=== PATIENT | male | born 1980 | race Caucasian/White ===

== ENCOUNTER → 2019-09-22 16:19 | Outpatient (CLI) | payer OTHER, SELFPAY ==
[2016-12-27 12:59] VITALS: BMI 30.3
--- NOTE | 2019-09-22 16:27 | RAD_ITS ---
HISTORY: back pain, no injury TECHNIQUE: Thoracic spine 2 views Number of images including paperwork: 3 COMPARISON: None FINDINGS: VERTEBRAE: No acute fracture. VERTEBRAL ALIGNMENT: No traumatic subluxation. DISKS AND JOINTS: Disc heights are largely preserved. Anterior osteophyte noted at T8-9. SOFT TISSUES: Unremarkable paraspinous soft tissues. RAD/Thoracic Spine 2 Views IMPRESSION: No acute osseous abnormality. at 0140 Reported and signed by: Yana Butcher MD Electronically Signed: Yana Butcher MD at 1:40 EST Tel , Service support ,
--- NOTE | 2019-09-22 16:30 | RAD_ITS ---
HISTORY: low back pain, no injury TECHNIQUE: Lumbar spine 2 views Number of images including paperwork: 2 COMPARISON: CT abdomen and pelvis 12/27/2016 FINDINGS: VERTEBRAE: No acute fracture. VERTEBRAL ALIGNMENT: No traumatic subluxation. DISKS AND JOINTS: No significant degenerative changes. SOFT TISSUES: Unremarkable paraspinous soft tissues. RAD/Lumbar Spine 2 or 3 Views IMPRESSION: No acute osseous abnormality. at 0138 Reported and signed by: Yana Butcher MD Electronically Signed: Yana Butcher MD at 1:38 EST Tel , Service support ,
== END ==
PROVIDERS: PCP Family Medicine; Referring Provider Anesthesiology Pain Medicine; Visit Provider Anesthesiology Pain Medicine
DX: M54.9 Dorsalgia, unspecified (principal)
CPT/HCPCS: 72070; 72100

== ENCOUNTER 2021-06-26 13:29 | Outpatient (CLI) | payer OTHER, SELFPAY ==
[2021-06-26] MEDS: 0.9% Saline Lock 10 ML Syringe IV (13:44)
[2021-06-26 13:48] VITALS: BP 121/82; PULSE 114; RESP 18; TEMP 36.7; O2SAT 97; BMI 27.2
[2021-06-26 14:29] VITALS: BP 113/82; PULSE 106; RESP 16; TEMP 36.9; O2SAT 96
[2021-06-26 15:21] VITALS: BP 143/90; PULSE 101; RESP 18; TEMP 36.9; O2SAT 99
== END 2021-06-26 15:29 | disposition home or self-care (01) ==
LOC: MS3OUT 13:31 → MS3 13:31
PROVIDERS: PCP Family Medicine; Referring Provider Nurse Practitioner Adult Health; Visit Provider Nurse Practitioner Adult Health
DX: Z23 Encounter for immunization (principal); U07.1 COVID-19
CPT/HCPCS: J7050; M0245; Q0245; A4216

== ENCOUNTER 2023-09-09 16:02 | Emergency (ER) | payer OTHER, SELFPAY ==
[2023-09-09 16:03] VITALS: BP 193/110; PULSE 113; RESP 20; TEMP 37.1; O2SAT 100; BMI 24.0
--- NOTE | 2023-09-09 17:10 | EDS_ITS ---
HPI History of Present Illness Chief Complaint: Abscess Informant: patient Onset/Context/Timing Onset: Days (5) Context: Gradual Onset Timing: Continuous Quality: Pressure Location: Anterior neck Worsened by: Nothing Relieved by: Nothing Narrative Narrative: Patient presents with abscess to his neck that has been getting progressively worse over the past 5 days. Patient states he has been using warm compresses and has been able to express some drainage from the area. 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 Patient states that his jewelry making instructor told him that it was too big for him to drain in the office and he would need to come to the emergency department for drainage. Patient denies any difficulty breathing or difficulty swallowing. Patient denies any fevers or chills. Patient states he did go to an urgent care a few days ago and was diagnosed with strep throat. Patient is currently on amoxicillin and a second antibiotic for the abscess and strep throat. [facility] Medical History (Updated 09/09/23 @ 18:[address] Enio Matute DO) Diabetes Home Medications ciprofloxacin HCl 250 mg tablet 250 mg PO BID 06/26/21 [History Last Taken Unknown] naproxen 500 mg tablet 500 mg PO BID 06/26/21 [History Last Taken Unknown] Allergy/AdvReac Type Severity Reaction Status Date / Time No Known Allergies Allergy Verified 09/09/23 16:04 Surgical History no surgical history no surgical history Social History Smoking Status: Never smoker ROS [facility] ED Constitutional Constitutional ED: Denies chills or fever(s) Eyes Eyes: Denies blurry vision or change in vision ENT ENT ED: Reports rhinorrhea and sore throat Cardiovascular Cardiovascular: Denies chest pain or palpitations Respiratory/Chest Respiratory/Chest: Reports cough; Denies dyspnea Gastrointestinal Gastrointestinal: Denies nausea or vomiting Genitourinary Genitourinary ED: Denies dysuria or hematuria Musculoskeletal Musculoskeletal: Reports back pain and neck pain Integumentary Reports abscess; Denies rash Neurologic Neurologic: Denies headache(s) or weakness Allergic/Immunologic Allergic/Immunologic ED: Denies mouth swelling or urticaria EXAM Physical Exam Const Vital Signs: 09/09/23 16:03 Temperature 98.8 F Temperature Source Temporal Pulse Rate 113 H Respiratory Rate 20 H Blood Pressure 193/110 H Blood Pressure Mean 137 Pulse Ox 100 Oxygen Delivery Method Room Air Positive well nourished and well developed General Appearance ED: well developed and NAD HEENT Reports moist mucous membranes HEENT Narrative: Oropharynx is clear. Airway is patent. Neck supple and no JVD Resp normal respiratory effort and clear to auscultation bilaterally Cardio regular rate and regular rhythm Neuro oriented x3, CN's II-XII intact bilaterally and no sensory deficits noted Sensorium / Orientation: alert Motor Exam: strength 5/5 throughout Psych mental status grossly normal Skin Skin Narrative: There is tenderness, induration, fluctuance, and erythema over the anterior neck to the right of midline. There is no active discharge or drainage noted. There is some mild warmth noted. MDM MDM MDM Narrative Medical decision making narrative: Informed consent was obtained for incision and drainage. Patient was given the opportunity ask questions. Patient had no further questions. The abscess area was anesthetized 1% plain lidocaine locally. A small linear incision was made using an 11 blade scalpel. There is a large amount of purulent drainage expressed. Loculations were broken up. The abscess was irrigated with copious amounts of normal saline. Iodoform packing was placed in the wound. Patient tolerated procedure well. Patient was instructed to keep the area clean. Patient was instructed to continue his antibiotics as prescribed until gone. Patient was instructed to follow-up with his primary care physician in 5 to 7 days. Patient understood and was agreeable with the plan. All questions were answered. Procedures Other Procedures Procedure(s): The area was cleaned with chlorhexidine prep. The area was anesthetized with 1% plain lidocaine locally. A small linear incision was made using an 11 blade scalpel. A large amount of purulent drainage was expressed. The wound was left open. Iodoform gauze was placed into the wound. Bacitracin dressing was applied. Patient tolerated the procedure well. Patient was instructed to continue to use warm compresses. Discharge Plan Triage Chief Complaint: Abscess ED Provider: Enio Matute Dx/Rx/DC Orders Clinical Impression: Diabetes, Abscess of skin of neck Instructions: ED Abscess Incision And Drainage Prescriptions: No Action ciprofloxacin HCl 250 mg Tablet 250 mg PO BID naproxen 500 mg Tablet 500 mg PO BID Primary Care Provider: Luc Olvera Referrals: Luc Olvera MD [Primary Care Provider] - 2 Days for wound check Disposition Disposition: Home, Self Care
[2023-09-09] MEDS: Lidocaine 1% (20 ml mdv) 20 ML Vial INFILT (17:25)
== END 2023-09-09 19:12 | disposition home or self-care (01) ==
PROVIDERS: Emergency Provider Emergency Medicine; PCP Family Medicine; Visit Provider Emergency Medicine
DX: L02.11 Cutaneous abscess of neck (principal); E11.9 Type 2 diabetes mellitus without complications
CPT/HCPCS: 10060; 99282

== ENCOUNTER → 2023-09-25 | Outpatient (CLI) | payer OTHER, SELFPAY ==
[2023-09-25 14:31] LABS: Absolute Lymphocyte Count 1.79 X10^3/uL (0.83-4.51); Basophil# 0.03 X10^3/uL; Basophil% 0.6 % (0-1); Eosinophil# 0.02 X10^3/uL; Eosinophils% 0.4 % (0-5); Hematocrit 40.9 % (40-54); Hemoglobin 13.6 g/dL (13.0-16.5); Lymphocyte # 1.79 X10^3/ul (0.83-4.51); Lymphocyte % 34.2 % (19-41); Mean Corp Hgb Conc 33.3 g/dL (32-36); Mean Corpuscular Hgb 31.3 pg (27.0-32.0); Mean Corpuscular Volume 94.2 fL (80-94); Mean Platelet Vol. 10.4 fl (6.2-12.0); Monocyte# 0.42 X10^3/uL; NRBC Flagged by Analyzer 0 % (0-5); Neutrophil # 2.95 X10^3/uL (2.7-7.7); Neutrophil % 56.4 % (47-70); Platelet Count 242 K/mm3 (150-450); RBC Distribution Width CV 12.3 % (11.6-14.6); RBC Distribution Width SD 42.4 fl (35.1-43.9); Red Blood Count 4.34 M/mm3 (4.6-6.2); White Blood Count 5.2 K/mm3 (4.4-11.0)
[2023-09-25 15:12] LABS: ALB/GLOB Ratio 0.9 RATIO (0.9-2.4); AST(SGOT) 7 U/L (15-37); Alanine Aminotransfer ALT/SGPT 17 U/L (16-61); Albumin, Serum 3.6 g/dL (3.2-5.0); Alkaline Phosphatase 81 U/L (45-117); Anion Gap 13 (5-15); BUN 12 mg/dL (7-18); BUN/Creat Ratio 18.1 RATIO (10-20); Calcium,Total 9.5 mg/dL (8.5-10.1); Chloride 102 mmol/L (98-107); Cholesterol 281 mg/dL (200); Creatinine, Serum 0.66 mg/dL (0.70-1.30); EST Glomerular Filtration Rate 138 mL/min (>60); Est Glom Filt Rate - Afr Amer 167 mL/min (>60); Globulin 4.1 g/dL (2.2-4.2); Glucose 256 mg/dL (74-106); High Density Lipoprotein 67 mg/dL; Potassium 4.2 mmol/L (3.5-5.1); Protein, Total 7.7 g/dL (6.4-8.2); Sodium Level 133 mmol/L (136-145); Thyroid Stim Hormone (TSH) 1.42 uIU/mL (0.358-3.74); Triglycerides 113 mg/dL; Very Low Density Lipoprotein 23 mg/dL (5-40)
[2023-09-25 15:34] LABS: Hemoglobin A1c 11.9 % (3.8-5.6)
== END | disposition home or self-care (01) ==
LOC: MFPLAB 13:32
PROVIDERS: PCP Family Medicine; Visit Provider Family Medicine
DX: I10 Essential (primary) hypertension (principal); E11.9 Type 2 diabetes mellitus without complications
CPT/HCPCS: 36415; 80053; 80061; 83036; 84443; 85025

== ENCOUNTER 2024-02-24 21:53 | Inpatient (IN) | payer OTHER, SELFPAY ==
[2024-02-24 21:54] VITALS: BP 149/107; PULSE 132; RESP 20; TEMP 36.6; O2SAT 99; BMI 24.2
--- NOTE | 2024-02-24 22:14 | EKG12_ITS ---
Test Reason : CP Blood Pressure : / mmHG Vent. Rate : 123 BPM Atrial Rate : 123 BPM P-R Int : 160 ms QRS Dur : 100 ms QT Int : 318 ms P-R-T Axes : 046 -36 054 degrees QTc Int : 455 ms Critical Test Result: STEMI Sinus tachycardia Left axis deviation Inferior infarct , possibly acute Anterolateral infarct , possibly acute ACUTE [place] / STEMI Abnormal ECG Confirmed by BALDO LOCKWOOD, SUSI ([id number]), editor dictionary GABRIEL BROWN ([id number]) on 02/25/2024 8:56:40 AM Referred By: Italo Souza Confirmed By:SUSI BLAND MD
--- NOTE | 2024-02-24 22:15 | EKG12_ITS ---
Test Reason : AM EKG Blood Pressure : / mmHG Vent. Rate : 086 BPM Atrial Rate : 086 BPM P-R Int : 156 ms QRS Dur : 094 ms QT Int : 348 ms P-R-T Axes : 044 -51 068 degrees QTc Int : 416 ms Critical Test Result: STEMI Normal sinus rhythm Left axis deviation Possible Lateral infarct , age undetermined Inferior-posterior infarct , possibly acute ACUTE [place] / STEMI Confirmed by BALDO LOCKWOOD, SUSI ([id number]), newspaper photo editor GABRIEL BROWN ([id number]) on 02/25/2024 1:26:20 PM Referred By: Italo Souza Confirmed By:SUSI BLAND MD
--- NOTE | 2024-02-24 22:16 | EDS_ITS ---
HPI History of Present Illness Chief Complaint: Chest Pain Detail of Chief Complaint: Chest pain Informant: patient Narrative Narrative: Patient presents to the emergency department complaint of chest pain that started around noon today. Patient states the pains been continuous. Denies any significant radiation other than to his armpit. He has had mild nausea. No vomiting. Patient is a type II diabetic and history of hypertension. There is significant family history heart disease. He himself is never had coronary artery disease or any type of intervention. He does not smoke. He denies recent travel or surgery. [facility] Medical History (Updated 02/24/24 @ 22:[address] Leonila Ram, DO) Diabetes Home Medications ?Medication ?Instructions ?Recorded ?Last Taken ?Type ciprofloxacin HCl 250 mg tablet 250 mg PO BID 06/26/21 Unknown History naproxen 500 mg tablet 500 mg PO BID 06/26/21 Unknown History lisinopril 5 mg tablet 5 mg PO DAILY 02/24/24 Unknown History metformin 1,000 mg tablet 1,000 mg PO BID 02/24/24 Unknown History metformin 500 mg tablet 500 mg PO BID 02/24/24 Unknown History semaglutide 0.25 mg or 0.5 mg (2 0.25 mg subcut QWEEK 02/24/24 02/22/24 History mg/3 mL) subcutaneous pen injector (Ozempic) Allergy/AdvReac Type Severity Reaction Status Date / Time No Known Allergies Allergy Verified 02/24/24 21:54 Social History Smoking Status: Never smoker ROS ROS ED Review of Systems ROS Unobtainable: other Constitutional Constitutional ED: Reports lethargy; Denies chills, fever(s), sweats or weight loss Eyes Eyes: Denies blurry vision, change in vision or diplopia ENT ENT ED: Denies rhinorrhea or sore throat Cardiovascular Cardiovascular: Reports chest pain; Denies orthopnea or racing heartbeat Respiratory/Chest Respiratory/Chest: Denies cough, dyspnea, dyspnea on exertion, orthopnea or sputum Gastrointestinal Gastrointestinal: Reports nausea; Denies abdominal pain, diarrhea or vomiting Genitourinary Genitourinary ED: Denies dysuria, hematuria or urinary frequency Musculoskeletal Musculoskeletal: Denies arthralgias, back pain, myalgias or neck pain Integumentary Denies abscess, Abrasions or rash Neurologic Neurologic: Denies headache(s) or weakness Psychiatric Psychiatric: Denies anxiety, depression or suicidal thoughts Endocrine Endocrinology: Denies polydipsia, polyphagia or polyuria Hematologic/Lymphatic Hematologic/Lymphatic: Denies easy bleeding, easy bruising or lymphadenopathy Allergic/Immunologic Allergic/Immunologic ED: Denies mouth swelling, tongue swelling or urticaria EXAM Physical Exam Const Vital Signs: 02/24/24 21:54 02/24/24 22:28 02/24/24 22:29 Temperature 97.8 F Temperature Source Temporal Pulse Rate 132 H 123 H 119 H Respiratory Rate 20 H 17 Blood Pressure 149/107 H 138/95 H Blood Pressure Mean 121 Pulse Ox 99 99 Oxygen Delivery Method Room Air Oxygen Flow Rate (L/min) 02/24/24 22:30 02/24/24 22:33 02/24/24 22:34 Temperature Temperature Source Pulse Rate 144 H 122 H Respiratory Rate 26 H 15 Blood Pressure 138/95 H 136/104 H Blood Pressure Mean 108 114 Pulse Ox 99 99 Oxygen Delivery Method Nasal Cannula Nasal Cannula Nasal Cannula Oxygen Flow Rate (L/min) 2 2 Positive well nourished and well developed General Appearance ED: well developed and NAD HEENT Reports TM's clear and moist mucous membranes normocephalic and atraumatic; Negative for trauma or tenderness Tympanic Membrane ED: Yes TM's clear Eyes PERRL and EOMs intact bilaterally General Eye ED: Negative for pale conjunctiva or scleral icterus Neck no lymphadenopathy, supple and no JVD General: Negative for tenderness Chest Wall inspection of chest normal and palpation of chest normal Chest: Negative for tenderness Resp normal respiratory effort and clear to auscultation bilaterally Effort and Inspection: Negative for respiratory distress or pain with movement Auscultation: Negative for rhonchi, wheezes or diminished lung sounds Cardio regular rate, regular rhythm, S1 normal heart sound, S2 normal heart sound and no murmurs Peripheral Pulses: pulses 2+ throughout GI normal to inspection, nondistended, normoactive bowel sounds, soft to palpation, non-tender, non-distended and no masses Back/Spine no CVA tenderness and no thoracic nor lumbar tenderness Extremity normal to inspection General Extremety ED: Negative for edema General Extremity: Negative for edema Neuro oriented x3, CN's II-XII intact bilaterally, no sensory deficits noted and gait normal Sensorium / Orientation: awake, alert, oriented to person, oriented to place and oriented to time Motor Exam: strength 5/5 throughout and strength abnormal Psych mental status grossly normal Skin no rashes or lesions noted and no wounds MDM MDM MDM Narrative Medical decision making narrative: Patient presents with chest pain since noon that is been continuous. EKG shows acute ST elevation ND. Discussed case with cardiology and will take patient to [facility]. Patient case discussed with hospitalist as well. CBC with differential, 7.9 with hemoglobin 14 and platelet count of 253. PT was 12.7 and INR 1.0. I did give patient aspirin as well as Brilinta and heparin. Patient will be taken to the [facility] Record Clerk. Cardiac enzymes pending. Patient was given morphine and had an inch Nitropaste placed to the anterior chest wall. Lab Data Labs: Laboratory Results - last 24 hr 02/24/24 22:15 WBC 7.9 RBC 4.43 L Hgb 14.3 Hct 41.2 MCV 93.0 MCH 32.3 H MCHC 34.7 RDW Std Deviation 39.7 RDW Coeff of Cassandra 11.6 Plt Count 253 MPV 9.5 Immature Gran % (Auto) 0.400 Neut % (Auto) 65.9 Lymph % (Auto) 23.0 Grand % (Auto) 9.5 Eos % (Auto) 0.8 Baso % (Auto) 0.4 Absolute Neuts (auto) 5.2 Absolute Lymphs (auto) 1.81 Nucleated RBC % 0 PT 12.7 INR 1.0 APTT 22.8 L EKG Initial EKG: Attestation: I personally reviewed and interpreted this EKG as follows: Comments: Sinus tachycardia with rate of [address] elevation ND inferiorly and anteriorly noted. Right-sided EKG obtained showed sinus rhythm with rate of 128 with no evidence for ST elevation in V4. I do not suspect an RV infarct. Critical Care Time Critical care time (excluding procedures): Including time spent:, Discussing w/Patient &/or Family/Biological Photographer, Discussing w/Consultants, Arranging Admission or Transfer, Performing Direct Patient Care at Bedside and - (15 minutes) Discharge Plan Triage Chief Complaint: Chest Pain ED Provider: Leonila Ram Dx/Rx/DC Orders Clinical Impression: ST elevation [place] (STEMI), Tachycardia, Hypertension Primary Care Provider: Luc Olvera Disposition Disposition: Acute Care Hospital [facility] [place]
--- NOTE | 2024-02-24 22:16 | ED.RN ---
called and notified of patient having a STEMI. She is on her way.
[2024-02-24] MEDS: Aspirin 81 MG TAB.CHEW 324 MG PO (22:18)
[2024-02-24] MEDS: TICAGRELOR 90 MG TABLET 180 MG PO (22:19)
[2024-02-24] MEDS: Heparin Injection (Vial) 5,000 UNIT/ML VIAL 4000 UNIT IV (22:20)
[2024-02-24 22:23] LABS: Absolute Lymphocyte Count 1.81 X10^3/uL (0.83-4.51); Absolute Neutrophil Count 5.2 X10^3/uL (2.0-7.7); Basophil# 0.03 X10^3/uL; Basophil% 0.4 % (0-1); Eosinophil# 0.06 X10^3/uL; Eosinophils% 0.8 % (0-5); Hematocrit 41.2 % (40-54); Hemoglobin 14.3 g/dL (13.0-16.5); Lymphocyte # 1.81 X10^3/ul (0.83-4.51); Mean Corp Hgb Conc 34.7 g/dL (32-36); Mean Corpuscular Hgb 32.3 pg (27.0-32.0); Mean Platelet Vol. 9.5 fl (6.2-12.0); Monocyte# 0.75 X10^3/uL; Monocyte% 9.5 % (0-10); NRBC Flagged by Analyzer 0 % (0-5); Neutrophil # 5.19 X10^3/uL (2.7-7.7); Neutrophil % 65.9 % (47-70); Platelet Count 253 K/mm3 (150-450); RBC Distribution Width CV 11.6 % (11.6-14.6); RBC Distribution Width SD 39.7 fl (35.1-43.9); Red Blood Count 4.43 M/mm3 (4.6-6.2); White Blood Count 7.9 K/mm3 (4.4-11.0)
[2024-02-24] MEDS: 0.9% Normal Saline (1000mL) 1,000 ML 150 ML IV (22:26)
[2024-02-24 22:28] VITALS: PULSE 123; RESP 17; O2SAT 99
[2024-02-24] MEDS: Morphine 4 MG/ML Syringe IV (22:28)
[2024-02-24 22:29] VITALS: BP 138/95; PULSE 119
[2024-02-24] MEDS: Nitroglycerin Oint 1 INCH PACKET TD (22:29)
[2024-02-24 22:30] VITALS: BP 138/95; PULSE 144; RESP 26; O2SAT 99
[2024-02-24] MEDS: Ondansetron 4 MG/2 ML Vial IV (22:30)
[2024-02-24 22:32] LABS: Prothrombin Time (Protime)PT. 12.7 SECONDS (11.7-14.9)
[2024-02-24 22:33] LABS: Partial Thromboplast Time 22.8 Seconds (24.1-36.2)
[2024-02-24 22:34] VITALS: BP 136/104; PULSE 122; RESP 15; O2SAT 99
[2024-02-24 22:39] VITALS: BP 139/114; PULSE 122; RESP 16; TEMP 36.6; O2SAT 98
[2024-02-24 23:06] LABS: Anion Gap 16 (5-15); BUN 11 mg/dL (7-18); BUN/Creat Ratio 12.7 RATIO (10-20); Calcium,Total 10.7 mg/dL (8.5-10.1); Chloride 95 mmol/L (98-107); Creatinine, Serum 0.86 mg/dL (0.70-1.30); EST Glomerular Filtration Rate 102 mL/min (>60); Est Glom Filt Rate - Afr Amer 123 mL/min (>60); Estimated Creatinine Clearance 116.74 ml/min; Glucose 314 mg/dL (74-106); Potassium 4.1 mmol/L (3.5-5.1); Sodium Level 132 mmol/L (136-145); Troponin-I HS 3242 pg/mL (3.0-78.0)
--- NOTE | 2024-02-24 23:49 | EKG12_ITS ---
Test Reason : CP Blood Pressure : / mmHG Vent. Rate : 128 BPM Atrial Rate : 128 BPM P-R Int : 158 ms QRS Dur : 080 ms QT Int : 274 ms P-R-T Axes : 040 -40 049 degrees QTc Int : 400 ms Critical Test Result: STEMI Sinus tachycardia Left axis deviation Low voltage QRS Inferior infarct , possibly acute Anterolateral infarct , age undetermined Right sided EKG Confirmed by BALDO LOCKWOOD, SUSI ([id number]), news video editor GABRIEL BROWN ([id number]) on 02/25/2024 8:57:35 AM Referred By: Italo Souza Confirmed By:SUSI BLAND MD
--- NOTE | 2024-02-24 23:49 | ECHOCS_ITS ---
Reason For Study: Chest Pain Procedure This was a 2D Doppler, Color Flow transthoracic echocardiogram. Contrast injection was performed. Exam performed portable in ICU/CCU. Left Ventricle Normal LV size. Mild concentric left ventricular hypertrophy. Severe segmental systolic dysfunction (see wall motion). Estimated LVEF 25 to 30%. Right Ventricle Normal RV size. Moderate global right ventricular systolic dysfunction. Atria The left and right atria are normal. Mitral Valve The mitral valve is structurally normal. No prolapse or stenosis seen. Tricuspid Valve Normal tricuspid valve. Aortic Valve Trisinus/trileaflet aortic valve. Pulmonic Valve The pulmonic valve is not well visualized. Great Vessels Mildly dilated aortic root. Pericardium/Pleural Trivial pericardial effusion. Medication Diluted definity 4ml given slow IV push to enhance endocardial definition. MMode/2D Measurements & Calculations LVIDd: 4.5 cm IVSd: 1.3 cm LVOT diam: 2.2 cm LVIDs: 3.9 cm LVPWd: 1.3 cm RVDd: 3.0 cm FS: 14.8 % LVOT area: 3.8 cm2 Ao root diam: 3.8 cm LAV(MOD-bp): 26.2 ml LVAd ap4: 34.1 cm2 LAV(MOD-bp) Indexed: 13.3 ml/m2 LVLd ap4: 8.5 cm LAV(MOD-sp2): 29.7 ml EDV(MOD-sp4): 112.0 ml LAV(MOD-sp4): 20.9 ml EDV(sp4-el): 116.2 ml LVAs ap4: 24.2 cm2 LVLs ap4: 7.4 cm ESV(MOD-sp4): 66.4 ml ESV(sp4-el): 67.0 ml EF(MOD-sp4): 40.7 % EF(sp4-el): 42.4 % SV(MOD-sp4): 45.6 ml SV(sp4-el): 49.3 ml LA A4 area: 10.6 cm2 RA A4 area: 7.2 cm2 TAPSE: 1.4 cm Time Measurements MV dec time: 0.19 sec Doppler Measurements & Calculations MV E max matthieu: 56.7 cm/sec Lat Peak E' Matthieu: 4.5 cm/sec Med Peak E' Matthieu: 4.2 cm/sec MV A max matthieu: 72.3 cm/sec E/E' lat: 12.7 E/E' med: 13.4 MV E/A: 0.78 MV dec slope: 300.4 cm/sec2 Ao V2 max: 93.4 cm/sec LV V1 max: 69.2 cm/sec Ao max P.5 mmHg LV V1 max P.9 mmHg Ao V2 mean: 76.8 cm/sec Ao mean P.5 mmHg Ao V2 VTI: 17.2 cm VÍCTOR(V,D): 2.9 cm2 PA V2 max: 54.7 cm/sec PA max PG (full): 0.10 mmHg ECHO/Echo Complete W/ Contrast Interpretation Summary There is a large sized apical, septal, inferior, posterior, and lateral wall mo tion abnormality with hypokinesis to akinesis of the segments. Mild concentric left ventricular hypertrophy. Estimated LVEF 25 to 30% Moderate global right ventricular systolic dysfunction. Mildly dilated aortic root. Trivial pericardial effusion. Ordering Physician: Italo Souza Referring Physician: Luc Olvera Performed By: Sobia Brown RVT, RDCS and Student
--- NOTE | 2024-02-24 23:57 | CON.PCM.CA_ITS ---
Assessment & Plan Assessment/Plan (1) ST elevation [place] (STEMI): PLAN: Emergent coronary angiography revealed totally occluded mid RCA. Successful percutaneous intervention was performed with balloon angioplasty, aspiration thrombectomy and placement of a drug-eluting stent with excellent results. GUADALUPE-3 flow was restored. Continue aspirin lifelong. Ticagrelor/clopidogrel treatment for at least 12 months. Start low-dose beta-blockers as tolerated. (2) Coronary artery disease: PLAN: See #1 above. Patient has severe disease in his left circumflex and proximal and mid LAD. For staged intervention, possibly as outpatient. (3) Hypertension: PLAN: Blood pressure borderline. Monitor. (4) Diabetes: PLAN: As per internal medicine. (5) Cardiomyopathy: PLAN: Severe LV systolic dysfunction secondary to #1 above. Infarct-related vessel superdominant RCA, supplying the LV apex and major part of the lateral wall. Check echocardiogram. Start low-dose beta-blockers. ACEI. Spironolactone. SGLT2 inhibitors. HPI Consult Data Date of Consult: 02/24/24 HPI Narrative Reason for Consultation: STEMI HPI Narrative: Gentleman with past medical history significant for diabetes mellitus and hypertension. Presented to the emergency room with complaints of anterior chest discomfort that started about 10 hours prior to presentation. Denies any radiation to the arms neck or jaw. No diaphoresis. Denies any associated shortness of breath. ECG done in the emergency room showed changes consistent with acute inferior lateral myocardial infarction. A STEMI alert was called. [facility] Medical History (Updated 02/25/24 @ 00:[address] Italo Souza MD) Diabetes Home Medications ?Medication ?Instructions ?Recorded ?Last Taken ?Type ciprofloxacin HCl 250 mg tablet 250 mg PO BID 06/26/21 Unknown History naproxen 500 mg tablet 500 mg PO BID 06/26/21 Unknown History lisinopril 5 mg tablet 5 mg PO DAILY 02/24/24 Unknown History metformin 1,000 mg tablet 1,000 mg PO BID 02/24/24 Unknown History metformin 500 mg tablet 500 mg PO BID 02/24/24 Unknown History semaglutide 0.25 mg or 0.5 mg (2 0.25 mg subcut QWEEK 02/24/24 02/22/24 History mg/3 mL) subcutaneous pen injector (Ozempic) Allergy/AdvReac Type Severity Reaction Status Date / Time No Known Allergies Allergy Verified 02/24/24 21:54 Social History Smoking Status: Never smoker Physical Exam Narrative Appears moderately distressed. Heart sounds 1 and 2 noted. Tachycardic. Chest clear to auscultation bilaterally. Alert oriented x 3. No ankle edema noted. Risk Stratification Risk Stratification Applicable: No Objective Data Vital Signs: Vital Signs Temp Pulse Resp BP Pulse Ox O2 Del Method O2 Flow Rate 97.9 F 122 H 16 139/114 H 98 Nasal Cannula 2 02/24/24 22:39 02/24/24 22:39 02/24/24 22:39 02/24/24 22:39 02/24/24 22:39 02/24/24 22:34 02/24/24 22:33 Oxygen Flow Rate (L/min) 2 Oxygen Delivery Method Nasal Cannula Weight: 173 lb 11.588 oz Body Mass Index (BMI) 24.2 Lab / Micro Data 02/24/24 22:15 02/24/24 22:15 Labs: Laboratory Results - last 24 hr 02/24/24 22:15: WBC 7.9, RBC 4.43 L, Hgb 14.3, Hct 41.2, MCV 93.0, MCH 32.3 H, MCHC 34.7, RDW Std Deviation 39.7, RDW Coeff of Cassandra 11.6, Plt Count 253, MPV 9.5, Immature Gran % (Auto) 0.400, Neut % (Auto) 65.9, Lymph % (Auto) 23.0, [place] % (Auto) 9.5, Eos % (Auto) 0.8, Baso % (Auto) 0.4, Absolute Neuts (auto) 5.2, Absolute Lymphs (auto) 1.81, Nucleated RBC % 0, PT 12.7, INR 1.0, APTT 22.8 L, S odium 132 L, Potassium 4.1, Chloride 95 L, Carbon Dioxide 21.0, Anion Gap 16 H, BUN 11, Creatinine 0.86, Estim Creat Clear Calc 116.74, Est GFR (MDRD) Af Amer 123, Est GFR (MDRD) Non-Af 102, BUN/Creatinine Ratio 12.7, Glucose 314 H, C alcium 10.7 H, Troponin I High Sens 3242 H* Cardiology Labs/Tests 02/24/24 22:15: WBC 7.9, RBC 4.43 L, Hgb 14.3, Hct 41.2, MCV 93.0, MCH 32.3 H, MCHC 34.7, Plt Count 253, MPV 9.5, Immature Gran % (Auto) 0.400, Neut % (Auto) 65.9, Lymph % (Auto) 23.0, [place] % (Auto) 9.5, Eos % (Auto) 0.8, Baso % (Auto) 0.4, Absolute Neuts (auto) 5.2, Nucleated RBC % 0, PT 12.7, INR 1.0, APTT 22.8 L , Sodium 132 L, Potassium 4.1, Chloride 95 L, Carbon Dioxide 21.0, Anion Gap 16 H, BUN 11, Creatinine 0.86, Est GFR (MDRD) Af Amer 123, Est GFR (MDRD) Non-Af 102, BUN/Creatinine Ratio 12.7, Glucose 314 H, Calcium 10.7 H Rhythm: EKG: ECHO: Stress Test: Cardiac Cath: PCI: CT Surgery: Holter monitor: EPS: PPM: CXR: Chest CT Scan:
[2024-02-25] VITALS (27 sets, daily range): BP systolic 92–128; BP diastolic 69–93; PULSE 85–111; RESP 15–27; TEMP 36.4–37.2; O2SAT 94–100; BMI 24.7
--- NOTE | 2024-02-25 00:13 | PCM.HP.STD ---
HPI - General General Date of Admission: 02/24/24 Date of Service: 02/25/24 Chief Complaint: Chest pain HPI Narrative LORETTA NUNEZ, is a 43 M who presented to [facility] ED on 02/24/2024 with chest pain. Found to have an inferior STEMI in the ED. STEMI alert was called and patient was taken emergently to the [facility]. Found to have an 100% mid RCA occlusion with drug-eluting stent x 1 placed with resolution of blood flow. Also found to have 70% proximal-mid and 80% mid-LAD lesions, and a 90% proximal LCX lesion. Estimated LVEF during cath was 35%. Patient was taken to the ICU post-cath in stable condition. I saw the patient at bedside shortly after coming from the [facility], multiple family members present. Patient was sitting up comfortably in bed, conversing normally, no acute distress. Was hemodynamically stable on room air. Patient denied any chest pain or shortness of breath currently. Stated he felt much better now than prior to the cath. Patient has history of type 2 diabetes and hypertension. On chart review, A1c in September was 11.9%. He is only on metformin and semaglutide. Patient does have a significant family history of heart disease but he had no history of heart issues prior to this admission. He does not smoke. No illicit drug use. Otherwise no acute concerns at this time. [facility] Medical History (Updated 02/25/24 @ 00:[address] Italo Souza MD) Diabetes Home Medications ?Medication ?Instructions ?Recorded ?Last Taken ?Type ciprofloxacin HCl 250 mg tablet 250 mg PO BID 06/26/21 Unknown History naproxen 500 mg tablet 500 mg PO BID 06/26/21 Unknown History lisinopril 5 mg tablet 5 mg PO DAILY 02/24/24 Unknown History metformin 1,000 mg tablet 1,000 mg PO BID 02/24/24 Unknown History metformin 500 mg tablet 500 mg PO BID 02/24/24 Unknown History semaglutide 0.25 mg or 0.5 mg (2 0.25 mg subcut QWEEK 02/24/24 02/22/24 History mg/3 mL) subcutaneous pen injector (Ozempic) Allergy/AdvReac Type Severity Reaction Status Date / Time No Known Allergies Allergy Verified 02/24/24 21:54 Social History Smoking Status: Never smoker ROS Constitutional Constitutional: Denies chills, fatigue, fever(s) or weakness Cardiovascular Cardiovascular: Denies chest pain, edema, palpitations or rapid heart rate Respiratory/Chest Respiratory/Chest: Denies cough, shortness of breath at rest or shortness of breath with exertion Gastrointestinal Gastrointestinal: Denies abdominal pain Vital Signs Vital Signs Vital Signs: 02/24/24 21:54 02/24/24 22:28 02/24/24 22:29 Temperature 97.8 F Temperature Source Temporal Pulse Rate 132 H 123 H 119 H Respiratory Rate 20 H 17 Blood Pressure 149/107 H 138/95 H Blood Pressure Mean 121 Pulse Ox 99 99 Oxygen Delivery Method Room Air Oxygen Flow Rate (L/min) 02/24/24 22:30 02/24/24 22:33 02/24/24 22:34 Temperature Temperature Source Pulse Rate 144 H 122 H Respiratory Rate 26 H 15 Blood Pressure 138/95 H 136/104 H Blood Pressure Mean 108 114 Pulse Ox 99 99 Oxygen Delivery Method Nasal Cannula Nasal Cannula Nasal Cannula Oxygen Flow Rate (L/min) 2 2 02/24/24 22:39 Temperature 97.9 F Temperature Source Pulse Rate 122 H Respiratory Rate 16 Blood Pressure 139/114 H Blood Pressure Mean 122 Pulse Ox 98 Oxygen Delivery Method Oxygen Flow Rate (L/min) Weight Weight: 78.8 kg Body Mass Index (BMI) 24.2 Physical Exam Const alert, oriented x3, no apparent distress, average body habitus, healthy appearing and well nourished Constitutional Narrative: Pleasant middle-age male, sitting up comfortably in bed, conversing normally, no acute distress. General Appearance: cooperative, comfortable, well kempt and well developed HEENT normocephalic, head/scalp atraumatic, hearing grossly normal bilaterally, nasal mucous membranes and turbinates normal and moist oral mucous membranes Eyes PERRL, EOMs intact bilaterally and conjunctivae normal Neck full ROM Chest inspection of chest normal Resp normal respiratory effort, normal air movement, no use of accessory muscles and clear to auscultation bilaterally Cardio no murmurs and peripheral pulses 2+ throughout Cardio Narrative: Tachycardic, regular rhythm. GI normal to inspection, nondistended, normoactive bowel sounds, soft to palpation, non-tender and non-distended Back/Spine normal ROM Extremity normal to inspection, full ROM and no pedal edema Skin no rashes or lesions noted Neuro moves all extremities and no focal motor deficits Speech: speech normal Psych mental status grossly normal Results Lab / Micro Data 02/24/24 22:15 02/24/24 22:15 Labs: Laboratory Results - last 24 hr 02/24/24 22:15: WBC 7.9, RBC 4.43 L, Hgb 14.3, Hct 41.2, MCV 93.0, MCH 32.3 H, MCHC 34.7, RDW Std Deviation 39.7, RDW Coeff of Cassandra 11.6, Plt Count 253, MPV 9.5, Immature Gran % (Auto) 0.400, Neut % (Auto) 65.9, Lymph % (Auto) 23.0, [place] % (Auto) 9.5, Eos % (Auto) 0.8, Baso % (Auto) 0.4, Absolute Neuts (auto) 5.2, Absolute Lymphs (auto) 1.81, Nucleated RBC % 0, PT 12.7, INR 1.0, APTT 22.8 L, Sodium 132 L, Potassium 4.1, Chloride 95 L, Carbon Dioxide 21.0, Anion Gap 16 H, BUN 11, Creatinine 0.86, Estim Creat Clear Calc 116.74, Est GFR (MDRD) Af Amer 123, Est GFR (MDRD) Non-Af 102, BUN/Creatinine Ratio 12.7, Glucose 314 H, Calcium 10.7 H, Troponin I High Sens 3242 H* Assessment & Plan Assessment/Plan (1) ST elevation [place] (STEMI): (2) Cardiomyopathy: (3) Diabetes: PLAN: Plan Patient is a 43-year-old male who presented [facility] ED on 02/24/2024 with chest pain. 1. Inferior STEMI, suspected new onset HFrEF, history of hypertension ? Admit under inpatient status to the ICU. Cardiology following. Presented with chest pain, found to have an inferior STEMI on EKG. Left heart cath showed 100% mid RCA occlusion s/p RHIANNON x 1 placed. Also found to have 70% proximal-mid and 80% mid-LAD lesions, and a 90% proximal LCX lesion. Estimated LVEF during cath was 35%. Echo ordered. Continuous cardiac monitoring. Lipid profile, A1c, TSH ordered. Per cardiology, started on GDMT with aspirin, Brilinta, atorvastatin, Coreg, lisinopril, spironolactone and empagliflozin. Planning for staged PCI of LAD and left circumflex, unclear on timing of this. Appreciate further cardiology recommendations. 2. Poorly controlled type 2 diabetes mellitus with hyperglycemia ? Home regimen of metformin 1000 mg twice daily, semaglutide 0.25 mg weekly. Last A1c 11.9% in September. Repeat A1c ordered. Blood glucose in 300s on admit. Will start Lantus 20 units at night and Humalog 7 units with meals plus sliding scale insulin. Adjust as needed. Discussed with patient and family that given his uncontrolled diabetes, he will likely need to start insulin therapy on discharge. DVT prophylaxis: Lovenox CODE STATUS: Full code, verified Expected disposition: Home, 2 to 3 days Total clinical time spent by myself addressing the patient's medical issues, reviewing all the data, and collaborating with patient's care team: 55 minutes. Charges/Coding Visit Charges Inpatient E&M: 92716 Init Hosp L2
--- NOTE | 2024-02-25 00:20 | CL.I_ITS ---
Patient Name: LORETTA NUNEZ Study Date: 02/24/2024 Performing: Italo Souza MD Ht: 71 inches 180.34 cm : 1980 Wt: 173.72 lbs 78.8 kg Age: 43 Gender: male BSA: 1.99 PROCEDURE(S) PERFORMED DC01-(96787)LHC/COR/LV IC16-(70660/[id number])AMI, RHIANNON OR PTCA, ARTERY/GRAFT, SINGLE VESSEL CLINICAL PROFILE AND CO-MORBIDITIES Heart Failure: None CAD Presentations: STEMI. Symptom onset Date/Time: 02/24/2024 12:00:00 Time Estimated CONCLUSIONS 100% Mid RCA 70% Prox Mid, 80% Mid LAD 90% Prox LCX LVEF 35% 3.5x22 mm, post-dilated using 3.75 mm balloon RECOMMENDATIONS ASA Indefinitley Brilinta for at least 12 months Staged PCI to LAD/LCX DESCRIPTION OF PROCEDURE The patient arrived to the procedure lab. The risks and benefits of the procedure as well as a full description of our services here and lack of surgical backup were fully explained to the patient and/or their significant other prior to the catheterization. The Timeout was completed, verifying the correct patient and procedure. The patient's procedural site was prepped and draped in the usual fashion. Local anesthetic was given subcutaneously to right radial region with Lidocaine 2%. Using a modified Seldinger technique, arterial access was obtained via the right radial artery, a 6Fr sheath was inserted.. Right Coronary Artery selective angiography was then performed in multiple views using a 5 Fr. 4.0 Manley catheter. Left Coronary Artery selective angiography was performed in multiple views using a 5 Fr. 4.0 Manley catheterThe images were reviewed and options discussed. A decision was then made to proceed with an Intervention, IVUS or other adjunct procedure. jr4 Guide catheter was inserted and engaged into the RCA. runthrough Guide wire was advanced to the RCA. emerge 2.5 x 15 Balloon catheter was advanced across lesion in the right coronary, proximal. PTCA balloon inflated at 14 atms for 7 secs. Angiogram performed post balloon dilatation. emerge 3.00 x 20 Balloon catheter was advanced across lesion in the right coronary, prox. PTCA balloon inflated at 10 atms for 6 secs. PTCA balloon inflated at 14 atms for 12 secs. maritza 3.5 x 22 Drug Eluting stent was advanced across the lesion in the right coronary, prox. Angiogram performed post stent deployment. nc emerge 3.75 x 20 Balloon catheter was inserted post stent. Angiogram performed post balloon dilatation. The arterial sheath was pulled and a TR Band was applied for hemostasis CORONARY ANGIOGRAPHY DOMINANCE: Right Dominant LEFT HEART ASSESSMENT Left Ventricular Ejection Fraction: by LV Gram 35 % LVEDP: 24 mmHg LEFT MAIN: No significant disease noted LEFT ANTERIOR DESCENDING ARTERY: LAD: Tubular 70% Proximal lesion in LAD Tubular 80% Mid lesion in LAD RIGHT CORONARY ARTERY: RCA: Tubular 30% Proximal lesion in RCA Complex Thrombus 100% Mid lesion in RCA INTERVENTION INFORMATION LESION SITE: RCA (Mid) Lesion Complexity: High/C, thrombus present: Yes, lesion length: 20 mm, culprit lesion: Yes Pre Stenosis: 100 % Pre intervention GUADALUPE flow: 0 PROCEDURE: Drug Eluting Stent with pre and post dilatation, Aspiration thrombectomy Post Stenosis: 0 % Post intervention GUADALUPE flow: 3 Lesion Devices: Matthew Sci EMERGE MR 2.50x15 BALLOON Terumo .014 180cm Runthrough Extra Floppy straight Penumbra Penumbra engine canister Penumbra Indigo Penumbra CAT Rx 140cm large lumen Matthew Sci EMERGE MR 3.00x20 BALLOON Cordis 6 Fr JR4 100cm Guide Catheter Matthew Sci NC EMERGE MR 3.75x20 BALLOON COMPLICATIONS No Complications PROCEDURE MEDICATIONS Fentanyl 25 mcg IV Oxygen: 2 L/min via nasal cannula Heparin 3000 unit(s) IV 02/24/2024 22:59:58 Heparin 2000 unit(s) IV 02/24/2024 23:00:24 Heparin 3000 unit(s) IV 02/24/2024 23:34:49 Metoprolol 10 mg 02/24/2024 22:59:54 Verapamil 2.5mg, Ntg 200mcgs, given IA 02/24/2024 23:00:03 SUMMARY OF HEMODYNAMIC DATA Time AIR REST ECG 22:50:10 AO 107/80 (92) SA 22:57:46 LV 98/17, 21 23:41:47 LV 95/17, 24 23:41:57 LVp 99/23, 31 23:44:18 AOp 96/74 (84) 23:44:25 Signed By Italo Souza MD On 02/25/2024 00:19:36 Italo Souza MD
[2024-02-25] MEDS: EPTIFIBATIDE 75 MG/100 ML VIAL 13 MG CONT INF (00:41)
[2024-02-25] MEDS: 0.9% Normal Saline (1000mL) 1,000 ML 75 ML IV (00:42)
[2024-02-25] MEDS: Atorvastatin Calcium 80 MG Tablet PO ×2 (00:42→20:53)
[2024-02-25] MEDS: Insulin Glargine-YFGN 100 UNIT/ML Pen 20 UNIT SC (00:47)
[2024-02-25 01:08] LABS: Bedside Glucose 292 mg/dL (74-106)
[2024-02-25] MEDS: 0.9% Saline Lock 10 ML Syringe IV (03:06)
[2024-02-25 03:18] LABS: Hematocrit 36.3 % (40-54); Hemoglobin 12.5 g/dL (13.0-16.5); Mean Corp Hgb Conc 34.4 g/dL (32-36); Mean Corpuscular Hgb 32.1 pg (27.0-32.0); Mean Corpuscular Volume 93.3 fL (80-94); Mean Platelet Vol. 9.4 fl (6.2-12.0); Platelet Count 216 K/mm3 (150-450); RBC Distribution Width CV 11.8 % (11.6-14.6); RBC Distribution Width SD 39.9 fl (35.1-43.9); Red Blood Count 3.89 M/mm3 (4.6-6.2); White Blood Count 5.6 K/mm3 (4.4-11.0)
[2024-02-25 03:42] LABS: Thyroid Stim Hormone (TSH) 1.37 uIU/mL (0.358-3.74)
[2024-02-25 03:44] LABS: ALB/GLOB Ratio 1.1 RATIO (0.9-2.4); AST(SGOT) 454 U/L (15-37); Alanine Aminotransfer ALT/SGPT 40 U/L (16-61); Albumin, Serum 3.3 g/dL (3.2-5.0); Alkaline Phosphatase 61 U/L (45-117); Anion Gap 13 (5-15); BUN 10 mg/dL (7-18); BUN/Creat Ratio 14.2 RATIO (10-20); Calcium,Total 9.5 mg/dL (8.5-10.1); Chloride 95 mmol/L (98-107); Cholesterol 165 mg/dL (200); EST Glomerular Filtration Rate 129 mL/min (>60); Est Glom Filt Rate - Afr Amer 156 mL/min (>60); Estimated Creatinine Clearance 139.05 ml/min; Globulin 3.1 g/dL (2.2-4.2); Glucose 334 mg/dL (74-106); High Density Lipoprotein 55 mg/dL; Potassium 4.3 mmol/L (3.5-5.1); Protein, Total 6.4 g/dL (6.4-8.2); Sodium Level 130 mmol/L (136-145); Triglycerides 217 mg/dL; Very Low Density Lipoprotein 43 mg/dL (5-40)
[2024-02-25 07:12] LABS: Hemoglobin A1c 9.7 % (3.8-5.6)
[2024-02-25] MEDS: Lisinopril 2.5 MG Tablet PO (07:52)
[2024-02-25] MEDS: Carvedilol 3.125 MG TABLET PO ×2 (07:52→16:18)
[2024-02-25] MEDS: TICAGRELOR 90 MG TABLET PO ×2 (07:52→20:53)
[2024-02-25] MEDS: Aspirin E.C. 81 MG Tablet PO (07:52)
[2024-02-25] MEDS: Empagliflozin 10 MG Tablet PO (07:52)
[2024-02-25] MEDS: Insulin Lispro 100 UNIT/ML INSULN.PEN 7 UNIT SC (07:56)
[2024-02-25] MEDS: Insulin Lispro 100 UNIT/ML INSULN.PEN SC ×3 (07:57→16:16)
--- NOTE | 2024-02-25 07:59 | QUALITY_ITS ---
STEMI STEMI ED Door Time / Other REG STEMI EKG Time (1) ST elevation [place] (STEMI): Acute ~02/24/24 21:53 Balloon/Aspiration Date-Time Date of Balloon/Aspiration:: 02/24/24 Time of Balloon/Aspiration:: 23:03
--- NOTE | 2024-02-25 07:59 | ECQM.STEMI ---
STEMI STEMI ED Door Time / Other REG STEMI EKG Time (1) ST elevation [place] (STEMI): Acute ~02/24/24 21:53 Balloon/Aspiration Date-Time Date of Balloon/Aspiration:: 02/24/24 Time of Balloon/Aspiration:: 23:03
--- NOTE | 2024-02-25 08:50 | CRPH1.INST_ITS ---
General Education Discussed with Patient CAD and cardiac anatomy and function:: Patient communicates acknowledgment Explanation of diagnoses and procedures:: Patient communicates acknowledgment Sign/Symptoms of UT:: Patient communicates acknowledgment Antiplatelet therapy: Patient communicates acknowledgment Proper use of NTG-SL: Patient communicates acknowledgment Emergency procedures and activation of EMS: Patient communicates acknowledgment Compliance of all prescribed medications: Patient communicates acknowledgment Smoking Risk Factors Patient Nicotine/Smoking Risk Factors Are:: Never smoked Dyslipidemia Risk Factors Patient Dyslipidemia Risk Factors Are:: Total Cholesterol, Triglycerides, HDL and LDL Recommendations Recommendations Include:: Lipid profile provided Response Code Dyslipidemia Response Code:: Patient communicates acknowledgment Overweight/Obesity Risk Factors Patient Overweight/Obesity Risk Factors Are:: BMI Normal [24-29 & > 65 years old] Recommendations Recommendations Include:: Weight loss of 5-10%, Reduced calorie diet and Exercise 5-7 times/week Response Code Overweight/Obesity:: Patient communicates acknowledgment Hypertension Recommendations Recommendations Include:: BP <130/80 if diabetic, DASH dietary guidelines, Decrease/maintain normal body weight and Moderation of ETOH Response Code Hypertension:: Patient communicates acknowledgment Diabetes Risk Factors Patient Diabetes Risk Factors Are:: Elevated blood sugars Recommendations Recommendations Include:: Maintain fasting blood sugars 70-110 md/dL, Maintain HgbA1c of 6% or less, Monitor blood sugar as prescribed, Diabetic dietary guidelines and Decrease/maintain body weight Response Code Diabetes:: Patient communicates acknowledgment Metabolic Syndrome Risk Factors Patient Metabolic Syndrome Risk Factors Are [3 of 5]:: Fasting blood sugar > 100 mg/dL, Waist circumference > 35 [female] or 40 [male], High triglyceride >150, Hypertension and Low HDL <40 [male] or < 50 [female] Recommendations Recommendations Include:: Patient is diabetic and Encouraged follow-up with Primary Care Physician Response Code Metabolic Syndrome Response Code:: Patient communicates acknowledgment Sedentary Risk Factors Patient Sedentary Risk Factors Are:: Lack of regular exercise Recommendations Recommendations Include:: Aerobic exercise 5-7 times/week for 20-30 minutes c ontinuously, Benefits of regular exercise, Discussed home walking program and Monitored Outpatient Cardiac Rehab Response Code Sedentary Response Code:: Patient communicates acknowledgment Stress Recommendations Recommendations Include:: Identification of stressors, and assessment of coping skills and Stress management techniques Response Code Stress Response Code:: Patient communicates acknowledgment
--- NOTE | 2024-02-25 08:50 | CRPHASE1_ITS ---
Patient Communication Patient Information PHII Cardiac Rehab Discussed with Patient:: Yes Guide to Cardiac Rehab Given to Patient:: Yes Cardiac Rehab Facility Choice List Given to Patient:: Yes Communication to Cardiac Rehab Choice Program [facility] CR PHII:: Communication Given to CR Brim Pouncing Machine Operator:: Italo Souza Phase II Cardiac Rehab:: Yes Sessions:: 36 sessions - 3 days/wk, 12 weeks Cardiac Rehabilitation Info Program Information Cardiac Rehabilitation Program Information: Cardiac Rehab The cardiac rehab team at [facility] consists of highly skilled exercise physiologists, nurses, respiratory therapists and physicians working together with you. Our purpose is to help you have a full recovery and achieve the goals you set for yourself. Over the years many of our patients have returned to activities they assumed they would never do again! We can help restore your confidence and motivation to make lifestyle changes that can have a significant impact on your health and quality of life! We can help answer questions and concerns you may have about exercise, lifestyle, medications, diet, stress and anxiety which are common following a hospitalization. WE monitor ECG and vital signs during exercise and discuss your progress with you and report to your physician(s). Cardiac Rehab is proven to help reduce readmissions, improve functional capacity and lower recurrence of problems with your heart. Our Cardiac Rehab program is Certified by the [place] [employer] Pulmonary [employer] (AACVPR) and Accredited by the [place] [employer] through our [facility]. You can contact us at . We invite you to call us with your questions or to get started in our program. If you have other questions or concerns be sure to ask your physician/provider during your follow-up visit. WE look forward to seeing you!
--- NOTE | 2024-02-25 10:00 | EKG12_ITS ---
Test Reason : GW Blood Pressure : / mmHG Vent. Rate : 087 BPM Atrial Rate : 087 BPM P-R Int : 158 ms QRS Dur : 098 ms QT Int : 366 ms P-R-T Axes : 132 229 173 degrees QTc Int : 440 ms Critical Test Result: STEMI Suspect arm lead reversal, interpretation assumes no reversal Normal sinus rhythm Right Sided EKG Lateral infarct , age undetermined Inferior infarct Acute ACUTE LA / STEMI Consider right ventricular involvement in acute inferior infarct Abnormal ECG When compared with ECG of 24-FEB-2024 22:17, MANUAL COMPARISON REQUIRED, DATA IS UNCONFIRMED Confirmed by BALDO LOCKWOOD, SUSI ([id number]), international editorial producer GABRIEL BROWN ([id number]) on 02/25/2024 1:26:01 PM Referred By: Italo Souza Confirmed By:SUSI BLAND MD
--- NOTE | 2024-02-25 11:11 | PCM.PN.HOSP ---
Reason for Visit Reason for Visit: Diagnoses Type 2 diabetes mellitus without complications (02/25/24) Essential (primary) hypertension (02/25/24) ST elevation (STEMI) myocardial infarction of unspecified site (02/25/24) 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 (02/25/24) Cardiomyopathy, unspecified (02/25/24) Objective Data Objective Data Vital Signs: Vital Signs Temp Pulse Resp BP Pulse Ox O2 Del Method O2 Flow Rate 98.0 F 108 H 15 115/85 H 100 Room Air 2 02/25/24 08:09 02/25/24 08:09 02/25/24 08:09 02/25/24 08:09 02/25/24 08:09 02/25/24 08:09 02/24/24 22:33 Oxygen Flow Rate (L/min) 2 Oxygen Delivery Method Room Air Weight: 172 lb 13.478 oz Body Mass Index (BMI) 24.7 Intake & Output: Intake and Output for Last 24 Hours 02/23/24 02/24/24 02/25/24 23:59 23:59 23:59 Intake Total 872.62 / 872.62 Output Total 400 / 400 Balance 472.62 / 472.62 Lab / Micro Data 02/25/24 03:10 02/25/24 03:10 Labs: Laboratory Results - last 24 hr 02/24/24 22:15: WBC 7.9, RBC 4.43 L, Hgb 14.3, Hct 41.2, MCV 93.0, MCH 32.3 H, MCHC 34.7, RDW Std Deviation 39.7, RDW Coeff of Cassandra 11.6, Plt Count 253, MPV 9.5, Immature Gran % (Auto) 0.400, Neut % (Auto) 65.9, Lymph % (Auto) 23.0, Gila % (Auto) 9.5, Eos % (Auto) 0.8, Baso % (Auto) 0.4, Absolute Neuts (auto) 5.2, Absolute Lymphs (auto) 1.81, Nucleated RBC % 0, PT 12.7, INR 1.0, APTT 22.8 L, Sodium 132 L, Potassium 4.1, Chloride 95 L, Carbon Dioxide 21.0, Anion Gap 16 H, BUN 11, Creatinine 0.86, Estim Creat Clear Calc 116.74, Est GFR (MDRD) Af Amer 123, Est GFR (MDRD) Non-Af 102, BUN/Creatinine Ratio 12.7, Glucose 314 H, Calcium 10.7 H, Troponin I High Sens 3242 H* 02/25/24 00:46: POC Glucose 292 H 02/25/24 03:10: WBC 5.6, RBC 3.89 L, Hgb 12.5 L, Hct 36.3 L, MCV 93.3, MCH 32.1 H, MCHC 34.4, RDW Std Deviation 39.9, RDW Coeff of Cassandra 11.8, Plt Count 216, MPV 9.4, Sodium 130 L, Potassium 4.3, Chloride 95 L, Carbon Dioxide 22.0, Anion Gap 13, BUN 10, Creatinine 0.70, Estim Creat Clear Calc 139.05, Est GFR (MDRD) Af Amer 156, Est GFR (MDRD) Non-Af 129, BUN/Creatinine Ratio 14.2, Glucose 334 H, Hemoglobin A1c 9.7 H, Calcium 9.5, Total Bilirubin 0.60, AST 454 H, ALT 40, Alkaline Phosphatase 61, Total Protein 6.4, Albumin 3.3, Globulin 3.1, Albumin/Globulin Ratio 1.1, Triglycerides 217 H, Cholesterol 165, LDL Cholesterol 67, VLDL Cholesterol 43 H, HDL Cholesterol 55, TSH 1.37 Physical Exam Narrative Seen and examined. Patient was admitted yesterday with peripheral wall STEMI and had emergent cardiac cath and stent put into the RCA as per STEMI protocol Patient not really chest pain or shortness of breath. Discussed with patient's near the bedside. Patient ordered antihypertensive medication. Does not measure blood pressure at home currently blood pressure on lower side. Physical exam General: Alert, Oriented x3, Cooperative HEENT: Atraumatic, PERRLA, EOMI, Normocephalic Oral: Oral mucosa moist. No Gingival or Mucosal Lesions/ Ulcerations Neck: Supple, No JVD, Negative Carotid Bruits Chest wall/Lungs: Air entry diminished in bilateral lung bases. No crepitation/rhonchi Cardiovascular: Regular rate, Regular Rhythm, Normal S1, Normal S2, No M/G/R Abdomen: Bowel Sounds Present, Soft, Non Tender, Non-Distended : No dysuria. No renal angle tenderness. No suprapubic tenderness. Extremities: No edema, Capillary Refill Less than 3 Seconds Skin: No rashes, No breakdown Musculoskeletal: No Tenderness to Palpation of Joints or Extremities Neurological: Cranial nerves II-XII grossly intact, DTR 2+/4. No acute focal neurological deficit. Psych/Mental Status: Normal Affect, Appropriate. Assessment & Plan Assessment/Plan (1) ST elevation [place] (STEMI): (2) Cardiomyopathy: (3) Diabetes: PLAN: Plan Patient is a 43-year-old male who presented [facility] ED on 02/24/2024 with chest pain. Twelve-lead EKG individually reviewed and shows sinus tachycardia, LAD, ST elevation in leads V3, V4, V6, II 3 and aVF consistent with inferior, possible acute anterolateral NSTEMI. Patient denied prior history of AK or angina. 1. Inferior STEMI, suspected new onset HFrEF, history of hypertension ? Admit under inpatient status to the ICU. Left heart cath showed 100% mid RCA occlusion s/p RHIANNON x 1 placed. Also found to have 70% proximal-mid and 80% mid-LAD lesions, and a 90% proximal LCX lesion. Estimated LVEF during cath was 35%. Echo ordered. Continuous cardiac monitoring. Lipid profile shows triglyceride 217, LDL 67, HDL 55. TSH 1.37. The patient is started on aspirin, Brilinta, atorvastatin, Coreg, lisinopril, spironolactone and empagliflozin. Planning for staged PCI of LAD and left circumflex, unclear on timing of this. Appreciate further cardiology recommendations. 2. Poorly controlled type 2 diabetes mellitus with hyperglycemia. ? Home regimen of metformin 1000 mg twice daily, semaglutide 0.25 mg weekly, hold it. Last A1c 11.9% in September. Repeat A1c 9.7%. Blood glucose in 300s on admit. Started Lantus 20 units at night and Humalog 7 units with meals plus sliding scale insulin. Adjust as needed. Discussed with patient and family that given his uncontrolled diabetes, he will likely need to start insulin therapy on discharge. DVT prophylaxis: Lovenox CODE STATUS: Full code, verified Expected disposition: Home, 2 to 3 days T002/24/24 22:15: WBC 7.9, RBC 4.43 L, Hgb 14.3, Hct 41.2, MCV 93.0, MCH 32.3 H, MCHC 34.7, RDW Std Deviation 39.7, RDW Coeff of Cassandra 11.6, Plt Count 253, MPV 9.5, Immature Gran % (Auto) 0.400, Neut % (Auto) 65.9, Lymph % (Auto) 23.0, Gila % (Auto) 9.5, Eos % (Auto) 0.8, Baso % (Auto) 0.4, Absolute Neuts (auto) 5.2, Absolute Lymphs (auto) 1.81, Nucleated RBC % 0, PT 12.7, INR 1.0, APTT 22.8 L, Sodium 132 L, Potassium 4.1, Chloride 95 L, Carbon Dioxide 21.0, Anion Gap 16 H, BUN 11, Creatinine 0.86, Estim Creat Clear Calc 116.74, Est GFR (MDRD) Af Amer 123, Est GFR (MDRD) Non-Af 102, BUN/Creatinine Ratio 12.7, Glucose 314 H, Calcium 10.7 H, Troponin I High Sens 3242 H* 02/25/24 00:46: POC Glucose 292 H 02/25/24 03:10: WBC 5.6, RBC 3.89 L, Hgb 12.5 L, Hct 36.3 L, MCV 93.3, MCH 32.1 H, MCHC 34.4, RDW Std Deviation 39.9, RDW Coeff of Cassandra 11.8, Plt Count 216, MPV 9.4, Sodium 130 L, Potassium 4.3, Chloride 95 L, Carbon Dioxide 22.0, Anion Gap 13, BUN 10, Creatinine 0.70, Estim Creat Clear Calc 139.05, Est GFR (MDRD) Af Amer 156, Est GFR (MDRD) Non-Af 129, BUN/Creatinine Ratio 14.2, Glucose 334 H, Hemoglobin A1c 9.7 H, Calcium 9.5, Total Bilirubin 0.60, AST 454 H, ALT 40, Alkaline Phosphatase 61, Total Protein 6.4, Albumin 3.3, Globulin 3.1, Albumin/Globulin Ratio 1.1, Triglycerides 217 H, Cholesterol 165, LDL Cholesterol 67, VLDL Cholesterol 43 H, HDL Cholesterol 55, TSH 1.37 Charges/Coding Visit Charges Inpatient E&M: 51224 Subs Hosp L3
--- NOTE | 2024-02-25 11:25 | RAD_ITS ---
HISTORY: SOB, pulmonary edema? TECHNIQUE: XR Chest 1 View. COMPARISON: 04/02/2016. FINDINGS: CARDIOMEDIASTINAL BORDERS: Cardiac silhouette within normal limits in size. Mediastinal contour unremarkable. LUNGS: Radiographically clear. PLEURA: No pleural effusion or pneumothorax seen. OSSEOUS STRUCTURES: Unremarkable. RAD/Chest 1 View (Portable) IMPRESSION: No acute cardiopulmonary process identified. Electronically Signed: Minnie Alvarado MD at 11:45 EDT ,
[2024-02-25 11:48] LABS: ACT Activated Clotting Time 287 sec (74-137)
[2024-02-25 11:48] LABS: ACT Activated Clotting Time 201 sec (74-137)
[2024-02-25 11:49] LABS: ACT Activated Clotting Time 177 sec (74-137)
[2024-02-25 11:55] LABS: Troponin-I HS > 125000 pg/mL (3.0-78.0)
--- NOTE | 2024-02-25 12:21 | CASEMGMT ---
RN?CM?[employer]?CM?to room to meet with patient for initial transition planning/care coordination?assessment.?RN?CM?introduced self and role at [facility].? Pt voices understanding and consents to?assessment?at this time.? Pt resting in bed in no distress at this time.? @ bedside. Pt is A/O at this time and answers all questions appropriately.?? Care providers, pharmacy, and demographics verified/updated at this time. PCP: Dr Russell @ [facility]. Specialists: None Preferred Pharmacy: [facility] @ [place]. Otherwise, goes to [facility] in [place] Insurance: MMO. Prescription Benefit:?Yes. Pt will dc home on Brilinta. Savings card provided and instructed on use. Made aware if refills are not affordable to discuss other possible options w/nurse general duty. Living Will/HPOA:?Pt does not currently have LW/HCPOA. Pt made aware that he can contact as an out-pt and make appt in the future if he decides he would like to talk with someone about this or would like to utilize [facility] social work for advanced directive completion.?? LNOK: [place] Living Arrangements: Lives w/ and 3 children. Independent. Transportation:?Pt and . DME: ?States has the following DME:? Pt has a glucometer w/supplies that he purchased OTC. Pt interested in script for glucometer so he look into getting one through his insurance. HHC/SNF: No hx of either. CCN/Pt Link: Discussed both of these w/pt and , as pt will most likely dc home on insulin. Pt also w/new Dx of CHF. Pt and state they be interested in one of these, but they are not sure and not sure which one. They are agreeable to referral to talk w/someone about these further and then will make a decision at that time. Pt wishes to return home and states has no further concerns with going home at time of discharge. ?CM?to follow for any further discharge planning/needs.? Pt and voice no further concerns/needs at this time.? Advised them to ask for?CM?if any further questions/concerns/needs arise.? They voice understanding. PLAN:?Home w/CCN or Pt Link? Follow for cost of Brilinta & refills and cost of insulin @ dc. Nursing to begin insulin/admin teaching. [place] BSN?RN?CM
[2024-02-25 12:24] LABS: Bedside Glucose 265 mg/dL (74-106)
[2024-02-25] MEDS: Spironolactone 25 MG Tablet 12.5 MG PO (12:30)
--- NOTE | 2024-02-25 14:16 | PCM.PN.CARD ---
Subjective Subjective Denies any chest pain or shortness of breath. Objective Data Vital Signs: Vital Signs Temp Pulse Resp BP Pulse Ox O2 Del Method O2 Flow Rate 98.0 F 99 16 98/76 99 Room Air 2 02/25/24 08:09 02/25/24 11:00 02/25/24 11:00 02/25/24 11:00 02/25/24 12:15 02/25/24 12:15 02/24/24 22:33 Oxygen Flow Rate (L/min) 2 Oxygen Delivery Method Room Air Weight: 172 lb 13.478 oz Body Mass Index (BMI) 24.7 Intake & Output: Intake and Output for Last 24 Hours 02/23/24 02/24/24 02/25/24 23:59 23:59 23:59 Intake Total 1232.62 / 1232.62 Output Total 800 / 800 Balance 432.62 / 432.62 Lab / Micro Data Attestation: I reviewed the patient's lab results. 02/25/24 03:10 02/25/24 03:10 Labs: Laboratory Results - last 24 hr 02/24/24 22:15: WBC 7.9, RBC 4.43 L, Hgb 14.3, Hct 41.2, MCV 93.0, MCH 32.3 H, MCHC 34.7, RDW Std Deviation 39.7, RDW Coeff of Cassandra 11.6, Plt Count 253, MPV 9.5, Immature Gran % (Auto) 0.400, Neut % (Auto) 65.9, Lymph % (Auto) 23.0, [place] % (Auto) 9.5, Eos % (Auto) 0.8, Baso % (Auto) 0.4, Absolute Neuts (auto) 5.2, Absolute Lymphs (auto) 1.81, Nucleated RBC % 0, PT 12.7, INR 1.0, APTT 22.8 L, Sodium 132 L, Potassium 4.1, Chloride 95 L, Carbon Dioxide 21.0, Anion Gap 16 H, BUN 11, Creatinine 0.86, Estim Creat Clear Calc 116.74, Est GFR (MDRD) Af Amer 123, Est GFR (MDRD) Non-Af 102, BUN/Creatinine Ratio 12.7, Glucose 314 H, Calcium 10.7 H, Troponin I High Sens 3242 H* 02/24/24 22:57: Activated Clotting Time 177 H 02/24/24 23:31: Activated Clotting Time 201 H 02/24/24 23:50: Activated Clotting Time 287 H 02/25/24 00:46: POC Glucose 292 H 02/25/24 03:10: WBC 5.6, RBC 3.89 L, Hgb 12.5 L, Hct 36.3 L, MCV 93.3, MCH 32.1 H, MCHC 34.4, RDW Std Deviation 39.9, RDW Coeff of Cassandra 11.8, Plt Count 216, MPV 9.4, Sodium 130 L, Potassium 4.3, Chloride 95 L, Carbon Dioxide 22.0, Anion Gap 13, BUN 10, Creatinine 0.70, Estim Creat Clear Calc 139.05, Est GFR (MDRD) Af Amer 156, Est GFR (MDRD) Non-Af 129, BUN/Creatinine Ratio 14.2, Glucose 334 H, Hemoglobin A1c 9.7 H, Calcium 9.5, Total Bilirubin 0.60, AST 454 H, ALT 40, Alkaline Phosphatase 61, Total Protein 6.4, Albumin 3.3, Globulin 3.1, Albumin/Globulin Ratio 1.1, Triglycerides 217 H, Cholesterol 165, LDL Cholesterol 67, VLDL Cholesterol 43 H, HDL Cholesterol 55, TSH 1.37 02/25/24 07:49: POC Glucose 265 H 02/25/24 10:07: Troponin I High Sens > 059789 H* Rhythm Strip Rhythm Strip: Sinus Tach Cardiology Labs/Tests 02/24/24 22:15: WBC 7.9, RBC 4.43 L, Hgb 14.3, Hct 41.2, MCV 93.0, MCH 32.3 H, MCHC 34.7, Plt Count 253, MPV 9.5, Immature Gran % (Auto) 0.400, Neut % (Auto) 65.9, Lymph % (Auto) 23.0, [place] % (Auto) 9.5, Eos % (Auto) 0.8, Baso % (Auto) 0.4, Absolute Neuts (auto) 5.2, Nucleated RBC % 0, PT 12.7, INR 1.0, APTT 22.8 L, Sodium 132 L, Potassium 4.1, Chloride 95 L, Carbon Dioxide 21.0, Anion Gap 16 H, BUN 11, Creatinine 0.86, Est GFR (MDRD) Af Amer 123, Est GFR (MDRD) Non-Af 102, BUN/Creatinine Ratio 12.7, Glucose 314 H, Calcium 10.7 H 02/25/24 03:10: WBC 5.6, RBC 3.89 L, Hgb 12.5 L, Hct 36.3 L, MCV 93.3, MCH 32.1 H, MCHC 34.4, Plt Count 216, MPV 9.4, Sodium 130 L, Potassium 4.3, Chloride 95 L, Carbon Dioxide 22.0, Anion Gap 13, BUN 10, Creatinine 0.70, Est GFR (MDRD) Af Amer 156, Est GFR (MDRD) Non-Af 129, BUN/Creatinine Ratio 14.2, Glucose 334 H, Hemoglobin A1c 9.7 H, Calcium 9.5, Total Bilirubin 0.60, Triglycerides 217 H, Cholesterol 165, LDL Cholesterol 67, VLDL Cholesterol 43 H, HDL Cholesterol 55 Rhythm: EKG: ECHO: Stress Test: Cardiac Cath: PCI: CT Surgery: Holter monitor: EPS: PPM: CXR: Chest CT Scan: Radiography Diagnostic Testing: Radiology Impression Echocardiogram 02/24/24 23:49 Interpretation Summary There is a large sized apical, septal, inferior, posterior, and lateral wall motion abnormality with hypokinesis to akinesis of the segments. Mild concentric left ventricular hypertrophy. Estimated LVEF 25 to 30% Moderate global right ventricular systolic dysfunction. Mildly dilated aortic root. Trivial pericardial effusion. Ordering Physician: Italo Souza Referring Physician: Luc Olvera Performed By: Kevin Judy [facility], [place] and Student Chest X-Ray 02/25/24 11:25 IMPRESSION: No acute cardiopulmonary process identified. Electronically Signed: Minnie Alvarado MD at 11:45 EDT Reading Location ID and State: [facility] / [place] Tel , Service support , Physical Exam Narrative Comfortable. Heart sounds 1 and 2 noted. Tachycardic. Chest clear to auscultation bilaterally. Alert oriented x 3. No ankle edema. Assessment & Plan Assessment/Plan (1) ST elevation [place] (STEMI): PLAN: Status post percutaneous intervention to the mid right coronary artery. Continue aspirin lifelong. Ticagrelor/clopidogrel treatment for at least 12 months. Start low-dose beta-blockers as tolerated. (2) Coronary artery disease: PLAN: See #1 above. Patient has severe disease in his left circumflex and proximal and mid LAD. For staged intervention, scheduled for tomorrow. (3) Cardiomyopathy: PLAN: Severe LV systolic dysfunction secondary to #1 above. Infarct-related vessel superdominant RCA, supplying the LV apex and major part of the lateral wall. Low-dose beta-blockers. ACEI. Spironolactone. SGLT2 inhibitors. (4) Hypertension: PLAN: Blood pressure borderline. Monitor. (5) Diabetes: PLAN: As per internal medicine.
[2024-02-25] MEDS: 0.9% Normal Saline (1000mL) 1,000 ML 15 ML IV (16:16)
[2024-02-25] MEDS: Insulin Lispro 100 UNIT/ML INSULN.PEN 10 UNIT SC (16:16)
[2024-02-25 16:43] LABS: Bedside Glucose 210 mg/dL (74-106)
[2024-02-25 17:02] LABS: Bedside Glucose 162 mg/dL (74-106)
[2024-02-25 21:16] LABS: Bedside Glucose 147 mg/dL (74-106)
[2024-02-26] VITALS (33 sets, daily range): BP systolic 80–132; BP diastolic 59–101; PULSE 102–128; RESP 10–30; TEMP 36.1–36.6; O2SAT 94–100; BMI 24.2
--- NOTE | 2024-02-26 07:19 | DCINST_ITS ---
Discharge Instructions Follow Up Care Test Results: Test results from this visit will be discussed in further detail at your follow- up appointment, if applicable. Discharge Plan Admission Admit Date/Time: 02/25/24 01:24 Attending Provider: Roderick Mendez Primary Care Provider: Kirk Russell Consulting Providers: Gaudencio Reddy; Italo Souza Discharge Orders/Prescriptions Prescriptions: No Action metformin 1,000 mg tablet 1,000 mg PO BID lisinopril 5 mg tablet 5 mg PO DAILY Ozempic 0.25 mg or 0.5 mg (2 mg/3 mL) pen injector 0.25 mg subcut QWEEK Referrals / Follow Up: Luc Olvera MD [Non-Staff] - Kirk Russell MD [Primary Care Provider] -
[2024-02-26] MEDS: Aspirin E.C. 81 MG Tablet PO (08:54)
[2024-02-26 08:55] LABS: Absolute Lymphocyte Count 1.97 X10^3/uL (0.83-4.51); Absolute Neutrophil Count 4.1 X10^3/uL (2.0-7.7); Basophil# 0.03 X10^3/uL; Basophil% 0.4 % (0-1); Eosinophil# 0.04 X10^3/uL; Eosinophils% 0.6 % (0-5); Hematocrit 39.7 % (40-54); Hemoglobin 13.4 g/dL (13.0-16.5); Lymphocyte # 1.97 X10^3/ul (0.83-4.51); Lymphocyte % 28.5 % (19-41); Mean Corp Hgb Conc 33.8 g/dL (32-36); Mean Corpuscular Volume 94.7 fL (80-94); Mean Platelet Vol. 9.7 fl (6.2-12.0); Monocyte# 0.79 X10^3/uL; Monocyte% 11.4 % (0-10); NRBC Flagged by Analyzer 0 % (0-5); Neutrophil # 4.06 X10^3/uL (2.7-7.7); Neutrophil % 58.7 % (47-70); Platelet Count 242 K/mm3 (150-450); RBC Distribution Width CV 11.7 % (11.6-14.6); Red Blood Count 4.19 M/mm3 (4.6-6.2); White Blood Count 6.9 K/mm3 (4.4-11.0)
[2024-02-26] MEDS: Carvedilol 3.125 MG TABLET PO ×2 (08:55→17:23)
[2024-02-26] MEDS: TICAGRELOR 90 MG TABLET PO ×2 (08:55→21:35)
[2024-02-26 09:17] LABS: Bedside Glucose 137 mg/dL (74-106)
[2024-02-26 09:22] LABS: Anion Gap 15 (5-15); BUN 13 mg/dL (7-18); BUN/Creat Ratio 15.3 RATIO (10-20); Calcium,Total 9.5 mg/dL (8.5-10.1); Chloride 99 mmol/L (98-107); Creatinine, Serum 0.85 mg/dL (0.70-1.30); EST Glomerular Filtration Rate 104 mL/min (>60); Est Glom Filt Rate - Afr Amer 125 mL/min (>60); Estimated Creatinine Clearance 114.51 ml/min; Glucose 151 mg/dL (74-106); Potassium 3.8 mmol/L (3.5-5.1); Sodium Level 134 mmol/L (136-145)
--- NOTE | 2024-02-26 09:51 | PN.HOSP_ITS ---
Reason for Visit Reason for Visit: Diagnoses Type 2 diabetes mellitus without complications (02/25/24) Essential (primary) hypertension (02/25/24) ST elevation (STEMI) myocardial infarction of unspecified site (02/25/24) Atherosclerotic heart disease of [place] coronary artery without angina pectoris (02/25/24) Cardiomyopathy, unspecified (02/25/24) Objective Data Objective Data Vital Signs: Vital Signs Temp Pulse Resp BP Pulse Ox O2 Del Method O2 Flow Rate 97.2 F L 110 H 17 92/74 98 Room Air 2 02/26/24 09:15 02/26/24 09:15 02/26/24 09:15 02/26/24 09:15 02/26/24 09:15 02/26/24 09:15 02/24/24 22:33 Oxygen Flow Rate (L/min) 2 Oxygen Delivery Method Room Air Weight: 168 lb 10.458 oz Body Mass Index (BMI) 24.2 Intake & Output: Intake and Output for Last 24 Hours 02/24/24 02/25/24 02/26/24 23:59 23:59 23:59 Intake Total 2193.37 / 2193.37 Output Total 1650 / 1650 650 / 650 Balance 543.37 / 543.37 -650 / -650 Lab / Micro Data 02/26/24 08:45 02/26/24 08:45 Labs: Laboratory Results - last 24 hr 02/24/24 22:57: Activated Clotting Time 177 H 02/24/24 23:31: Activated Clotting Time 201 H 02/24/24 23:50: Activated Clotting Time 287 H 02/25/24 07:49: POC Glucose 265 H 02/25/24 10:07: Troponin I High Sens > 124931 H* 02/25/24 12:25: POC Glucose 210 H 02/25/24 16:14: POC Glucose 162 H 02/25/24 20:52: POC Glucose 147 H 02/26/24 08:45: WBC 6.9, RBC 4.19 L, Hgb 13.4, Hct 39.7 L, MCV 94.7 H, MCH 32.0, MCHC 33.8, RDW Std Deviation 40.0, RDW Coeff of Cassandra 11.7, Plt Count 242, MPV 9.7, Immature Gran % (Auto) 0.400, Neut % (Auto) 58.7, Lymph % (Auto) 28.5, [place] % (Auto) 11.4 H, Eos % (Auto) 0.6, Baso % (Auto) 0.4, Absolute Neuts (auto) 4.1, Absolute Lymphs (auto) 1.97, Nucleated RBC % 0, Sodium 134 L, Potassium 3.8, Chloride 99, Carbon Dioxide 20.0 L, Anion Gap 15, BUN 13, Creatinine 0.85, Estim Creat Clear Calc 114.51, Est GFR (MDRD) Af Amer 125, Est GFR (MDRD) Non-Af 104, BUN/Creatinine Ratio 15.3, Glucose 151 H, Calcium 9.5 02/26/24 08:51: POC Glucose 137 H Radiography Diagnostic Testing: Radiology Impression Echocardiogram 02/24/24 23:49 Interpretation Summary There is a large sized apical, septal, inferior, posterior, and lateral wall motion abnormality with hypokinesis to akinesis of the segments. Mild concentric left ventricular hypertrophy. Estimated LVEF 25 to 30% Moderate global right ventricular systolic dysfunction. Mildly dilated aortic root. Trivial pericardial effusion. Ordering Physician: Italo Souza Referring Physician: Luc Olvera Performed By: Kevin Judy [facility], [place] and Student Chest X-Ray 02/25/24 11:25 IMPRESSION: No acute cardiopulmonary process identified. Electronically Signed: Minnie Alvarado MD at 11:45 EDT , Rhythm Strip Rhythm Strip: Sinus Tach Physical Exam Narrative Seen and examined. Overall patient did well yesterday. He feels relaxed with no chest pain or shortness of breath. BP in low 90s. Heart rate 110/min. Plan is to take for stage PCI for left circumflex and LAD Physical exam General: Alert, Oriented x3, Cooperative HEENT: Atraumatic, PERRLA, EOMI, Normocephalic Oral: Oral mucosa moist. No Gingival or Mucosal Lesions/ Ulcerations Neck: Supple, No JVD, Negative Carotid Bruits Chest wall/Lungs: Air entry diminished in bilateral lung bases. No crepitation/rhonchi Cardiovascular: Regular rate, Regular Rhythm, Normal S1, Normal S2, No M/G/R Abdomen: Bowel Sounds Present, Soft, Non Tender, Non-Distended : No dysuria. No renal angle tenderness. No suprapubic tenderness. Extremities: No edema, Capillary Refill Less than 3 Seconds Skin: No rashes, No breakdown Musculoskeletal: No Tenderness to Palpation of Joints or Extremities Neurological: Cranial nerves II-XII grossly intact, DTR 2+/4. No acute focal neurological deficit. Psych/Mental Status: Normal Affect, Appropriate. Assessment & Plan Assessment/Plan (1) ST elevation [place] (STEMI): (2) Cardiomyopathy: (3) Diabetes: PLAN: Plan Patient is a 43-year-old male who presented [facility] ED on 02/24/2024 with chest pain. Twelve-lead EKG individually reviewed and shows sinus tachycardia, LAD, ST elevation in leads V3, V4, V6, II 3 and aVF consistent with inferior, possible acute anterolateral NSTEMI. Patient denied prior history of KS or angina. 1. Inferior STEMI, suspected new onset HFrEF, history of hypertension ? Admit under inpatient status to the ICU. Left heart cath showed 100% mid RCA occlusion s/p RHIANNON x 1 placed. Also found to have 70% proximal-mid and 80% mid- LAD lesions, and a 90% proximal LCX lesion. Estimated LVEF during cath was 35%. Echo ordered. Continuous cardiac monitoring. Lipid profile shows triglyceride 217, LDL 67, HDL 55. TSH 1.37. The patient is started on aspirin, Brilinta, atorvastatin, Coreg, lisinopril, spironolactone and empagliflozin. Planning for staged PCI of LAD and left circumflex, 02/25: No acute issues overnight. BP on lower side. Heart rate 110s per minute. Patient is comfortable with no chest pain or pressure or shortness of breath. Patient is going for staged PCI of left circumflex and LAD. AST 454 possible due to [place]. Repeat liver chemistry. 2. Poorly controlled type 2 diabetes mellitus with hyperglycemia. ? Home regimen of metformin 1000 mg twice daily, semaglutide 0.25 mg weekly, hold it. Last A1c 11.9% in September. Repeat A1c 9.7%. Blood glucose in 300s on admit. Started Lantus 20 units at night and Humalog 7 units with meals plus sliding scale insulin. Adjust as needed. Discussed with patient and family that given his uncontrolled diabetes, he will likely need to start insulin therapy on discharge. Glucose is better controlled, around 140 mg/dL. DVT prophylaxis: Lovenox CODE STATUS: Full code, verified Hemoglobin A1c 9.7 H, Calcium 9.5, Total Bilirubin 0.60, AST 454 H, ALT 40, Alkaline Phosphatase 61, Total Protein 6.4, Albumin 3.3, Globulin 3.1, Albumin/Globulin Ratio 1.1, Triglycerides 217 H, Cholesterol 165, LDL Cholesterol 67, VLDL Cholesterol 43 H, HDL Cholesterol 55, TSH 1.37 Laboratory Results 02/24/24 22:57: Activated Clotting Time 177 H 02/24/24 23:31: Activated Clotting Time 201 H 02/24/24 23:50: Activated Clotting Time 287 H 02/25/24 07:49: POC Glucose 265 H 02/25/24 10:07: Troponin I High Sens > 179107 H* 02/25/24 12:25: POC Glucose 210 H 02/25/24 16:14: POC Glucose 162 H 02/25/24 20:52: POC Glucose 147 H 02/26/24 08:45: WBC 6.9, RBC 4.19 L, Hgb 13.4, Hct 39.7 L, MCV 94.7 H, MCH 32.0, MCHC 33.8, RDW Std Deviation 40.0, RDW Coeff of Cassandra 11.7, Plt Count 242, MPV 9.7, Immature Gran % (Auto) 0.400, Neut % (Auto) 58.7, Lymph % (Auto) 28.5, [place] % (Auto) 11.4 H, Eos % (Auto) 0.6, Baso % (Auto) 0.4, Absolute Neuts (auto) 4.1, Absolute Lymphs (auto) 1.97, Nucleated RBC % 0, Sodium 134 L, Potassium 3.8, Chloride 99, Carbon Dioxide 20.0 L, Anion Gap 15, BUN 13, Creatinine 0.85, Estim Creat Clear Calc 114.51, Est GFR (MDRD) Af Amer 125, Est GFR (MDRD) Non-Af 104, BUN/Creatinine Ratio 15.3, Glucose 151 H, Calcium 9.5 02/26/24 08:51: POC Glucose 137 H Charges/Coding Visit Charges Inpatient E&M: 19676 Subs Hosp L3
--- NOTE | 2024-02-26 10:00 | EKG12_ITS ---
Test Reason : am ekg Blood Pressure : / mmHG Vent. Rate : 111 BPM Atrial Rate : 111 BPM P-R Int : 160 ms QRS Dur : 086 ms QT Int : 348 ms P-R-T Axes : 045 -56 050 degrees QTc Int : 473 ms Critical Test Result: STEMI Sinus tachycardia Left axis deviation Inferior infarct (cited on or before 24-FEB-2024) Recent inferior wall [place] Abnormal ECG When compared with ECG of 25-FEB-2024 04:45, No significant change was found Confirmed by BALDO LOCKWOOD, SUSI ([id number]), dictionary editor GABRIEL BROWN ([id number]) on 02/26/2024 2:33:50 PM Referred By: Italo Souza Confirmed By:SUSI BLAND MD
[2024-02-26] MEDS: 0.9% Normal Saline (1000mL) 1,000 ML 60 ML IV (10:11)
[2024-02-26 10:30] LABS: AST(SGOT) 163 U/L (15-37); Alanine Aminotransfer ALT/SGPT 38 U/L (16-61); Albumin, Serum 3.5 g/dL (3.2-5.0); Alkaline Phosphatase 56 U/L (45-117); Bilirubin, Direct 0.27 mg/dL (0.00-0.30); Globulin 3.7 g/dL (2.2-4.2); Protein, Total 7.2 g/dL (6.4-8.2)
--- NOTE | 2024-02-26 12:18 | NURSING ---
Patient left unit to laboratory mechanic helper
[2024-02-26 12:33] LABS: Bedside Glucose 139 mg/dL (74-106)
--- NOTE | 2024-02-26 14:10 | CL.I_ITS ---
Patient Name: LORETTA NUNEZ Study Date: 02/26/2024 Performing: Italo Souza MD Ht: 70 inches 177.8 cm : 1980 Wt: 168.65 lbs 76.5 kg Age: 43 Gender: male BSA: 1.94 PROCEDURE(S) PERFORMED IC12-(87890/[id number])RHIANNON W/WO PTCA, SINGLE CORONARY ARTERY IC12-([id number])RHIANNON W/WO PTCA, SINGLE CORONARY ARTERY CLINICAL PROFILE AND CO-MORBIDITIES Indications: Staged PCI Heart Failure: None Angina Classification Anginal Classification w/in 2 Weeks: CCS IV CONCLUSIONS Successful PTCA/RHIANNON Prox LCX using [place] 2.5x22 mm, post-dilated using 2.75 mm balloon Successful RHIANNON Mid LAD using [place] 2.5x26 mm, optimized proximally using 3.0 mm balloon Successful RHIANNON Prox LAD using [place] 3.0x12 mm, post-dilated using 3.5 mm balloon LVEDP 22 mm HG RECOMMENDATIONS ASA Indefinitley Brilinta for at least 12 months DESCRIPTION OF PROCEDURE The patient arrived to the procedure lab. The risks and benefits of the procedure as well as a full description of our services here and current unavailability of surgical backup were fully explained to the patient and/or their significant other prior to the catheterization. The Timeout was completed, verifying the correct patient and procedure. The patient's procedural site was prepped and draped in the usual fashion. Local anesthetic was given subcutaneously to right radial region with Lidocaine 2%. Using a modified Seldinger technique, arterial access was obtained via the right radial artery, a 6Fr sheath was inserted.. XB 3.0 Guide catheter was inserted and engaged into the LCA. Runthrough Guide wire was advanced to the Circumflex. Emerge 2.00x12 Balloon catheter was inserted. PTCA balloon inflated at 6 atms for 7 secs. PTCA balloon inflated at 6 atms for 10 secs. PTCA balloon inflated at 6 atms for 5 secs. Angiogram performed post balloon dilatation. [place] 2.5x22 Drug Eluting stent was inserted. Angiogram performed post stent deployment. [place] Emerge 2.75x12 Balloon catheter was inserted. Angiogram performed post balloon dilatation. Guide wire was repositioned to the LAD [place] 2.5x26 Drug Eluting stent was inserted. Angiogram performed post stent deployment. NC Emerge 2.50x12 Balloon catheter was inserted. Angiogram performed post balloon dilatation. NC [place] 3.0x6 Balloon catheter was inserted. Angiogram performed post balloon dilatation. [place] Nia 3.0x12 Drug Eluting stent was inserted. Angiogram performed post balloon dilatation. NC Eup[place] 3.5x12 Balloon catheter was inserted. Angiogram performed post balloon dilatation. The arterial sheath was pulled and a TR Band was applied for hemostasis w/ 12ml air INTERVENTION INFORMATION LESION SITE: Circumflex (Proximal) lesion length: 20 mm, Lesion Complexity: High/C Pre Stenosis: 90 % Pre intervention [place] flow: 3 PROCEDURE: Drug Eluting Stent with pre and post dilatation Post Stenosis: 0 % Post intervention [place] flow: 3 Lesion Devices: Terumo .014 180cm Runthrough Extra Floppy straight Cordis 6 Fr XB3.0 100cm Guide Catheter Matthew Sci EMERGE MR 2.00x12 BALLOON Medtronic 2.50 x 22 NIA FRONTIER RHIANNON Matthew Sci NC EMERGE MR 2.75x12 BALLOON LESION SITE: LAD (Mid) Lesion Complexity: High/C, lesion length: 20 mm Pre Stenosis: 80 % Pre intervention [place] flow: 3 PROCEDURE: Drug Eluting Stent with post dilatation Post Stenosis: 0 % Post intervention [place] flow: 3 Lesion Devices: Terumo .014 180cm Runthrough Extra Floppy straight Cordis 6 Fr XB3.0 100cm Guide Catheter Matthew Sci NC EMERGE MR 2.50x12 BALLOON Medtronic 2.50 x 26 NIA FRONTIER RHIANNON Medtronic NC EUPHORA RX 3.0x06 BALLOON LESION SITE: LAD (Proximal) Lesion Complexity: Non-High/Non-C, lesion length: 10 mm Pre Stenosis: 70 % Pre intervention [place] flow: 3 PROCEDURE: Drug Eluting Stent with post dilatation 0 % Post intervention [place] flow: 3 Lesion Devices: Terumo .014 180cm Runthrough Extra Floppy straight Cordis 6 Fr XB3.0 100cm Guide Catheter Medtronic 3.0 x 12 NIA FRONTIER RHIANNON Medtronic NC EUPHORA RX 3.5x12 BALLOON COMPLICATIONS No Complications PROCEDURE MEDICATIONS Versed 1 mg IV Fentanyl 50 mcg IV Fentanyl 25 mcg IV Fentanyl 25 mcg IV Fentanyl 25 mcg IV Oxygen: 2 L/min via nasal cannula Heparin 6000 unit(s) IV 02/26/2024 13:02:38 Heparin 2000 unit(s) IV 02/26/2024 13:38:58 Nitro 50 mcg IC 02/26/2024 13:19:40 Nitro 50 mcg IC 02/26/2024 13:19:40 IV Bolus: .9 NaCl 400ml total 02/26/2024 13:09:32 SUMMARY OF HEMODYNAMIC DATA Time AIR REST AO 82/61 (70) SA 13:03:58 ECG 13:04:15 AO 103/78 (89) 13:35:59 LV 96/15, 22 13:47:05 LV 96/18, 23 13:47:13 LVp 98/15, 24 13:47:23 AOp 113/48 (79) 13:47:30 13:59:28 Signed By Italo Sozua MD On 02/26/2024 14:09:53 Italo Souza MD
--- NOTE | 2024-02-26 14:15 | EKG12_ITS ---
Test Reason : post pci Blood Pressure : / mmHG Vent. Rate : 106 BPM Atrial Rate : 106 BPM P-R Int : 156 ms QRS Dur : 084 ms QT Int : 352 ms P-R-T Axes : 042 -57 023 degrees QTc Int : 467 ms Critical Test Result: STEMI Sinus tachycardia Left axis deviation Inferior infarct (cited on or before 24-FEB-2024) Anterolateral infarct (cited on or before 24-FEB-2024) ACUTE MT / STEMI Abnormal ECG When compared with ECG of 26-FEB-2024 05:21, Serial changes of evolving Anterior infarct Present Serial changes of evolving Anterolateral infarct Present Confirmed by CONNOR LOCKWOOD, JANETH ([id number]), advertising editor LOC SANCHEZ ([id number]) on 03/05/2024 9:48:42 AM Referred By: Italo Souza Confirmed By:YAMILA RYAN MD
--- NOTE | 2024-02-26 14:19 | NURSING ---
Patient returned to unit
[2024-02-26 14:39] LABS: ACT Activated Clotting Time 262 sec (74-137)
[2024-02-26] MEDS: Furosemide 20 MG Tablet PO (15:28)
[2024-02-26] MEDS: Insulin Lispro 100 UNIT/ML INSULN.PEN SC ×2 (16:38→21:34)
[2024-02-26] MEDS: Insulin Lispro 100 UNIT/ML INSULN.PEN 10 UNIT SC (16:39)
[2024-02-26 16:57] LABS: Bedside Glucose 212 mg/dL (74-106)
[2024-02-26] MEDS: Fluconazole 100 MG Tablet PO (17:23)
[2024-02-26] MEDS: Insulin Glargine-YFGN 100 UNIT/ML Pen 20 UNIT SC (21:34)
[2024-02-26] MEDS: Atorvastatin Calcium 80 MG Tablet PO (21:35)
[2024-02-26 21:58] LABS: Bedside Glucose 253 mg/dL (74-106)
[2024-02-27] VITALS (10 sets, daily range): BP systolic 90–107; BP diastolic 63–81; PULSE 100–110; RESP 17–28; TEMP 36.6–36.7; O2SAT 97–100; BMI 23.6
[2024-02-27 05:16] LABS: Hematocrit 34.3 % (40-54); Hemoglobin 11.8 g/dL (13.0-16.5); Mean Corp Hgb Conc 34.4 g/dL (32-36); Mean Corpuscular Hgb 32.2 pg (27.0-32.0); Mean Corpuscular Volume 93.7 fL (80-94); Mean Platelet Vol. 9.6 fl (6.2-12.0); Platelet Count 222 K/mm3 (150-450); RBC Distribution Width CV 11.5 % (11.6-14.6); RBC Distribution Width SD 38.7 fl (35.1-43.9); Red Blood Count 3.66 M/mm3 (4.6-6.2); White Blood Count 5.6 K/mm3 (4.4-11.0)
[2024-02-27 05:39] LABS: ALB/GLOB Ratio 0.8 RATIO (0.9-2.4); AST(SGOT) 74 U/L (15-37); Alanine Aminotransfer ALT/SGPT 29 U/L (16-61); Alkaline Phosphatase 51 U/L (45-117); Anion Gap 9 (5-15); BUN 13 mg/dL (7-18); Calcium,Total 8.8 mg/dL (8.5-10.1); Chloride 102 mmol/L (98-107); Creatinine, Serum 0.56 mg/dL (0.70-1.30); EST Glomerular Filtration Rate 166 mL/min (>60); Est Glom Filt Rate - Afr Amer 201 mL/min (>60); Estimated Creatinine Clearance 173.81 ml/min; Globulin 3.6 g/dL (2.2-4.2); Glucose 206 mg/dL (74-106); Potassium 3.6 mmol/L (3.5-5.1); Protein, Total 6.6 g/dL (6.4-8.2); Sodium Level 134 mmol/L (136-145)
--- NOTE | 2024-02-27 07:20 | CRPHASE1 ---
Patient Communication Patient Information PHII Cardiac Rehab Discussed with Patient:: Yes Guide to Cardiac Rehab Given to Patient:: Yes Cardiac Rehab Facility Choice List Given to Patient:: Yes Communication to Cardiac Rehab Choice Program [facility] CR PHII:: Communication Given to CR It Infrastructure Manager:: Italo Souza Phase II Cardiac Rehab:: Yes Sessions:: 36 sessions - 3 days/wk, 12 weeks Cardiac Rehabilitation Info Program Information Cardiac Rehabilitation Program Information: Cardiac Rehab The cardiac rehab team at [facility] consists of highly skilled exercise physiologists, nurses, respiratory therapists and physicians working together with you. Our purpose is to help you have a full recovery and achieve the goals you set for yourself. Over the years many of our patients have returned to activities they assumed they would never do again! We can help restore your confidence and motivation to make lifestyle changes that can have a significant impact on your health and quality of life! We can help answer questions and concerns you may have about exercise, lifestyle, medications, diet, stress and anxiety which are common following a hospitalization. WE monitor ECG and vital signs during exercise and discuss your progress with you and report to your physician(s). Cardiac Rehab is proven to help reduce readmissions, improve functional capacity and lower recurrence of problems with your heart. Our Cardiac Rehab program is Certified by the [place] [employer]io-Vascular and Pulmonary [employer] (AACVPR) and Accredited by the [place] [employer] through our [facility]. You can contact us at . We invite you to call us with your questions or to get started in our program. If you have other questions or concerns be sure to ask your physician/provider during your follow-up visit. WE look forward to seeing you!
--- NOTE | 2024-02-27 07:21 | CRPH1.INSTRU ---
General Education Discussed with Patient CAD and cardiac anatomy and function:: Patient communicates acknowledgment Explanation of diagnoses and procedures:: Patient communicates acknowledgment Sign/Symptoms of [place]:: Patient communicates acknowledgment Antiplatelet therapy: Patient communicates acknowledgment Proper use of NTG-SL: Patient communicates acknowledgment Emergency procedures and activation of EMS: Patient communicates acknowledgment Compliance of all prescribed medications: Patient communicates acknowledgment Smoking Risk Factors Patient Nicotine/Smoking Risk Factors Are:: Never smoked Dyslipidemia Risk Factors Patient Dyslipidemia Risk Factors Are:: Total Cholesterol, Triglycerides, HDL and LDL Recommendations Recommendations Include:: Lipid profile provided, Reviewed NCEP/ATP guidelines and Therapeutic Lifestyle Change dietary guidelines Response Code Dyslipidemia Response Code:: Patient communicates acknowledgment Overweight/Obesity Risk Factors Patient Overweight/Obesity Risk Factors Are:: BMI Normal [18-25 & < 65 years old] Recommendations Recommendations Include:: Weight loss of 5-10%, Reduced calorie diet and Exercise 5-7 times/week Response Code Overweight/Obesity:: Patient communicates acknowledgment Hypertension Recommendations Recommendations Include:: BP <130/80 if diabetic, DASH dietary guidelines, Decrease/maintain normal body weight and Moderation of ETOH Response Code Hypertension:: Patient communicates acknowledgment Heart Disease Risk Factors Patient Heart Disease Risk Factors Are:: Family history of heart disease < 65 years old Recommendations Recommendations Include:: Educated family members of their risk and Educated family members of importance of prevention of heart disease Response Code Heart Disease Response Code:: Patient communicates acknowledgment and Family communicates acknowledgment Diabetes Risk Factors Patient Diabetes Risk Factors Are:: Elevated blood sugars Recommendations Recommendations Include:: Maintain fasting blood sugars 70-110 md/dL, Maintain HgbA1c of 6% or less, Monitor blood sugar as prescribed, Diabetic dietary guidelines and Decrease/maintain body weight Response Code Diabetes:: Patient communicates acknowledgment Metabolic Syndrome Risk Factors Patient Metabolic Syndrome Risk Factors Are [3 of 5]:: Fasting blood sugar > 100 mg/dL, Waist circumference > 35 [female] or 40 [male], High triglyceride >150, Hypertension and Low HDL <40 [male] or < 50 [female] Recommendations Recommendations Include:: Patient is diabetic and Encouraged follow-up with Primary Care Physician Response Code Metabolic Syndrome Response Code:: Patient communicates acknowledgment Sedentary Recommendations Recommendations Include:: Aerobic exercise 5-7 times/week for 20-30 minutes continuously, Benefits of regular exercise, Discussed home walking program and Monitored Outpatient Cardiac Rehab Response Code Sedentary Response Code:: Patient communicates acknowledgment Stress Risk Factors Patient Stress Risk Factors Are:: Patient denies stress as a risk factor Recommendations Recommendations Include:: Identification of stressors, and assessment of coping skills and Stress management techniques Response Code Stress Response Code:: Patient communicates acknowledgment
--- NOTE | 2024-02-27 07:52 | DCINST_ITS ---
Discharge Instructions Diet Discharge Diet: Low fat / Low cholesterol and 2000 mg Sodium Diet Activity Discharge Activity: Return to Normal Activity Weight Bearing Status: Weight bearing as tolerated Dressing / Incision Call your doctor if you observe: Fever of 101 or Higher, Coldness, Increased Pain, Numbness or Tingling, Change in Color, Inability to urinate, Inability to have a bowel movement, Shortness of breath, Dizziness, Fainting spells, Swelling in the ankles, Chest pain, Prolonged hiccupping, Increased palpitations (irregular heartbeat) and Calf discomfort Follow Up Care When: IN 2 WEEKS Test Results: Test results from this visit will be discussed in further detail at your follow- up appointment, if applicable. Discharge Plan Admission Admit Date/Time: 02/25/24 01:24 Primary Reason for Your Visit: Inferior lateral wall STEMI Attending Provider: Roderick Mendez Primary Care Provider: Kirk Russell Consulting Providers: Gaudencio Reddy; Italo Souza Discharge Orders/Prescriptions Prescriptions: New aspirin 81 mg Tablet,Delayed Release (Dr/Ec) 81 mg PO DAILY@0800 30 Days Qty: 30 5RF fluconazole 100 mg Tablet 100 mg PO DAILY 7 Days Qty: 7 0RF atorvastatin 80 mg Tablet 80 mg PO QHS 30 Days Qty: 30 3RF carvedilol 3.125 mg Tablet 3.125 mg PO BIDCM 30 Days Qty: 60 3RF lisinopril 2.5 mg Tablet 2.5 mg PO DAILY 30 Days Qty: 30 0RF insulin lispro [Humalog KwikPen Insulin] 100 unit/mL Insulin Pen 10 unit subcut TIDAC 30 Days Qty: 15 4RF Rx Instructions: Hold if glucose less than 130 mg/dl spironolactone 25 mg Tablet 25 mg PO DAILY 30 Days Qty: 30 3RF Rx Instructions: Hold for serum potassium more than 5.1. insulin lispro [Humalog KwikPen Insulin] 100 unit/mL Insulin Pen See Protocol subcut ACHS Qty: 0 0RF Protocol: 3. Sliding Scale Insulin Med Dosing Condition: 150-189 mg/dl = 1 unit Condition: 190-229 mg/dl = 2 units Condition: 230-269 mg/dl = 3 units Condition: 270-309 mg/dl = 4 units Condition: 310-349 mg/dl = 5 units Condition: 350-399 mg/dl = 6 units Condition: 400-449 mg/dl = 7 units Condition: Greater than 449 call physician Protocol Text: Suggested for: - Patients on Total Daily Insulin Dose of 37-55 units - Obese, infected, or steroid patients MEDIUM DOSING ALGORITHIM Brilinta 90 mg Tablet 90 mg PO BID 30 Days Qty: 60 3RF furosemide 20 mg Tablet 20 mg PO DAILY 30 Days Qty: 30 1RF Jardiance 10 mg Tablet 10 mg PO DAILY 30 Days Qty: 30 3RF insulin glargine [Lantus Solostar U-100 Insulin] 100 unit/mL (3 mL) insulin pen 20 unit subcut DAILY 30 Days Qty: 15 3RF Rx Instructions: Hold if glucose less than 130 mg/dl Continued Ozempic 0.25 mg or 0.5 mg (2 mg/3 mL) pen injector 0.25 mg subcut QWEEK metformin 1,000 mg tablet 1,000 mg PO BID 30 Days Qty: 0 0RF Rx Instructions: Start after 3 days, on 03/01/2020 Discontinued lisinopril 5 mg tablet 5 mg PO DAILY Referrals / Follow Up: Kirk Russell MD [Primary Care Provider] - Luc Olvera MD [Non-Staff] - Disposition Disposition (needs filled in before D/C Order can be placed): Home, Self Care
--- NOTE | 2024-02-27 08:02 | PCM.DC.SUM ---
Providers Date of Admission: 02/25/24 Date of Discharge: 02/27/24 Primary Care Physician: Kirk Russell MD Consultations 02/25/24 09:17 Consult: Cardiology Routine Consulting Provider: Italo Souza Reason for Consult: STEMI EMERGENT Consult: No MD Notified: Yes Date Notified: 02/24/24 Time Notified: 20:17 Method of Notification: ED Physician Initiated Reason For Visit: STEMI Diagnosis Discharge Diagnosis (1) ST elevation VT (STEMI): Status: Acute Code(s): I21.3 - ST elevation (STEMI) myocardial infarction of unspecified site (2) Cardiomyopathy: Status: Acute Code(s): I42.9 - Cardiomyopathy, unspecified (3) Diabetes: Status: Acute Code(s): E11.9 - Type 2 diabetes mellitus without complications Plan Patient is a 43-year-old male who presented [facility] ED on 02/24/2024 with chest pain. Twelve-lead EKG individually reviewed and shows sinus tachycardia, LAD, ST elevation in leads V3, V4, V6, II 3 and aVF consistent with inferior, possible acute anterolateral NSTEMI. Patient denied prior history of VT or angina. 1. Inferior STEMI, suspected new onset HFrEF, history of hypertension ? Admit under inpatient status to the ICU. Left heart cath showed 100% mid RCA occlusion s/p RHIANNON x 1 placed. Also found to have 70% proximal-mid and 80% mid-LAD lesions, and a 90% proximal LCX lesion. Estimated LVEF during cath was 35%. Echo ordered. Continuous cardiac monitoring. Lipid profile shows triglyceride 217, LDL 67, HDL 55. TSH 1.37. The patient is started on aspirin, Brilinta, atorvastatin, Coreg, lisinopril, spironolactone and empagliflozin. Planning for staged PCI of LAD and left circumflex, 02/25: No acute issues overnight. BP on lower side. Heart rate 110s per minute. Patient is comfortable with no chest pain or pressure or shortness of breath. Patient is going for staged PCI of left circumflex and LAD. AST 454 possible due to VT. Repeat liver chemistry. 02/26 patient did well overnight. Had staged PCI over LAD proximal and mid and proximal circumflex. Aspirin indefinitely. Brilinta for at least 12 months. strict diligence to Brilinta was emphasized by executive assistant and myself to keep stents patent. Patient is being discharged on low-dose carvedilol, lisinopril, Lasix 20 mg daily, spironolactone, Jardiance and high intensity statin. Follow-up with the executive assistant in 1 month. Cardiac rehab as per protocol 2. Poorly controlled type 2 diabetes mellitus with hyperglycemia. ? Home regimen of metformin 1000 mg twice daily, semaglutide 0.25 mg weekly, hold it. Last A1c 11.9% in September. Repeat A1c 9.7%. Blood glucose in 300s on admit. Started Lantus 20 units at night and Humalog 7 units with meals plus sliding scale insulin. Adjust as needed. Discussed with patient and family that given his uncontrolled diabetes, he will likely need to start insulin therapy on discharge. Glucose is better controlled, around 140 mg/dL. 02/26: Glucose 253 last night. The morning 206. Continue Lantus and Humalog insulin with Accu-Chek before meals and at bedtime with Humalog sliding scale coverage. Prescription given for Lantus insulin, Humalog insulin and glucometer and supplies 3. 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 He feels itching and sometimes burning and feeling now. I did not see Whitish yeast patch but patient had 1 dose of fluconazole yesterday. 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 Advised follow-up with PCP. DVT prophylaxis: Lovenox CODE STATUS: Full code, verified Hemoglobin A1c 9.7 H, Calcium 9.5, Total Bilirubin 0.60, AST 454 H, ALT 40, Alkaline Phosphatase 61, Total Protein 6.4, Albumin 3.3, Globulin 3.1, Albumin/Globulin Ratio 1.1, Triglycerides 217 H, Cholesterol 165, LDL Cholesterol 67, VLDL Cholesterol 43 H, HDL Cholesterol 55, TSH 1.37 Laboratory Results 02/26/24 08:45: WBC 6.9, RBC 4.19 L, Hgb 13.4, Hct 39.7 L, MCV 94.7 H, MCH 32.0, MCHC 33.8, RDW Std Deviation 40.0, RDW Coeff of Cassandra 11.7, Plt Count 242, MPV 9.7, Immature Gran % (Auto) 0.400, Neut % (Auto) 58.7, Lymph % (Auto) 28.5, [place] % (Auto) 11.4 H, Eos % (Auto) 0.6, Baso % (Auto) 0.4, Absolute Neuts (auto) 4.1, Absolute Lymphs (auto) 1.97, Nucleated RBC % 0, Sodium 134 L, Potassium 3.8, Chloride 99, Carbon Dioxide 20.0 L, Anion Gap 15, BUN 13, Creatinine 0.85, Estim Creat Clear Calc 114.51, Est GFR (MDRD) Af Amer 125, Est GFR (MDRD) Non-Af 104, BUN/Creatinine Ratio 15.3, Glucose 151 H, Calcium 9.5, Total Bilirubin 0.80, Direct Bilirubin 0.27, AST 163 H, ALT 38, Alkaline Phosphatase 56, Total Protein 7.2, Albumin 3.5, Globulin 3.7 02/26/24 08:51: POC Glucose 137 H 02/26/24 12:14: POC Glucose 139 H 02/26/24 13:50: Activated Clotting Time 262 H 02/26/24 16:37: POC Glucose 212 H 02/26/24 21:33: POC Glucose 253 H 02/27/24 05:00: WBC 5.6, RBC 3.66 L, Hgb 11.8 L, Hct 34.3 L, MCV 93.7, MCH 32.2 H, MCHC 34.4, RDW Std Deviation 38.7, RDW Coeff of Cassandra 11.5 L, Plt Count 222, MPV 9.6, Sodium 134 L, Potassium 3.6, Chloride 102, Carbon Dioxide 23.0, Anion Gap 9, BUN 13, Creatinine 0.56 L, Estim Creat Clear Calc 173.81, Est GFR (MDRD) Af Amer 201, Est GFR (MDRD) Non-Af 166, BUN/Creatinine Ratio 23.0 H, Glucose 206 H, Calcium 8.8, Total Bilirubin 0.50, AST 74 H, ALT 29, Alkaline Phosphatase 51, Total Protein 6.6, Albumin 3.0 L, Globulin 3.6, Albumin/Globulin Ratio 0.8 L 02/26/24 08:45: WBC 6.9, RBC 4.19 L, Hgb 13.4, Hct 39.7 L, MCV 94.7 H, MCH 32.0, MCHC 33.8, RDW Std Deviation 40.0, RDW Coeff of Cassandra 11.7, Plt Count 242, MPV 9.7, Immature Gran % (Auto) 0.400, Neut % (Auto) 58.7, Lymph % (Auto) 28.5, [place] % (Auto) 11.4 H, Eos % (Auto) 0.6, Baso % (Auto) 0.4, Absolute Neuts (auto) 4.1, Absolute Lymphs (auto) 1.97, Nucleated RBC % 0, Sodium 134 L, Potassium 3.8, Chloride 99, Carbon Dioxide 20.0 L, Anion Gap 15, BUN 13, Creatinine 0.85, Estim Creat Clear Calc 114.51, Est GFR (MDRD) Af Amer 125, Est GFR (MDRD) Non-Af 104, BUN/Creatinine Ratio 15.3, Glucose 151 H, Calcium 9.5 02/26/24 08:51: POC Glucose 137 H Medications at Discharge Home Medications semaglutide 0.25 mg or 0.5 mg (2 mg/3 mL) subcutaneous pen injector (Ozempic) 0.25 mg subcut QWEEK 02/24/24 aspirin 81 mg tablet,delayed release 81 mg PO DAILY@0800 30 days #30 tabs 02/27/24 atorvastatin 80 mg tablet 80 mg PO QHS 30 days #30 tabs 02/27/24 carvedilol 3.125 mg tablet 3.125 mg PO BIDCM 30 days #60 tabs 02/27/24 empagliflozin 10 mg tablet (Jardiance) 10 mg PO DAILY 30 days #30 tabs 02/27/24 fluconazole 100 mg tablet 100 mg PO DAILY 7 days #7 tabs 02/27/24 furosemide 20 mg tablet 20 mg PO DAILY 30 days #30 tabs 02/27/24 insulin glargine 100 unit/mL (3 mL) subcutaneous pen (Lantus Solostar U-100 Insulin) 20 unit (0.2 mL) subcut DAILY 1 month #15 mL 02/27/24 insulin lispro 100 unit/mL subcutaneous pen (Humalog KwikPen (U-100) Insulin) 10 unit (0.1 mL) subcut TIDAC 1 month #15 mL 02/27/24 insulin lispro 100 unit/mL subcutaneous pen (Humalog KwikPen (U-100) Insulin) See Protocol subcut ACHS #0 mL 02/27/24 lisinopril 2.5 mg tablet 2.5 mg PO DAILY 30 days #30 tabs 02/27/24 metformin 1,000 mg tablet 1,000 mg PO BID 30 days #0 tabs 02/27/24 spironolactone 25 mg tablet 25 mg PO DAILY 30 days #30 tabs 02/27/24 ticagrelor 90 mg tablet (Brilinta) 90 mg PO BID 30 days #60 tabs 02/27/24 Physical Exam Narrative Seen and examined. Overall patient did well yesterday. He feels relaxed with no chest pain or shortness of breath. BP in low 90s. Heart rate 110/min. Plan is to take for stage PCI for left circumflex and LAD Physical exam General: Alert, Oriented x3, Cooperative HEENT: Atraumatic, PERRLA, EOMI, Normocephalic Oral: Oral mucosa moist. No Gingival or Mucosal Lesions/ Ulcerations Neck: Supple, No JVD, Negative Carotid Bruits Chest wall/Lungs: Air entry diminished in bilateral lung bases. No crepitation/rhonchi Cardiovascular: Regular rate, Regular Rhythm, Normal S1, Normal S2, No M/G/R Abdomen: Bowel Sounds Present, Soft, Non Tender, Non-Distended : Smegma around the glans penis. No whitish, fungal/yeast like patch. No penile discharge. No genital ulcer. No dysuria. No renal angle tenderness. No suprapubic tenderness. Extremities: No edema, Capillary Refill Less than 3 Seconds Skin: No rashes, No breakdown Musculoskeletal: No Tenderness to Palpation of Joints or Extremities Neurological: Cranial nerves II-XII grossly intact, DTR 2+/4. No acute focal neurological deficit. Psych/Mental Status: Normal Affect, Appropriate. Weight / BMI Weight Weight: 165 lb 2.02 oz Body Mass Index (BMI) 23.6 ABG / Lab / Microbiology Data 02/27/24 05:00 02/27/24 05:00 Laboratory: Laboratory Results - last 24 hr 02/26/24 08:45: WBC 6.9, RBC 4.19 L, Hgb 13.4, Hct 39.7 L, MCV 94.7 H, MCH 32.0, MCHC 33.8, RDW Std Deviation 40.0, RDW Coeff of Cassandra 11.7, Plt Count 242, MPV 9.7, Immature Gran % (Auto) 0.400, Neut % (Auto) 58.7, Lymph % (Auto) 28.5, [place] % (Auto) 11.4 H, Eos % (Auto) 0.6, Baso % (Auto) 0.4, Absolute Neuts (auto) 4.1, Absolute Lymphs (auto) 1.97, Nucleated RBC % 0, Sodium 134 L, Potassium 3.8, Chloride 99, Carbon Dioxide 20.0 L, Anion Gap 15, BUN 13, Creatinine 0.85, Estim Creat Clear Calc 114.51, Est GFR (MDRD) Af Amer 125, Est GFR (MDRD) Non-Af 104, BUN/Creatinine Ratio 15.3, Glucose 151 H, Calcium 9.5, Total Bilirubin 0.80, Direct Bilirubin 0.27, AST 163 H, ALT 38, Alkaline Phosphatase 56, Total Protein 7.2, Albumin 3.5, Globulin 3.7 02/26/24 08:51: POC Glucose 137 H 02/26/24 12:14: POC Glucose 139 H 02/26/24 13:50: Activated Clotting Time 262 H 02/26/24 16:37: POC Glucose 212 H 02/26/24 21:33: POC Glucose 253 H 02/27/24 05:00: WBC 5.6, RBC 3.66 L, Hgb 11.8 L, Hct 34.3 L, MCV 93.7, MCH 32.2 H, MCHC 34.4, RDW Std Deviation 38.7, RDW Coeff of Cassandra 11.5 L, Plt Count 222, MPV 9.6, Sodium 134 L, Potassium 3.6, Chloride 102, Carbon Dioxide 23.0, Anion Gap 9, BUN 13, Creatinine 0.56 L, Estim Creat Clear Calc 173.81, Est GFR (MDRD) Af Amer 201, Est GFR (MDRD) Non-Af 166, BUN/Creatinine Ratio 23.0 H, Glucose 206 H, Calcium 8.8, Total Bilirubin 0.50, AST 74 H, ALT 29, Alkaline Phosphatase 51, Total Protein 6.6, Albumin 3.0 L, Globulin 3.6, Albumin/Globulin Ratio 0.8 L D/C Instructions Discharge Diet: Low fat / Low cholesterol and 2000 mg Sodium Diet Weight Bearing Status: Weight bearing as tolerated Call your doctor if you observe: Fever of 101 or Higher, Coldness, Increased Pain, Numbness or Tingling, Change in Color, Inability to urinate, Inability to have a bowel movement, Shortness of breath, Dizziness, Fainting spells, Swelling in the ankles, Chest pain, Prolonged hiccupping, Increased palpitations (irregular heartbeat) and Calf discomfort When: IN 2 WEEKS Meaningful Use Info Meaningful Use Meaningful Use Diagnoses (Choose all that apply): None applicable and AMI AMI/Post PCI/Angioplasty Aspirin given w/in 24hrs of arrival?: Yes ASA at discharge?: Yes Statins at discharge?: Yes Ruel/ARB at discharge?: Yes Beta Del at discharge?: Yes Done w/ Acute VT measure.: Yes Ischemic Stroke Statin Dosing Therapy Reference: STATIN DOSE THERAPY REFERENCE: * Patients > 75 years receive moderate or high dose statin therapy. * Patients 75 years or YOUNGER should receive HIGH intensity statin dose unless contraindicated. You will be required to document reason for non-treatment if statin daily dose does not meet guidelines. HIGH DOSE STATIN THERAPY DAILY Atorvastatin > than or = to 40 mg Rosuvastatin > than or = to 20 mg Amlodipine + Atorvastatin > than or = to 2.5/40 mg Ezetimibe + Simvastatin 10/80 mg Simvastatin 80mg Discharge Plan Admission Admit Date/Time: 02/25/24 01:24 Primary Reason for Your Visit: Inferior lateral wall STEMI Attending Provider: Roderick Mendez Primary Care Provider: Kirk Russell Consulting Providers: Gaudencio Reddy; Italo Souza Discharge Orders/Prescriptions Prescriptions: New aspirin 81 mg Tablet,Delayed Release (Dr/Ec) 81 mg PO DAILY@0800 30 Days Qty: 30 5RF fluconazole 100 mg Tablet 100 mg PO DAILY 7 Days Qty: 7 0RF atorvastatin 80 mg Tablet 80 mg PO QHS 30 Days Qty: 30 3RF carvedilol 3.125 mg Tablet 3.125 mg PO BIDCM 30 Days Qty: 60 3RF lisinopril 2.5 mg Tablet 2.5 mg PO DAILY 30 Days Qty: 30 0RF insulin lispro [Humalog KwikPen Insulin] 100 unit/mL Insulin Pen 10 unit subcut TIDAC 30 Days Qty: 15 4RF Rx Instructions: Hold if glucose less than 130 mg/dl spironolactone 25 mg Tablet 25 mg PO DAILY 30 Days Qty: 30 3RF Rx Instructions: Hold for serum potassium more than 5.1. insulin lispro [Humalog KwikPen Insulin] 100 unit/mL Insulin Pen See Protocol subcut ACHS Qty: 0 0RF Protocol: 3. Sliding Scale Insulin Med Dosing Condition: 150-189 mg/dl = 1 unit Condition: 190-229 mg/dl = 2 units Condition: 230-269 mg/dl = 3 units Condition: 270-309 mg/dl = 4 units Condition: 310-349 mg/dl = 5 units Condition: 350-399 mg/dl = 6 units Condition: 400-449 mg/dl = 7 units Condition: Greater than 449 call physician Protocol Text: Suggested for: - Patients on Total Daily Insulin Dose of 37-55 units - Obese, infected, or steroid patients MEDIUM DOSING ALGORITHIM Brilinta 90 mg Tablet 90 mg PO BID 30 Days Qty: 60 3RF furosemide 20 mg Tablet 20 mg PO DAILY 30 Days Qty: 30 1RF Jardiance 10 mg Tablet 10 mg PO DAILY 30 Days Qty: 30 3RF insulin glargine [Lantus Solostar U-100 Insulin] 100 unit/mL (3 mL) insulin pen 20 unit subcut DAILY 30 Days Qty: 15 3RF Rx Instructions: Hold if glucose less than 130 mg/dl Continued Ozempic 0.25 mg or 0.5 mg (2 mg/3 mL) pen injector 0.25 mg subcut QWEEK metformin 1,000 mg tablet 1,000 mg PO BID 30 Days Qty: 0 0RF Rx Instructions: Start after 3 days, on 03/01/2020 Discontinued lisinopril 5 mg tablet 5 mg PO DAILY Referrals / Follow Up: Kirk Russell MD [Primary Care Provider] - Luc Olvera MD [Non-Staff] - Disposition Disposition (needs filled in before D/C Order can be placed): Home, Self Care Charges/Coding Visit Charges Inpatient E&M: 70735 Disch Hosp >30min
[2024-02-27] MEDS: TICAGRELOR 90 MG TABLET PO (08:13)
[2024-02-27] MEDS: Carvedilol 3.125 MG TABLET PO (08:14)
[2024-02-27] MEDS: Furosemide 20 MG Tablet PO (08:14)
[2024-02-27] MEDS: Potassium Chloride Oral Tablet 10 MEQ PO (08:14)
[2024-02-27] MEDS: Fluconazole 100 MG Tablet PO (08:14)
[2024-02-27] MEDS: Spironolactone 25 MG Tablet 12.5 MG PO (08:14)
[2024-02-27] MEDS: Enoxaparin 40 MG/0.4 ML Syringe SC (08:15)
[2024-02-27] MEDS: Lisinopril 2.5 MG Tablet PO (08:15)
[2024-02-27] MEDS: Aspirin E.C. 81 MG Tablet PO (08:15)
[2024-02-27] MEDS: Insulin Lispro 100 UNIT/ML INSULN.PEN SC (08:15)
[2024-02-27] MEDS: Insulin Lispro 100 UNIT/ML INSULN.PEN 10 UNIT SC (08:16)
[2024-02-27] MEDS: Empagliflozin 10 MG Tablet PO (08:19)
--- NOTE | 2024-02-27 09:22 | CASEMGMT ---
DC order placed by the MD. Pt has a new order for Brilinta, BGM and supplies. TC to [facility] who states the Brilinta is 137$ after insurance. This SIDNEY LUJAN talked to the pt about utilizing the free trial card (pt is aware this can only be used once). Pt states he would like to use. The pharmacist also states that the BGM and supplies will cost the pt around 30$. The pharmacist requests an order for insulin pen needles. This RN TAI paged to [facility] for an order for the insulin pen needles. This RN TAI updated the pt with this information and the pt is content with this plan. Pt also states that he would still like a referral to [facility]. Order placed by SIDNEY Choudhury CM. Pt reports that he is independent and that his and 17 y/o son can help him at home. Pt denies any further questions or concerns at this time and is ready for DC home today with his family. PLAN: DC Home with family, CCN, BGM and Supplies, & new Rx for Brilinta
--- NOTE | 2024-02-27 10:00 | EKG12_ITS ---
Test Reason : AM Blood Pressure : / mmHG Vent. Rate : 109 BPM Atrial Rate : 109 BPM P-R Int : 156 ms QRS Dur : 094 ms QT Int : 350 ms P-R-T Axes : 047 -53 -13 degrees QTc Int : 471 ms Sinus tachycardia Left axis deviation Inferior infarct (cited on or before 24-FEB-2024) Possible Anterolateral infarct (cited on or before 24-FEB-2024) Abnormal ECG Confirmed by CONNOR LOCKWOOD, JANETH ([id number]), editor in chief MIREYA CACERES ([id number]) on 03/02/2024 1:47:06 PM Referred By: Italo Souza Confirmed By:YAMILA RYAN MD
--- NOTE | 2024-03-09 10:14 | CCN.REFER ---
OPENED TO [facility] 03/05/2024.
== END 2024-02-27 11:08 | disposition home or self-care (01) | DRG 321 ==
LOC: ED 22:21 → ICU 22:48
PROVIDERS: Hospitalist; Admitting Provider Internal Medicine Cardiovascular Disease; Emergency Provider Emergency Medicine; PCP Family Medicine; Referring Provider Internal Medicine Cardiovascular Disease; Visit Provider Internal Medicine
DX: I21.11 ST elevation (STEMI) myocardial infarction involving right coronary artery (principal); I42.9 Cardiomyopathy, unspecified; I50.20 Unspecified systolic (congestive) heart failure; I11.0 Hypertensive heart disease with heart failure; E11.65 Type 2 diabetes mellitus with hyperglycemia; I25.10 Atherosclerotic heart disease of native coronary artery without angina pectoris; N48.29 Other inflammatory disorders of penis; Z79.84 Long term (current) use of oral hypoglycemic drugs; Z79.85 Long-term (current) use of injectable non-insulin antidiabetic drugs; Z79.899 Other long term (current) drug therapy
CPT/HCPCS: 71045; 80048; 80053; 80061; 80076; 82962; 83036; 84443; 84484; 85025; 85027; 85347; 85610; 85730; 92928; 92941; 92973; 93005; 93306; 93458; 99152; 99153; 99285; C1725; C1757; J7030; Q9957; Q9967; A4216; C1769; C1874; C1887; C1894; C8929; C9600; C9606; J1327; J2405

== ENCOUNTER → 2024-03-15 | Outpatient (CLI) | payer OTHER, SELFPAY ==
--- NOTE | 2024-03-15 12:56 | PCM.CR.HP2 ---
CR - History & Physical General Arrival date:: 03/15/24 Arrival time:: 12:56 Date of Referral:: 02/25/24 Date of CR Evaluation:: 03/15/24 Referring Physician: Dr. [email or web address] Primary Diagnosis: PCI with stent History of Present Cardiac Event Onset Date PTCA or coronary stenting:: Yes Vessel: Prox LCX, Mid LAD, Dist LAD 02/24/24 onset Medications Ambulatory Orders ?Medication ?Instructions ?Recorded semaglutide 0.25 mg or 0.5 mg (2 0.25 mg subcut QWEEK 02/24/24 mg/3 mL) subcutaneous pen injector (Ozempic) aspirin 81 mg tablet,delayed 81 mg PO DAILY@0800 30 days #30 02/27/24 release tabs atorvastatin 80 mg tablet 80 mg PO QHS 30 days #30 tabs 02/27/24 carvedilol 3.125 mg tablet 3.125 mg PO BIDCM 30 days #60 tabs 02/27/24 empagliflozin 10 mg tablet 10 mg PO DAILY 30 days #30 tabs 02/27/24 (Jardiance) fluconazole 100 mg tablet 100 mg PO DAILY 7 days #7 tabs 02/27/24 furosemide 20 mg tablet 20 mg PO DAILY 30 days #30 tabs 02/27/24 insulin glargine 100 unit/mL (3 20 unit (0.2 mL) subcut DAILY 1 02/27/24 mL) subcutaneous pen (Lantus month #15 mL Solostar U-100 Insulin) insulin lispro 100 unit/mL 10 unit (0.1 mL) subcut TIDAC 1 02/27/24 subcutaneous pen (Humalog KwikPen month #15 mL (U-100) Insulin) insulin lispro 100 unit/mL See Protocol subcut ACHS #0 mL 02/27/24 subcutaneous pen (Humalog KwikPen (U-100) Insulin) lisinopril 2.5 mg tablet 2.5 mg PO DAILY 30 days #30 tabs 02/27/24 metformin 1,000 mg tablet 1,000 mg PO BID 30 days #0 tabs 02/27/24 needle (disp) 32 gauge 32 gauge x #100 ea 02/27/24 5/16 spironolactone 25 mg tablet 25 mg PO DAILY 30 days #30 tabs 02/27/24 ticagrelor 90 mg tablet (Brilinta) 90 mg PO BID 30 days #60 tabs 02/27/24 Allergies Allergies No Known Allergies Allergy (Verified 02/24/24 21:54) Sleep Disorder Evaluation Hx of Sleep Apnea: No Do you snore loudly (louder than talking or can be heard through closed doors)?: No Do you often feel tired/ fatigued/ sleepy during daytime?: No Has anyone observed you stop breathing during sleep?: No History of Hypertension (for STOP score): Yes STOP Results: Negative Advanced Directives Advanced Directives Power of Hammer Driver: No Living Will: No Advance Directives Information Provided: No Advance Directives on File: No DNR Order?:: No Past Medical History Covid-19 Screening Physicial Symptoms Other Clinical Concerns Exposure Risk Pertinent Comorbidities Has a serious heart condition:: Yes Diabetic:: Yes Past Medical Illness Past Medical History (Updated 03/06/24 @ 00:02 by Background Daemon) Cardiomyopathy I42.9 Coronary artery disease I25.10 ST elevation CO (STEMI) (~02/24/24) I21.3 Diabetes E11.9 Past Surgical History Past Surgical History (Updated 03/06/24 @ 00:02 by Background Daemon) Hx of cardiac catheterization (~02/26/24) Z98.890 02/24/24, Staged PCI on 02/26/24 Stented coronary artery (~02/26/24) Z95.5 Mid RCA- RHIANNON 3.5 x 22mm [place] 02/24/24, Prox Circumflex- RHIANNON 2.5 x 22 mm [place], Mid LAD- RHIANNON 2.5 x 26 mm [place], Prox LAD- RHIANNON 3.0 x 12 mm [place] Social History Smoking History Smoking Status: Never smoker Alcohol Use Alcohol Usage: Yes (occas) Substance Abuse Hx Substance Use: No Occupation Occupation (List type of work in comments):: Employed Hours worked per day:: 8 Returned to work on:: 03/29/24 Hobbies, Recreation, Social Activities Hobbies: Other (knife making) Recreational Activities: I am able to engage in all my recreational activities Social Environment Status Marital Status: Current Living Arrangements Living Environment:: Family Children How many children do you have?: 4 Do any of your children live nearby?: Yes Safety Do you feel safe in your surroundings?: Yes Assistance Do you need any assistance at home?: no Review of Systems Review of Systems Hints Review of Present Symptoms: Reports Shortness of Breath with Exertion, Fatigue, Appetite - Normal, Appetite - Special Diet and Sleep - Normal; Denies Shortness of Breath at Rest, PVD, Operative Discomfort, Angina, Wound Healing, Dizziness/Lightheadedness, Heart Arrhythmia/Irregularities or Sexual Changes Pain Is Patient Pain Free?: No Pain Location: other (feet) Pain Level: 4/10 Risk Factor Assessment Vital Signs Pulse Ox: 100 Blood Pressure: 114/80 Pulse Pulse Rate: 116 Hypertension How long have you been treated?: 2 months Blood Pressure Sitting - Right Arm: 114/80 Stress Stress: Work-related and Home/Family Diabetes Diabetic History: Type II Nutrition Referral for Diabetes: Yes Obesity Height: 5 ft 10 in Weight:: 171 lb Weight in Pounds: 171.0 lbs Body Mass Index (BMI): 24.5 Nutritional Referral for Obesity: No Physical Inactivity Physical Inactivity: None Risk Stratification Risk Guidelines: Moderate Risk: Risk Factor for Smoking, Risk Factor for Dyslipidemia, Risk Factor for Obesity, Risk Factor for Sedentary Lifestyle and Risk Factor for Depression and Highest Risk: Risk Factor for Diabetes and Risk Factor for Hypertension For Smoking Smoking Risk Guidelines For Dyslipidemia Dyslipidemia Risk Guidelines For Diabetes Mellitus Diabetes Risk Guidelines For Obesity/Overweight Obesity/Overweight Risk Guidelines For Hypertension Hypertension Risk Guidelines For Sedentary Lifestyle Sedentary Lifestyle Risk Guidelines For Depression Depression Risk Guidelines Motivation Motivation to Participate On a scale of 1 to 10, how prepared are you to commit to attending program?: 9 What do you see as barriers to successfully being able to complete the program?: work What do you see as the benefits of succesfully completing the program? In other words, what do you hope to get out of participating in the program?: stronger heart, education Are there issues you are dealing with that will interfere with completing the program?: no Do you have a spouse or signficant other, family or friends who will help support you to complete the program?: yes
--- NOTE | 2024-03-15 13:02 | CR.ITP_ITS ---
Diagnosis General Information Admitting Diagnosis: PCI with stent Personal Learning Style:: Audio/Visual Stage of change r/t lifestyle modifications:: Contemplation Gave educational material for:: Treating Heart Disease, How The Heart Works, What it means to have Heart Disease, How Coronary Artery Disease is Diagnosed, Heart Procedures, What Heart Medications Do, Risk Factors & Modifications, Living an Active Life, Nutrition, Emotions & Heart Disease, Stress Management & Relaxation and Sleep Disorders & Heart Disease Education/Goals Cardiac Rehabilitation Goals Personal Goals: Initial Assessment: Improve management of stress and emotions, Improve energy level, Participate in home exercise program, Get back to work, or to resume activities faster, Improve knowledge of cardiac disease, Improve muscle strength and endurance, Improve diet and eating habits (eat healthier), Control risk factors (learn risk factor modification) and Other goal: Scale for measuring improvement of personal goals Diagnosis & Disease Process Outcomes/Goals: Pt IDs own risk factors & lifestyle modifications by Session 10, Verbalizes symptoms of angina & response by session 3., Pt independently manages and Other Additional Outcomes/Goals: Plan/Interventions: Assist Pt to ID & engage in lifestyle modification to reduce CVD risk, Instruct on individual risk factors, Review symptoms of angina & emergency actions, Review secondary diagnosis & identify educational needs. and Other see comment 30 day Reassessments:: Not Met 30 day Reassessments:: Not Met 30 day Reassessments:: Not Met 30 day Reassessments:: Not Met Final Reassessments:: Not Met Safety Referral to Physical Therapy: No Referral to [facility] Case Management: No Fall Risk Assessed:: Yes Assistive Devices:: None Exercise - Initial Assessment Visit Date of Eval: 03/15/24 (initial eval ) Mets: Pre-: >3 METS for 30 minutes by discharge, >5 METS for 30 minutes by discharge, >7 METS for 30 minutes by discharge and Unable to meet goal due to: (see comment below) Physician Prescribed Exercise Modalities: Treadmill, Rower, Schwinn Airdyne AD-7, SciFit Stepper, SciFit Pro- II Ergometer and SciFit Lateral Camp Counselor Frequency: 2x/week for 18 weeks [36 sessions] and 3x/week for 12 weeks [36 sessions] Intensity: 60-80% of age predicted maximum heart rate reserve Duration: 30 - 45 minutes Current METSs:: 3 Target Heart Rate:: 106-132 EKG Type: SB Outcomes & Goals Goals:: Verbalizes understanding of THR, RPE & goal METS by session 6, Documents in home exercise log/reports 30 min aerobic 5 day/wk by DC, Demonstrates accurate pulse taking by DC and Other additional outcome/goals: see below Intervention & Plan Exercise Program Goals: Instruct on personal THR & RPE, Instruct on MET level & personal MET goal, Show patient to take own pulse /validate performance until accurate, Instruct on home exercise and Other additional plan/int Physical Activity Home Exercise Physical Activity - Home Exercise: Safe Exercise, Warm-up, Self-monitoring, Cool-Down, Home Exercise > 30 min Daily and Sitting Time <3 hours/daily Outcomes & Goals Outcomes/Goals: Demonstrates correct Warm-up/exercise Cool-Down (S3) if = 2.5 METs, Verbalizes symptoms of exercise intolerance by Session 3 (S3), Demonstrate safe equipment use (S3) & follows exercise prescrition (6) and Other: See below Intervention & Plan Plan/Intervention: Instruct warm-up & cool-down if exercising at > 2 METs, Instruct on symptoms of exercise intolerance & actions to take, Instruct & monitor on saf, Assess intial functional capacity & safety risk and Other See below Nutrition - Initial Assessment Program Goals Nutrition Program Goals Patient has diagnosis of Hyperlipidemia (ICD E78)?: No Visit Date of Eval: 03/15/24 (initial eval ) Cholesterol/Lipids (Other Core Measures) Determine presence & major risk factors that modify LDL goal: Hypertension or hypertensive medication, Low HDL cholesterol <40 mg/dL*, Family history of premature CHD in Male < 55 years: female <65 yearsFa and Age men > 45 years; women >/= 55 years Outcomes/Goals: Pt IDs own risk factors & lifestyle modifications by Session 10, Verbalizes symptoms of angina & response by session 3., Pt independently manages and Other Additional Outcomes/Goals: Intervention/Plan: Advocate for lipid panel cholesterol medication if applicable, Instruct on personal lipid levels & lipid goals/NCEP guidelines, Instruct on cholesterol and Other additional plan/int Diabetes (Other Core Measures) Diabetes Type: Diagnosis Type II ICD-10 E11 Insulin dependent injection/pump?: Yes Non-Insulin Dependent?: Yes Do you monitor your blood sugar at home?: Yes Referral to Diabetic Clinic:: Yes Outcomes/Goals:: Able to state symptoms of, Able to state, Able to state and Other additional Intervention/Plan:: Instruct on, Refer to, Instruct on and Other Weight Mgt (Other Care) Height: 5 ft 10 in Weight:: 171 lb BMI: 24.5 Diagnosis Overweight/Obesity BMI> 30% ICD-10 E66: No Diagnosis High BMI/Morbid Obesity BMI> 35% ICD-10 Z68: No Outcomes/Goals: Pt sets, maintains & shows weight loss goal & trend during rehab and Other additional outcomes/goals Intervention/Plan: Instruct on ideal BMI & set weight loss goal w/patient, Assist pt to ID & incorporate diet changes for weight loss by S9, Refer to Structured Weight Loss program as appropriate, Encourage goal of using 250- 300dcal per session for weight loss and Other additional plan/interventions Healthy Eating Habits Will attend diet classes:: Yes Outcomes/Goals:: Consume diet rich in vegs,fruits,whole grain/high fiber,fish,lean meat, Limit sat/trans fats,cholesterol & added salts & sugars and Other additional outcome/goals: Intervention/Plan:: Assess current eating habits and Other Additional plan/interventions Education Gave educational materials for:: Signs & symptoms of hypoglycemia, Signs & symptoms of hyperglycemia, Relate diabetes to coronary artery disease and Healthy eating Core - Initial Assessment Visit Date of Eval: 03/15/24 (initial eval ) Medication Compliance Preventative Medication(s):: Aspirin, Ticagrelor/P2Y12 inhibitor, Statin/lipid and Beta pancho H/O mental health issues: depression, anxiety, or addiction?: No Doesn?t believe in the benefits of treatment?: No Believes medications are unnecessary or harmful?: No Has a concern about medication side effects?: No Expresses concern over the cost of medications?: No Outcomes/Goals: Verbalizes medications,desired effect & common side effects @ DC, Pt self-reports following medication regimen, Keeps card in wallet w/medications listed by DC and Other additional outcome/goals: Interventions/plans: Instruct on medication effects & side effects, Review medication list w/patient every two weeks, Instruct importance of taking meds as ordered & assist problem solving and Other additional Tobacco Use Tobacco Use: Non-smoker Hypertension Hypertension Diagnosis:: Hypertension ICD-10 I10 Resting Blood Pressure:: 114/80 [employer] Hypertension Guidelines Outcomes/Goals: Able to verbalize/achieve optimal blood pressure <130/80, Incorporates diet changes & exercise for blood pressure control by DC and Other additional outcomes/goals Interventions/plan: Instruct on optimal blood pressure, hypertension & medications, Instruct on effects of sodium, alcohol, stress, exercise &hypertension and Other additional plan/interventions Tobacco Cessation Referral Smoking Cessation Referral:: No Individual Education/Counseling:: No Education Schedule Given:: Yes Psychosocial - Initial Assess VIsit Date of Eval: 03/15/24 (initial eval ) History of previous Mental disease:: No Target Goals Target Goals Outcomes/Goals: See list Psychosocial Outcomes/Goals:: ID's personal stressors & 2 strategies to manage stress by discharge and Other Additional outcome/goals: Intervention/Plan: See List Interventions/Plan:: Assess stressors,coping strategies & signs of derpression on admission, Instruct/assist pt to develop coping & personal stress Mgt strategies, Refer to Behavioral Health if appropriate, Refer to Physician if appropriate, Instruct patient to recognize signs & symptoms of depression, Instruct patient to recog and Other additional plan/intervention Patient Health Questionnaire PHQ-9 Screening Initial Assessment: 1. Little interest or pleasure in doing things: More than half the days 2. Feeling down, depressed, or hopeless: Not at all 3. Trouble falling or staying asleep, or sleeping too much: More than half the days 4. Feeling tired or having little energy: Nearly every day 5. Poor appetite or overeating: Not at all 6. Feeling bad about yourself -- or that you are a failure or have let yourself or your family down: Not at all 7. Trouble concentrating on things, such as reading the newspaper or watching television: Not at all 8. Moving or speaking so slowly that other people could have noticed. Or the opposite - being so fidgety or restless that you have been moving around a lot more than usual: Not at all 9. Thoughts that you would be better off , or of hurting yourself in some way: Not at all Total Score: 7 ELIDA-Q SV Test Statements CAD is a disease of the arteries in the heart: False Examples of risk factors for heart disease: True Angina is chest pain or discomfort: I Don't Know The benefits of resistance training include: True Eating more meat and dairy products: False Anti-platelet medications such as aspirin are important: I Don't Know The only effective way to manage stress: False An exercise warm-up slowly increases heart rate: True Prepared, processed foods usually have high sodium: True Depression is common after a heart attack: I Don't Know The statin medications lower cholesterol: I Don't Know To control blood pressure, lower the amount of sodium: True If someone gets chest discomfort during walking: False Transfats are partially hydrogenated vegetable oils: I Don't Know Sleep apnea that is not treated increases the risk: I Don't Know To control cholesterol, one should become a vegetarian: False Someone knows if he/she is exercising at the right level: I Don't Know Diabetes cannot be prevented with exercise & health eating: False Stress is a large risk for heart attack: True A diet that can help lower blood pressure is rich in: True Total Score Total Correct Responses: 13 Self-Efficacy 6-Item Scale Initial Assessment: We would like to know how confident you are in doing certain activities. Please select your confidence level for: Fatigue Select Number: 5 Physical Discomfort or Pain Select Number: 5 Emotional Distress Select Number: 7 Other Symptoms or Health Problems Select Number: 7 Different Tasks and Activities Select Number: 8 Medication Select Number: 8 Total Score:: 6 Nutrition Survey Nutrition Survey Instructions Scoring Instructions Nutrition Survey Initial: Have you lost >10 lbs over the past 2 months without trying?: No Are you following a special diet at home for diabetes, low fat, or low salt?: No Are you interested in meeting with a dietitian for help understanding your diet?: Yes Do you eat less than 3 meals a day?: No Do you eat fatty meats (meza, sausage, ribs, etc), fried foods, desserts, large amounts of salad dressings, margarine, butter, or cheese most days?: No Do you have food allergies? [Enter types in comment field]: No Do you eat in restaurants more than 3 times a week?: No Do you season food with salt, seasoning salt, or garlic salt?: No Do you used canned, boxed, frozen meals, or soups, seasoning packets?: No Total Score:: 1 Exercise - 30-day Assessment Physician Prescribed Exercise Modalities: Treadmill, RowerGeorgette AD-7, SciFit Stepper, SciFit Pro- II Ergometer and SciFit Lateral [place] Exercise - 60-day Assessment Physician Prescribed Exercise Modalities: Treadmill, RowerGeorgette AD-7, SciFit Stepper, SciFit Pro- II Ergometer and SciFit Lateral [place] Exercise - 90-day Assessment Physician Prescribed Exercise Modalities: Treadmill, Rower, Schwinn Airdyne AD-7, SciFit Stepper, SciFit Pro- II Ergometer and SciFit Lateral Camp Counselor Exercise - Final/Discharge Physician Prescribed Exercise Modalities: Treadmill, Rower, Schwinn Airdyne AD-7, SciFit Stepper, SciFit Pro- II Ergometer and SciFit Lateral Camp Counselor Frequency: 2x/week for 18 weeks [36 sessions] and 3x/week for 12 weeks [36 sessions] Intensity: 60-80% of age predicted maximum heart rate reserve Current METSs:: 3 Target Heart Rate:: 106-132 Nutrition - 30-Day Assessment Weight Mgt (Other Care) Height: 5 ft 10 in Weight:: 171 lb BMI: 24.5 Nutrition - 60-Day Assessment Weight Mgt (Other Care) Height: 5 ft 10 in Weight:: 171 lb BMI: 24.5 Core - Final Assessment Hypertension Resting Blood Pressure:: 114/80 [employer] Hypertension Guidelines Core - 60-Day Assessment Hypertension Resting Blood Pressure:: 114/80 [place] [employer] Hypertension Guidelines Psychosocial - 30-Day Assess Target Goals Target Goals Psychosocial - 60-Day Assess Target Goals Target Goals Psychosocial - 90-Day Assess Target Goals Target Goals Psychosocial - Final Assessmen Target Goals Target Goals Nutrition - 90-Day Assessment Weight Mgt (Other Care) Height: 5 ft 10 in Weight:: 171 lb BMI: 24.5 Nutrition - Final Assessment Program Goals Patient has diagnosis of Hyperlipidemia (ICD E78)?: No Weight Mgt (Other Care) Height: 5 ft 10 in Weight:: 171 lb BMI: 24.5
[2024-03-15 13:21] VITALS: BP 114/80; PULSE 116; O2SAT 100; BMI 24.5
[2024-03-15 13:52] VITALS: BP 114/80
[2024-03-15 13:57] VITALS: BMI 24.5
== END | disposition home or self-care (01) ==
LOC: CR 12:49
PROVIDERS: PCP Family Medicine; Referring Provider Internal Medicine Cardiovascular Disease; Visit Provider Internal Medicine Cardiovascular Disease
DX: Z95.5 Presence of coronary angioplasty implant and graft (principal); I21.3 ST elevation (STEMI) myocardial infarction of unspecified site; I42.9 Cardiomyopathy, unspecified; E11.9 Type 2 diabetes mellitus without complications; I10 Essential (primary) hypertension; I25.10 Atherosclerotic heart disease of native coronary artery without angina pectoris; Z98.890 Other specified postprocedural states; R06.02 Shortness of breath; R53.83 Other fatigue

== ENCOUNTER 2024-04-02 15:15 | Outpatient (RCR) | payer OTHER, SELFPAY ==
[2024-03-15 13:57] VITALS: BMI 24.5
== END 2024-04-03 23:59 ==
LOC: CR 15:15
PROVIDERS: PCP Family Medicine; Referring Provider Internal Medicine Cardiovascular Disease; Visit Provider Internal Medicine Cardiovascular Disease
DX: Z95.5 Presence of coronary angioplasty implant and graft (principal); I42.9 Cardiomyopathy, unspecified; I25.10 Atherosclerotic heart disease of native coronary artery without angina pectoris; I21.3 ST elevation (STEMI) myocardial infarction of unspecified site
CPT/HCPCS: 93798

== ENCOUNTER 2024-05-03 15:15 | Outpatient (RCR) | payer OTHER, SELFPAY ==
[2024-03-15 13:57] VITALS: BMI 24.5
--- NOTE | 2024-04-15 09:49 | PCM.CR.ITP ---
Exercise - Initial Assessment Visit Session #:: 10 Physician Prescribed Exercise Modalities: Treadmill, Schwinn Airdyne AD-7 and SciFit Stepper Nutrition - Initial Assessment Weight Mgt (Other Care) Height: 5 ft 1 in Weight:: 171 lb 8 oz BMI: 32.3 Psychosocial - Initial Assess Target Goals Target Goals Referral to Behavioral Health PS - Interventions: Yes: Referral to Behavioral Health if PHQ-9 score >9:, Yes: Referral to [facility], Yes: Referral to Physician if PHQ-9 if score is 5-9: and Yes: Attend Stress Management Classes Patient Health Questionnaire PHQ-9 Screening 30-Day Re-eval Assessment: 1. Little interest or pleasure in doing things: More than half the days 2. Feeling down, depressed, or hopeless: Not at all 3. Trouble falling or staying asleep, or sleeping too much: More than half the days 4. Feeling tired or having little energy: Nearly every day 5. Poor appetite or overeating: Not at all 6. Feeling bad about yourself -- or that you are a failure or have let yourself or your family down: Not at all 7. Trouble concentrating on things, such as reading the newspaper or watching television: Not at all 8. Moving or speaking so slowly that other people could have noticed. Or the opposite - being so fidgety or restless that you have been moving around a lot more than usual: Not at all 9. Thoughts that you would be better off , or of hurting yourself in some way: Not at all Total Score: 7 Self-Efficacy 6-Item Scale 30-Day Re-eval Assessment: We would like to know how confident you are in doing certain activities. Please select your confidence level for: Fatigue Select Number: 5 Physical Discomfort or Pain Select Number: 5 Emotional Distress Select Number: 7 Other Symptoms or Health Problems Select Number: 7 Different Tasks and Activities Select Number: 8 Medication Select Number: 8 Total Score:: 6 Nutrition Survey Nutrition Survey Instructions Scoring Instructions Exercise - 30-day Assessment Visit Date of Eval: 04/15/24 Session #:: 10 Physician Prescribed Exercise Modalities: Treadmill, Schwinn Airdyne AD-7 and SciFit Stepper Frequency: 3x/week for 12 weeks [36 sessions] Intensity: 60-80% of age predicted maximum heart rate reserve Duration: 30 - 45 minutes Current METSs:: 5.2 Target Heart Rate:: 106-132 Current RPE:: 12-14 Maximum Excercise HR:: 147 Resting Blood Pressure: 96/70 Maximum Exercise Blood Pressure: 148/90 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 Outcomes & Goals Goals:: Verbalizes understanding of THR, RPE & goal METS by session 6, Documents in home exercise log/reports 30 min aerobic 5 day/wk by DC, Demonstrates accurate pulse taking by DC and Other additional outcome/goals: see below Intervention & Plan Exercise Program Goals: Instruct on personal THR & RPE, Instruct on MET level & personal MET goal, Show patient to take own pulse /validate performance until accurate, Instruct on home exercise and Other additional plan/int 30-day Reassessments 30 day Reassessments:: Progressing Reassessment Notes & Comments:: RPE explained Physical Activity Home Exercise Physical Activity - Home Exercise: Safe Exercise, Warm-up, Self-monitoring, Cool-Down, Home Exercise > 30 min Daily and Sitting Time <3 hours/daily Outcomes & Goals Outcomes/Goals: Demonstrates correct Warm-up/exercise Cool-Down (S3) if = 2.5 METs, Verbalizes symptoms of exercise intolerance by Session 3 (S3), Demonstrate safe equipment use (S3) & follows exercise prescrition (6) and Other: See below Intervention & Plan Plan/Intervention: Instruct warm-up & cool-down if exercising at > 2 METs, Instruct on symptoms of exercise intolerance & actions to take, Instruct & monitor on saf, Assess intial functional capacity & safety risk and Other See below 30-day Reassessments 30 day Reassessments:: Progressing Reassessment Notes & Comments:: slow warm up demonstrated and encouraged Exercise - 60-day Assessment Physician Prescribed Exercise Modalities: Treadmill, Schwinn Airdyne AD-7 and SciFit Stepper Exercise - 90-day Assessment Physician Prescribed Exercise Modalities: Treadmill, Schwinn Airdyne AD-7 and SciFit Stepper Exercise - Final/Discharge Physician Prescribed Exercise Modalities: Treadmill, Schwinn Airdyne AD-7 and SciFit Stepper Nutrition - 30-Day Assessment Program Goals Nutrition Program Goals Patient has diagnosis of Hyperlipidemia (ICD E78)?: No Visit Date of Eval: 04/15/24 Session #:: 10 Cholesterol/Lipids (Other Core Measures) Determine presence & major risk factors that modify LDL goal: Hypertension or hypertensive medication, Low HDL cholesterol <40 mg/dL*, Family history of premature CHD in Male < 55 years: female <65 yearsFa and Age men > 45 years; women >/= 55 years Outcomes/Goals: Pt IDs own risk factors & lifestyle modifications by Session 10, Verbalizes symptoms of angina & response by session 3., Pt independently manages and Other Additional Outcomes/Goals: Intervention/Plan: Advocate for lipid panel cholesterol medication if applicable, Instruct on personal lipid levels & lipid goals/NCEP guidelines, Instruct on cholesterol and Other additional plan/int 30-day Reassessments:: Progressing Reassessment Notes & Comments:: risk factors reviewed with pt. Diabetes (Other Core Measures) Diabetes Type: Diagnosis Type II ICD-10 E11 Insulin dependent injection/pump?: Yes Non-Insulin Dependent?: Yes Do you monitor your blood sugar at home?: Yes Referral to Diabetic Clinic:: Yes Outcomes/Goals:: Able to state symptoms of, Able to state, Able to state and Other additional Intervention/Plan:: Instruct on, Refer to, Instruct on and Other 30-day Reassessments:: Progressing Reassessment Notes & Comments:: pt to meet with dietitian Weight Mgt (Other Care) Height: 5 ft 1 in Weight:: 171 lb 8 oz BMI: 32.3 Diagnosis Overweight/Obesity BMI> 30% ICD-10 E66: Yes Diagnosis High BMI/Morbid Obesity BMI> 35% ICD-10 Z68: No Outcomes/Goals: Pt sets, maintains & shows weight loss goal & trend during rehab and Other additional outcomes/goals Intervention/Plan: Instruct on ideal BMI & set weight loss goal w/patient, Assist pt to ID & incorporate diet changes for weight loss by S9, Refer to Structured Weight Loss program as appropriate, Encourage goal of using 250-300dcal per session for weight loss and Other additional plan/interventions 30 day Reassessments:: Progressing Reassessment Notes & Comments:: pt is to attend nutrition class and meet with a dietitian 1 on . Healthy Eating Habits Will attend diet classes:: Yes Outcomes/Goals:: Consume diet rich in vegs,fruits,whole grain/high fiber,fish,lean meat, Limit sat/trans fats,cholesterol & added salts & sugars and Other additional outcome/goals: Intervention/Plan:: Assess current eating habits and Other Additional plan/interventions 30-day Reassessments:: Progressing Reassessment Notes & Comments:: pt is to attend nutrition class and meet with a dietitian 1 on . Education Gave educational materials for:: Signs & symptoms of hypoglycemia, Signs & symptoms of hyperglycemia, Relate diabetes to coronary artery disease and Healthy eating Nutrition - 60-Day Assessment Weight Mgt (Other Care) Height: 5 ft 1 in Weight:: 171 lb 8 oz BMI: 32.3 Core - 30-Day Assessment Visit Date of Eval: 04/15/24 Session #:: 10 Medication Compliance Preventative Medication(s):: Aspirin, Ticagrelor/P2Y12 inhibitor, Statin/lipid and Beta pancho H/O mental health issues: depression, anxiety, or addiction?: No Doesn?t believe in the benefits of treatment?: No Believes medications are unnecessary or harmful?: No Has a concern about medication side effects?: No Expresses concern over the cost of medications?: No Outcomes/Goals: Verbalizes medications,desired effect & common side effects @ DC, Pt self-reports following medication regimen, Keeps card in wallet w/medications listed by DC and Other additional outcome/goals: Interventions/plans: Instruct on medication effects & side effects, Review medication list w/patient every two weeks, Instruct importance of taking meds as ordered & assist problem solving and Other additional 30-day Reassessments:: Progressing Reassessment Notes & Comments:: Ne recent med changes. Pt is encouraged to take his meds 100% of the time as prescribed by his physician. Tobacco Use Tobacco Use: Non-smoker Hypertension Hypertension Diagnosis:: Hypertension ICD-10 I10 Resting Blood Pressure:: 96/70 [place] Heart Association Hypertension Guidelines Peak Exercise Blood Pressure:: 148/90 Outcomes/Goals: Able to verbalize/achieve optimal blood pressure <130/80, Incorporates diet changes & exercise for blood pressure control by DC and Other additional outcomes/goals Interventions/plan: Instruct on optimal blood pressure, hypertension & medications, Instruct on effects of sodium, alcohol, stress, exercise &hypertension and Other additional plan/interventions 30 day Reassessments:: Progressing Reassessment Notes & Comments:: BP's are with in AHA normal limits. Will continue to monitor and notify physician if necessary. Tobacco Cessation Referral Smoking Cessation Referral:: No Individual Education/Counseling:: No Education Schedule Given:: Yes Psychosocial - 30-Day Assess VIsit Date of Eval: 04/15/24 Session #:: 10 History of previous Mental disease:: No Target Goals Target Goals Psychosocial Test Tool Used:: [employer] QOL Cardiac and PHQ-9 Questionnaire phq-9 Severity Referral to Behavioral Health PS - Interventions: Yes: Referral to Behavioral Health if PHQ-9 score >9:, Yes: Referral to [facility], Yes: Referral to Physician if PHQ-9 if score is 5-9: and Yes: Attend Stress Management Classes Outcomes/Goals: See list Psychosocial Outcomes/Goals:: ID's personal stressors & 2 strategies to manage stress by discharge and Other Additional outcome/goals: Intervention/Plan: See List Interventions/Plan:: Assess stressors,coping strategies & signs of derpression on admission, Instruct/assist pt to develop coping & personal stress Mgt strategies, Refer to Behavioral Health if appropriate, Refer to Physician if appropriate, Instruct patient to recognize signs & symptoms of depression, Instruct patient to recog and Other additional plan/intervention 30-day Reassessments: 30 day Reassessments:: Progressing Reassessment Notes & Comments:: Pt is currently free of any psychosocial issues. Psychosocial - 60-Day Assess Target Goals Target Goals Referral to Behavioral Health PS - Interventions: Yes: Referral to Behavioral Health if PHQ-9 score >9:, Yes: Referral to [facility], Yes: Referral to Physician if PHQ-9 if score is 5-9: and Yes: Attend Stress Management Classes Outcomes/Goals: See list Psychosocial Outcomes/Goals:: ID's personal stressors & 2 strategies to manage stress by discharge and Other Additional outcome/goals: Psychosocial - 90-Day Assess Target Goals Target Goals Referral to Behavioral Health PS - Interventions: Yes: Referral to Behavioral Health if PHQ-9 score >9:, Yes: Referral to [facility], Yes: Referral to Physician if PHQ-9 if score is 5-9: and Yes: Attend Stress Management Classes Psychosocial - Final Assessmen Target Goals Target Goals Referral to Behavioral Health PS - Interventions: Yes: Referral to Behavioral Health if PHQ-9 score >9:, Yes: Referral to [facility], Yes: Referral to Physician if PHQ-9 if score is 5-9: and Yes: Attend Stress Management Classes Nutrition - 90-Day Assessment Weight Mgt (Other Care) Height: 5 ft 1 in Weight:: 171 lb 8 oz BMI: 32.3 Nutrition - Final Assessment Weight Mgt (Other Care) Height: 5 ft 1 in Weight:: 171 lb 8 oz BMI: 32.3
[2024-04-15 10:06] VITALS: BP 96/70; BMI 32.3
== END 2024-05-03 23:59 ==
LOC: CR 15:15
PROVIDERS: PCP Family Medicine; Referring Provider Internal Medicine Cardiovascular Disease; Visit Provider Internal Medicine Cardiovascular Disease
DX: Z95.5 Presence of coronary angioplasty implant and graft (principal); I42.9 Cardiomyopathy, unspecified; I25.10 Atherosclerotic heart disease of native coronary artery without angina pectoris; I21.3 ST elevation (STEMI) myocardial infarction of unspecified site
CPT/HCPCS: 93798

== ENCOUNTER 2024-06-02 15:15 | Outpatient (RCR) | payer OTHER, SELFPAY ==
[2024-04-15 10:06] VITALS: BMI 32.3
[2024-05-04 00:15] VITALS: BP 96/70
--- NOTE | 2024-05-14 10:50 | PCM.CR.ITP ---
Exercise - Initial Assessment Physician Prescribed Exercise Modalities: Treadmill, Schwinn Airdyne AD-7 and SciFit Stepper Nutrition - Initial Assessment Weight Mgt (Other Care) Height: 5 ft 11 in Weight:: 176 lb 8 oz BMI: 24.6 Psychosocial - Initial Assess Target Goals Target Goals Referral to Behavioral Health PS - Interventions: Yes: Attend Stress Management Classes Nutrition Survey Nutrition Survey Instructions Scoring Instructions Exercise - 30-day Assessment Physician Prescribed Exercise Modalities: Treadmill, Schwinn Airdyne AD-7 and SciFit Stepper Exercise - 60-day Assessment Visit Date of Eval: 05/14/24 Session #:: 18 Physician Prescribed Exercise Modalities: Treadmill, Schwinn Airdyne AD-7 and SciFit Stepper Frequency: 3x/week for 12 weeks [36 sessions] Intensity: 60-80% of age predicted maximum heart rate reserve Duration: 30 - 45 minutes Current METSs:: 5.6 Target Heart Rate:: 106-132 Current RPE:: 12 Maximum Excercise HR:: 135 Resting Blood Pressure: 130/80 Maximum Exercise Blood Pressure: 140/98 EKG Type: St with BBB with rare PVC's Outcomes & Goals Goals:: Verbalizes understanding of THR, RPE & goal METS by session 6, Documents in home exercise log/reports 30 min aerobic 5 day/wk by DC, Demonstrates accurate pulse taking by DC and Other additional outcome/goals: see below Intervention & Plan Exercise Program Goals: Instruct on personal THR & RPE, Instruct on MET level & personal MET goal, Show patient to take own pulse /validate performance until accurate, Instruct on home exercise and Other additional plan/int 30-day Reassessments 30 day Reassessments:: Progressing Reassessment Notes & Comments:: THR explained and pt demonstrates understanding. 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 No changes at this time Physical Activity Home Exercise Physical Activity - Home Exercise: Safe Exercise, Warm-up, Self-monitoring, Cool-Down, Home Exercise > 30 min Daily and Sitting Time <3 hours/daily Outcomes & Goals Outcomes/Goals: Demonstrates correct Warm-up/exercise Cool-Down (S3) if = 2.5 METs, Verbalizes symptoms of exercise intolerance by Session 3 (S3), Demonstrate safe equipment use (S3) & follows exercise prescrition (6) and Other: See below Intervention & Plan Plan/Intervention: Instruct warm-up & cool-down if exercising at > 2 METs, Instruct on symptoms of exercise intolerance & actions to take, Instruct & monitor on saf, Assess intial functional capacity & safety risk and Other See below 30-day Reassessments 30 day Reassessments:: Progressing Reassessment Notes & Comments:: proper cool down demonstrated and importance explained. Pt is able to return demonstration and understadnding Exercise - 90-day Assessment Physician Prescribed Exercise Modalities: Treadmill, Schwinn Airdyne AD-7 and SciFit Stepper Exercise - Final/Discharge Physician Prescribed Exercise Modalities: Treadmill, Schwinn Airdyne AD-7 and SciFit Stepper Nutrition - 30-Day Assessment Weight Mgt (Other Care) Height: 5 ft 11 in Weight:: 176 lb 8 oz BMI: 24.6 Nutrition - 60-Day Assessment Program Goals Nutrition Program Goals Patient has diagnosis of Hyperlipidemia (ICD E78)?: No Visit Date of Eval: 05/14/24 Session #:: 18 Cholesterol/Lipids (Other Core Measures) Determine presence & major risk factors that modify LDL goal: Hypertension or hypertensive medication, Low HDL cholesterol <40 mg/dL*, Family history of premature CHD in Male < 55 years: female <65 yearsFa and Age men > 45 years; women >/= 55 years Outcomes/Goals: Pt IDs own risk factors & lifestyle modifications by Session 10, Verbalizes symptoms of angina & response by session 3., Pt independently manages and Other Additional Outcomes/Goals: Intervention/Plan: Advocate for lipid panel cholesterol medication if applicable, Instruct on personal lipid levels & lipid goals/NCEP guidelines, Instruct on cholesterol and Other additional plan/int 30-day Reassessments:: Progressing Reassessment Notes & Comments:: Risk factors reviewed with pt. Pt demonstrates understanding Diabetes (Other Core Measures) Diabetes Type: Diagnosis Type II ICD-10 E11 Insulin dependent injection/pump?: Yes Non-Insulin Dependent?: Yes Do you monitor your blood sugar at home?: Yes Referral to Diabetic Clinic:: Yes 30-day Reassessments:: Progressing Reassessment Notes & Comments:: pt is referred to dietitian Weight Mgt (Other Care) Height: 5 ft 11 in Weight:: 176 lb 8 oz BMI: 24.6 Diagnosis Overweight/Obesity BMI> 30% ICD-10 E66: No Diagnosis High BMI/Morbid Obesity BMI> 35% ICD-10 Z68: No Outcomes/Goals: Pt sets, maintains & shows weight loss goal & trend during rehab and Other additional outcomes/goals Intervention/Plan: Instruct on ideal BMI & set weight loss goal w/patient, Assist pt to ID & incorporate diet changes for weight loss by S9, Refer to Structured Weight Loss program as appropriate, Encourage goal of using 250-300dcal per session for weight loss and Other additional plan/interventions 30 day Reassessments:: Met Reassessment Notes & Comments:: pt has net his weight goals Healthy Eating Habits Will attend diet classes:: Yes Outcomes/Goals:: Consume diet rich in vegs,fruits,whole grain/high fiber,fish,lean meat, Limit sat/trans fats,cholesterol & added salts & sugars and Other additional outcome/goals: Intervention/Plan:: Assess current eating habits and Other Additional plan/interventions 30-day Reassessments:: Progressing Reassessment Notes & Comments:: pt is to attend nutrition class and is referred to dietitian Education Gave educational materials for:: Signs & symptoms of hypoglycemia, Signs & symptoms of hyperglycemia, Relate diabetes to coronary artery disease and Healthy eating Core - 60-Day Assessment Visit Date of Eval: 05/14/24 Session #:: 18 Medication Compliance Preventative Medication(s):: Aspirin, Ticagrelor/P2Y12 inhibitor, Statin/lipid and Beta pancho H/O mental health issues: depression, anxiety, or addiction?: No Doesn?t believe in the benefits of treatment?: No Believes medications are unnecessary or harmful?: No Has a concern about medication side effects?: No Expresses concern over the cost of medications?: No Outcomes/Goals: Verbalizes medications,desired effect & common side effects @ DC, Pt self-reports following medication regimen, Keeps card in wallet w/medications listed by DC and Other additional outcome/goals: Interventions/plans: Instruct on medication effects & side effects, Review medication list w/patient every two weeks, Instruct importance of taking meds as ordered & assist problem solving and Other additional 30-day Reassessments:: Progressing Reassessment Notes & Comments:: pt encouraged to take his meds 100% of time. Importance explained Tobacco Use Tobacco Use: Non-smoker Hypertension Hypertension Diagnosis:: Hypertension ICD-10 I10 Resting Blood Pressure:: 130/80 [place] [employer] Hypertension Guidelines Peak Exercise Blood Pressure:: 140/98 Outcomes/Goals: Able to verbalize/achieve optimal blood pressure <130/80, Incorporates diet changes & exercise for blood pressure control by DC and Other additional outcomes/goals Interventions/plan: Instruct on optimal blood pressure, hypertension & medications, Instruct on effects of sodium, alcohol, stress, exercise &hypertension and Other additional plan/interventions 30 day Reassessments:: Met Reassessment Notes & Comments:: Pt's bp's have been within AHA normal limits Tobacco Cessation Referral Smoking Cessation Referral:: No Individual Education/Counseling:: No Education Schedule Given:: Yes Psychosocial - 30-Day Assess Target Goals Target Goals Referral to Behavioral Health PS - Interventions: Yes: Attend Stress Management Classes Outcomes/Goals: See list Psychosocial Outcomes/Goals:: ID's personal stressors & 2 strategies to manage stress by discharge and Other Additional outcome/goals: Psychosocial - 60-Day Assess VIsit Date of Eval: 05/14/24 Session #:: 18 History of previous Mental disease:: No Target Goals Target Goals Psychosocial Test Tool Used:: [employer] QOL Cardiac and PHQ-9 Questionnaire phq-9 Severity Referral to Behavioral Health PS - Interventions: Yes: Attend Stress Management Classes Outcomes/Goals: See list Psychosocial Outcomes/Goals:: ID's personal stressors & 2 strategies to manage stress by discharge and Other Additional outcome/goals: Intervention/Plan: See List Interventions/Plan:: Assess stressors,coping strategies & signs of derpression on admission, Instruct/assist pt to develop coping & personal stress Mgt strategies, Refer to Behavioral Health if appropriate, Refer to Physician if appropriate, Instruct patient to recognize signs & symptoms of depression, Instruct patient to recog and Other additional plan/intervention 30-day Reassessments: 30 day Reassessments:: Met Reassessment Notes & Comments:: pot denies any psychosocial issues at this time Psychosocial - 90-Day Assess Target Goals Target Goals Referral to Behavioral Health PS - Interventions: Yes: Attend Stress Management Classes Psychosocial - Final Assessmen Target Goals Target Goals Referral to Behavioral Health PS - Interventions: Yes: Attend Stress Management Classes Nutrition - 90-Day Assessment Weight Mgt (Other Care) Height: 5 ft 11 in Weight:: 176 lb 8 oz BMI: 24.6 Nutrition - Final Assessment Weight Mgt (Other Care) Height: 5 ft 11 in Weight:: 176 lb 8 oz BMI: 24.6
[2024-05-14 10:58] VITALS: BP 130/80
[2024-05-14 11:13] VITALS: BP 130/80; BMI 24.6
== END 2024-06-03 23:59 ==
LOC: CR 15:15
PROVIDERS: PCP Family Medicine; Referring Provider Internal Medicine Cardiovascular Disease; Visit Provider Internal Medicine Cardiovascular Disease
DX: I25.10 Atherosclerotic heart disease of native coronary artery without angina pectoris (principal); I21.3 ST elevation (STEMI) myocardial infarction of unspecified site; I42.9 Cardiomyopathy, unspecified; Z95.5 Presence of coronary angioplasty implant and graft
CPT/HCPCS: 93798

== ENCOUNTER 2024-06-11 15:15 | Outpatient (RCR) | payer OTHER, SELFPAY ==
[2024-05-14 11:13] VITALS: BMI 24.6
[2024-06-04 00:36] VITALS: BP 130/80; BP 96/70
--- NOTE | 2024-06-14 14:43 | CR.ITP_ITS ---
Exercise - Initial Assessment Physician Prescribed Exercise Modalities: Treadmill, Schwinn Airdyne AD-7 and SciFit Stepper Nutrition - Initial Assessment Weight Mgt (Other Care) Height: 5 ft 11 in Weight:: 179 lb BMI: 25.0 Psychosocial - Initial Assess Target Goals Target Goals Nutrition Survey Nutrition Survey Instructions Scoring Instructions Exercise - 30-day Assessment Physician Prescribed Exercise Modalities: Treadmill, Schwinn Airdyne AD-7 and SciFit Stepper Exercise - 60-day Assessment Physician Prescribed Exercise Modalities: Treadmill, Schwinn Airdyne AD-7 and SciFit Stepper Exercise - 90-day Assessment Visit Date of Eval: 06/14/24 Session #:: 26 Physician Prescribed Exercise Modalities: Treadmill, Schwinn Airdyne AD-7 and SciFit Stepper Frequency: 3x/week for 12 weeks [36 sessions] Intensity: 60-80% of age predicted maximum heart rate reserve Duration: 30 - 45 minutes Current METSs:: 6.3 Target Heart Rate:: 106-140 Current RPE:: 12-13 Maximum Excercise HR:: 131 Resting Blood Pressure: 130/80 Maximum Exercise Blood Pressure: 148/88 EKG Type: ST with BBB Outcomes & Goals Goals:: Verbalizes understanding of THR, RPE & goal METS by session 6, Documents in home exercise log/reports 30 min aerobic 5 day/wk by DC, Demonstrates accurate pulse taking by DC and Other additional outcome/goals: see below Intervention & Plan Exercise Program Goals: Instruct on personal THR & RPE, Instruct on MET level & personal MET goal, Show patient to take own pulse /validate performance until accurate, Instruct on home exercise and Other additional plan/int 30-day Reassessments 30 day Reassessments:: Met Reassessment Notes & Comments:: Pt has met his exercise goals and understands the benefits of exercise. Physical Activity Home Exercise Physical Activity - Home Exercise: Safe Exercise, Warm-up, Self-monitoring, Cool-Down, Home Exercise > 30 min Daily and Sitting Time <3 hours/daily Outcomes & Goals Outcomes/Goals: Demonstrates correct Warm-up/exercise Cool-Down (S3) if = 2.5 METs, Verbalizes symptoms of exercise intolerance by Session 3 (S3), Demonstrate safe equipment use (S3) & follows exercise prescrition (6) and Other: See below Intervention & Plan Plan/Intervention: Instruct warm-up & cool-down if exercising at > 2 METs, Instruct on symptoms of exercise intolerance & actions to take, Instruct & monitor on saf, Assess intial functional capacity & safety risk and Other See below 30-day Reassessments 30 day Reassessments:: Met Reassessment Notes & Comments:: Pt warms up, cools down, and demonstrates safe exercise. Exercise - Final/Discharge Physician Prescribed Exercise Modalities: Treadmill, Schwinn Airdyne AD-7 and SciFit Stepper Nutrition - 30-Day Assessment Weight Mgt (Other Care) Height: 5 ft 11 in Weight:: 179 lb BMI: 25.0 Nutrition - 60-Day Assessment Weight Mgt (Other Care) Height: 5 ft 11 in Weight:: 179 lb BMI: 25.0 Core - 30-Day Assessment Hypertension [employer] Hypertension Guidelines Reassessment Notes & Comments:: Pt's BP's are within AHA's normal limits Core - Final Assessment Hypertension [employer] Hypertension Guidelines Reassessment Notes & Comments:: Pt's BP's are within AHA's normal limits Core - 90 Day Assessment Visit Date of Eval: 06/14/24 Session #:: 26 Medication Compliance Preventative Medication(s):: Aspirin, Ticagrelor/P2Y12 inhibitor, Statin/lipid and Beta pancho H/O mental health issues: depression, anxiety, or addiction?: No Doesn?t believe in the benefits of treatment?: No Believes medications are unnecessary or harmful?: No Has a concern about medication side effects?: No Expresses concern over the cost of medications?: No Outcomes/Goals: Verbalizes medications,desired effect & common side effects @ DC, Pt self-reports following medication regimen, Keeps card in wallet w/medications listed by DC and Other additional outcome/goals: Interventions/plans: Instruct on medication effects & side effects, Review medication list w/patient every two weeks, Instruct importance of taking meds as ordered & assist problem solving and Other additional 30-day Reassessments:: Progressing Reassessment Notes & Comments:: carvedilol increased to12.5 mg 05/28/24. Will continue to watch resting HR and BP's Tobacco Use Tobacco Use: Non-smoker Hypertension Hypertension Diagnosis:: Hypertension ICD-10 I10 Resting Blood Pressure:: 122/78 [employer] Hypertension Guidelines Peak Exercise Blood Pressure:: 152/88 Outcomes/Goals: Able to verbalize/achieve optimal blood pressure <130/80, Incorporates diet changes & exercise for blood pressure control by DC and Other additional outcomes/goals Interventions/plan: Instruct on optimal blood pressure, hypertension & medications, Instruct on effects of sodium, alcohol, stress, exercise &hypertension and Other additional plan/interventions 30 day Reassessments:: Met Reassessment Notes & Comments:: Pt's BP's are within AHA's normal limits Tobacco Cessation Referral Smoking Cessation Referral:: No Individual Education/Counseling:: No Education Schedule Given:: Yes Psychosocial - 30-Day Assess Target Goals Target Goals Psychosocial - 60-Day Assess Target Goals Target Goals Psychosocial - 90-Day Assess Target Goals Target Goals Psychosocial - Final Assessmen Target Goals Target Goals Nutrition - 90-Day Assessment Visit Date of Eval: 06/14/24 Session #:: 26 Cholesterol/Lipids (Other Core Measures) Determine presence & major risk factors that modify LDL goal: Hypertension or hypertensive medication, Low HDL cholesterol <40 mg/dL*, Family history of premature CHD in Male < 55 years: female <65 yearsFa and Age men > 45 years; women >/= 55 years Outcomes/Goals: Pt IDs own risk factors & lifestyle modifications by Session 10, Verbalizes symptoms of angina & response by session 3., Pt independently manages and Other Additional Outcomes/Goals: Intervention/Plan: Advocate for lipid panel cholesterol medication if applicable, Instruct on personal lipid levels & lipid goals/NCEP guidelines, I nstruct on cholesterol and Other additional plan/int 30-day Reassessments:: Met Reassessment Notes & Comments:: Pt knows what his risk factors are. Pt understands how to minimize his risk factors. Diabetes (Other Core Measures) Diabetes Type: Diagnosis Type II ICD-10 E11 Insulin dependent injection/pump?: Yes Non-Insulin Dependent?: Yes Do you monitor your blood sugar at home?: Yes Referral to Diabetic Clinic:: Yes 30-day Reassessments:: Met Reassessment Notes & Comments:: Pt referred to dietitian Weight Mgt (Other Care) Height: 5 ft 11 in Weight:: 179 lb BMI: 25.0 Diagnosis Overweight/Obesity BMI> 30% ICD-10 E66: No Diagnosis High BMI/Morbid Obesity BMI> 35% ICD-10 Z68: No Outcomes/Goals: Pt sets, maintains & shows weight loss goal & trend during rehab and Other additional outcomes/goals Intervention/Plan: Instruct on ideal BMI & set weight loss goal w/patient, Assist pt to ID & incorporate diet changes for weight loss by S9, Refer to Structured Weight Loss program as appropriate, Encourage goal of using 250- 300dcal per session for weight loss and Other additional plan/interventions 30 day Reassessments:: Met Reassessment Notes & Comments:: pt is at a healthy weight Healthy Eating Habits Will attend diet classes:: Yes Outcomes/Goals:: Consume diet rich in vegs,fruits,whole grain/high fiber,fish,lean meat, Limit sat/trans fats,cholesterol & added salts & sugars and Other additional outcome/goals: Intervention/Plan:: Assess current eating habits and Other Additional plan/interventions 30-day Reassessments:: Met Reassessment Notes & Comments:: pt has attended nutrition class Education Gave educational materials for:: Signs & symptoms of hypoglycemia, Signs & symptoms of hyperglycemia, Relate diabetes to coronary artery disease and Healthy eating Nutrition - Final Assessment Weight Mgt (Other Care) Height: 5 ft 11 in Weight:: 179 lb BMI: 25.0
[2024-06-14 14:54] VITALS: BP 130/80
[2024-06-14 15:08] VITALS: BP 122/78; BMI 25.0
== END 2024-07-03 23:59 ==
LOC: CR 15:15
PROVIDERS: PCP Family Medicine; Referring Provider Internal Medicine Cardiovascular Disease; Visit Provider Internal Medicine Cardiovascular Disease
DX: Z95.5 Presence of coronary angioplasty implant and graft (principal); I42.9 Cardiomyopathy, unspecified; I25.10 Atherosclerotic heart disease of native coronary artery without angina pectoris; I21.3 ST elevation (STEMI) myocardial infarction of unspecified site
CPT/HCPCS: 93798

== ENCOUNTER 2024-07-05 05:49 | Outpatient (RCR) | payer OTHER, SELFPAY ==
[2024-07-04 00:46] VITALS: BP 122/78; BP 130/80; BP 96/70
== END 2024-08-03 23:59 ==
LOC: CR 05:49
PROVIDERS: PCP Family Medicine; Referring Provider Internal Medicine Cardiovascular Disease; Visit Provider Internal Medicine Cardiovascular Disease
DX: Z95.5 Presence of coronary angioplasty implant and graft (principal); I42.9 Cardiomyopathy, unspecified; I25.10 Atherosclerotic heart disease of native coronary artery without angina pectoris; I21.3 ST elevation (STEMI) myocardial infarction of unspecified site
CPT/HCPCS: 93798

== ENCOUNTER 2025-02-26 09:49 | Inpatient (IN) | payer MEDICAID, SELFPAY ==
[2025-02-26] VITALS (19 sets, daily range): BP systolic 121–189; BP diastolic 63–109; PULSE 25–133; RESP 21–32; TEMP 36.4–37.2; O2SAT 98–100; BMI 25.5; BMI 26.2
--- NOTE | 2025-02-26 10:04 | EKG12_ITS ---
Test Reason : TACHYCARDIA Blood Pressure : */* mmHG Vent. Rate : 117 BPM Atrial Rate : 117 BPM P-R Int : 160 ms QRS Dur : 108 ms QT Int : 346 ms P-R-T Axes : 34 -50 31 degrees QTcB Int : 482 ms Sinus tachycardia Left axis deviation Inferior infarct , age undetermined Abnormal ECG Confirmed by BALDO LOCKWOOD, SUSI ([id number]), communications editor GABRIEL BROWN ([id number]) on 02/28/2025 1:02:34 PM Referred By: Confirmed By: SUSI BLAND MD
--- NOTE | 2025-02-26 10:11 | EX.ED.DYSGE1 ---
HPI History of Present Illness Chief Complaint: General Illness [facility] Medical History Cardiomyopathy Coronary artery disease ST elevation [place] (STEMI) (~02/24/24) Diabetes Home Medications ?Medication ?Instructions ?Recorded ?Last Taken ?Type semaglutide 0.25 mg or 0.5 mg (2 0.25 mg subcut QWEEK 02/24/24 02/22/24 History mg/3 mL) subcutaneous pen injector (Ozempic) Held on 02/26/25. Instructions: on hold insulin glargine 100 unit/mL (3 20 unit (0.2 mL) subcut DAILY 1 02/27/24 Unknown Rx mL) subcutaneous pen (Lantus month #15 mL Solostar U-100 Insulin) insulin lispro 100 unit/mL 10 unit (0.1 mL) subcut TIDAC 1 02/27/24 Unknown Rx subcutaneous pen (Humalog KwikPen month #15 mL (U-100) Insulin) insulin lispro 100 unit/mL See Protocol subcut ACHS #0 mL 02/27/24 Unknown Rx subcutaneous pen (Humalog KwikPen (U-100) Insulin) metformin 1,000 mg tablet 1,000 mg PO BID 30 days #0 tabs 02/27/24 Unknown Rx needle (disp) 32 gauge 32 gauge x #100 ea 02/27/24 Unknown Rx 12/17 carvedilol 12.5 mg tablet 12.5 mg PO BID dose increased 06/01/24 Unknown Rx again for fast heart rate #60 tabs aspirin 81 mg tablet,delayed 81 mg PO DAILY@0800 #90 tabs 06/21/24 Unknown Rx release atorvastatin 80 mg tablet 80 mg PO QHS #90 tabs 06/21/24 Unknown Rx empagliflozin 10 mg tablet 10 mg PO DAILY 30 days #30 tabs 06/21/24 Unknown Rx (Jardiance) furosemide 20 mg tablet 20 mg PO DAILY #90 tabs 06/21/24 Unknown Rx lisinopril 2.5 mg tablet 2.5 mg PO DAILY 30 days #90 tabs 06/21/24 Unknown Rx spironolactone 25 mg tablet 25 mg PO DAILY #90 tabs 06/21/24 Unknown Rx ticagrelor 90 mg tablet (Brilinta) 90 mg PO BID #60 tabs 06/21/24 Unknown Rx fluoxetine 40 mg capsule 40 mg PO DAILY 02/26/25 Unknown History gabapentin 300 mg capsule 300 mg PO 4X/DAY 02/26/25 Unknown History venlafaxine 75 mg capsule,extended 75 mg PO DAILY nausea 02/26/25 Unknown History release 24 hr Allergy/AdvReac Type Severity Reaction Status Date / Time No Known Allergies Allergy Verified 02/26/25 09:51 Surgical History Hx of cardiac catheterization (~02/26/24) Stented coronary artery (~02/26/24) Social History Smoking Status: Never smoker EXAM Physical Exam Const Vital Signs: 02/26/25 09:50 02/26/25 09:56 02/26/25 10:11 Temperature 98 F Temperature Source Oral Pulse Rate 25 L 125 H Respiratory Rate 30 H Respiratory Pattern Tachypnea Blood Pressure 176/100 H Blood Pressure Mean 125 Pulse Ox 100 Oxygen Delivery Method Room Air 02/26/25 11:00 Temperature Temperature Source Pulse Rate 125 H Respiratory Rate 25 H Respiratory Pattern Blood Pressure 189/109 H Blood Pressure Mean 135 Pulse Ox 100 Oxygen Delivery Method Room Air MDM MDM MDM Narrative Medical decision making narrative: HISTORY OF PRESENT ILLNESS: Chief complaint: Headache, dizziness nausea vomit 44-year-old male presents concern for nausea and vomiting. Notes associated dizziness headache and shortness of breath. Not eating for 3 days. Not take his insulin for 3 days. Denies history of DKA. Patient denies sudden onset or thunderclap headache, denies maximal intensity within 1 minute, vomiting, neck pain, stiffness, changes in vision, fever, history malignancy, syncope, or seizures associated with headache. REVIEW OF SYSTEMS: Pertinent positives: Headache, nausea vomiting dizziness Pertinent negatives: CP, syncope, focal weakness PHYSICAL EXAM: Nursing triage notes reviewed, Vital signs reviewed Constitutional: please see mdm HENT: MMM Eyes: Pupils equal round and reactive to light, Extraocular muscles intact Neck: No stridor, no JVD, full neck ROM Lungs: Clear to auscultation, No wheezing or rales. Kussmaul respirations no conversational dyspnea, no accessory muscle use, no nasal flaring. No respiratory distress noted Heart: Regular rate and rhythm, No murmurs, No rubs and No gallops, 2+ distal pulses (radial, femoral, posterior tibial) in all extremities Abdomen: Soft, there is no tenderness, rigidity, rebound or guarding, no obvious peritoneal signs, no palpable pulsatile abdominal masses, no auscultated abdominal bruit : No CVAT Extremities: No edema Neuro: No new focal neurological deficits, cranial nerves II through XII intact, 5/5 strength in all present extremities. Intact sensation to light touch in all present extremities, 2+ reflexes bilateral patella tendons. Skin: No rash or lesions noted MEDICAL DECISION MAKING: Chief Complaint: please see HPI External records reviewed: Reviewed prior cardiac catheterization Factors affecting care: Type 2 diabetes, CAD Social determinants of health: Denies drug use History obtained from others: Consults: Hospitalist (Dr. Evans) - recommended admit to ICU. MDM Narrative: Patient was initially hypertensive blood pressure 176/100, tachycardic pulse 125, tachypneic respiratory rate 30. Exam with a benign neurologic exam. Grossly neurologically intact. Abdomen soft nontender. Lungs were clear. Patient did have tachypnea and Kussmaul respirations on initial exam I considered the following differential diagnosis: Dehydration, arrhythmia, anemia, DKA, HHS, ICH, intra-abdominal surgical pathology, UTI a dehydration I obtained a broad lab and imaging to further determine if the patient was suffering from a life-threatening etiology. Initially assessed the patient to liter normal saline ALL IMAGES (IF OBTAINED) HAVE BEEN PERSONALLY REVIEWED AND INTERPRETED BY MYSELF. EKG with sinus tachycardia rate 117, left axis deviation, prolonged QTc at 482, no STEMI VBG with evidence of DKA with significant metabolic acidosis with a pH of 7.039, bicarb of 5 CBC without leukocytosis, severe anemia, no thrombocytopenia. BMP with hyponatremia, hyperkalemia (hemolyzed). Noted SESAR. LFTs without evidence of acute compatibility obstruction, improved elevation in liver enzymes from prior study Serum acetone elevated consistent with poor glucose utilization in setting of DKA I have personally reviewed the patient's chest x-ray. Chest x-ray is unremarkable for pulmonary edema, pneumothorax, pneumonia or focal cardiopulmonary abnormality. Given initial VBG results and CMP results patient has DKA. Started on insulin drip. Will monitor blood sugar and BMP every hour and every 2 hours respectively. The patient and/or family, caregivers express understanding. The patient and/or family, caregivers agrees with the plan. Shared decision making: I will have a discussion with the patient and or visitors regarding risk/benefits of further testing or admission. They will be made aware of of the risk/benefits inherent in this decision they will be given the opportunity to voice understanding. Total critical care time today provided was at least 60 minutes. This excludes separately billable procedures. Critical care time (if documented) is secondary to the patient having high probability of clinically significant/life threatening deterioration in the patient's condition which required my urgent intervention. Impression: 1. DKA 2. History of type 2 diabetes 3. Tachycardia 4. Tachypnea Dispo: Admit to ICU This note was generated with Sensor[employer] dictation software. It may contain incorrect words, spelling, and punctuation that were not noted in review of the chart prior to signing. Lab Data Labs: Laboratory Results - last 24 hr 02/26/25 02/26/25 02/26/25 09:56 10:00 10:30 WBC 8.8 RBC 4.83 Hgb 15.5 Hct 46.8 MCV 96.9 H MCH 32.1 H MCHC 33.1 RDW Std Deviation 43.8 RDW Coeff of Cassandra 12.2 Plt Count 272 MPV 9.9 Immature Gran % (Auto) 0.600 Neut % (Auto) 84.8 H Lymph % (Auto) 10.0 L [place] % (Auto) 4.2 Eos % (Auto) 0.1 Baso % (Auto) 0.3 Absolute Neuts (auto) 7.5 Absolute Lymphs (auto) 0.88 Nucleated RBC % 0 Sodium 125 L Potassium 5.3 H Chloride 83 L Carbon Dioxide 5.1 L* Anion Gap 37 H BUN 12 Creatinine 1.22 H Estim Creat Clear Calc 81.44 Est GFR (MDRD) Non-Af 75 BUN/Creatinine Ratio 9.9 L Glucose 259 H Lactic Acid 2.1 H* Calcium 9.7 Total Bilirubin 0.63 AST 55 H ALT 51 H Alkaline Phosphatase 104 Troponin T High Sens 13 Total Protein 9.2 H Albumin 5.3 H Globulin 3.9 Albumin/Globulin Ratio 1.4 Lipase 34 b-Hydroxybutyric mmol/L 11.1 H Urine Color Urine Clarity Urine pH Ur Specific [place] Urine Protein Urine Glucose (UA) Urine Ketones Urine Occult Blood Urine Nitrite Urine Bilirubin Urine Urobilinogen Ur Leukocyte Esterase Urine RBC Urine WBC Ur Squamous Epith Cells Urine Bacteria Urine Mucus POC Glucose 281 H 02/26/25 11:33 WBC RBC Hgb Hct MCV MCH MCHC RDW Std Deviation RDW Coeff of Cassandra Plt Count MPV Immature Gran % (Auto) Neut % (Auto) Lymph % (Auto) [place] % (Auto) Eos % (Auto) Baso % (Auto) Absolute Neuts (auto) Absolute Lymphs (auto) Nucleated RBC % Sodium Potassium Chloride Carbon Dioxide Anion Gap BUN Creatinine Estim Creat Clear Calc Est GFR (MDRD) Non-Af BUN/Creatinine Ratio Glucose Lactic Acid Calcium Total Bilirubin AST ALT Alkaline Phosphatase Troponin T High Sens Total Protein Albumin Globulin Albumin/Globulin Ratio Lipase b-Hydroxybutyric mmol/L Urine Color Yellow Urine Clarity Sl. Cloudy Urine pH 5.0 Ur Specific [place] 1.025 Urine Protein 100 H Urine Glucose (UA) 1000 H Urine Ketones 150 A* Urine Occult Blood 150 H Urine Nitrite Negative Urine Bilirubin Negative Urine Urobilinogen Normal Ur Leukocyte Esterase Negative Urine RBC 5-10 SEEN Urine WBC 0 SEEN Ur Squamous Epith Cells 0-5 SEEN Urine Bacteria 0 SEEN Urine Mucus 0 SEEN POC Glucose ABG Data ABG results: ABG 02/26/25 02/26/25 10:51 10:58 Specimen Type YOLIE YOLIE Sample Site Not entered Not entered VBG pH 7.04 L* 7.07 L* VBG pO2 48 H 55 H VBG HCO3 5 L 5 L VBG Total CO2 6 L 6 L VBG O2 Sat (Calc) 66 75 H VBG Base Excess -26 L -25 L POC Mix VBG pCO2 Pt Tmp 18.6 L* 17.9 L* O2 Delivery Device Not entered Not entered Crit Call To/Read Back Yes Yes Blood Gas Notified Whom [facility] Blood Gas Notified Time 10:53:35 Radiography Chest X-Ray - ED: Read by ED Physician Diagnostic Testing: Clinical Impression(s) from Imaging Studies Chest X-Ray 02/26/25 10:30 IMPRESSION: No acute cardiopulmonary process. Reading Location: [facility] Discharge Plan Triage Chief Complaint: General Illness ED Provider: Mariano Bruno Dx/Rx/DC Orders Primary Care Provider: Kirk Russell
--- OUTSIDE RECORDS SUMMARY | 2025-02-26 10:12 | XMS RPT_ITS | CCD ---
Author Organization [facility] ion [facility] Care Team Providers Care Commercial Collections Driver Name Role Phone German WINDOW DRESSER.JOHNNY NORMAN, Amador Primary Care Provider Kirk Russell MD Primary Care Provider [phone] RACHID, CHALON Primary Care Unavailable BLAZ, AMADOR Primary Care Unavailable GINGER SALGADO Referring Unavailable BLADheeraj, AMADOR Primary Care Unavailable Blaz WINDOW DRESSER.JOHNNY NORMAN, Amador Primary Care Provider Harley, Italo Attending Unavailable Harley, Italo Referring Unavailable Rachid, Chalon Primary Care Unavailable Harley, Italo Consulting Unavailable Harley, Italo Referring Unavailable Harley, Italo Admitting Unavailable Wade, Luc Primary Care Unavailable Harley, Italo Attending Unavailable Harley, Italo Attending Unavailable Rachid, Chalon Primary Care Unavailable Harley, Italo Referring Unavailable Roof HHA, Collins Hunter Attending Unavailable Rachid, Chalon Primary Care Unavailable Rachid, Chalon Referring Unavailable Harley, Italo Attending Unavailable Rachid, Chalon Primary Care Unavailable Harley, Italo Referring Unavailable Harley, Italo Attending Unavailable Rachid, Chalon Primary Care Unavailable Harley, Italo Referring Unavailable Rachid, Chalon Primary Care Unavailable Harley, Italo Referring Unavailable Harley, Italo Attending Unavailable Harley, Italo Attending Unavailable Harley, Italo Referring Unavailable Rachid, Chalon Primary Care Unavailable Harley, Italo Referring Unavailable Harley, Italo Consulting Unavailable Harley, Italo Admitting Unavailable Gaudencio Reddy Attending Unavailable Wade Luc Primary Care Unavailable Gaudencio Reddy Consulting Unavailable Rachid, Kirk Attending Unavailable Rachid, Chalon Primary Care Unavailable Roof HHA, Collins Hunter Referring Unavailable Roof HHA, Collins Hunter Attending Unavailable Rachid, Chalon Primary Care Unavailable Rachid, Chalon Primary Care Unavailable Harley, Italo Referring Unavailable Harley, Italo Attending Unavailable Provider, Ed Physician Attending Unavailab le Rachid, Chalon Primary Care Unavailable Rachid, Chalon Primary Care Unavailable Harley, Italo Attending Unavailable Rachid, Chalon Primary Care Unavailable Roderick Mendez Attending Unavailable Harley, Italo Attending Unavailable Rachid, Chalon Primary Care Unavailable Harley, Italo Referring Unavailable Harley, Italo Referring Unavailable Rachid, Chalon Primary Care Unavailable Harley, Italo Admitting Unavailable Gaudencio Reddy Consulting Unavailable Andrea, Roderick Attending Unavailable Harley, Italo Consulting Unavailable Andrea, Roderick Consulting Unavailable Medications Current Medications Medication Drug Class(es) Dates Sig (Normalized) Sig (Original) busPIRone hydrochloride 15 mg oral tablet (3 sources) Start: 03-03-2019 take 0.5 tablet by mouth twice daily, then take 1 tablet by mouth twice daily busPIRone (BUSPAR) 15 mg tablet Take 1/2 a tab by mouth twice a day for 2 weeks than one twice a day. 60 tablet 5 03/03/2019 Active Comment on above: Take 1/2 a tab by mo uth twice a day for 2 weeks than one twice a day. ciprofloxacin 250 mg oral tablet (2 sources) Quinolone Antimicrobial Start: 06-26-2021 take 250 mg by mouth twice daily Ciprofloxacin Hcl Active 250 MG PO TWICE A DAY June 26, 2021 12:00am metFORMIN hydrochloride 500 mg oral tablet (1 source) Biguanide Start: 12-13-2023 take 1 tablet by mouth twice daily at mealtime metFORMIN (GLUCOPHAGE) 500 mg tablet Take 500 mg by mouth two times a day with meals. 0 12/13/2023 Active naproxen 500 mg oral tablet (2 sources) Nonsteroidal Anti-inflammatory Drug Start: 06-26-2021 take 500 mg by mouth twice daily Naproxen Active 500 MG PO TWICE A DAY June 26, 2021 12:00am Problems Active Problems Problem Classification Problem Date Documented Date Episodic/Chronic Acute myocardial infarction (2 sources) ST elevation (STEMI) myocardial infarction of unspecified site; Translations: [ST elevation (STEMI) myocardial infarction of unspecified site] Onset: 03-10-2024 Chronic Anxiety disorders (9 sources) Generalized anxiety disorder; Translations: [Generalized anxiety disorder] Onset: 08-13-2007 03-13-2016 Chronic Coronary atherosclerosis and other heart disease (1 source) 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; Translations: [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] Onset: 03-10-2024 Chronic Diabetes mellitus with complications (3 sources) Type II diabetes mellitus uncontrolled; Translations: [Type 2 diabetes mellitus with hyperglycemia] Onset: 03-13-2016 06-05-2021 Chronic Diabetes mellitus without complication (4 sources) Diabetes mellitus; Translations: [Type 2 diabetes mellitus without complications] Onset: 04-15-2024 09-09-2023 Chronic Disorders of lipid metabolism (3 sources) Mixed hyperlipidemia; Translations: [Mixed hyperlipidemia] Onset: 10-02-2016 10-02-2016 Chronic Essential hypertension (5 sources) Essential hypertension; Translations: [Essential (primary) hypertension] Onset: 10-09-2016 10-09-2016 Chronic Other lower respiratory disease (1 source) Persistent cough; Translations: [Persistent cough for 3 weeks or longer] 09-05-2023 Episodic Other nutritional; endocrine; and metabolic disorders (2 sources) Overweight in adulthood with body mass index of 25 or more but less than 30; Translations: [Body mass index (BMI) 28.0-28.9, adult] 06-25-2021 Episodic Other upper respiratory disease (1 source) Congestion of nasal sinus; Translations: [Nasal congestion] Episodic Other upper respiratory disease (1 source) Nasal congestion; Translations: [Nasal congestion] 12-16-2023 Episodic Other upper respiratory infections (1 source) Viral upper respiratory tract infection; Translations: [Acute upper respiratory infection, unspecified] 12-16-2023 Episodic Neli-; endo-; and myocarditis; cardiomyopathy (except that caused by tuberculosis or sexually transmitted disease) (1 source) Cardiomyopathy, unspecified; Translations: [Cardiomyopathy, unspecified] Onset: 03-10-2024 Chronic Skin and subcutaneous tissue infections (1 source) Abscess of neck; Translations: [Cutaneous abscess of neck] 09-09-2023 Episodic Unclassified (1 source) Persistent cough for 3 weeks or longer; Translations: [Persistent cough for 3 weeks or longer] Onset: 09-05-2023 Viral infection (2 sources) Disease caused by 2019-nCoV; Translations: [COVID-19] 06-25-2021 Episodic Past or Other Problems Problem Classification Problem Date Documented Da te Episodic/Chronic Coronary atherosclerosis and other heart disease (2 sources) Presence of coronary angioplasty implant and graft; Translations: [Presence of coronary angioplasty implant and graft] Onset: 04-20-2024 Episodic Other aftercare (1 source) Encounter for other specified aftercare; Translations: [Encounter for other specified aftercare] Onset: 07-23-2024 Episodic Other gastrointestinal disorders (2 sources) Diarrhea; Translations: [Diarrhea, unspecified] Onset: 04-24-2007 Resolved: 07-04-2008 07-04-2008 Episodic Results Test Name Value Interpretation Reference Range Facility Cardiology Visit Reporton Cardiology Visit Report [facility] [address] [place] [address] OFFICE VISIT Date of Service: 04/14/24 MR#: [id number] Acct: [id number] Name: JASON RIVERA Rep #: [id number] : 1980 Provider: JOSE burton Age/Sex: 43/M Location: [facility] Status: Signed HPI HPI History of Present Illness Details: This is a 44-year-old male who presents to the office today for a posthospital follow-up. He was evaluated at [facility] in February [address] elevated myocardial infarction. He presented to the ER with chest pain. He proceeded with heart catheterization that showed left main with no segment disease, proximal LAD with 70% stenosis, mid LAD with 80% stenosis, proximal LCx with 90% stenosis, proximal RCA with 30% stenosis, and complex thrombus of mid RCA had 100% stenosis. He proceeded with drug-eluting stent to mid RCA. He returned 1 day later and proceeded with drug-eluting stent to proximal LCx, mid LAD, and proximal LAD. Echocardiogram on 02/24/2024 showed an ejection fraction of 25-30%, mild concentric LVH, moderate global RV systolic dysfunction, and mildly dilated aortic root at 3.8 cm. He denies chest, arm, jaw, or neck discomfort. He denies palpitations. He denies bilateral lower extremity edema. He denies claudication. He denies shortness of breath with activity, shortness of breath at rest, orthopnea, or PND. He denies chronic cough. He denies significant, sudden weight gain. He denies lightheadedness, dizziness, near-syncope, or syncope. He denies blood in urine, blood in stool, or epistaxis. He denies fever with chills. He denies myalgia. He denies fatigue. His exercise level has remained stable. Intake Vital Signs 03/15/24 13:08 04/14/24 15:55 04/14/24 15:57 Height 5 ft 10 in 5 ft 10 in 5 ft 10 in Weight: 170 lb BMI 24.3 BP 125/88 H Blood Pressure Location Lt brachial Position Sitting Respiration 18 Pulse 97 Pulse Source Monitor Pulse Oximetry (%) 98 Intake Visit Reasons: S/P [facility] 02/26 Finishing Technician Required: No Is patient in pain?: No Allergies No Known Allergies Allergy (Verified 04/14/24 15:56) Medications ???Medication ???Instructions ???Recorded ???Confirmed ???Type semaglutide 0.25 mg or 0.5 mg (2 0.25 mg subcut QWEEK 02/24/24 04/14/24 History mg/3 mL) subcutaneous pen injector (Ozempic) aspirin 81 mg tablet,delayed 81 mg PO DAILY@0800 30 days #30 02/27/24 04/14/24 Rx release tabs atorvastatin 80 mg tablet 80 mg PO QHS 30 days #30 tabs 02/27/24 04/14/24 Rx carvedilol 3.125 mg tablet 3.125 mg PO BIDCM 30 days #60 tabs 02/27/24 04/14/24 Rx empagliflozin 10 mg tablet 10 mg PO DAILY 30 days #30 tabs 02/27/24 04/14/24 Rx (Jardiance) fluconazole 100 mg tablet 100 mg PO DAILY 7 days #7 tabs 02/27/24 04/14/24 Rx furosemide 20 mg tablet 20 mg PO DAILY 30 days #30 tabs 02/27/24 04/14/24 Rx insulin glargine 100 unit/mL (3 20 unit (0.2 mL) subcut DAILY 1 02/27/24 04/14/24 Rx mL) subcutaneous pen ([facility] #15 mL Solostar U-100 Insulin) insulin lispro 100 unit/mL 10 unit (0.1 mL) subcut TIDAC 1 02/27/24 04/14/24 Rx subcutaneous pen (Humalog KwikPen month #15 mL (U-100) Insulin) insulin lispro 100 unit/mL See Protocol subcut ACHS #0 mL 02/27/24 04/14/24 Rx subcutaneous pen (Humalog KwikPen (U-100) Insulin) lisinopril 2.5 mg tablet 2.5 mg PO DAILY 30 days #30 tabs 02/27/24 04/14/24 Rx metformin 1,000 mg tablet 1,000 mg PO BID 30 days #0 tabs 02/27/24 04/14/24 Rx needle (disp) 32 gauge 32 gauge x #100 ea 02/27/24 Rx 12/17 spironolactone 25 mg tablet 25 mg PO DAILY 30 days #30 tabs 02/27/24 04/14/24 Rx ticagrelor 90 mg tablet (Brilinta) 90 mg PO BID 30 days #60 tabs 02/27/24 04/14/24 Rx PFSH Medical History Cardiomyopathy Coronary artery disease ST elevation CT (STEMI) ( 02/24/24) Diabetes Surgical History Hx of cardiac catheterization ( 02/26/24) Stented coronary artery ( 02/26/24) Social History Smoking Status: Never smoker ROS Const Const: Negative for fatigue, weakness, body ache, fever(s) or chills ENT ENT: Negative for dizziness or Nosebleed/epistaxis Cardio Chest Pain: No Palpitations: No Edema: None Muscle aches with walking: None Resp Respiratory: Negative for SOB with activity, SOB at rest, SOB orthopnea SOB lying down, Cough or paroxysmal nocturnal dyspnea GI GI: Negative nausea, vomiting blood/hematemesis, bright, red blood in stools or black,tarry stools : Negative for hematuria or frequent nighttime urination/ nocturia Musc Musc: Negative for muscle aches/ myalgia Skin Skin: Negative non-healing lesion (more content not included)... Normal [facility] CR - History AND Physicalon 03-15-2024 CR - History & Physical [facility] [address] [place] [address] CR - History Physical MR#: [id number] Acct: [id number] Name: JASON RIVERA Rep #: [id number] : 1980 43 From: [place] BS, RVT PCP: Dr. Kirk Russell MD DOS: 03/15/24 CR - History Physical General Arrival date:: 03/15/24 Arrival time:: 12:56 Date of Referral:: 02/25/24 Date of CR Evaluation:: 03/15/24 Referring Physician: Dr. souza Primary Diagnosis: PCI with stent History of Present Cardiac Event Onset Date PTCA or coronary stenting:: Yes Vessel: Prox LCX, Mid LAD, Dist LAD 02/24/24 onset Medications Ambulatory Orders ???Medication ???Instructions ???Recorded semaglutide 0.25 mg or 0.5 mg (2 0.25 mg subcut QWEEK 02/24/24 mg/3 mL) subcutaneous pen injector (Ozempic) aspirin 81 mg tablet,delayed 81 mg PO DAILY@0800 30 days #30 02/27/24 release tabs atorvastatin 80 mg tablet 80 mg PO QHS 30 days #30 tabs 02/27/24 carvedilol 3.125 mg tablet 3.125 mg PO BIDCM 30 days #60 tabs 02/27/24 empagliflozin 10 mg tablet 10 mg PO DAILY 30 days #30 tabs 02/27/24 (Jardiance) fluconazole 100 mg tablet 100 mg PO DAILY 7 days #7 tabs 02/27/24 furosemide 20 mg tablet 20 mg PO DAILY 30 days #30 tabs 02/27/24 insulin glargine 100 unit/mL (3 20 unit (0.2 mL) subcut DAILY 1 02/27/24 mL) subcutaneous pen (Lantus month #15 mL Solostar U-100 Insulin) insulin lispro 100 unit/mL 10 unit (0.1 mL) subcut TIDAC 1 02/27/24 subcutaneous pen (Humalog KwikPen month #15 mL (U-100) Insulin) insulin lispro 100 unit/mL See Protocol subcut ACHS #0 mL 02/27/24 subcutaneous pen (Humalog KwikPen (U-100) Insulin) lisinopril 2.5 mg tablet 2.5 mg PO DAILY 30 days #30 tabs 02/27/24 metformin 1,000 mg tablet 1,000 mg PO BID 30 days #0 tabs 02/27/24 needle (disp) 32 gauge 32 gauge x #100 ea 02/27/24 5/16 spironolactone 25 mg tablet 25 mg PO DAILY 30 days #30 tabs 02/27/24 ticagrelor 90 mg tablet (Brilinta) 90 mg PO BID 30 days #60 tabs 02/27/24 Allergies Allergies No Known Allergies Allergy (Verified 02/24/24 21:54) Sleep Disorder Evaluation Hx of Sleep Apnea: No Do you snore loudly (louder than talking or can be heard through closed doors)?: No Do you often feel tired/ fatigued/ sleepy during daytime?: No Has anyone observed you stop breathing during sleep?: No History of Hypertension (for STOP score): Yes STOP Results: Negative Advanced Directives Advanced Directives Power of Marketing Services Vice President: No Living Will: No Advance Directives Information Provided: No Advance Directives on File: No DNR Order?:: No Past Medical History Covid-19 Screening Physicial Symptoms Other Clinical Concerns Exposure Risk Pertinent Comorbidities Has a serious heart condition:: Yes Diabetic:: Yes Past Medical Illness Past Medical History (Updated 03/06/24 @ 00:02 by Background Daemon) Cardiomyopathy I42.9 Coronary artery disease I25.[address] (STEMI) ( 02/24/24) I21.3 Diabetes E11.9 Past Surgical History Past Surgical History (Updated 03/06/24 @ 00:02 by Background Daemon) Hx of cardiac catheterization ( 02/26/24) Z98.890 02/24/24, Staged PCI on 02/26/24 Stented coronary artery ( 02/26/24) Z95.5 Mid RCA- RHIANNON 3.5 x 22mm [facility] 02/24/24, Prox Circumflex- RHIANNON 2.5 x 22 mm [facility], Mid LAD- RHIANNON 2.5 x 26 mm [facility], Prox LAD- RHIANNON 3.0 x 12 mm [facility] Social History Smoking History Smoking Status: Never smoker Alcohol Use Alcohol Usage: Yes (occas) Substance Abuse Hx Substance Use: No Occupation Occupation (List type of work in comments):: Employed Hours worked per day:: 8 Returned to work on:: 03/29/24 Hobbies, Recreation, Social Activities Hobbies: Other (knife making) Recreational Activities: I am able to engage in all my recreational activities Social Environment Status Marital Status: Current Living Arrangements Living Environment:: Family Children How many children do you have?: 4 Do any of your children live nearby?: Yes Safety Do you feel safe in your surroundings?: Yes Assistance Do you need any assistance at home?: no Review of Systems Review of Systems Hints Review of Present Symptoms: Reports Shortness of Breath with Exertion, Fatigue, Appetite - Normal, Appetite - Special Diet and Sleep - Normal; Denies Shortness of Breath at Rest, PVD, Operative Discomfort, Angina, Wound Healing, Dizziness/Lightheadedn ess, Heart Arrhythmia/Irregularit ies or Sexual Changes Pain Is Patient Pain Free?: No Pain Location: other (feet) Pain Level: 4/10 Risk Factor Assessment Vital Signs Pulse Ox: 100 Blood Pressure: 114/80 Pulse Pulse Rate: 116 Hypertension How long have you been treated?: 2 months Blood Pressure Sitting - Right Arm: 114/80 Stress Stress: Work-related and Home/Family Diabetes Diabetic Hist (more content not included)... Normal [facility] 12 Lead EKGon 02-27-2024 12 Lead EKG [facility] Cardiovascular Services [address] [place] [address] 12 Lead EKG 02/27/24 0543 MR#: [id number] Acct: [id number] Name: JASON RIVERA Rep #: [id number] : 1980 43 From: Kristin Fernández MD Attending Dr: Dr. Roderick Mendez MD Status: DIS IN Ordering Dr: Italo Souza MD Date: 02/27/24 Location: ICU Sex: M C Admitted: 02/25/24 Test Reason : AM Blood Pressure : / mmHG Vent. Rate : 109 BPM Atrial Rate : 109 BPM P-R Int : 156 ms QRS Dur : 094 ms QT Int : 350 ms P-R-T Axes : 047 -53 -13 degrees QTc Int : 471 ms Sinus tachycardia Left axis deviation Inferior infarct (cited on or before 24-FEB-2024) Possible Anterolateral infarct (cited on or before 24-FEB-2024) Abnormal ECG Confirmed by CONNOR LOCKWOOD, JANETH ([id number]), senior editor MIREYA CACERES ([id number]) on 03/02/2024 1:47:06 PM Referred By: Italo Souza Confirmed By:YAMILA FERNÁNDEZ MD 03/02/24 1347 Date Kristin Fernández MD CC: Dr. Italo Souza MD; Dr. Kirk Russell MD; Dr. Roderick Mendez MD Signed Normal [facility] CBC-Complete Blood Cnt No Di ffon 02-27-2024 Erythrocyte distribution width (RBC) [Ratio] 11.5 % Low 11.6-14.6 [facility] Comment on above: Performed By: #### L 100.0500, L500.4050 ####[facility] [address] [place], [address] Hematocrit (Bld) [Volume fraction] 34.3 % Low 40-54 [facility] Comment on above: Performed By: #### L 100.0500, L500.4050 ####[facility] [address] [place], [address] Hemoglobin (Bld) [Mass/Vol] 11.8 g/dL Low 13.0-16.5 [facility] Comment on above: Performed By: #### L 100.0500, L500.4050 ####[facility] [address] [place], [address] MCH (RBC) [Entitic mass] 32.2 pg High 27.0-32.0 [facility] Comment on above: Performed By: #### L 100.0500, L500.4050 ####[facility] [address] [place], [address] MCHC (RBC) [Mass/Vol] 34.4 g/dL Normal 32-36 [facility] Comment on above: Performed By: #### L 100.0500, L500.4050 ####[facility] [address] [place], [address] MCV (RBC) [Entitic vol] 93.7 fL Normal 80-94 [facility] Comment on above: Performed By: #### L 100.0500, L500.4050 ####[facility] [address] [place], [address] Platelet mean volume (Bld) [Entitic vol] 9.6 fL Normal 6.2-12.0 [facility] Comment on above: Performed By: #### L 100.0500, L500.4050 ####[facility] [address] [place], [address] Platelets (Bld) [#/Vol] 222 10*3/uL Normal 150-450 [facility] Comment on above: Performed By: #### L 100.0500, L500.4050 ####[facility] [address] [place], [address] RBC (Bld) [#/Vol] 3.66 10*6/uL Low 4.6-6.[address] [facility] Comment on above: Performed By: #### L 100.0500, L500.4050 ####[facility] [address] [place], [address] RDW SD 38.7 fl Normal 35.1-43.9 [facility] Comment on above: Performed By: #### L 100.0500, L500.4050 ####[facility] [address] [place], [address] WBC (Bld) [#/Vol] 5.6 10*3/uL Normal 4.4-11.0 [facility] Comment on above: Performed By: #### L 100.0500, L500.4050 ####[facility] [address] [place], [address] Comprehensive Metabolic Prof ilon 02-27-2024 Albumin [Mass/Vol] 3.0 g/dL Low 3.2-5.0 [facility] Comment on above: Performed By: #### L 100.0500, L500.4050 ####[facility] [address] [place], [address] Albumin/Globulin [Mass ratio] 0.8 {ratio} Low 0.9-2.4 [facility] Comment on above: Performed By: #### L 100.0500, L500.4050 ####[facility] [address] [place], [address] ALK P 51 U/L Normal 45-117 [facility] Comment on above: Performed By: #### L 100.0500, L500.4050 ####[facility] [address] [place], [address] ALT [Catalytic activity/Vol] 29 U/L Normal 16-61 [facility] Comment on above: Performed By: #### L 100.0500, L500.4050 ####[facility] [address] [place], [address] AST [Catalytic activity/Vol] 74 U/L High 15-37 [facility] Comment on above: Performed By: #### L 100.0500, L500.4050 ####[facility] [address] [place], [address] Bilirubin [Mass/Vol] 0.50 mg/dL Normal 0.20-1.00 [facility] Comment on above: Result Comment: For patients on eltrombopag therapy, use of Dimension [place] TBIL is not recommended. Performed By: #### L 100.0500, L500.4050 ####[facility] [address] [place], [address] BUN/CRE 23.0 RATIO High 10-20 [facility] Comment on above: Performed By: #### L 100.0500, L500.4050 ####[facility] [address] [place], [address] CA,Total 8.8 mg/dL Normal 8.5-10.1 [facility] Comment on above: Performed By: #### L 100.0500, L500.4050 ####[facility] [address] [place], [address] Chloride [Moles/Vol] 102 mmol/L Normal 98-107 [facility] Comment on above: Performed By: #### L 100.0500, L500.4050 ####[facility] [address] [place], [address] CO2 [Moles/Vol] 23.0 mmol/L Normal 21.0-32.0 [facility] Comment on above: Performed By: #### L 100.0500, L500.4050 ####[facility] [address] [place], [address] Creatinine [Mass/Vol] 0.56 mg/dL Low 0.70-1.30 [facility] Comment on above: Result Comment: The validity of the calculated GFR GFRAA in patients over 70 years has not been determined. Clinical correlation is essential. Performed By: #### L 100.0500, L500.4050 ####[facility] [address] [place], [address] ECRCL 173.81 ml/min Normal [facility] Comment on above: Performed By: #### L 100.0500, L500.4050 ####[facility] [address] [place], [address] EST GFR - AA 201 mL/min Normal >60 [facility] Comment on above: Result Comment: Afri can Nauruan GFR Calc Performed By: #### L 100.0500, L500.4050 ####[facility] [address] [place], [address] GAP 9 Normal 5-15 [facility] Comment on above: Performed By: #### L 100.0500, L500.4050 ####[facility] [address] [place], [address] GFR/1.73 sq M.predicted among non-blacks MDRD (S/P/Bld) [Vol rate/Area] 166 mL/min/{1.73_m2} Normal >60 [facility] Comment on above: Result Comment: Non- GFR Calc Performed By: #### L 100.0500, L500.4050 ####[facility] [address] [place], [address] Globulin (S) [Mass/Vol] 3.6 g/dL Normal 2.2-4.2 [facility] Comment on above: Performed By: #### L 100.0500, L500.4050 ####[facility] [address] [place], [address] Glucose [Mass/Vol] 206 mg/dL High 74-106 [facility] Comment on above: Result Comment: Gluc ose result greater than or equal to 200 mg/dL suggests DIABETES MELLITUS per A.D.A. criteria. Performed By: #### L 100.0500, L500.4050 ####[facility] [address] [place], [address] Potassium [Moles/Vol] 3.6 mmol/L Normal 3.5-5.1 [facility] Comment on above: Performed By: #### L 100.0500, L500.4050 ####[facility] [address] [place], [address] Sodium [Moles/Vol] 134 mmol/L Low 136-145 [facility] Comment on above: Performed By: #### L 100.0500, L500.4050 ####[facility] [address] [place], [address] T PROT 6.6 g/dL Normal 6.4-8.2 [facility] Comment on above: Performed By: #### L 100.0500, L500.4050 ####[facility] [address] [place], [address] Urea nitrogen [Mass/Vol] 13 mg/dL Normal 7-18 [facility] Comment on above: Performed By: #### L 100.0500, L500.4050 ####[facility] [address] [place], [address] Discharge Instructionon 02-02 Discharge Instruction [facility] Medical Records Department [address] [place] [address] Instructions for Home/Discharge Instructions 02/27/24 0752 MR#: [id number] Acct: [id number] Name: JASON RIVERA Rep #: [id number] : 1980 43 From: Roderick Mendez MD PCP: Dr. Kirk Russell MD Status:ADM IN Discharge Instructions Diet Discharge Diet: Low fat / Low cholesterol and 2000 mg Sodium Diet Activity Discharge Activity: Return to Normal Activity Weight Bearing Status: Weight bearing as tolerated Dressing / Incision Call your doctor if you observe: Fever of 101 or Higher, Coldness, Increased Pain, Numbness or Tingling, Change in Color, Inability to urinate, Inability to have a bowel movement, Shortness of breath, Dizziness, Fainting spells, Swelling in the ankles, Chest pain, Prolonged hiccupping, Increased palpitations (irregular heartbeat) and Calf discomfort Follow Up Care When: IN 2 WEEKS Test Results: Test results from this visit will be discussed in further detail at your follow-up appointment, if applicable. Discharge Plan Admission Admit Date/Time: 02/25/24 01:24 Primary Reason for Your Visit: Inferior lateral wall STEMI Attending Provider: Roderick Mendez Primary Care Provider: Kirk Russell Consulting Providers: Gaudencio Reddy; Italo Souza Discharge Orders/Prescriptions Prescriptions: New aspirin 81 mg Tablet,Delayed Release (Dr/Ec) 81 mg PO DAILY@0800 30 Days Qty: 30 5RF fluconazole 100 mg Tablet 100 mg PO DAILY 7 Days Qty: 7 0RF atorvastatin 80 mg Tablet 80 mg PO QHS 30 Days Qty: 30 3RF carvedilol 3.125 mg Tablet 3.125 mg PO BIDCM 30 Days Qty: 60 3RF lisinopril 2.5 mg Tablet 2.5 mg PO DAILY 30 Days Qty: 30 0RF insulin lispro [Humalog KwikPen Insulin] 100 unit/mL Insulin Pen 10 unit subcut TIDAC 30 Days Qty: 15 4RF Rx Instructions: Hold if glucose less than 130 mg/dl spironolactone 25 mg Tablet 25 mg PO DAILY 30 Days Qty: 30 3RF Rx Instructions: Hold for serum potassium more than 5.1. insulin lispro [Humalog KwikPen Insulin] 100 unit/mL Insulin Pen See Protocol subcut ACHS Qty: 0 0RF Protocol: 3. Sliding Scale Insulin Med Dosing Condition: 150-189 mg/dl = 1 unit Condition: 190-229 mg/dl = 2 units Condition: 230-269 mg/dl = 3 units Condition: 270-309 mg/dl = 4 units Condition: 310-349 mg/dl = 5 units Condition: 350-399 mg/dl = 6 units Condition: 400-449 mg/dl = 7 units Condition: Greater than 449 call physician Protocol Text: Suggested for: - Patients on Total Daily Insulin Dose of 37-55 units - Obese, infected, or steroid patients MEDIUM DOSING ALGORITHIM Brilinta 90 mg Tablet 90 mg PO BID 30 Days Qty: 60 3RF furosemide 20 mg Tablet 20 mg PO DAILY 30 Days Qty: 30 1RF Jardiance 10 mg Tablet 10 mg PO DAILY 30 Days Qty: 30 3RF insulin glargine [Lantus Solostar U-100 Insulin] 100 unit/mL (3 mL) insulin pen 20 unit subcut DAILY 30 Days Qty: 15 3RF Rx Instructions: Hold if glucose less than 130 mg/dl Continued Ozempic 0.25 mg or 0.5 mg (2 mg/3 mL) pen injector 0.25 mg subcut QWEEK metformin 1,000 mg tablet 1,000 mg PO BID 30 Days Qty: 0 0RF Rx Instructions: Start after 3 days, on 03/01/2020 Discontinued lisinopril 5 mg tablet 5 mg PO DAILY Referrals / Follow Up: Kirk Russell MD [Primary Care Provider] - Luc Olvera MD [Non-Staff] - Disposition Disposition (needs filled in before D/C Order can be placed): Home, Self Care 02/27/24 0802 Roderick Mendez MD CC: Dr. Gaudencio Reddy DO; Dr. Italo Souza MD; Dr. Kirk Rusesll MD Signed Normal [facility] 12 Lead EKGon 02-26-2024 12 Lead EKG [facility] Cardiovascular Services [address] [place] [address] 12 Lead EKG 02/26/24 1413 MR#: [id number] Acct: [id number] Name: JASON RIVERA Rep #: [id number] : 1980 43 From: Kristin Fernández MD Attending Dr: Dr. Roderick Mendez MD Status: DIS IN Ordering Dr: Italo Souza MD Date: 02/26/24 Location: ICU Sex: M C Admitted: 02/25/24 Test Reason : post pci Blood Pressure : / mmHG Vent. Rate : 106 BPM Atrial Rate : 106 BPM P-R Int : 156 ms QRS Dur : 084 ms QT Int : 352 ms P-R-T Axes : 042 -57 023 degrees QTc Int : 467 ms Critical Test Result: STEMI Sinus tachycardia Left axis deviation Inferior infarct (cited on or before 24-FEB-2024) Anterolateral infarct (cited on or before 24-FEB-2024) ACUTE CT / STEMI Abnormal ECG When compared with ECG of 26-FEB-2024 05:21, Serial changes of evolving Anterior infarct Present Serial changes of evolving Anterolateral infarct Present Confirmed by CONNOR LOCKWOOD, JANETH ([id number]), senior editor LOC SANCHEZ ([id number]) on 03/05/2024 9:48:42 AM Referred By: Italo Souza Confirmed By:YAMILA FERNÁNDEZ MD 03/05/24 0948 Date Kristin Fernández MD CC: Dr. Italo Souza MD; Dr. Krik Rusesll MD; Dr. Roderick Mendez MD Signed [facility] 12 Lead EKG [facility] [address] [place] [address] 12 Lead EKG 02/26/24 0521 MR#: [id number] Acct: [id number] Name: JASON RIVERA Rep #: [id number] : 1980 43 From: Gary Laughlin MD Attending Dr: Dr. Roderick Mendez MD Status: ADM IN Ordering Dr: Italo Souza MD Date: 02/26/24 Location: ICU Sex: M C Admitted: 02/25/24 Test Reason : am ekg Blood Pressure : / mmHG Vent. Rate : 111 BPM Atrial Rate : 111 BPM P-R Int : 160 ms QRS Dur : 086 ms QT Int : 348 ms P-R-T Axes : 045 -56 050 degrees QTc Int : 473 ms Critical Test Result: STEMI Sinus tachycardia Left axis deviation Inferior infarct (cited on or before 24-FEB-2024) Recent inferior wall CT Abnormal ECG When compared with ECG of 25-FEB-2024 04:45, No significant change was found Confirmed by GARY LAUGHLIN MD ([id number]), senior editor GABRIEL BROWN ([id number]) on 02/26/2024 2:33:50 PM Referred By: Italo Souza Confirmed By:GARY LAUGHLIN MD 02/26/24 1433 Date Gary Laughlin MD CC: Dr. Italo Souza MD; Dr. Kirk Russell MD; Dr. Roderick Mendez MD Signed [facility] ACT Activated Clotting Timeo n 02-26-2024 ACTk CLOT TIME 262 sec High 74-137 [facility] Comment on above: Performed By: #### L 9100.0100 ####[facility] [address] [place], [address] Basic Metabolic Profile (BMP )on 02-26-2024 BUN/CRE 15.3 RATIO Normal 10-20 [facility] Comment on above: Performed By: #### L 500.2500, L100.0100 ####[facility] [address] [place], [address] CA,Total 9.5 mg/dL Normal 8.5-10.1 [facility] Comment on above: Performed By: #### L 500.2500, L100.0100 ####[facility] [address] [place], [address] Chloride [Moles/Vol] 99 mmol/L Normal 98-107 [facility] Comment on above: Performed By: #### L 500.2500, L100.0100 ####[facility] [address] [place], [address] CO2 [Moles/Vol] 20.0 mmol/L Low 21.0-32.0 [facility] Comment on above: Performed By: #### L 500.2500, L100.0100 ####[facility] [address] [place], [address] Creatinine [Mass/Vol] 0.85 mg/dL Normal 0.70-1.30 [facility] Comment on above: Result Comment: The validity of the calculated GFR GFRAA in patients over 70 years has not been determined. Clinical correlation is essential. Performed By: #### L 500.2500, L100.0100 ####[facility] [address] [place], [address] ECRCL 114.51 ml/min Normal [facility] Comment on above: Performed By: #### L 500.2500, L100.0100 ####[facility] [address] [place], [address] EST GFR - AA 125 mL/min Normal >60 [facility] Comment on above: Result Comment: Afri can Nauruan GFR Calc Performed By: #### L 500.2500, L100.0100 ####[facility] [address] [place], [address] GAP 15 Normal 5-15 [facility] Comment on above: Performed By: #### L 500.2500, L100.0100 ####[facility] [address] [place], [address] GFR/1.73 sq M.predicted among non-blacks MDRD (S/P/Bld) [Vol rate/Area] 104 mL/min/{1.73_m2} Normal >60 [facility] Comment on above: Result Comment: Non- GFR Calc Performed By: #### L 500.2500, L100.0100 ####[facility] [address] [place], [address] Glucose [Mass/Vol] 151 mg/dL High 74-106 [facility] Comment on above: Result Comment: Fast ing Glucose result greater than or equal to 126 mg/dL suggests DIABETES MELLITUS per A.D.A. criteria. Performed By: #### L 500.2500, L100.0100 ####[facility] [address] [place], [address] Potassium [Moles/Vol] 3.8 mmol/L Normal 3.5-5.1 [facility] Comment on above: Performed By: #### L 500.2500, L100.0100 ####[facility] [address] [place], [address] Sodium [Moles/Vol] 134 mmol/L Low 136-145 [facility] Comment on above: Performed By: #### L 500.2500, L100.0100 ####[facility] [address] [place], [address] Urea nitrogen [Mass/Vol] 13 mg/dL Normal 7-18 [facility] Comment on above: Performed By: #### L 500.2500, L100.0100 ####[facility] [address] [place], [address] Bedside Glucoseon 02-26-2024 FINGERSTICK GLU 253 mg/dL High 74-106 [facility] Comment on above: Result Comment: LAMBERTO GEMENT OF PATIENT CARE PER NURSING PROTOCOL Performed By: #### L 501.080 ####[facility] [address] [place], [address] FINGERSTICK GLU 212 mg/dL High 74-106 [facility] Comment on above: Result Comment: LAMBERTO GEMENT OF PATIENT CARE PER NURSING PROTOCOL Performed By: #### L 501.080 ####[facility] [address] [place], [address] FINGERSTICK GLU 139 mg/dL High 74-106 [facility] Comment on above: Result Comment: LAMBERTO GEMENT OF PATIENT CARE PER NURSING PROTOCOL Performed By: #### L 501.080 ####[facility] [address] [place], [address] FINGERSTICK GLU 137 mg/dL High 74-106 [facility] Comment on above: Result Comment: LAMBERTO GEMENT OF PATIENT CARE PER NURSING PROTOCOL Performed By: #### L 501.080 ####[facility] [address] [place], [address] CBC W/Diff, Automatedon 07-2 Absolute Lymph 1.97 X10 3/uL Normal 0.83-4.51 [facility] Comment on above: Performed By: #### L 500.2500, L100.0100 ####[facility] [address] [place], [address] Absolute Neut 4.1 X10 3/uL Normal 2.0-7.7 [facility] Comment on above: Performed By: #### L 500.2500, L100.0100 ####[facility] [address] [place], [address] Basophils/100 WBC (Bld) 0.4 % Normal 0-1 [facility] Comment on above: Performed By: #### L 500.2500, L100.0100 ####[facility] [address] [place], [address] Eosinophils/100 WBC (Bld) 0.6 % Normal 0-5 [facility] Comment on above: Performed By: #### L 500.2500, L100.0100 ####[facility] [address] [place], [address] Erythrocyte distribution width (RBC) [Ratio] 11.7 % Normal 11.6-14.6 [facility] Comment on above: Performed By: #### L 500.2500, L100.0100 ####[facility] [address] [place], [address] Hematocrit (Bld) [Volume fraction] 39.7 % Low 40-54 [facility] Comment on above: Performed By: #### L 500.2500, L100.0100 ####[facility] [address] [place], [address] Hemoglobin (Bld) [Mass/Vol] 13.4 g/dL Normal 13.0-16.5 [facility] Comment on above: Performed By: #### L 500.2500, L100.0100 ####[facility] [address] [place], [address] IG% 0.400 Normal 0.0-0.9 [facility] Comment on above: Result Comment: IG% - Immature Granulocytes (promyelocytes, myelocytes and metamyelocytes) > 1% indicates that a LEFT SHIFT is Present. Performed By: #### L 500.2500, L100.0100 ####[facility] [address] [place], [address] Lymphocytes/100 WBC (Bld) 28.5 % Normal 19-41 [facility] Comment on above: Performed By: #### L 500.2500, L100.0100 ####[facility] [address] [place], [address] MCH (RBC) [Entitic mass] 32.0 pg Normal 27.0-32.0 [facility] Comment on above: Performed By: #### L 500.2500, L100.0100 ####[facility] [address] [place], [address] MCHC (RBC) [Mass/Vol] 33.8 g/dL Normal 32-36 [facility] Comment on above: Performed By: #### L 500.2500, L100.0100 ####[facility] [address] [place], [address] MCV (RBC) [Entitic vol] 94.7 fL High 80-94 [facility] Comment on above: Performed By: #### L 500.2500, L100.0100 ####[facility] [address] [place], [address] Monocytes/100 WBC (Bld) 11.4 % High 0-10 [facility] Comment on above: Performed By: #### L 500.2500, L100.0100 ####[facility] [address] [place], [address] Neutrophils/100 WBC (Bld) 58.7 % Normal 47-70 [facility] Comment on above: Performed By: #### L 500.2500, L100.0100 ####[facility] [address] [place], [address] Nucleated RBC (Bld) [#/Vol] 0 10*3/uL Normal 0-5 [facility] Comment on above: Performed By: #### L 500.2500, L100.0100 ####[facility] [address] [place], [address] Platelet mean volume (Bld) [Entitic vol] 9.7 fL Normal 6.2-12.0 [facility] Comment on above: Performed By: #### L 500.2500, L100.0100 ####[facility] [address] [place], [address] Platelets (Bld) [#/Vol] 242 10*3/uL Normal 150-450 [facility] Comment on above: Performed By: #### L 500.2500, L100.0100 ####[facility] [address] [place], [address] RBC (Bld) [#/Vol] 4.19 10*6/uL Low 4.6-6.[address] [facility] Comment on above: Performed By: #### L 500.2500, L100.0100 ####[facility] [address] [place], [address] RDW SD 40.0 fl Normal 35.1-43.9 [facility] Comment on above: Performed By: #### L 500.2500, L100.0100 ####[facility] [address] [place], [address] WBC (Bld) [#/Vol] 6.9 10*3/uL Normal 4.4-11.0 [facility] Comment on above: Performed By: #### L 500.2500, L100.0100 ####[facility] [address] [place], [address] Cardiac Cath Interventionon 02-26-2024 Cardiac Cath Intervention [facility] Imaging Services [address] [place] [address] Cardiac Cath Intervention MR#: [id number] Acct: [id number] Name: JASON RIVERA Rep #: [id number] : 1980 43 From: Italo Souza MD PCP: Dr. Kirk Russell MD Status:ADM IN Patient Name: JASON RIVERA Study Date: 02/26/2024 Performing: Italo Souza MD Ht: 70 inches 177.8 cm : 1980 Wt: 168.65 lbs 76.5 kg Age: 43 Gender: male BSA: 1.94 PROCEDURE(S) PERFORMED IC12-(33137/C9600)RHIANNON W/WO PTCA, SINGLE CORONARY ARTERY IC12-(69593/C9600)RHIANNON W/WO PTCA, SINGLE CORONARY ARTERY CLINICAL PROFILE AND CO-MORBIDITIES Indications: Staged PCI Heart Failure: None Angina Classification Anginal Classification w/in 2 Weeks: CCS IV CONCLUSIONS Successful PTCA/RHIANNON Prox LCX using Tom [place] 2.5x22 mm, post-dilated using 2.75 mm balloon Successful RHIANNON Mid LAD using Tom [place] 2.5x26 mm, optimized proximally using 3.0 mm balloon Successful RHIANNON Prox LAD using Tom [place] 3.0x12 mm, post-dilated using 3.5 mm balloon LVEDP 22 mm HG RECOMMENDATIONS ASA Indefinitley Brilinta for at least 12 months DESCRIPTION OF PROCEDURE The patient arrived to the procedure lab. The risks and benefits of the procedure as well as a full description of our services here and current unavailability of surgical backup were fully explained to the patient and/or their significant other prior to the catheterization. The Timeout was completed, verifying the correct patient and procedure. The patient's procedural site was prepped and draped in the usual fashion. Local anesthetic was given subcutaneously to right radial region with Lidocaine 2%. Using a modified Seldinger technique, arterial access was obtained via the right radial artery, a 6Fr sheath was inserted.. XB 3.0 Guide catheter was inserted and engaged into the LCA. Runthrough Guide wire was advanced to the Circumflex. Emerge 2.00x12 Balloon catheter was inserted. PTCA balloon inflated at 6 atms for 7 secs. PTCA balloon inflated at 6 atms for 10 secs. PTCA balloon inflated at 6 atms for 5 secs. Angiogram performed post balloon dilatation. [place] Tom 2.5x22 Drug Eluting stent was inserted. Angiogram performed post stent deployment. NC Emerge 2.75x12 Balloon catheter was inserted. Angiogram performed post balloon dilatation. Guide wire was repositioned to the LAD [place] Tom 2.5x26 Drug Eluting stent was inserted. Angiogram performed post stent deployment. NC Emerge 2.50x12 Balloon catheter was inserted. Angiogram performed post balloon dilatation. NC Euphora 3.0x6 Balloon catheter was inserted. Angiogram performed post balloon dilatation. [place] Tom 3.0x12 Drug Eluting stent was inserted. Angiogram performed post balloon dilatation. NC Euphora 3.5x12 Balloon catheter was inserted. Angiogram performed post balloon dilatation. The arterial sheath was pulled and a TR Band was applied for hemostasis w/ 12ml air INTERVENTION INFORMATION LESION SITE: Circumflex (Proximal) lesion length: 20 mm, Lesion Complexity: High/C Pre Stenosis: 90 % Pre intervention GUADALUPE flow: 3 PROCEDURE: Drug Eluting Stent with pre and post dilatation Post Stenosis: 0 % Post intervention GUADALUPE flow: 3 Lesion Devices: Terumo .014 180cm Runthrough Extra Floppy straight Cordis 6 Fr XB3.0 100cm Guide Catheter Matthew Sci EMERGE MR 2.00x12 BALLOON Medtronic 2.50 x 22 TOM FRONTIER RHIANNON Matthew Sci NC EMERGE MR 2.75x12 BALLOON LESION SITE: LAD (Mid) Lesion Complexity: High/C, lesion length: 20 mm Pre Stenosis: 80 % Pre intervention GUADALUPE flow: 3 PROCEDURE: Drug Eluting Stent with post dilatation Post Stenosis: 0 % Post intervention GUADALUPE flow: 3 Lesion Devices: Terumo .014 180cm Runthrough Extra Floppy straight Cordis 6 Fr XB3.0 100cm Guide Catheter Matthew Sci NC EMERGE MR 2.50x12 BALLOON Medtronic 2.50 x 26 TOM FRONTIER RHIANNON Medtronic NC EUPHORA RX 3.0x06 BALLOON LESION SITE: LAD (Proximal) Lesion Complexity: Non-High/Non-C, lesion length: 10 mm Pre Stenosis: 70 % Pre intervention GUADALUPE flow: 3 PROCEDURE: Drug Eluting Stent with post dilatation 0 % Post intervention GUADALUPE flow: 3 Lesion Devices: Terumo .014 180cm Runthrough Extra Floppy straight Cordis 6 Fr XB3.0 100cm Guide Catheter Medtronic 3.0 x 12 TOM FRONTIER RHIANNON Medtronic NC EUPHORA RX 3.5x12 BALLOON COMPLICATIONS No Complications PROCEDURE MEDICATIONS Versed 1 mg IV Fentanyl 50 mcg IV Fentanyl 25 mcg IV Fentanyl 25 mcg IV Fentanyl 25 mcg IV Oxygen: 2 L/min via nasal cannula Heparin 6000 unit(s) IV 02/26/2024 13:02:38 Heparin 2000 unit(s) IV 02/26/2024 13:38:58 Nitro 50 mcg IC 02/26/2024 13:19:40 Nitro 50 mcg IC 02/26/2024 13:19:40 IV Bolus: .9 NaCl 400ml total 02/26/2024 13:09:32 SUMMARY OF HEMODYNAMIC DATA Time AIR REST AO 82/61 (70) SA 13:03:58 ECG 13:04:15 (more content not included)... Normal [facility] Liver Profileon 02-26-2024 Albumin [Mass/Vol] 3.5 g/dL Normal 3.2-5.0 [facility] Comment on above: Performed By: #### L 500.3400 ####[facility] [address] [place], [address] ALK P 56 U/L Normal 45-117 [facility] Comment on above: Performed By: #### L 500.3400 ####[facility] [address] [place], [address] ALT [Catalytic activity/Vol] 38 U/L Normal 16-61 [facility] Comment on above: Performed By: #### L 500.3400 ####[facility] [address] [place], [address] AST [Catalytic activity/Vol] 163 U/L High 15-37 [facility] Comment on above: Performed By: #### L 500.3400 ####[facility] [address] [place], [address] Bilirubin [Mass/Vol] 0.80 mg/dL Normal 0.20-1.00 [facility] Comment on above: Result Comment: For patients on eltrombopag therapy, use of Dimension [place] TBIL is not recommended. Performed By: #### L 500.3400 ####[facility] [address] [place], [address] Bilirubin.direct [Mass/Vol] 0.27 mg/dL Normal 0.00-0.30 [facility] Center Comment on above: Performed By: #### L 500.3400 ####[facility] [address] [place], [address] Globulin (S) [Mass/Vol] 3.7 g/dL Normal 2.2-4.2 [facility] Comment on above: Performed By: #### L 500.3400 ####[facility] [address] [place], [address] T PROT 7.2 g/dL Normal 6.4-8.2 [facility] Comment on above: Performed By: #### L 500.3400 ####[facility] [address] [place], [address] 12 Lead EKGon 02-25-2024 12 Lead EKG [facility] Services [address] [place] [address] 12 Lead EKG 02/25/24 0010 MR#: [id number] Acct: [id number] Name: JASON RIVERA Rep #: [id number] : 1980 43 From: Gary Laughlin MD Attending Dr: Dr. Roderick Mendez MD Status: ADM IN Ordering Dr: Italo Souza MD Date: 02/25/24 Location: ICU Sex: M C Admitted: 02/25/24 Test Reason : GW Blood Pressure : / mmHG Vent. Rate : 087 BPM Atrial Rate : 087 BPM P-R Int : 158 ms QRS Dur : 098 ms QT Int : 366 ms P-R-T Axes : 132 229 173 degrees QTc Int : 440 ms Critical Test Result: STEMI Suspect arm lead reversal, interpretation assumes no reversal Normal sinus rhythm Right Sided EKG Lateral infarct , age undetermined Inferior infarct Acute ACUTE CT / STEMI Consider right ventricular involvement in acute inferior infarct Abnormal ECG When compared with ECG of 24-FEB-2024 22:17, MANUAL COMPARISON REQUIRED, DATA IS UNCONFIRMED Confirmed by BALDO LOCKWOOD, GARY ([id number]), senior editor GABRIEL BROWN ([id number]) on 02/25/2024 1:26:01 PM Referred By: Italo Souza Confirmed By:GARY LAUGHLIN MD 02/25/24 1326 Date Gary Laughlin MD CC: Dr. Italo Souza MD; Dr. Kirk Russell MD; Dr. Roderick Mendez MD Signed Normal [facility] ACT Activated Clotting Timeo n 02-25-2024 ACTk CLOT TIME 177 sec High 74-137 [facility] Comment on above: Performed By: #### L 9100.0100 ####[facility] [address] [place], [address] ACTk CLOT TIME 201 sec High 74-137 [facility] Comment on above: Performed By: #### L 9100.0100 ####[facility] [address] [place], [address] ACTk CLOT TIME 287 sec High 74-137 [facility] Comment on above: Performed By: #### L 9100.0100 ####[facility] [address] [place], [address] Bedside Glucoseon 02-25-2024 FINGERSTICK GLU 147 mg/dL High 74-106 [facility] Comment on above: Result Comment: LAMBERTO JOHNSTON OF PATIENT CARE PER NURSING PROTOCOL Performed By: #### L 501.080 ####[facility] [address] [place], [address] FINGERSTICK GLU 162 mg/dL High 74-106 [facility] Comment on above: Result Comment: LAMBERTO GEMENT OF PATIENT CARE PER NURSING PROTOCOL Performed By: #### L 501.080 ####[facility] [address] [place], [address] FINGERSTICK GLU 210 mg/dL High 74-106 [facility] Comment on above: Result Comment: LAMBERTO GEMENT OF PATIENT CARE PER NURSING PROTOCOL Performed By: #### L 501.080 ####[facility] [address] [place], [address] FINGERSTICK GLU 265 mg/dL High 74-106 [facility] Comment on above: Result Comment: LAMBERTO GEMENT OF PATIENT CARE PER NURSING PROTOCOL Performed By: #### L 501.080 ####[facility] [address] [place], [address] FINGERSTICK GLU 292 mg/dL High 74-106 [facility] Comment on above: Result Comment: LAMBERTO GEMENT OF PATIENT CARE PER NURSING PROTOCOL Performed By: #### L 501.080 ####[facility] [address] [place], [address] CBC-Complete Blood Cnt No [facility] 02-25-2024 Erythrocyte distribution width (RBC) [Ratio] 11.8 % Normal 11.6-14.6 [facility] Comment on above: Performed By: #### L 500.4100, L500.4050, L100.0500 ####[facility] [address] [place], [address] Hematocrit (Bld) [Volume fraction] 36.3 % Low 40-54 [facility] Comment on above: Performed By: #### L 500.4100, L500.4050, L100.0500 ####[facility] [address] [place], [address] Hemoglobin (Bld) [Mass/Vol] 12.5 g/dL Low 13.0-16.5 [facility] Comment on above: Performed By: #### L 500.4100, L500.4050, L100.0500 ####[facility] [address] [place], [address] MCH (RBC) [Entitic mass] 32.1 pg High 27.0-32.0 [facility] Comment on above: Performed By: #### L 500.4100, L500.4050, L100.0500 ####[facility] [address] [place], [address] MCHC (RBC) [Mass/Vol] 34.4 g/dL Normal 32-36 [facility] Comment on above: Performed By: #### L 500.4100, L500.4050, L100.0500 ####[facility] [address] [place], [address] MCV (RBC) [Entitic vol] 93.3 fL Normal 80-94 [facility] Comment on above: Performed By: #### L 500.4100, L500.4050, L100.0500 ####[facility] [address] [place], [address] Platelet mean volume (Bld) [Entitic vol] 9.4 fL Normal 6.2-12.0 [facility] Comment on above: Performed By: #### L 500.4100, L500.4050, L100.0500 ####[facility] [address] [place], [address] Platelets (Bld) [#/Vol] 216 10*3/uL Normal 150-450 [facility] Comment on above: Performed By: #### L 500.4100, L500.4050, L100.0500 ####[facility] [address] [place], [address] RBC (Bld) [#/Vol] 3.89 10*6/uL Low 4.6-6.[address] [facility] Comment on above: Performed By: #### L 500.4100, L500.4050, L100.0500 ####[facility] [address] [place], [address] RDW SD 39.9 fl Normal 35.1-43.9 [facility] Comment on above: Performed By: #### L 500.4100, L500.4050, L100.0500 ####[facility] [address] [place], [address] WBC (Bld) [#/Vol] 5.6 10*3/uL Normal 4.4-11.0 [facility] Comment on above: Performed By: #### L 500.4100, L500.4050, L100.0500 ####[facility] [address] [place], [address] Cardiac Cath Interventionon 02-25-2024 Cardiac Cath Intervention [facility] Imaging Services [address] [place] [address] Cardiac Cath Intervention MR#: [id number] Acct: [id number] Name: JASON RIVERA Rep #: [id number] : 1980 43 From: Italo Souza MD PCP: Dr. Luc Olvera MD Status:ADM IN Patient Name: JASON RIVERA Study Date: 02/24/2024 Performing: Italo Souza MD Ht: 71 inches 180.34 cm : 1980 Wt: 173.72 lbs 78.8 kg Age: 43 Gender: male BSA: 1.99 PROCEDURE(S) PERFORMED DC01-(72577)LHC/COR/LV IC16-(35413/C9606)AMI, RHIANNON OR PTCA, ARTERY/GRAFT, SINGLE VESSEL CLINICAL PROFILE AND CO-MORBIDITIES Heart Failure: None CAD Presentations: STEMI. Symptom onset Date/Time: 02/24/2024 12:00:00 Time Estimated CONCLUSIONS 100% Mid RCA 70% Prox Mid, 80% Mid LAD 90% Prox LCX LVEF 35% 3.5x22 mm, post-dilated using 3.75 mm balloon RECOMMENDATIONS ASA Indefinitley Brilinta for at least 12 months Staged PCI to LAD/LCX DESCRIPTION OF PROCEDURE The patient arrived to the procedure lab. The risks and benefits of the procedure as well as a full description of our services here and lack of surgical backup were fully explained to the patient and/or their significant other prior to the catheterization. The Timeout was completed, verifying the correct patient and procedure. The patient's procedural site was prepped and draped in the usual fashion. Local anesthetic was given subcutaneously to right radial region with Lidocaine 2%. Using a modified Seldinger technique, arterial access was obtained via the right radial artery, a 6Fr sheath was inserted.. Right Coronary Artery selective angiography was then performed in multiple views using a 5 Fr. 4.0 [place] catheter. Left Coronary Artery selective angiography was performed in multiple views using a 5 Fr. 4.0 [place] catheterThe images were reviewed and options discussed. A decision was then made to proceed with an Intervention, IVUS or other adjunct procedure. jr4 Guide catheter was inserted and engaged into the RCA. runthrough Guide wire was advanced to the RCA. emerge 2.5 x 15 Balloon catheter was advanced across lesion in the right coronary, proximal. PTCA balloon inflated at 14 atms for 7 secs. Angiogram performed post balloon dilatation. emerge 3.00 x 20 Balloon catheter was advanced across lesion in the right coronary, prox. PTCA balloon inflated at 10 atms for 6 secs. PTCA balloon inflated at 14 atms for 12 secs. tom 3.5 x 22 Drug Eluting stent was advanced across the lesion in the right coronary, prox. Angiogram performed post stent deployment. nc emerge 3.75 x 20 Balloon catheter was inserted post stent. Angiogram performed post balloon dilatation. The arterial sheath was pulled and a TR Band was applied for hemostasis CORONARY ANGIOGRAPHY DOMINANCE: Right Dominant LEFT HEART ASSESSMENT Left Ventricular Ejection Fraction: by LV Gram 35 % LVEDP: 24 mmHg LEFT MAIN: No significant disease noted LEFT ANTERIOR DESCENDING ARTERY: LAD: Tubular 70% Proximal lesion in LAD Tubular 80% Mid lesion in LAD RIGHT CORONARY ARTERY: RCA: Tubular 30% Proximal lesion in RCA Complex Thrombus 100% Mid lesion in RCA INTERVENTION INFORMATION LESION SITE: RCA (Mid) Lesion Complexity: High/C, thrombus present: Yes, lesion length: 20 mm, culprit lesion: Yes Pre Stenosis: 100 % Pre intervention GUADALUPE flow: 0 PROCEDURE: Drug Eluting Stent with pre and post dilatation, Aspiration thrombectomy Post Stenosis: 0 % Post intervention GU[place] flow: 3 Lesion Devices: Matthew Sci EMERGE MR 2.50x15 BALLOON Terumo .014 180cm Runthrough Extra Floppy straight Penumbra Penumbra engine canister Penumbra Indigo Penumbra CAT Rx 140cm large lumen Matthew Sci EMERGE MR 3.00x20 BALLOON Cordis 6 Fr JR4 100cm Guide Catheter Matthew Sci NC EMERGE MR 3.75x20 BALLOON COMPLICATIONS No Complications PROCEDURE MEDICATIONS Fentanyl 25 mcg IV Oxygen: 2 L/min via nasal cannula Heparin 3000 unit(s) IV 02/24/2024 22:59:58 Heparin 2000 unit(s) IV 02/24/2024 23:00:24 Heparin 3000 unit(s) IV 02/24/2024 23:34:49 Metoprolol 10 mg 02/24/2024 22:59:54 Verapamil 2.5mg, Ntg 200mcgs, given IA 02/24/2024 23:00:03 SUMMARY OF HEMODYNAMIC DATA Time AIR REST ECG 22:50:10 AO 107/80 (92) SA 22:57:46 LV 98/17, 21 23:41:47 LV 95/17, 24 23:41:57 LVp 99/23, 31 23:44:18 AOp 96/74 (84) 23:44:25 Signed By Italo Souza MD On 02/25/2024 00:19:36 Italo Souza MD 02/25/24 0020 Date Italo Souza MD Cosigner Signature: Date (if indicated) CC: Dr. Italo Souza MD; Dr. Luc Olvera MD Date Dictated: 02/24/242251 Date Transcribed: 02/25/249 Director Records Management: AR Signed Normal [facility] Chest 1 View (Portable)on Chest 1 View (Portable) [facility] Imaging Services [address] [place] [address] Chest 1 View (Portable) MR#: [id number] Acct: [id number] Name: JASON RIVERA Rep #: [id number] : 1980 M 43 From: Minnie lindquist MD PCP: Dr. Luc Olvera MD Status: ADM IN Study: Chest 1 View (Portable) Date of Exam: 02/25/24 Exam# [id number] Ordering Dr: Roderick Mendez MD [id number] HISTORY: SOB, pulmonary edema? TECHNIQUE: XR Chest 1 View. COMPARISON: 04/02/2016. FINDINGS: CARDIOMEDIASTINAL BORDERS: Cardiac silhouette within normal limits in size. Mediastinal contour unremarkable. LUNGS: Radiographically clear. PLEURA: No pleural effusion or pneumothorax seen. OSSEOUS STRUCTURES: Unremarkable. RAD/Chest 1 View (Portable) IMPRESSION: No acute cardiopulmonary process identified. Electronically Signed: Minnie Alvarado MD at 11:45 EDT , CC: Dr. Luc Olvera MD; Dr. Roderick Mendez MD Director Records Management: Signed Normal [facility] Comprehensive Metabolic Prof ilon 02-25-2024 Albumin [Mass/Vol] 3.3 g/dL Normal 3.2-5.0 [facility] Comment on above: Performed By: #### L 500.4100, L500.4050, L100.0500 ####[facility] [address] [place], [address] Albumin/Globulin [Mass ratio] 1.1 {ratio} Normal 0.9-2.4 [facility] Comment on above: Performed By: #### L 500.4100, L500.4050, L100.0500 ####[facility] [address] [place], [address] ALK P 61 U/L Normal 45-117 [facility] Comment on above: Performed By: #### L 500.4100, L500.4050, L100.0500 ####[facility] [address] [place], [address] ALT [Catalytic activity/Vol] 40 U/L Normal 16-61 [facility] Comment on above: Performed By: #### L 500.4100, L500.4050, L100.0500 ####[facility] [address] [place], [address] AST [Catalytic activity/Vol] 454 U/L High 15-37 [facility] Comment on above: Performed By: #### L 500.4100, L500.4050, L100.0500 ####[facility] [address] [place], [address] Bilirubin [Mass/Vol] 0.60 mg/dL Normal 0.20-1.00 [facility] Comment on above: Result Comment: For patients on eltrombopag therapy, use of Dimension [place] TBIL is not recommended. Performed By: #### L 500.4100, L500.4050, L100.0500 ####[facility] [address] [place], [address] BUN/CRE 14.2 RATIO Normal 10-20 [facility] Comment on above: Performed By: #### L 500.4100, L500.4050, L100.0500 ####[facility] [address] [place], [address] CA,Total 9.5 mg/dL Normal 8.5-10.1 [facility] Comment on above: Performed By: #### L 500.4100, L500.4050, L100.0500 ####[facility] [address] [place], [address] Chloride [Moles/Vol] 95 mmol/L Low 98-107 [facility] Comment on above: Performed By: #### L 500.4100, L500.4050, L100.0500 ####[facility] [address] [place], [address] CO2 [Moles/Vol] 22.0 mmol/L Normal 21.0-32.0 [facility] Comment on above: Performed By: #### L 500.4100, L500.4050, L100.0500 ####[facility] [address] [place], [address] Creatinine [Mass/Vol] 0.70 mg/dL Normal 0.70-1.30 [facility] Comment on above: Result Comment: The validity of the calculated GFR GFRAA in patients over 70 years has not been determined. Clinical correlation is essential. Performed By: #### L 500.4100, L500.4050, L100.0500 ####[facility] [address] [place], [address] ECRCL 139.05 ml/min Normal [facility] Comment on above: Performed By: #### L 500.4100, L500.4050, L100.0500 ####[facility] [address] [place], [address] EST GFR - AA 156 mL/min Normal >60 [facility] Comment on above: Result Comment: Afri can Nauruan GFR Calc Performed By: #### L 500.4100, L500.4050, L100.0500 ####[facility] [address] [place], [address] GAP 13 Normal 5-15 [facility] Comment on above: Performed By: #### L 500.4100, L500.4050, L100.0500 ####[facility] [address] [place], [address] GFR/1.73 sq M.predicted among non-blacks MDRD (S/P/Bld) [Vol rate/Area] 129 mL/min/{1.73_m2} Normal >60 [facility] Comment on above: Result Comment: Non- GFR Calc Performed By: #### L 500.4100, L500.4050, L100.0500 ####[facility] [address] [place], [address] Globulin (S) [Mass/Vol] 3.1 g/dL Normal 2.2-4.2 [facility] Comment on above: Performed By: #### L 500.4100, L500.4050, L100.0500 ####[facility] [address] [place], [address] Glucose [Mass/Vol] 334 mg/dL High 74-106 [facility] Comment on above: Result Comment: Gluc ose result greater than or equal to 200 mg/dL suggests DIABETES MELLITUS per A.D.A. criteria. Performed By: #### L 500.4100, L500.4050, L100.0500 ####[facility] [address] [place], [address] Potassium [Moles/Vol] 4.3 mmol/L Normal 3.5-5.1 [facility] Comment on above: Performed By: #### L 500.4100, L500.4050, L100.0500 ####[facility] [address] [place], [address] Sodium [Moles/Vol] 130 mmol/L Low 136-145 [facility] Comment on above: Performed By: #### L 500.4100, L500.4050, L100.0500 ####[facility] [address] [place], [address] T PROT 6.4 g/dL Normal 6.4-8.2 [facility] Comment on above: Performed By: #### L 500.4100, L500.4050, L100.0500 ####[facility] [address] [place], [address] Urea nitrogen [Mass/Vol] 10 mg/dL Normal 7-18 [facility] Comment on above: Performed By: #### L 500.4100, L500.4050, L100.0500 ####[facility] [address] [place], [address] H AND P Exam - Hospitaliston 02-25-2024 H&P Exam - Hospitalist [facility] Medical Records Department [address] [place] [address] H P Exam - Hospitalist 02/25/24 0013 MR#: [id number] Acct: [id number] Name: JASON RIVERA Rep #: [id number] : 1980 43 From: Gaudencio Reddy DO PCP: Dr. Luc Olvera MD Status:ADM IN Location: ICU ICU02-1 HPI - General General Date of Admission: 02/24/24 Date of Service: 02/25/24 Chief Complaint: Chest pain HPI Narrative JASON RIVERA, is a 43 M who presented to [facility] ED on 02/24/2024 with chest pain. Found to have an inferior STEMI in the ED. STEMI alert was called and patient was taken emergently to the [facility]. Found to have an 100% mid RCA occlusion with drug-eluting stent x 1 placed with resolution of blood flow. Also found to have 70% proximal-mid and 80% mid-LAD lesions, and a 90% proximal LCX lesion. Estimated LVEF during cath was 35%. Patient was taken to the ICU post-cath in stable condition. I saw the patient at bedside shortly after coming from the [facility], multiple family members present. Patient was sitting up comfortably in bed, conversing normally, no acute distress. Was hemodynamically stable on room air. Patient denied any chest pain or shortness of breath currently. Stated he felt much better now than prior to the cath. Patient has history of type 2 diabetes and hypertension. On chart review, A1c in September was 11.9%. He is only on metformin and semaglutide. Patient does have a significant family history of heart disease but he had no history of heart issues prior to this admission. He does not smoke. No illicit drug use. Otherwise no acute concerns at this time. [facility] Medical History (Updated 02/25/24 @ 00:[address] Italo Souza MD) Diabetes Home Medications ???Medication ???Instructions ???Recorded ???Last Taken ???Type ciprofloxacin HCl 250 mg tablet 250 mg PO BID 06/26/21 Unknown History naproxen 500 mg tablet 500 mg PO BID 06/26/21 Unknown History lisinopril 5 mg tablet 5 mg PO DAILY 02/24/24 Unknown History metformin 1,000 mg tablet 1,000 mg PO BID 02/24/24 Unknown History metformin 500 mg tablet 500 mg PO BID 02/24/24 Unknown History semaglutide 0.25 mg or 0.5 mg (2 0.25 mg subcut QWEEK 02/24/24 02/22/24 History mg/3 mL) subcutaneous pen injector (Ozempic) Allergy/AdvReac Type Severity Reaction Status Date / Time No Known Allergies Allergy Verified 02/24/24 21:54 Social History Smoking Status: Never smoker ROS Constitutional Constitutional: Denies chills, fatigue, fever(s) or weakness Cardiovascular Cardiovascular: Denies chest pain, edema, palpitations or rapid heart rate Respiratory/Chest Respiratory/Chest: Denies cough, shortness of breath at rest or shortness of breath with exertion Gastrointestinal Gastrointestinal: Denies abdominal pain Vital Signs Vital Signs Vital Signs: 02/24/24 21:54 02/24/24 22:28 02/24/24 22:29 Temperature 97.8 F Temperature Source Temporal Pulse Rate 132 H 123 H 119 H Respiratory Rate 20 H 17 Blood Pressure 149/107 H 138/95 H Blood Pressure Mean 121 Pulse Ox 99 99 Oxygen Delivery Method Room Air Oxygen Flow Rate (L/min) 02/24/24 22:30 02/24/24 22:33 02/24/24 22:34 Temperature Temperature Source Pulse Rate 144 H 122 H Respiratory Rate 26 H 15 Blood Pressure 138/95 H 136/104 H Blood Pressure Mean 108 114 Pulse Ox 99 99 Oxygen Delivery Method Nasal Cannula Nasal Cannula Nasal Cannula Oxygen Flow Rate (L/min) 2 2 02/24/24 22:39 Temperature 97.9 F Temperature Source Pulse Rate 122 H Respiratory Rate 16 Blood Pressure 139/114 H Blood Pressure Mean 122 Pulse Ox 98 Oxygen Delivery Method Oxygen Flow Rate (L/min) Weight Weight: 78.8 kg Body Mass Index (BMI) 24.2 Physical Exam Const alert, oriented x3, no apparent distress, average body habitus, healthy appearing and well nourished Constitutional Narrative: Pleasant middle-age male, sitting up comfortably in bed, conversing normally, no acute distress. General Appearance: cooperative, comfortable, well kempt and well developed HEENT normocephalic, head/scalp atraumatic, hearing grossly normal bilaterally, nasal mucous membranes and turbinates normal and moist oral mucous membranes Eyes PERRL, EOMs intact bilaterally and conjunctivae normal Neck full ROM Chest inspection of chest normal Resp normal respiratory effort, normal air movement, no use of accessory muscles and clear to auscultation bilaterally Cardio no murmurs and peripheral pulses 2+ throughout Cardio Narrative: Tachycardic, regular rhythm. GI normal to inspection, nondistended, normoactive bowel sounds, soft to palpation, non-tender and non- (more content not included)... Normal [facility] Hemoglobin A1con 02-25-2024 HbA1c (Bld) [Mass fraction] 9.7 % High 3.8-5.6 [facility] Comment on above: Result Comment: Norm al < 5.7 % Prediabetic 5.7 - 6.4 % Diabetic >or= 6.5 % Please note range changes. Performed By: #### L 501.9900 ####[facility] [address] [place], [address] L501.4020on 02-25-2024 TROPONIN-I HS > [id number] Invalid Interpretation Code 3.0-78.0 [facility] Comment on above: Order Comment: 'TROP ' Serial specimen #1, #2 or #3: 3 Result Comment: Crit ical Result(s) Called at: 11:54:12 02/25/2024 by: Elisa Mckeon to Sheri Mukherjee. Results read back by same. Please Note: New Test Units and Gender Specific Reference Ranges. For more information see Policy Stat Procedure [place] High Sensitivity Troponin (TNIH) and attachments. Performed By: #### L 501.4020 ####[facility] [facility] [address] [place], [address] Lipid Profileon 02-25-2024 Cholesterol [Mass/Vol] 165 mg/dL Normal 200 [facility] Comment on above: Result Comment: <200 mg/dL Desirable 200-240 mg/dL Borderline >240 mg/dL High Risk Performed By: #### L 500.4100, L500.4050, L100.0500 ####[facility] [address] [place], [address] Cholesterol in HDL [Mass/Vol] 55 mg/dL Normal [facility] Comment on above: Result Comment: The drugs N-Acetylcysteine and Metamizole may falsely depress this assay. Reference Range HDL <40 mg/dL Low HDL Cholesterol HDL >or= 60 mg/dL High HDL Cholesterol Performed By: #### L 500.4100, L500.4050, L100.0500 ####[facility] [address] [place], [address] Cholesterol in LDL [Mass/Vol] 67 mg/dL Normal 0-130 [facility] Comment on above: Performed By: #### L 500.4100, L500.4050, L100.0500 ####[facility] [address] [place], [address] Cholesterol in VLDL [Mass/Vol] 43 mg/dL High 5-40 [facility] Comment on above: Performed By: #### L 500.4100, L500.4050, L100.0500 ####[facility] [address] [place], [address] Triglyceride [Mass/Vol] 217 mg/dL High [facility] Comment on above: Result Comment: The drugs N-Acetylcysteine and Metamizole may falsely depress this assay. Serum Triglycerides Reference Interval Normal <150 mg/dL Borderline high 150 - 199 mg/dL High 200 - 499 mg/dL Very High > or = 500 mg/dL Performed By: #### L 500.4100, L500.4050, L100.0500 ####[facility] [address] [place], [address] MR/QUALITYon 02-25-2024 MR/QUALITY [facility] Medical Records Department [address] [place] [address] Quality Report 02/25/24 0759 MR#: [id number] Acct: [id number] Name: JASON RIVERA Rep #: [id number] : 1980 43 From: Ricky Bueno PCP: Dr. Luc Olvera MD Status:ADM IN Y Location: ICU ICU02-1 STEMI STEMI ED Door Time / Other REG STEMI EKG Time (1) ST elevation CT (STEMI): Acute 02/24/24 21:53 Balloon/Aspiration Date-Time Date of Balloon/Aspiration:: 02/24/24 Time of Balloon/Aspiration:: 23:03 02/25/24 0801 Date [facility] applicable[facility] Date CC: Signed Normal [facility] Thyroid Stim Hormone (TSH)on 02-25-2024 TSH 1.37 uIU/mL Normal 0.358-3.74 [facility] Comment on above: Performed By: #### L 501.9520 ####[facility] [address] [place], [address] 12 Lead EKGon 02-24-2024 12 Lead EKG [facility] Cardiovascular Services [address] [place] [address] 12 Lead EKG 02/24/24 2217 MR#: [id number] Acct: [id number] Name: JASON RIVERA Rep #: [id number] : 1980 43 From: Gary Laughlin MD Attending Dr: Dr. Roderick Mendez MD Status: ADM IN Ordering Dr: Italo Souza MD Date: 02/24/24 Location: ICU Sex: M C Admitted: 02/25/24 Test Reason : CP Blood Pressure : / mmHG Vent. Rate : 128 BPM Atrial Rate : 128 BPM P-R Int : 158 ms QRS Dur : 080 ms QT Int : 274 ms P-R-T Axes : 040 -40 049 degrees QTc Int : 400 ms Critical Test Result: STEMI Sinus tachycardia Left axis deviation Low voltage QRS Inferior infarct , possibly acute Anterolateral infarct , age undetermined Right sided EKG Confirmed by GARY ALUGHLIN MD ([id number]), senior editor GABRIEL BROWN ([id number]) on 02/25/2024 8:57:35 AM Referred By: Italo Souza Confirmed By:GARY LAUGHLIN MD 02/25/24 0857 Date Gary Laughlin MD CC: Dr. Italo Souza MD; Dr. Luc Olvera MD; Dr. Roderick Mendez MD Signed Normal [facility] 12 Lead EKG [facility] Cardiovascular Services [address] [place] [address] 12 Lead EKG 02/25/24 0445 MR#: [id number] Acct: [id number] Name: JASON RIVERA Rep #: [id number] : 1980 43 From: Gary Laughlin MD Attending Dr: Dr. Roderick Mendez MD Status: ADM IN Ordering Dr: Leonila Ram DO Date: 02/24/24 Location: ICU Sex: M C Admitted: 02/25/24 Test Reason : AM EKG Blood Pressure : / mmHG Vent. Rate : 086 BPM Atrial Rate : 086 BPM P-R Int : 156 ms QRS Dur : 094 ms QT Int : 348 ms P-R-T Axes : 044 -51 068 degrees QTc Int : 416 ms Critical Test Result: STEMI Normal sinus rhythm Left axis deviation Possible Lateral infarct , age undetermined Inferior-posterior infarct , possibly acute ACUTE CT / STEMI Confirmed by GARY LAUGHLIN MD ([id number]), senior editor GABRIEL BROWN ([id number]) on 02/25/2024 1:26:20 PM Referred By: Italo Souza Confirmed By:GARY LAUGHLIN MD 02/25/24 1326 Date Gary Laughlin MD CC: Dr. Italo Souza MD; Dr. Kirk Russell MD; Dr. Roderick Mendez MD; Dr. Leonila Ram DO Signed Normal [facility] 12 Lead EKG [facility] Cardiovascular Services [address] [place] [address] 12 Lead EKG 02/24/24 2207 MR#: [id number] Acct: [id number] Name: JAOSN RIVERA Rep #: [id number] : 1980 43 From: Gary Laughlin MD Attending Dr: Dr. Roderick Mendez MD Status: ADM IN Ordering Dr: Leonila Ram DO Date: 02/24/24 Location: ICU Sex: Shakeel C Admitted: 02/25/24 Test Reason : CP Blood Pressure : / mmHG Vent. Rate : 123 BPM Atrial Rate : 123 BPM P-R Int : 160 ms QRS Dur : 100 ms QT Int : 318 ms P-R-T Axes : 046 -36 054 degrees QTc Int : 455 ms Critical Test Result: STEMI Sinus tachycardia Left axis deviation Inferior infarct , possibly acute Anterolateral infarct , possibly acute ACUTE CT / STEMI Abnormal ECG Confirmed by GARY LAUGHLIN MD ([id number]), senior editor GABRIEL BROWN ([id number]) on 02/25/2024 8:56:40 AM Referred By: Italo Suoza Confirmed By:GARY LAUGHLIN MD 02/25/2456 Date Gary Laughlin MD CC: Dr. Italo Souza MD; Dr. Luc Olvera MD; Dr. Roderick Mendez MD; Dr. Leonila Ram DO Signed Normal [facility] Basic Metabolic Profile (BMP )on 02-24-2024 BUN/CRE 12.7 RATIO Normal 10-20 [facility] Comment on above: Order Comment: 'TROP ' Serial specimen #1, #2 or #3: 1 Performed By: #### L 501.4020, L100.0100, L300.4310, L300.3900, L500.2500 ####[facility] [address] [place], [address] CA,Total 10.7 mg/dL High 8.5-10.1 [facility] Comment on above: Order Comment: 'TROP ' Serial specimen #1, #2 or #3: 1 Performed By: #### L 501.4020, L100.0100, L300.4310, L300.3900, L500.2500 ####[facility] [address] [place], [address] Chloride [Moles/Vol] 95 mmol/L Low 98-107 [facility] Comment on above: Order Comment: 'TROP ' Serial specimen #1, #2 or #3: 1 Performed By: #### L 501.4020, L100.0100, L300.4310, L300.3900, L500.2500 ####[facility] [address] [place], [address] CO2 [Moles/Vol] 21.0 mmol/L Normal 21.0-32.0 [facility] Comment on above: Order Comment: 'TROP ' Serial specimen #1, #2 or #3: 1 Performed By: #### L 501.4020, L100.0100, L300.4310, L300.3900, L500.2500 ####[facility] [address] [place], [address] Creatinine [Mass/Vol] 0.86 mg/dL Normal 0.70-1.30 [facility] Comment on above: Order Comment: 'TROP ' Serial specimen #1, #2 or #3: 1 Result Comment: The validity of the calculated GFR GFRAA in patients over 70 years has not been determined. Clinical correlation is essential. Performed By: #### L 501.4020, L100.0100, L300.4310, L300.3900, L500.2500 ####[facility] [address] [place], [address] ECRCL 116.74 ml/min Normal [facility] Comment on above: Order Comment: 'TROP ' Serial specimen #1, #2 or #3: 1 Performed By: #### L 501.4020, L100.0100, L300.4310, L300.3900, L500.2500 ####[facility] [address] [place], [address] EST GFR - AA 123 mL/min Normal >60 [facility] Comment on above: Order Comment: 'TROP ' Serial specimen #1, #2 or #3: 1 Result Comment: Afri can Nauruan GFR Calc Performed By: #### L 501.4020, L100.0100, L300.4310, L300.3900, L500.2500 ####[facility] [address] [place], [address] GAP 16 High 5-15 [facility] Comment on above: Order Comment: 'TROP ' Serial specimen #1, #2 or #3: 1 Performed By: #### L 501.4020, L100.0100, L300.4310, L300.3900, L500.2500 ####[facility] [address] [place], [address] GFR/1.73 sq M.predicted among non-blacks MDRD (S/P/Bld) [Vol rate/Area] 102 mL/min/{1.73_m2} Normal >60 [facility] Comment on above: Order Comment: 'TROP ' Serial specimen #1, #2 or #3: 1 Result Comment: Non- GFR Calc Performed By: #### L 501.4020, L100.0100, L300.4310, L300.3900, L500.2500 ####[facility] [address] [place], [address] Glucose [Mass/Vol] 314 mg/dL High 74-106 [facility] Comment on above: Order Comment: 'TROP ' Serial specimen #1, #2 or #3: 1 Result Comment: Gluc ose result greater than or equal to 200 mg/dL suggests DIABETES MELLITUS per A.D.A. criteria. Performed By: #### L 501.4020, L100.0100, L300.4310, L300.3900, L500.2500 ####[facility] [address] [place], [address] Potassium [Moles/Vol] 4.1 mmol/L Normal 3.5-5.1 [facility] Comment on above: Order Comment: 'TROP ' Serial specimen #1, #2 or #3: 1 Performed By: #### L 501.4020, L100.0100, L300.4310, L300.3900, L500.2500 ####[facility] [address] [place], [address] Sodium [Moles/Vol] 132 mmol/L Low 136-145 [facility] Comment on above: Order Comment: 'TROP ' Serial specimen #1, #2 or #3: 1 Performed By: #### L 501.4020, L100.0100, L300.4310, L300.3900, L500.2500 ####[facility] [address] [place], [address] Urea nitrogen [Mass/Vol] 11 mg/dL Normal 7-18 [facility] Comment on above: Order Comment: 'TROP ' Serial specimen #1, #2 or #3: 1 Performed By: #### L 501.4020, L100.0100, L300.4310, L300.3900, L500.2500 ####[facility] [address] [place], [address] CBC W/Diff, Automatedon 07-09 06-2023 Absolute Lymph 1.81 X10 3/uL Normal 0.83-4.51 [facility] Comment on above: Performed By: #### L 501.4020, L100.0100, L300.4310, L300.3900, L500.2500 ####[facility] [address] [place], [address] Absolute Neut 5.2 X10 3/uL Normal 2.0-7.7 [facility] Comment on above: Performed By: #### L 501.4020, L100.0100, L300.4310, L300.3900, L500.2500 ####[facility] [address] [place], [address] Basophils/100 WBC (Bld) 0.4 % Normal 0-1 [facility] Comment on above: Performed By: #### L 501.4020, L100.0100, L300.4310, L300.3900, L500.2500 ####[facility] [address] [place], [address] Eosinophils/100 WBC (Bld) 0.8 % Normal 0-5 [facility] Comment on above: Performed By: #### L 501.4020, L100.0100, L300.4310, L300.3900, L500.2500 ####[facility] [address] [place], [address] Erythrocyte distribution width (RBC) [Ratio] 11.6 % Normal 11.6-14.6 [facility] Comment on above: Performed By: #### L 501.4020, L100.0100, L300.4310, L300.3900, L500.2500 ####[facility] [address] [place], [address] Hematocrit (Bld) [Volume fraction] 41.2 % Normal 40-54 [facility] Comment on above: Performed By: #### L 501.4020, L100.0100, L300.4310, L300.3900, L500.2500 ####[facility] [address] [place], [address] Hemoglobin (Bld) [Mass/Vol] 14.3 g/dL Normal 13.0-16.5 [facility] Comment on above: Performed By: #### L 501.4020, L100.0100, L300.4310, L300.3900, L500.2500 ####[facility] [address] [place], [address] IG% 0.400 Normal 0.0-0.9 [facility] Comment on above: Result Comment: IG% - Immature Granulocytes (promyelocytes, myelocytes and metamyelocytes) > 1% indicates that a LEFT SHIFT is Present. Performed By: #### L 501.4020, L100.0100, L300.4310, L300.3900, L500.2500 ####[facility] [address] [place], [address] Lymphocytes/100 WBC (Bld) 23.0 % Normal 19-41 [facility] Comment on above: Performed By: #### L 501.4020, L100.0100, L300.4310, L300.3900, L500.2500 ####[facility] [address] [place], [address] MCH (RBC) [Entitic mass] 32.3 pg High 27.0-32.0 [facility] Comment on above: Performed By: #### L 501.4020, L100.0100, L300.4310, L300.3900, L500.2500 ####[facility] [address] [place], [address] MCHC (RBC) [Mass/Vol] 34.7 g/dL Normal 32-36 [facility] Comment on above: Performed By: #### L 501.4020, L100.0100, L300.4310, L300.3900, L500.2500 ####[facility] [address] [place], [address] MCV (RBC) [Entitic vol] 93.0 fL Normal 80-94 [facility] Comment on above: Performed By: #### L 501.4020, L100.0100, L300.4310, L300.3900, L500.2500 ####[facility] [address] [place], [address] Monocytes/100 WBC (Bld) 9.5 % Normal 0-10 [facility] Comment on above: Performed By: #### L 501.4020, L100.0100, L300.4310, L300.3900, L500.2500 ####[facility] [address] [place], [address] Neutrophils/100 WBC (Bld) 65.9 % Normal 47-70 [facility] Comment on above: Performed By: #### L 501.4020, L100.0100, L300.4310, L300.3900, L500.2500 ####[facility] [address] [place], [address] Nucleated RBC (Bld) [#/Vol] 0 10*3/uL Normal 0-5 [facility] Comment on above: Performed By: #### L 501.4020, L100.0100, L300.4310, L300.3900, L500.2500 ####[facility] [address] [place], [address] Platelet mean volume (Bld) [Entitic vol] 9.5 fL Normal 6.2-12.0 [facility] Comment on above: Performed By: #### L 501.4020, L100.0100, L300.4310, L300.3900, L500.2500 ####[facility] [address] [place], [address] Platelets (Bld) [#/Vol] 253 10*3/uL Normal 150-450 [facility] Comment on above: Performed By: #### L 501.4020, L100.0100, L300.4310, L300.3900, L500.2500 ####[facility] [address] [place], [address] RBC (Bld) [#/Vol] 4.43 10*6/uL Low 4.6-6.[address] [facility] Comment on above: Performed By: #### L 501.4020, L100.0100, L300.4310, L300.3900, L500.2500 ####[facility] [address] [place], [address] RDW SD 39.7 fl Normal 35.1-43.9 [facility] Comment on above: Performed By: #### L 501.4020, L100.0100, L300.4310, L300.3900, L500.2500 ####[facility] [address] [place], [address] WBC (Bld) [#/Vol] 7.9 10*3/uL Normal 4.4-11.0 [facility] Comment on above: Performed By: #### L 501.4020, L100.0100, L300.4310, L300.3900, L500.2500 ####[facility] [address] [place], [address] Consultation - Cardiologyon 02-24-2024 Consultation - Cardiology [facility] Medical Records Department [address] [place] [address] Consultation - Cardiology 02/24/24 2357 MR#: [id number] Acct: [id number] Name: JASON RIVERA Rep #: [id number] : 1980 43 From: Italo Souza MD PCP: Dr. Luc Olvera MD Status:ADM IN Location: ICU ICU02-1 Assessment Plan Assessment/Plan (1) ST elevation CT (STEMI): PLAN: Emergent coronary angiography revealed totally occluded mid RCA. Successful percutaneous intervention was performed with balloon angioplasty, aspiration thrombectomy and placement of a drug-eluting stent with excellent results. GUADALUPE-3 flow was restored. Continue aspirin lifelong. Ticagrelor/clopidogrel treatment for at least 12 months. Start low-dose beta-blockers as tolerated. (2) Coronary artery disease: PLAN: See #1 above. Patient has severe disease in his left circumflex and proximal and mid LAD. For staged intervention, possibly as outpatient. (3) Hypertension: PLAN: Blood pressure borderline. Monitor. (4) Diabetes: PLAN: As per internal medicine. (5) Cardiomyopathy: PLAN: Severe LV systolic dysfunction secondary to #1 above. Infarct-related vessel superdominant RCA, supplying the LV apex and major part of the lateral wall. Check echocardiogram. Start low-dose beta-blockers. ACEI. Spironolactone. SGLT2 inhibitors. HPI Consult Data Date of Consult: 02/24/24 HPI Narrative Reason for Consultation: STEMI HPI Narrative: Gentleman with past medical history significant for diabetes mellitus and hypertension. Presented to the emergency room with complaints of anterior chest discomfort that started about 10 hours prior to presentation. Denies any radiation to the arms neck or jaw. No diaphoresis. Denies any associated shortness of breath. ECG done in the emergency room showed changes consistent with acute inferior lateral myocardial infarction. A STEMI alert was called. [facility] Medical History (Updated 02/25/24 @ 00:[address] Italo Souza MD) Diabetes Home Medications ???Medication ???Instructions ???Recorded ???Last Taken ???Type ciprofloxacin HCl 250 mg tablet 250 mg PO BID 06/26/21 Unknown History naproxen 500 mg tablet 500 mg PO BID 06/26/21 Unknown History lisinopril 5 mg tablet 5 mg PO DAILY 02/24/24 Unknown History metformin 1,000 mg tablet 1,000 mg PO BID 02/24/24 Unknown History metformin 500 mg tablet 500 mg PO BID 02/24/24 Unknown History semaglutide 0.25 mg or 0.5 mg (2 0.25 mg subcut QWEEK 02/24/24 02/22/24 History mg/3 mL) subcutaneous pen injector (Ozempic) Allergy/AdvReac Type Severity Reaction Status Date / Time No Known Allergies Allergy Verified 02/24/24 21:54 Social History Smoking Status: Never smoker Physical Exam Narrative Appears moderately distressed. Heart sounds 1 and 2 noted. Tachycardic. Chest clear to auscultation bilaterally. Alert oriented x 3. No ankle edema noted. Risk Stratification Risk Stratification Applicable: No Objective Data Vital Signs: Vital Signs Temp Pulse Resp BP Pulse Ox O2 Del Method O2 Flow Rate 97.9 F 122 H 16 139/114 H 98 Nasal Cannula 2 02/24/24 22:39 02/24/24 22:39 02/24/24 22:39 02/24/24 22:39 02/24/24 22:39 02/24/24 22:34 02/24/24 22:33 Oxygen Flow Rate (L/min) 2 Oxygen Delivery Method Nasal Cannula Weight: 173 lb 11.588 oz Body Mass Index (BMI) 24.2 Lab / Micro Data 02/24/24 22:15 02/24/24 22:15 Labs: Laboratory Results - last 24 hr 02/24/24 22:15: WBC 7.9, RBC 4.43 L, Hgb 14.3, Hct 41.2, MCV 93.0, MCH 32.3 H, MCHC 34.7, RDW Std Deviation 39.7, RDW Coeff of Cassandra 11.6, Plt Count 253, MPV 9.5, Immature Gran % (Auto) 0.400, Neut % (Auto) 65.9, Lymph % (Auto) 23.0, Porter % (Auto) 9.5, Eos % (Auto) 0.8, Baso % (Auto) 0.4, Absolute Neuts (auto) 5.2, Absolute Lymphs (auto) 1.81, Nucleated RBC % 0, PT 12.7, INR 1.0, APTT 22.8 L, S odium 132 L, Potassium 4.1, Chloride 95 L, Carbon Dioxide 21.0, Anion Gap 16 H, BUN 11, Creatinine 0.86, Estim Creat Clear Calc 116.74, Est GFR (MDRD) Af Amer 123, Est GFR (MDRD) Non-Af 102, BUN/Creatinine Ratio 12.7, Glucose 314 H, Calcium 10.7 H, Troponin I High Sens 3242 H* Cardiology Labs/Tests 02/24/24 22:15: WBC 7.9, RBC 4.43 L, Hgb 14.3, Hct 41.2, MCV 93.0, MCH 32.3 H, MCHC 34.7, Plt Count 253, MPV 9.5, Immature Gran % (Auto) 0.400, Neut % (Auto) 65.9, Lymph % (Auto) 23.0, Porter % (Auto) 9.5, Eos % (Auto) 0.8, Baso % (Auto) 0.4, Absolute Neuts (auto) 5.2, Nucleated RBC % 0, PT 12.7, INR 1.0, APTT 22.8 L, Sodium 132 L, Potassium 4.1, Chloride 95 L, Carbon Dioxide 21.0, Anion Gap 16 H, BUN 11, Creatinine 0.86, Est GFR (MDRD) Af Amer 123, Est GFR (MDRD) Non-Af 102, BUN/Creatinine Ratio 12.7, Glucose 314 H, Calcium 10.7 H Rhythm: EKG: ECHO: Stress Test: Cardiac Cath: PCI: C (more content not included)... Normal [facility] Echo Complete W/ Contraston 02-24-2024 Echo Complete W/ Contrast [facility] Cardiovascular Services [address] [place] [address] Echo Complete W/ Contrast 02/25/24 0835 MR#: [id number] Acct: [id number] Name: JASON RIVERA Rep #: [id number] : 1980 43 From: Italo Souza MD Attending Dr: Dr. Roderick Mendez MD Status: ADM IN Ordering Dr: Italo Souza MD Date: 02/24/24 Location: ICU Sex: M C Admitted: 02/25/24 Reason For Study: Chest Pain Procedure This was a 2D Doppler, Color Flow transthoracic echocardiogram. Contrast injection was performed. Exam performed portable in ICU/CCU. Left Ventricle Normal LV size. Mild concentric left ventricular hypertrophy. Severe segmental systolic dysfunction (see wall motion). Estimated LVEF 25 to 30%. Right Ventricle Normal RV size. Moderate global right ventricular systolic dysfunction. Atria The left and right atria are normal. Mitral Valve The mitral valve is structurally normal. No prolapse or stenosis seen. Tricuspid Valve Normal tricuspid valve. Aortic Valve Trisinus/trileaflet aortic valve. Pulmonic Valve The pulmonic valve is not well visualized. Great Vessels Mildly dilated aortic root. Pericardium/Pleural Trivial pericardial effusion. Medication Diluted definity 4ml given slow IV push to enhance endocardial definition. MMode/2D Measurements Calculations LVIDd: 4.5 cm IVSd: 1.3 cm LVOT diam: 2.2 cm LVIDs: 3.9 cm LVPWd: 1.3 cm RVDd: 3.0 cm FS: 14.8 % LVOT area: 3.8 cm2 Ao root diam: 3.8 cm LAV(MOD-bp): 26.2 ml LVAd ap4: 34.1 cm2 LAV(MOD-bp) Indexed: 13.3 ml/m2 LVLd ap4: 8.5 cm LAV(MOD-sp2): 29.7 ml EDV(MOD-sp4): 112.0 ml LAV(MOD-sp4): 20.9 ml EDV(sp4-el): 116.2 ml LVAs ap4: 24.2 cm2 LVLs ap4: 7.4 cm ESV(MOD-sp4): 66.4 ml ESV(sp4-el): 67.0 ml EF(MOD-sp4): 40.7 % EF(sp4-el): 42.4 % SV(MOD-sp4): 45.6 ml SV(sp4-el): 49.3 ml LA A4 area: 10.6 cm2 RA A4 area: 7.2 cm2 TAPSE: 1.4 cm Time Measurements MV dec time: 0.19 sec Doppler Measurements Calculations MV E max nadya: 56.7 cm/sec Lat Peak E' Nadya: 4.5 cm/sec Med Peak E' Nadya: 4.2 cm/sec MV A max nadya: 72.3 cm/sec E/E' lat: 12.7 E/E' med: 13.4 MV E/A: 0.78 MV dec slope: 300.4 cm/sec2 Ao V2 max: 93.4 cm/sec LV V1 max: 69.2 cm/sec Ao max P.5 mmHg LV V1 max P.9 mmHg Ao V2 mean: 76.8 cm/sec Ao mean P.5 mmHg Ao V2 VTI: 17.2 cm VÍCTOR(V,D): 2.9 cm2 PA V2 max: 54.7 cm/sec PA max PG (full): 0.10 mmHg ECHO/Echo Complete W/ Contrast Interpretation Summary There is a large sized apical, septal, inferior, posterior, and lateral wall motion abnormality with hypokinesis to akinesis of the segments. Mild concentric left ventricular hypertrophy. Estimated LVEF 25 to 30% Moderate global right ventricular systolic dysfunction. Mildly dilated aortic root. Trivial pericardial effusion. Ordering Physician: Italo Souza Referring Physician: Luc Olvera Performed By: Mireya Brown RVT, RDCS and Student 02/25/24 1350 Date Italo Souza MD CC: Dr. Italo Souza MD; Dr. Kirk Russell MD; Dr. Roderick Mendez MD Date Dictated: 02/25/24 0835 Date Transcribed: 02/25/24 1350 Director Records Management: Signed Normal [facility] Emergency Department Summary on 02-24-2024 Emergency Department Summary [facility] Medical Records Department [address] [place] [address] Emergency Department Summary 02/24/24 MR#: [id number] Acct: [id number] Name: JASON RIVERA Rep #: [id number] : 1980 43 From: Leonila Ram DO PCP: Dr. Luc Olvera MD Status:ADM IN Location: ICU ICU02-1 HPI History of Present Illness Chief Complaint: Chest Pain Detail of Chief Complaint: Chest pain Informant: patient Narrative Narrative: Patient presents to the emergency department complaint of chest pain that started around noon today. Patient states the pains been continuous. Denies any significant radiation other than to his armpit. He has had mild nausea. No vomiting. Patient is a type II diabetic and history of hypertension. There is significant family history heart disease. He himself is never had coronary artery disease or any type of intervention. He does not smoke. He denies recent travel or surgery. [facility] Medical History (Updated 02/24/24 @ 22:[address] Leonila Ram DO) Diabetes Home Medications ???Medication ???Instructions ???Recorded ???Last Taken ???Type ciprofloxacin HCl 250 mg tablet 250 mg PO BID 06/26/21 Unknown History naproxen 500 mg tablet 500 mg PO BID 06/26/21 Unknown History lisinopril 5 mg tablet 5 mg PO DAILY 02/24/24 Unknown History metformin 1,000 mg tablet 1,000 mg PO BID 02/24/24 Unknown History metformin 500 mg tablet 500 mg PO BID 02/24/24 Unknown History semaglutide 0.25 mg or 0.5 mg (2 0.25 mg subcut QWEEK 02/24/24 02/22/24 History mg/3 mL) subcutaneous pen injector (Ozempic) Allergy/AdvReac Type Severity Reaction Status Date / Time No Known Allergies Allergy Verified 02/24/24 21:54 Social History Smoking Status: Never smoker ROS ROS ED Review of Systems ROS Unobtainable: other Constitutional Constitutional ED: Reports lethargy; Denies chills, fever(s), sweats or weight loss Eyes Eyes: Denies blurry vision, change in vision or diplopia ENT ENT ED: Denies rhinorrhea or sore throat Cardiovascular Cardiovascular: Reports chest pain; Denies orthopnea or racing heartbeat Respiratory/Chest Respiratory/Chest: Denies cough, dyspnea, dyspnea on exertion, orthopnea or sputum Gastrointestinal Gastrointestinal: Reports nausea; Denies abdominal pain, diarrhea or vomiting Genitourinary Genitourinary ED: Denies dysuria, hematuria or urinary frequency Musculoskeletal Musculoskeletal: Denies arthralgias, back pain, myalgias or neck pain Integumentary Denies abscess, Abrasions or rash Neurologic Neurologic: Denies headache(s) or weakness Psychiatric Psychiatric: Denies anxiety, depression or suicidal thoughts Endocrine Endocrinology: Denies polydipsia, polyphagia or polyuria Hematologic/Lymphatic Hematologic/Lymphatic: Denies easy bleeding, easy bruising or lymphadenopathy Allergic/Immunologic Allergic/Immunologic ED: Denies mouth swelling, tongue swelling or urticaria EXAM Physical Exam Const Vital Signs: 02/24/24 21:54 02/24/24 22:28 02/24/24 22:29 Temperature 97.8 F Temperature Source Temporal Pulse Rate 132 H 123 H 119 H Respiratory Rate 20 H 17 Blood Pressure 149/107 H 138/95 H Blood Pressure Mean 121 Pulse Ox 99 99 Oxygen Delivery Method Room Air Oxygen Flow Rate (L/min) 02/24/24 22:30 02/24/24 22:33 02/24/24 22:34 Temperature Temperature Source Pulse Rate 144 H 122 H Respiratory Rate 26 H 15 Blood Pressure 138/95 H 136/104 H Blood Pressure Mean 108 114 Pulse Ox 99 99 Oxygen Delivery Method Nasal Cannula Nasal Cannula Nasal Cannula Oxygen Flow Rate (L/min) 2 2 Positive well nourished and well developed General Appearance ED: well developed and NAD HEENT Reports TM's clear and moist mucous membranes normocephalic and atraumatic; Negative for trauma or tenderness Tympanic Membrane ED: Yes TM's clear Eyes PERRL and EOMs intact bilaterally General Eye ED: Negative for pale conjunctiva or scleral icterus Neck no lymphadenopathy, supple and no JVD General: Negative for tenderness Chest Wall inspection of chest normal and palpation of chest normal Chest: Negative for tenderness Resp normal respiratory effort and clear to auscultation bilaterally Effort and Inspection: Negative for respiratory distress or pain with movement Auscultation: Negative for rhonchi, wheezes or diminished lung sounds Cardio regular rate, regular rhythm, S1 normal heart sound, S2 normal heart sound and no murmurs Peripheral Pulses: pulses 2+ throughout GI normal to inspection, nondistended, normoactive bowel sounds, soft to palpation, non-tender, non- distended and no masses Back/Spine no CVA tenderness and no thoracic nor lumbar tenderness Extremity normal to (more content not included)... Normal [facility] L501.4020on 02-24-2024 TROPONIN-I HS 3242 pg/mL Invalid Interpretation Code 3.0-78.0 [facility] Comment on above: Order Comment: 'TROP ' Serial specimen #1, #2 or #3: 1 Result Comment: Crit ical Result(s) Called at: 23:05:19 02/24/2024 by: [facility] Results read back by same. Please Note: New Test Units and Gender Specific Reference Ranges. For more information see Policy Stat Procedure [place] High Sensitivity Troponin (TNIH) and attachments. Performed By: #### L 501.4020, L100.0100, L300.4310, L300.3900, L500.2500 ####[facility] [id number] [place], [place], [id number] Partial Thromboplast Timeon 02-24-2024 aPTT Coag (Bld) [Time] 22.8 s Low 24.1-36.2 [facility] Comment on above: Performed By: #### L 501.4020, L100.0100, L300.4310, L300.3900, L500.2500 ####[facility] [id number] [place], [place], [id number] Prothrombin Time w/INRon INR Coag (PPP) [Relative time] 1.0 {INR} Normal [facility] Comment on above: Performed By: #### L 501.4020, L100.0100, L300.4310, L300.3900, L500.2500 ####[facility] [address] [place], [address] PT Coag (PPP) [Time] 12.7 s Normal 11.7-14.9 [facility] Comment on above: Performed By: #### L 501.4020, L100.0100, L300.4310, L300.3900, L500.2500 ####[facility] [address] [place], [address] OVon 12-16-2023 CNOV Office Visit (UCWSTR ) JASON RIVERA ([id number]) 1980 M Date Time Provider Department 12/16/23 8:30 AM GINGER SALGADO [facility] During your visit today, we recorded the following information about you: Temperature Pulse Respiration Blood pressure 98.2 degrees 112/minute 18/minute 177/119 Weight 81 kg Ginger Salgado APRN.KNITTING MACHINE TENDER 12/16/2023 8:40 AM Signed ASSESSMENT/PLAN: 1. Viral URI with cough - ICD9: 465.9, ICD10: J06.9 (primary diagnosis) - Discussed viral etiology and rationale for treatment. - Symptomatic treatment with prn analgesia - Supportive care with fluids and rest - patient advised antibiotics will not treat viral infections. He verbalized understanding. - may use Mucinex for cough 2. Nasal congestion - ICD9: 478.19, ICD10: R09.81 - flonase nasal spray may be helpful. - Follow-up with your PCP in 3-5 days if symptoms have not improved or sooner if symptoms worsen - Discussed red flags and need for immediate medical evaluation if any occur. - Discussed supportive care treatment with fluids, rest and analgesia. - Discussed expected course of illness Ginger Salgado APRN.KNITTING MACHINE TENDER Treatment for Viral Upper Respiratory Tract Infections Your body will kill off the virus by itself. Additionally, you can prime your body's immune system. This may help you get better more quickly. Drink lots of fluids Make sure you are eating well Get plenty of rest We do not have any medications that kill off these viruses. Antibiotics are used to treat bacterial infections; however, they are not active against viral infections. There are some things that might help you feel better, though. Vaporizers, humidifiers, hot showers, and hot fluids help open respiratory and sinus passages Chambers Nasal [place] may offer relief of nasal and head congestion Audie's Vapor Rub may relieve congestion Tylenol and Advil help control fevers and headaches Salt water gargles help relieve sore throats Chloraceptic spray or throat lozenges may also help relieve sore throat symptoms Occasionally, viral infections turn into something more serious. You should see your doctor or return to the Urgent Care if: You have fevers for longer than five days You have fevers above 102 degrees You are still sick after 10 days You have shortness of breath or wheezing After several days you are getting worse rather than better Ginger Salgado APRN.KNITTING MACHINE TENDER 12/16/2023 8:42 AM Signed Subjective Cough Associated symptoms include sore throat. Pertinent negatives include no chills, no ear pain, no headaches, no myalgias and no shortness of breath. Jason Rivera is a 43 year old male who presents with 4 days of cough, chest congestion, and sore throat. He lost his voice the first night but that has improved. States cough became productive last night. He has some doxycycline and wonders if he should take this. He has not had a fever. He has been using cough drops. Overall feels symptoms are beginning to improve. Review of Systems Constitutional: Negative for chills, fever and malaise/fatigue. HENT: Positive for congestion and sore throat. Negative for ear pain. Respiratory: Positive for cough. Negative for shortness of breath. Cardiovascular: Negative. Gastrointestinal: Negative for nausea and vomiting. Musculoskeletal: Negative for myalgias. Neurological: Negative for headaches. BP 177/119 Pulse 112 Temp 36.8 ?C (98.2 ?F) Resp 18 Wt 81 kg (178 lb 9.2 oz) SpO2 99% BMI 25.99 kg/m? PAST MEDICAL HISTORY Diagnosis Date Anxiety Diabetic eye exam (HCC) 01/29/2017 Last done: 01/24/2017 Essential hypertension with goal blood pressure less than 130/80 10/09/2016 Fracture of unspecified bones 1992 fell from roof -> pelvis AND wrist. no sequelae. Generalized anxiety disorder 08/13/2007 Mixed hyperlipidemia 10/02/2016 Panic disorder without agoraphobia 08/13/2007 Uncontrolled type 2 diabetes mellitus without complication, without long-term current use of insulin 03/13/2016 PAST SURGICAL HISTORY Procedure Laterality Date NONE ALLERGIES Patient has no known allergies. MEDICATIONS metFORMIN (GLUCOPHAGE) 500 mg tablet Take 500 mg by mouth two times a day with meals. busPIRone (BUSPAR) 15 mg tablet Take 1/2 a tab by mouth twice a day for 2 weeks than one twice a day. (Patient not taking: Reported on 09/14/2019) Lancets lancets Test blood sugar(s) 4 times daily. Dx: Type 2 DM - Uncontrolled E11.65 Insulin: No (Patient not taking: Reported on 05/28/2021) FAMILY HISTORY Problem Relation Age of Onset Cancer Mother COPD Mother other (fibromyalgia) Mother Cancer Paternal Grandfather Cancer Paternal Grandmother Diabetes Paternal Grandmother Alzheimer's Disease No Family History Colon Cancer No Family History Prostate Cancer No Family History Social History Tobacco Use Smoking (more content not included)... Normal [facility] CNOVon 09-05-2023 CNOV Office Visit (UCWSTR ) JASON RIVERA ([id number]) 1980 M Date Time Provider Department 09/05/23 4:00 PM GINGER SALGADO [facility] During your visit today, we recorded the following information about you: Temperature Pulse Respiration Blood pressure 98 degrees 130/minute 20/minute 200/100 Weight 77.7 kg Ginger Salgado APRN.KNITTING MACHINE TENDER 09/05/2023 5:09 PM Signed Subjective Cough Associated symptoms include chills, headaches, sore throat, myalgias and shortness of breath. Pertinent negatives include no chest pain and no ear pain. Jason Judy Miguel is a 43 year old male who presents with one month of cough, nasal congestion and chest congestion, headache, sore throat, feeling short of breath. He has had symptoms for the past week but states in the past couple days he has felt much worse. States he has more upper respiratory symptoms and feels extremely tired. He has had chills and has not slept well in the past couple nights because cough keeps him up. He has been taking Robitussin at home. His BP is noted to be elevated on rooming intake. He denies history of HTN, however chart review reveals a hx of HTN, he was on Lisinopril 2.5 mg and propanolo at one time. He no longer takes these medications. Review of Systems Constitutional: Positive for chills and malaise/fatigue. Negative for fever. HENT: Positive for congestion and sore throat. Negative for ear pain. Respiratory: Positive for cough, sputum production and shortness of breath. Negative for hemoptysis. Cardiovascular: Negative for chest pain and palpitations. Gastrointestinal: Negative for abdominal pain, diarrhea, nausea and vomiting. Musculoskeletal: Positive for myalgias. Neurological: Positive for headaches. BP 200/100 Pulse (!) 130 Temp 36.7 ?C (98 ?F) (Tympanic) Resp 20 Wt 77.7 kg (171 lb 6.4 oz) SpO2 99% BMI 24.95 kg/m? PAST MEDICAL HISTORY Diagnosis Date Anxiety Diabetic eye exam (HCC) 01/29/2017 Last done: 01/24/2017 Essential hypertension with goal blood pressure less than 130/80 10/09/2016 Fracture of unspecified bones 1992 fell from roof -> pelvis AND wrist. no sequelae. Generalized anxiety disorder 08/13/2007 Mixed hyperlipidemia 10/02/2016 Panic disorder without agoraphobia 08/13/2007 Uncontrolled type 2 diabetes mellitus without complication, without long-term current use of insulin 03/13/2016 PAST SURGICAL HISTORY Procedure Laterality Date NONE ALLERGIES Patient has no known allergies. MEDICATIONS busPIRone (BUSPAR) 15 mg tablet Take 1/2 a tab by mouth twice a day for 2 weeks than one twice a day. (Patient not taking: Reported on 09/14/2019 ) Lancets lancets Test blood sugar(s) 4 times daily. Dx: Type 2 DM - Uncontrolled E11.65 Insulin: No (Patient not taking: Reported on 05/28/2021 ) FAMILY HISTORY Problem Relation Age of Onset Cancer Mother COPD Mother other (fibromyalgia) Mother Cancer Paternal Grandfather Cancer Paternal Grandmother Diabetes Paternal Grandmother Alzheimer's Disease No Family History Colon Cancer No Family History Prostate Cancer No Family History Social History Tobacco Use Smoking status: Never Smokeless tobacco: Never Substance Use Topics Alcohol use: Yes Alcohol/week: 3.0 - 6.0 standard drinks of alcohol Types: 3 - 6 Cans of Beer (12oz) per week Comment: 1 beverage every other week (beer) wine q 2-3 weeks Drug use: No Objective Physical Exam Vitals and nursing note reviewed. Constitutional: General: He is not in acute distress. Appearance: Normal appearance. He is not ill-appearing. HENT: Right Ear: Tympanic membrane, ear canal and external ear normal. Left Ear: Tympanic membrane, ear canal and external ear normal. Nose: Nose normal. Mouth/Throat: Mouth: Mucous membranes are moist. Pharynx: Oropharynx is clear. Uvula midline. No oropharyngeal exudate or posterior oropharyngeal erythema. Cardiovascular: Rate and Rhythm: Regular rhythm. Tachycardia present. Heart sounds: Normal heart sounds. Pulmonary: Effort: Pulmonary effort is normal. No respiratory distress. Breath sounds: Normal breath sounds. No wheezing or rales. Musculoskeletal: Cervical back: Neck supple. Lymphadenopathy: Cervical: No cervical adenopathy. Skin: General: Skin is warm and dry. Findings: No erythema or rash. Neurological: Mental Status: He is alert. ASSESSMENT/PLAN: 1. Persistent cough for 3 weeks or longer - ICD9: 786.2, ICD10: R05.3 (primary diagnosis) - XR CHEST 2V FRONTAL/LAT IMPRESSION: No acute radiographic abnormality. Director Records Management: DEIDRA Transcribe Date/Time: Sep 05 2023 4:27P Dictated by : NIKKI DICKERSON MD 2. Flu-like symptoms - ICD9: 780.99, ICD10: R68.89 - COVID NAAT, UPPER RESPIRATORY, ROUTINE - INFLUENZA AANDB MOLECULAR (POC)- positive for Influenza B 3. Sore throat - ICD9: 462, ICD10: J02.9 - Group A s (more content not included)... Normal [facility] SARS-CoV-2 RNA Resp Ql LULI+p tami 09-05-2023 SARS-CoV-2 (COVID-19) RNA LULI+probe Ql (Resp) COVID 19 RESULT: Not detected The method used is RT-PCR or an equivalent NAAT method. Reference Range (the expected result in uninfected individuals): Not detected Normal [facility] Comment on above: Performed By: #### 9 [id number] #### [facility] CLIA [id number] [address] [place] [address] STATES OF [facility] XR CHEST 2V FRONTAL/LATon XR CHEST 2V FRONTAL/LAT * * *Final Report* * * DATE OF EXAM: Sep 05 2023 4:27PM WOX [id number] - XR CHEST 2V FRONTAL/LAT / PROCEDURE REASON: Persistent cough for 3 weeks or longer * * * * Physician Interpretation * * * * EXAMINATION: CHEST RADIOGRAPH (2 VIEW FRONTAL and LATERAL) CLINICAL HISTORY: Persistent cough for 3 weeks or longer MQ: XC2_6 EXAM DATE/TIME: 09/05/2023 4:27 PM COMPARISON: No relevant prior studies available. RESULT: Lines, tubes, and devices: None. Lungs and pleura: No consolidation. No lung mass. No pleural effusion. No pneumothorax. Cardiomediastinal silhouette: Normal cardiomediastinal silhouette. Bones and soft tissues: Unremarkable. IMPRESSION: No acute radiographic abnormality. Director Records Management: DEIDRA Transcribe Date/Time: Sep 05 2023 4:27P Dictated by : NIKKI DICKERSON MD This examination was interpreted and the report reviewed and electronically signed by: NIKKI DICKERSON MD on Sep 05 2023 4:28PM EST [id number] Normal [facility] XR Chest PA and Lateralon Radiology Study observation (narrative) [facility] IMPRESSION: No acute radiographic abnormality. Director Records Management: PSCB Transcribe Date/Time: Sep 05 2023 4:27P Dictated by : NIKKI DICKERSON MD This examination was interpreted and the report reviewed and electronically signed by: NIKKI DICKERSON MD on Sep 05 2023 4:28PM EST DIVISION OF RADIOLOGY * * *Final Report* * * DATE OF EXAM: Sep 05 2023 4:27PM WOX [id number] - XR CHEST 2V FRONTAL/LAT / PROCEDURE REASON: Persistent cough for 3 weeks or longer * * * * Physician Interpretation * * * * EXAMINATION: CHEST RADIOGRAPH (2 VIEW FRONTAL & LATERAL) CLINICAL HISTORY: Persistent cough for 3 weeks or longer MQ: XC2_6 EXAM DATE/TIME: 09/05/2023 4:27 PM COMPARISON: No relevant prior studies available. RESULT: Lines, tubes, and devices: None. Lungs and pleura: No consolidation. No lung mass. No pleural effusion. No pneumothorax. Cardiomediastinal silhouette: Normal cardiomediastinal silhouette. Bones and soft tissues: Unremarkable. DIVISION OF RADIOLOGY Provider, Dina Salas [place] - 09/05/2023 * * *Final Report* * * DATE OF EXAM: Sep 05 2023 4:27PM WOX [id number] - XR CHEST 2V FRONTAL/LAT / PROCEDURE REASON: Persistent cough for 3 weeks or longer * * * * Physician Interpretation * * * * EXAMINATION: CHEST RADIOGRAPH (2 VIEW FRONTAL & LATERAL) CLINICAL HISTORY: Persistent cough for 3 weeks or longer MQ: XC2_6 EXAM DATE/TIME: 09/05/2023 4:27 PM COMPARISON: No relevant prior studies available. RESULT: Lines, tubes, and devices: None. Lungs and pleura: No consolidation. No lung mass. No pleural effusion. No pneumothorax. Cardiomediastinal silhouette: Normal cardiomediastinal silhouette. Bones and soft tissues: Unremarkable. IMPRESSION IMPRESSION: No acute radiographic abnormality. Director Records Management: PSCB Transcribe Date/Time: Sep 05 2023 4:27P Dictated by : NIKKI DICKERSON MD This examination was interpreted and the report reviewed and electronically signed by: NIKKI DICKERSON MD on Sep 05 2023 4:28PM [facility] XR Chest PA and LateralOrder ed By: [facility] Provider on 09-05-2023 [facility] Neha 06-11-2021 EMERSONN Telephone (KENDELL) JASON RIVERA ([id number]) 1980 M Date Time Provider Department 06/11/21 VIK PAULINO During your visit today, we recorded the following information about you: Marsha FRANKS 06/11/2021 3:00 PM Signed Left message to schedule. Ref. By: Amador Porter NP Ref. To: Any provider Re: Left testicular pain - Epididymitis, left Thank you, Marsha FRANKS 06/14/2021 8:24 AM Signed Left another message to schedule. Marsha Sylvester GOLDEN Allergies As of Date: 06/11/2021 (No Known Allergies) Date Reviewed: 06/05/2021 Reviewed by: Amador Porter APRN.KNITTING MACHINE TENDER, DNP - Fully Assessed Reason for Visit: Consult Urology [Other] Prescriptions as of 06/14/2021 - busPIRone (BUSPAR) 15 mg tablet Take 1/2 a tab by mouth twice a day for 2 weeks than one twice a day. - Lancets lancets Test blood sugar(s) 4 times daily. Dx: Type 2 DM - Uncontrolled E11.65 Insulin: No Problem List As Of Date 06/11/2021 Noted Resolved DIARRHEA NOS [R19.7] 04/24/2007 07/04/2008 Generalized anxiety disorder [F41.1] 08/13/2007 Panic disorder without agoraphobia [F41.0] 08/13/2007 Uncontrolled type 2 diabetes mellitus with hype*03/13/2016 Mixed hyperlipidemia [E78.2] 10/02/2016 Essential hypertension with goal blood pressure*10/09/2016 Diabetic eye exam (HCC) [Z01.00, E11.9] 01/29/2017 Well adult exam [Z00.00] 02/21/2017 Anxiety [F41.9] Encounter Status:Closed by BARBIE FRANKSMARSHA on 06/11/21 Normal [facility] Vital Signs Date Time Vital Sign Value Performing Clinician Facility 12-16-2023 08:27-0400 Body mass index (BMI) [Ratio] 25.99 kg/m2 Ginger Salgado APRN.CNP Work Phone: [facility] 12-16-2023 08:27-0400 Body temperature 98.2 [degF] Ginger Salgado APRN.CNP Work Phone: [facility] 12-16-2023 08:27-0400 Body weight 81 kg Ginger Praisler-Wood WINDOW DRESSER.KNITTING MACHINE TENDER Work Phone: [facility] 12-16-2023 08:27-0400 Diastolic blood pressure 119 mm[Hg] Ginger Praisler-[employer] WINDOW DRESSER.KNITTING MACHINE TENDER Work Phone: [facility] Comment on above: white coat 12-16-2023 08:27-0400 Heart rate 112 /min Ginger Praisler-[employer] WINDOW DRESSER.KNITTING MACHINE TENDER Work Phone: [facility] 12-16-2023 08:27-0400 Respiratory rate 18 /min Ginger Praisler-Wood WINDOW DRESSER.KNITTING MACHINE TENDER Work Phone: [facility] 12-16-2023 08:27-0400 SaO2% (BldA) [Mass fraction] 99 % Ginger Praisler-Wood WINDOW DRESSER.[facility] Work Phone: [facility] 12-16-2023 08:27-0400 Systolic blood pressure 177 mm[Hg] Ginger Praisler-Wood WINDOW DRESSER.[facility] Work Phone: [facility] Comment on above: white coat 09-09-2023 16:03-0500 Body height 180.34 cm [facility] 09-09-2023 16:03-0500 Body mass index (BMI) [Ratio] 24 kg/m2 [facility] 09-09-2023 16:03-0500 Body temperature 98.8 [degF] [facility] 09-09-2023 16:03-0500 Body weight 78.3 kg [facility] 09-09-2023 16:03-0500 Diastolic blood pressure 110 mm[Hg] [facility] 09-09-2023 16:03-0500 Heart rate 113 /min [facility] 09-09-2023 16:03-0500 Respiratory rate 20 /min [facility] 09-09-2023 16:03-0500 SaO2% (BldA) [Mass fraction] 100 % [facility] 09-09-2023 16:03-0500 Systolic blood pressure 193 mm[Hg] [facility] 11-26-2021 11:03-0400 Body temperature 98.29 [degF] Leigh Manriquez APRN.KNITTING MACHINE TENDER Work Phone: [facility] 11-26-2021 11:03-0400 Body weight 88.91 kg Leigh Manriquez APRN.KNITTING MACHINE TENDER Work Phone: [facility] 11-26-2021 11:03-0400 Diastolic blood pressure 98 mm[Hg] Leigh Manriquez APRN.KNITTING MACHINE TENDER Work Phone: [facility] 11-26-2021 11:03-0400 Heart rate 110 /min Leigh Manriquez APRN.KNITTING MACHINE TENDER Work Phone: [facility] 11-26-2021 11:03-0400 Respiratory rate 20 /min Leigh Manriquez APRN.KNITTING MACHINE TENDER Work Phone: [facility] 11-26-2021 11:03-0400 SaO2% (BldA) [Mass fraction] 98 % Leigh Manriquez APRN.KNITTING MACHINE TENDER Work Phone: [facility] 11-26-2021 11:03-0400 Systolic blood pressure 148 mm[Hg] Leigh Manriquez APRN.KNITTING MACHINE TENDER Work Phone: [facility] Encounters Encounter Date Encounter Type Care Provider Facility Start: 02-08-2025 ambulatory Ed Physician Provider F acility:[facility] Start: 08-14-2024 ambulatory Chalon Rachid Facility:[facility] Start: 07-05-2024 End: 08-03-2024 ambulatory Chalon Rachid Facility:[facility] Start: 06-11-2024 End: 07-03-2024 ambulatory Italo Harley Facility:[facility] Start: 06-02-2024 End: 06-03-2024 ambulatory Italo Harley Facility:[facility] Start: 05-26-2024 ambulatory Collins Brown HHA Facility :[facility] Start: 05-03-2024 End: 05-03-2024 ambulatory Italo Harley Facility:[facility] Start: 04-14-2024 End: 04-14-2024 ambulatory Collins Brown HHA Facility:[facility] Start: 04-02-2024 End: 04-03-2024 ambulatory Italo Harley Facility:[facility] Start: 03-15-2024 End: 03-15-2024 ambulatory Italo Harley Facility:[facility] Start: 03-05-2024 End: 07-23-2024 ambulatory Chalon Rachid Facility:[facility] Start: 02-26-2024 ambulatory Italo Harley Facility:[facility] Start: 02-25-2024 ambulatory Chalon Rachid Facility:[facility] Start: 02-25-2024 ambulatory Italo Harley Facility:[facility] Start: 02-25-2024 End: 02-27-2024 Evaluation and management of inpatient Italo Harley Facility:[facility] Start: 02-24-2024 ambulatory Italo Harley Facility:[facility] Start: 12-16-2023 End: 12-16-2023 ambulatory CHALON RACHID Facility:[facility] Start: 12-16-2023 End: 12-16-2023 Patient encounter procedure Ginger Salgado APRN.KNITTING MACHINE TENDER Work Phone: [facility] Comment on above: Viral URI with cough (Primary Dx); Nasal congestion Start: 09-09-2023 End: 09-09-2023 Emergency department patient visit [facility] Work Phone: Start: 09-05-2023 End: 09-05-2023 ambulatory AMADOR PORTER Facility:[facility] Start: 09-05-2023 End: 09-05-2023 Subsequent hospital visit by physician Xr [facility] Work Phone: Radiology Comment on above: Persistent cough for 3 weeks or longer [R05.3] Start: 11-26-2021 End: 11-26-2021 Patient encounter procedure Leigh Manriquez APRN.KNITTING MACHINE TENDER Work Phone: [facility] Comment on above: Sinus congestion (Pr imary Dx) Start: 03-22-2019 Ophthalmic examinati on and evaluation Leigh Manriquez APRN.KNITTING MACHINE TENDER Work Phone: [facility] Work Phone: Start: 03-03-2019 Patient encounter status Lauren Manriquez APRN.KNITTING MACHINE TENDER Work Phone: [facility] Work Phone: Procedures Date Procedure Procedure Detail Performing Clinician Start: 09-05-2023 Radiologic exam ches t 2 views Ginger Salgado APRN.[place] Work Phone: Start: 03-03-2019 Adult depression screening assessment Leigh Manriquez APRN.KNITTING MACHINE TENDER Work Phone: Plan of Treatment Date Care Activity Detail Author Start: 04-04-2024 Covid-19 Vaccine ( season) Covid-19 Vaccine ( season) [facility] Start: 04-04-2024 Influenza vaccination C [facility] Start: 09-09-2023 [facility] Start: 08-04-2023 Behavioral Health Screening Behavioral Health Screening [facility] Start: 04-04-2023 Covid-19 Vaccine ( season) Covid-19 Vaccine () [facility] Start: 06-05-2022 ANNUAL PCP TEAM DISTILLERY MILLER KANA DISEASE VISIT ANNUAL PCP TEAM CHRONIC DISEASE VISIT [facility] Start: 06-05-2022 COVID-19 VACCINE (1) COVID-19 VACCIN E (1) [facility] Comment on above: Postponed from 04/23 (Declined at this time) Start: 04-04-2022 Influenza vaccination INFLUENZ A (Season Ended) [facility] Start: 03-19-2020 Glaucoma screening Dilated Retinal E xam [facility] Start: 03-19-2020 Hepatitis C antibody , confirmatory test DILATED RETINAL EXAM [facility] Start: 03-03-2020 3 comp foot exam completed DIABETIC FOOT EXAM [facility] Start: 03-03-2020 Adult depression screening assessment DEPRESSION SCREENING [facility] Start: 03-03-2020 Diabetic foot examination Diabetic Foot Exam [facility] Start: 03-02-2020 Hepatitis B screening URINE ALBUMIN:CREATININE RATIO [facility] Start: 03-02-2020 Hepatitis B surface antibody level LDL CHOLESTEROL [facility] Start: 06-02-2019 Hemoglobin A1c measurement HbA1C [facility] Start: 06-02-2019 Hemoglobin A1c/Hemoglobin.total in Blood HBA1C [facility] Start: 1998 Hepatitis B Vaccine (1 of 3 - 19+ 3-dose series) Hepatitis B Vaccine (1 of 3 - 19+ 3-dose series) [facility] Start: 1997 BP CONTROLLED (<130/80) BP CONTROLLE D (<130/80) [facility] Start: 1997 Depression Screening Depression Scre ening [facility] Start: 1997 HEPATITIS C SCREENING HEPATITIS C [facility] Start: 1997 Hepatitis C screening Hepatitis C [facility] Patient Education ED Abscess Inc ision And Drainage [facility] Work Phone: Patient referral [facility] Work Phone: Immunizations Immunization Date Immunization Notes Care Provider Sathya thomas 09-24-2017 influenza virus vaccine, unspecified formulation Ginger Salgado APRN.[facility] Work Phone: [facility] 07-25-2016 influenza, seasonal, injectable Leigh Manriquez APRN.[facility] Work Phone: [facility] 03-13-2016 pneumococcal conjuga te vaccine, 13 valent Leigh Manriquez APRN.[facility] Work Phone: [facility] Work Phone: 01-22-2008 tetanus toxoid, redu aiden diphtheria toxoid, and acellular pertussis vaccine, adsorbed Leigh Manriquez APRN.[facility] Work Phone: [facility] Work Phone: 08-04-1998 diphtheria and tetan us toxoids, adsorbed for pediatric use Leigh Manriquez APRN.[facility] Work Phone: [facility] Work Phone: Payers Date Payer Category Payer Self-pay [id number] 2021 Unknown MMO MMO [employer] [id number] 2021-Present [phone] [address] [place] [address] PPO [id number] 2021 Unknown [id number] 2021 Unknown MMO MMO [employer] PPO [id number] 2021-Present [phone] [address] [place] [address] PPO [id number] 2016 Unknown ANTHEM [id number] Private Health Insurance [employer]ET[employer] [id number] Unknown [employer] [place] [id number] Unknown [id number] 62 Unknown [id number] 2.16.840.1.139098.3.579.2.4 62 Unknown [id number] 2.16.840.1.046939.3.579.2.4 62 Unknown [id number] 2.16.840.1.377522.3.579.2.4 62 Unknown [id number] 2.16.840.1.970562.3.579.2.4 62 Unknown [id number] 2.16.840.1.826509.3.579.2.4 62 Unknown [id number] 2.16.840.1.925548.3.579.2.4 62 Unknown [id number] 2.16.840.1.111451.3.579.2.4 62 Unknown [id number] 2.16.840.1.017052.3.579.2.4 62 Unknown [id number] 2.16.840.1.468406.3.579.2.4 62 Unknown [id number] 2.16.840.1.247883.3.579.2.4 62 Unknown [id number] 2.16.840.1.444458.3.579.2.4 62 Unknown [id number] 2.16.840.1.407060.3.579.2.4 62 Unknown [id number] 2.16.840.1.767546.3.579.2.4 62 Unknown [id number] 2.16.840.1.541276.3.579.2.4 62 Unknown [id number] 2.16.840.1.854302.3.579.2.4 62 Unknown [id number] 2.16.840.1.866442.3.579.2.4 62 Unknown [id number] 2.16.840.1.784298.3.579.2.4 62 Unknown [id number] 2.16.840.1.527049.3.579.2.4 62 Social History Date Type Detail Facility Start: [facility]05[facility] Start: 11-26-2021 End: 09-05-2023 Alcohol intake Current drinker of alcohol (finding) [facility] Start: 01-16-2017 History SDOH Alcohol Comment 1 beverage every other week (beer) wine q 2-3 weeks [facility] Start: 1980 Sex Assigned At Not on file C [facility] Start: 11-16-2021 End: 11-26-2021 Exposure to SARS-CoV-2 (event) Not sure [facility] Work Phone: Start: 1980 Sex Assigned At Male W [facility] Start: 09-09-2023 [facility] ever smoked [facility] Start: 09-05-2023 Tobacco use and exposure Smokeless tobacco non-user [facility] Start: 07-12-2020 End: 12-16-2023 History of Social function [facility] Start: 07-12-2020 End: 12-16-2023 Tobacco use panel [facility] Adult Depression Screening Assessment 0 [facility] Medical Equipment Procedure Code Equipment Code Equipment Origin al Text Equipment Identifier Dates Test blood sugar (s) 4 times daily. Dx: Type 2 DM - Uncontrolled E11.65 Insulin: No [id number] Start: 05-09-2017 Comment on above: Test blood sugar(s) 4 times daily. Dx: Type 2 DM - Uncontrolled E11.65 Insulin: No Clinical Notes 04-24-2007 to 02-27-2024 Ginger Salgado, WINDOW DRESSER.KNITTING MACHINE TENDER - 12/16/2023 8:40 AM EDTPatient Kunal Paulino RT(R) - 09/05/2023 4:30 PM Malinda Manriquez APRN.KNITTING MACHINE TENDER - 11/26/2021 11:09 AM EDT Note Date & Type Note Facility 02-27-2024 Note [facility] Medical Records Department [address] [place] [address] Discharge Summary 02/27/24 0802 MR#: [id number] Acct: [id number] Name: JASON RIVERA Rep #: [id number] : 1980 43 From: Roderick Mendez MD PCP: Dr. Kirk Russell MD Status:ADM IN Location: ICU ICU02-1 Providers Date of Admission: 02/25/24 Date of Discharge: 02/27/24 Primary Care Physician: Kirk Russell MD Consultations 02/25/24 09:17 Consult: Cardiology Routine Consulting Provider: Italo Souza Reason for Consult: STEMI EMERGENT Consult: No MD Notified: Yes Date Notified: 02/24/24 Time Notified: 20:17 Method of Notification: ED Physician Initiated Reason For Visit: STEMI Diagnosis Discharge Diagnosis (1) ST elevation CT (STEMI): Status: Acute Code(s): I21.3 - ST elevation (STEMI) myocardial infarction of unspecified site (2) Cardiomyopathy: Status: Acute Code(s): I42.9 - Cardiomyopathy, unspecified (3) Diabetes: Status: Acute Code(s): E11.9 - Type 2 diabetes mellitus without complications Plan Patient is a 43-year-old male who presented [facility] ED on 02/24/2024 with chest pain. Twelve-lead EKG individually reviewed and shows sinus tachycardia, LAD, ST elevation in leads V3, V4, V6, II 3 and aVF consistent with inferior, possible acute anterolateral NSTEMI. Patient denied prior history of CT or angina. 1. Inferior STEMI, suspected new onset HFrEF, history of hypertension ??? Admit under inpatient status to the ICU. Left heart cath showed 100% mid RCA occlusion s/p RHIANNON x 1 placed. Also found to have 70% proximal-mid and 80% mid-LAD lesions, and a 90% proximal LCX lesion. Estimated LVEF during cath was 35%. Echo ordered. Continuous cardiac monitoring. Lipid profile shows triglyceride 217, LDL 67, HDL 55. TSH 1.37. The patient is started on aspirin, Brilinta, atorvastatin, Coreg, lisinopril, spironolactone and empagliflozin. Planning for staged PCI of LAD and left circumflex, 02/25: No acute issues overnight. BP on lower side. Heart rate 110s per minute. Patient is comfortable with no chest pain or pressure or shortness of breath. Patient is going for staged PCI of left circumflex and LAD. AST [address] Repeat liver chemistry. 02/26 patient did well overnight. Had staged PCI over LAD proximal and mid and proximal circumflex. Aspirin indefinitely. Brilinta for at least 12 months. strict diligence to Brilinta was emphasized by tool grinder operator surface and myself to keep stents patent. Patient is being discharged on low-dose carvedilol, lisinopril, Lasix 20 mg daily, spironolactone, Jardiance and high intensity statin. Follow-up with the tool grinder operator surface in 1 month. Cardiac rehab as per protocol 2. Poorly controlled type 2 diabetes mellitus with hyperglycemia. ??? Home regimen of metformin 1000 mg twice daily, semaglutide 0.25 mg weekly, hold it. Last A1c 11.9% in September. Repeat A1c 9.7%. Blood glucose in 300s on admit. Started Lantus 20 units at night and Humalog 7 units with meals plus sliding scale insulin. Adjust as needed. Discussed with patient and family that given his uncontrolled diabetes, he will likely need to start insulin therapy on discharge. Glucose is better controlled, around 140 mg/dL. 02/26: Glucose 253 last night. The morning 206. Continue Lantus and Humalog insulin with Accu-Chek before meals and at bedtime with Humalog sliding scale coverage. Prescription given for Lantus insulin, Humalog insulin and glucometer and supplies 3. 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 He feels itching and sometimes burning and feeling now. I did not see Whitish yeast patch but patient had 1 dose of fluconazole yesterday. 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 Advised follow-up with PCP. DVT prophylaxis: Lovenox CODE STATUS: Full code, verified Hemoglobin A1c 9.7 H, Calcium 9.5, Total Bilirubin 0.60, AST 454 H, ALT 40, Alkaline Phosphatase 61, Total Protein 6.4, Albumin 3.3, Globulin 3.1, Albumin/Globulin Ratio 1.1, Triglycerides 217 H, Cholesterol 165, LDL Cholesterol 67, VLDL Cholesterol 43 H, HDL Cholesterol 55, TSH 1.37 Laboratory Results 02/26/24 08:45: WBC 6.9, RBC 4.19 L, Hgb 13.4, Hct 39.7 L, MCV 94.7 H, MCH 32.0, MCHC 33.8, RDW Std Deviation 40.0, RDW Coeff of Cassandra 11.7, Plt Count 242, MPV 9.7, Immature Gran % (Auto) 0.400, Neut % (Auto) 58.7, Lymph % (Auto) 28.5, Porter % (Auto) 11.4 H, Eos % (Auto) 0.6, Baso % (Auto) 0.4, Absolute Neuts (auto) 4.1, Absolute Lymphs (auto) 1.97, Nucleated RBC % 0, Sodium 134 L, Potassium 3.8, Chloride 99, Carbon Dioxide 20.0 L, Anion Gap 15, BUN 13, Creatinine 0.85, Estim Creat Clear Calc 114.51, Est GFR (MDRD) Af Amer 125, Est GFR (MDRD) Non-Af 104, BUN/Creatinine Ratio 15.3, G lucose 151 H, Calcium 9.5, Total Bilirubin 0.80, Direct Bilirubin 0.27, AST 163 H, ALT 38, Alkaline Phosphatase 56, Total Protei (more content not included)... [facility] 12-16-2023 Note HNO ID: [id number] Author: GINGER SALGADO APRN.KNITTING MACHINE TENDER Service: ? Author Type: Nurse Practitioner Type: Progress Notes Filed: 12/16/2023 08:42 Note Text: Subjective Cough Associated symptoms include sore throat. Pertinent negatives include no chills, no ear pain, no headaches, no myalgias and no shortness of breath. Jason Rivera is a 43 year old male who presents with 4 days of cough, chest congestion, and sore throat. He lost his voice the first night but that has improved. States cough became productive last night. He has some doxycycline and wonders if he should take this. He has not had a fever. He has been using cough drops. Overall feels symptoms are beginning to improve. Review of Systems Constitutional: Negative for chills, fever and malaise/fatigue. HENT: Positive for congestion and sore throat. Negative for ear pain. Respiratory: Positive for cough. Negative for shortness of breath. Cardiovascular: Negative. Gastrointestinal: Negative for nausea and vomiting. Musculoskeletal: Negative for myalgias. Neurological: Negative for headaches. BP 177/119 Pulse 112 Temp 36.8 ?C (98.2 ?F) Resp 18 Wt 81 kg (178 lb 9.2 oz) SpO2 99% BMI 25.99 kg/m? PAST MEDICAL HISTORY Diagnosis Date Anxiety Diabetic eye exam (HCC) 01/29/2017 Last done: 01/24/2017 Essential hypertension with goal blood pressure less than 130/80 10/09/2016 Fracture of unspecified bones 1992 fell from roof -> pelvis AND wrist. no sequelae. Generalized anxiety disorder 08/13/2007 Mixed hyperlipidemia 10/02/2016 Panic disorder without agoraphobia 08/13/2007 Uncontrolled type 2 diabetes mellitus without complication, without long-term current use of insulin 03/13/2016 PAST SURGICAL HISTORY Procedure Laterality Date NONE ALLERGIES Patient has no known allergies. MEDICATIONS metFORMIN (GLUCOPHAGE) 500 mg tablet Take 500 mg by mouth two times a day with meals. busPIRone (BUSPAR) 15 mg tablet Take 1/2 a tab by mouth twice a day for 2 weeks than one twice a day. (Patient not taking: Reported on 09/14/2019) Lancets lancets Test blood sugar(s) 4 times daily. Dx: Type 2 DM - Uncontrolled E11.65 Insulin: No (Patient not taking: Reported on 05/28/2021) FAMILY HISTORY Problem Relation Age of Onset Cancer Mother COPD Mother other (fibromyalgia) Mother Cancer Paternal Grandfather Cancer Paternal Grandmother Diabetes Paternal Grandmother Alzheimer's Disease No Family History Colon Cancer No Family History Prostate Cancer No Family History Social History Tobacco Use Smoking status: Never Smokeless tobacco: Never Substance Use Topics Alcohol use: Yes Alcohol/week: 3.0 - 6.0 standard drinks of alcohol Types: 3 - 6 Cans of Beer (12oz) per week Comment: 1 beverage every other week (beer) wine q 2-3 weeks Drug use: No Objective Physical Exam Vitals and nursing note reviewed. Constitutional: General: He is not in acute distress. Appearance: Normal appearance. He is not ill-appearing. HENT: Right Ear: Tympanic membrane, ear canal and external ear normal. Left Ear: Tympanic membrane, ear canal and external ear normal. Nose: Congestion present. Mouth/Throat: Mouth: Mucous membranes are moist. Pharynx: Uvula midline. Posterior oropharyngeal erythema present. No oropharyngeal exudate. Cardiovascular: Rate and Rhythm: Normal rate and regular rhythm. Heart sounds: Normal heart sounds. Pulmonary: Effort: Pulmonary effort is normal. No respiratory distress. Breath sounds: Normal breath sounds. No wheezing or rales. Musculoskeletal: Cervical back: Neck supple. Lymphadenopathy: Cervical: No cervical adenopathy. Skin: General: Skin is warm and dry. Findings: No erythema or rash. Neurological: Mental Status: He is alert. ASSESSMENT/PLAN: 1. Viral URI with cough - ICD9: 465.9, ICD10: J06.9 (primary diagnosis) - Discussed viral etiology and rationale for treatment. - Symptomatic treatment with prn analgesia - Supportive care with fluids and rest - patient advised antibiotics will not treat viral infections. He verbalized understanding. - may use Mucinex for cough 2. Nasal congestion - ICD9: 478.19, ICD10: R09.81 - flonase nasal spray may be helpful. - Follow-up with your PCP in 3-5 days if symptoms have not improved or sooner if symptoms worsen - Discussed red flags and need for immediate medical evaluation if any occur. - Discussed supportive care treatment with fluids, rest and analgesia. - Discussed expected course of illness Ginger Salgado APRN.[facility] 12-16-2023 History of en t illness Narrative Subjective Cough Associated symptoms include sore throat. Pertinent negatives include no chills, no ear pain, no headaches, no myalgias and no shortness of breath. Jason Rivera is a 43 year old male who presents with 4 days of cough, chest congestion, and sore throat. He lost his voice the first night but that has improved. States cough became productive last night. He has some doxycycline and wonders if he should take this. He has not had a fever. He has been using cough drops. Overall feels symptoms are beginning to improve. Review of Systems Constitutional: Negative for chills, fever and malaise/fatigue. HENT: Positive for congestion and sore throat. Negative for ear pain. Respiratory: Positive for cough. Negative for shortness of breath. Cardiovascular: Negative. Gastrointestinal: Negative for nausea and vomiting. Musculoskeletal: Negative for myalgias. Neurological: Negative for headaches. BP 177/119 Pulse 112 Temp 36.8 C (98.2 F) Resp 18 Wt 81 kg (178 lb 9.2 oz) SpO2 99% BMI 25.99 kg/m PAST MEDICAL HISTORY Diagnosis Date Anxiety Diabetic eye exam (HCC) 01/29/2017 Last done: 01/24/2017 Essential hypertension with goal blood pressure less than 130/80 10/09/2016 Fracture of unspecified bones 1992 fell from roof -> pelvis & wrist. no sequelae. Generalized anxiety disorder 08/13/2007 Mixed hyperlipidemia 10/02/2016 Panic disorder without agoraphobia 08/13/2007 Uncontrolled type 2 diabetes mellitus without complication, without long-term current use of insulin 03/13/2016 PAST SURGICAL HISTORY Procedure Laterality Date NONE ALLERGIES Patient has no known allergies. MEDICATIONS metFORMIN (GLUCOPHAGE) 500 mg tablet Take 500 mg by mouth two times a day with meals. busPIRone (BUSPAR) 15 mg tablet Take 1/2 a tab by mouth twice a day for 2 weeks than one twice a day. (Patient not taking: Reported on 09/14/2019) Lancets lancets Test blood sugar(s) 4 times daily. Dx: Type 2 DM - Uncontrolled E11.65 Insulin: No (Patient not taking: Reported on 05/28/2021) FAMILY HISTORY Problem Relation Age of Onset Cancer Mother COPD Mother other (fibromyalgia) Mother Cancer Paternal Grandfather Cancer Paternal Grandmother Diabetes Paternal Grandmother Alzheimer's Disease No Family History Colon Cancer No Family History Prostate Cancer No Family History Social History Tobacco Use Smoking status: Never Smokeless tobacco: Never Substance Use Topics Alcohol use: Yes Alcohol/week: 3.0 - 6.0 standard drinks of alcohol Types: 3 - 6 Cans of Beer (12oz) per week Comment: 1 beverage every other week (beer) wine q 2-3 weeks Drug use: No Objective Physical Exam Vitals and nursing note reviewed. Constitutional: General: He is not in acute distress. Appearance: Normal appearance. He is not ill-appearing. HENT: Right Ear: Tympanic membrane, ear canal and external ear normal. Left Ear: Tympanic membrane, ear canal and external ear normal. Nose: Congestion present. Mouth/Throat: Mouth: Mucous membranes are moist. Pharynx: Uvula midline. Posterior oropharyngeal erythema present. No oropharyngeal exudate. Cardiovascular: Rate and Rhythm: Normal rate and regular rhythm. Heart sounds: Normal heart sounds. Pulmonary: Effort: Pulmonary effort is normal. No respiratory distress. Breath sounds: Normal breath sounds. No wheezing or rales. Musculoskeletal: Cervical back: Neck supple. Lymphadenopathy: Cervical: No cervical adenopathy. Skin: General: Skin is warm and dry. Findings: No erythema or rash. Neurological: Mental Status: He is alert. ASSESSMENT/PLAN: 1. Viral URI with cough - ICD9: 465.9, ICD10: J06.9 (primary diagnosis) - Discussed viral etiology and rationale for treatment. - Symptomatic treatment with prn analgesia - Supportive care with fluids and rest - patient advised antibiotics will not treat viral infections. He verbalized understanding. - may use Mucinex for cough 2. Nasal congestion - ICD9: 478.19, ICD10: R09.81 - flonase nasal spray may be helpful. - Follow-up with your PCP in 3-5 days if symptoms have not improved or sooner if symptoms worsen - Discussed red flags and need for immediate medical evaluation if any occur. - Discussed supportive care treatment with fluids, rest and analgesia. - Discussed expected course of illness Ginger Salgado APRN.KNITTING MACHINE TENDER documented in this encounter [facility] 12-16-2023 Instructions Ginger Salgado APRN.KNITTING MACHINE TENDER - 12/16/2023 8:40 AM EDT ASSESSMENT/PLAN: 1. Viral URI with cough - ICD9: 465.9, ICD10: J06.9 (primary diagnosis) - Discussed viral etiology and rationale for treatment. - Symptomatic treatment with prn analgesia - Supportive care with fluids and rest - patient advised antibiotics will not treat viral infections. He verbalized understanding. - may use Mucinex for cough 2. Nasal congestion - ICD9: 478.19, ICD10: R09.81 - flonase nasal spray may be helpful. - Follow-up with your PCP in 3-5 days if symptoms have not improved or sooner if symptoms worsen - Discussed red flags and need for immediate medical evaluation if any occur. - Discussed supportive care treatment with fluids, rest and analgesia. - Discussed expected course of illness Ginger Salgado APRN.KNITTING MACHINE TENDER Treatment for Viral Upper Respiratory Tract Infections Your body will kill off the virus by itself. Additionally, you can prime your body's immune system. This may help you get better more quickly. Drink lots of fluids Make sure you are eating well Get plenty of rest We do not have any medications that kill off these viruses. Antibiotics are used to treat bacterial infections; however, they are not active against viral infections. There are some things that might help you feel better, though. Vaporizers, humidifiers, hot showers, and hot fluids help open respiratory and sinus passages Chambers Nasal [place] may offer relief of nasal and head congestion Audie's Vapor Rub may relieve congestion Tylenol and Advil help control fevers and headaches Salt water gargles help relieve sore throats Chloraceptic spray or throat lozenges may also help relieve sore throat symptoms Occasionally, viral infections turn into something more serious. You should see your doctor or return to the Urgent Care if: You have fevers for longer than five days You have fevers above 102 degrees You are still sick after 10 days You have shortness of breath or wheezing After several days you are getting worse rather than better documented in this encounter [facility] 09-05-2023 Note HNO ID: [id number] Author: KUNAL ENGLAND RT(R) Service: Radiology Author Type: Technologist Type: Progress Notes Filed: 09/05/2023 16:27 Note Text: Radiology Service Progress Note PATIENT NAME: Jason Rivera DATE OF SERVICE: September 05, 2023 TIME: 4:21 PM PATIENT IDENTITY VERIFICATION COMPLETED USING TWO (2) IDENTIFIERS: Name and Date of confirmed by patient verbally. FALL SCREENING: Has the patient had 2 falls in the last year or 1 fall with injury or currently using an Ambulatory Assistive Device (Walker, Cane, Wheelchair, Crutches, etc.)? No PATIENT GENDER DATA: Male PATIENT RELEVANT IMPLANT DATA REVIEWED: Not Applicable PATIENT PRESENTS WITH AN IMPLANTABLE OR ATTACHED SUPERINTENDENT OPERATING: No RADIOLOGY DEPARTMENT: General X-ray: Exam(s) Completed: Chest X-Ray PERIPHERAL IV DATA: Not applicable SIGNED BY: RT Janae(R) September 05, 2023 4:21 PM [facility] 09-05-2023 Note HNO ID: [id number] Author: GINGER SALGADO APRN.KNITTING MACHINE TENDER Service: ? Author Type: Nurse Practitioner Type: Progress Notes Filed: 09/05/2023 17:09 Note Text: Subjective Cough Associated symptoms include chills, headaches, sore throat, myalgias and shortness of breath. Pertinent negatives include no chest pain and no ear pain. Jason Rivera is a 43 year old male who presents with one month of cough, nasal congestion and chest congestion, headache, sore throat, feeling short of breath. He has had symptoms for the past week but states in the past couple days he has felt much worse. States he has more upper respiratory symptoms and feels extremely tired. He has had chills and has not slept well in the past couple nights because cough keeps him up. He has been taking Robitussin at home. His BP is noted to be elevated on rooming intake. He denies history of HTN, however chart review reveals a hx of HTN, he was on Lisinopril 2.5 mg and propanolo at one time. He no longer takes these medications. Review of Systems Constitutional: Positive for chills and malaise/fatigue. Negative for fever. HENT: Positive for congestion and sore throat. Negative for ear pain. Respiratory: Positive for cough, sputum production and shortness of breath. Negative for hemoptysis. Cardiovascular: Negative for chest pain and palpitations. Gastrointestinal: Negative for abdominal pain, diarrhea, nausea and vomiting. Musculoskeletal: Positive for myalgias. Neurological: Positive for headaches. BP 200/100 Pulse (!) 130 Temp 36.7 ?C (98 ?F) (Tympanic) Resp 20 Wt 77.7 kg (171 lb 6.4 oz) SpO2 99% BMI 24.95 kg/m? PAST MEDICAL HISTORY Diagnosis Date Anxiety Diabetic eye exam (HCC) 01/29/2017 Last done: 01/24/2017 Essential hypertension with goal blood pressure less than 130/80 10/09/2016 Fracture of unspecified bones 1992 fell from roof -> pelvis AND wrist. no sequelae. Generalized anxiety disorder 08/13/2007 Mixed hyperlipidemia 10/02/2016 Panic disorder without agoraphobia 08/13/2007 Uncontrolled type 2 diabetes mellitus without complication, without long-term current use of insulin 03/13/2016 PAST SURGICAL HISTORY Procedure Laterality Date NONE ALLERGIES Patient has no known allergies. MEDICATIONS busPIRone (BUSPAR) 15 mg tablet Take 1/2 a tab by mouth twice a day for 2 weeks than one twice a day. (Patient not taking: Reported on 09/14/2019 ) Lancets lancets Test blood sugar(s) 4 times daily. Dx: Type 2 DM - Uncontrolled E11.65 Insulin: No (Patient not taking: Reported on 05/28/2021 ) FAMILY HISTORY Problem Relation Age of Onset Cancer Mother COPD Mother other (fibromyalgia) Mother Cancer Paternal Grandfather Cancer Paternal Grandmother Diabetes Paternal Grandmother Alzheimer's Disease No Family History Colon Cancer No Family History Prostate Cancer No Family History Social History Tobacco Use Smoking status: Never Smokeless tobacco: Never Substance Use Topics Alcohol use: Yes Alcohol/week: 3.0 - 6.0 standard drinks of alcohol Types: 3 - 6 Cans of Beer (12oz) per week Comment: 1 beverage every other week (beer) wine q 2-3 weeks Drug use: No Objective Physical Exam Vitals and nursing note reviewed. Constitutional: General: He is not in acute distress. Appearance: Normal appearance. He is not ill-appearing. HENT: Right Ear: Tympanic membrane, ear canal and external ear normal. Left Ear: Tympanic membrane, ear canal and external ear normal. Nose: Nose normal. Mouth/Throat: Mouth: Mucous membranes are moist. Pharynx: Oropharynx is clear. Uvula midline. No oropharyngeal exudate or posterior oropharyngeal erythema. Cardiovascular: Rate and Rhythm: Regular rhythm. Tachycardia present. Heart sounds: Normal heart sounds. Pulmonary: Effort: Pulmonary effort is normal. No respiratory distress. Breath sounds: Normal breath sounds. No wheezing or rales. Musculoskeletal: Cervical back: Neck supple. Lymphadenopathy: Cervical: No cervical adenopathy. Skin: General: Skin is warm and dry. Findings: No erythema or rash. Neurological: Mental Status: He is alert. ASSESSMENT/PLAN: 1. Persistent cough for 3 weeks or longer - ICD9: 786.2, ICD10: R05.3 (primary diagnosis) - XR CHEST 2V FRONTAL/LAT IMPRESSION: No acute radiographic abnormality. Director Records Management: PSCAngelica Transcribe Date/Time: Sep 05 2023 4:27P Dictated by : NIKKI DICKERSON MD 2. Flu-like symptoms - ICD9: 780.99, ICD10: R68.89 - COVID NAAT, UPPER RESPIRATORY, ROUTINE - INFLUENZA AANDB MOLECULAR (POC)- positive for Influenza B 3. Sore throat - ICD9: 462, ICD10: J02.9 - Group A strep molecular testing positive - Amoxicillin for 10 days. - Discussed supportive care treatment with fluids, rest and analgesia. - The patient may also use warm salt water gargles, throat lozenges and/or OTC throat spray as needed. - Contagious dz precautions discussed- including consider (more content not included)... [facility] 09-05-2023 History of Presen t illness Narrative Radiology Service Progress Note PATIENT NAME: Jason Rivera DATE OF SERVICE: September 05, 2023 TIME: 4:21 PM PATIENT IDENTITY VERIFICATION COMPLETED USING TWO (2) IDENTIFIERS: Name and Date of confirmed by patient verbally. FALL SCREENING: Has the patient had 2 falls in the last year or 1 fall with injury or currently using an Ambulatory Assistive Device (Walker, Cane, Wheelchair, Crutches, etc.)? No PATIENT GENDER DATA: Male PATIENT RELEVANT IMPLANT DATA REVIEWED: Not Applicable PATIENT PRESENTS WITH AN IMPLANTABLE OR ATTACHED SUPERINTENDENT OPERATING: No RADIOLOGY DEPARTMENT: General X-ray: Exam(s) Completed: Chest X-Ray PERIPHERAL IV DATA: Not applicable SIGNED BY: RT Janae(R) September 05, 2023 4:21 PM documented in this encounter [facility] 11-26-2021 History of Presen t illness Narrative CC: Patient presents with: Nasal Congestion: sinus pressure, SHAHID, body aches x4 days HPI: Jason Rivera is a 41 year old male who presents to the office with complaint of sinus symptoms for a few days. Symptoms are worsening Associated symptoms includes headache and body aches. Denies nausea, vomiting and diarrhea. Treatments tried include nothing so far. with no relief of symptoms. Sick contacts: unknown. History of asthma, frequent episodes of bronchitis, chronic bronchitis, bronchiectasis or COPD: No Smoker: No Seasonal/environmental allergies: No The ROS is otherwise negative. The patient's pmh, medications, allergies, and past visits are reviewed. PHYSICAL EXAM: BP 148/98 Pulse 110 Temp 36.8 C (98.3 F) Resp 20 Wt 88.9 kg (196 lb) SpO2 98% BMI 28.53 kg/m General appearance: alert, cooperative, pleasant, in no acute distress Head: Normocephalic Eyes: EOM's intact, conjunctiva pink and moist, no icterus, sclera white, non-injected Ears: Right ear: External ear/canal- Normal, TM - clear with good landmarks. Left ear: External ear/canal- Normal, TM - clear with good landmarks Oropharynx:moist without lesions, No erythema, exudates or tonsillar hypertrophy. Heart: Negative. RRR without obvious murmur, gallop, or rubs. No ectopy. Lungs: clear to auscultation, without rales or wheeze, good air exchange PAST MEDICAL HISTORY Diagnosis Date Anxiety Diabetic eye exam (HCC) 01/29/2017 Last done: 01/24/2017 Essential hypertension with goal blood pressure less than 130/80 10/09/2016 Fracture of unspecified bones 1992 fell from roof -> pelvis & wrist. no sequelae. Generalized anxiety disorder 08/13/2007 Mixed hyperlipidemia 10/02/2016 Panic disorder without agoraphobia 08/13/2007 Uncontrolled type 2 diabetes mellitus without complication, without long-term current use of insulin 03/13/2016 PAST SURGICAL HISTORY Procedure Laterality Date NONE ALLERGIES Patient has no known allergies. MEDICATIONS busPIRone (BUSPAR) 15 mg tablet Take 1/2 a tab by mouth twice a day for 2 weeks than one twice a day. Lancets lancets Test blood sugar(s) 4 times daily. Dx: Type 2 DM - Uncontrolled E11.65 Insulin: No FAMILY HISTORY Problem Relation Age of Onset Cancer Mother COPD Mother other (fibromyalgia) Mother Cancer Paternal Grandfather Cancer Paternal Grandmother Diabetes Paternal Grandmother Alzheimer's Disease No Family History Colon Cancer No Family History Prostate Cancer No Family History Social History Tobacco Use Smoking status: Never Smoker Smokeless tobacco: Never Used Substance Use Topics Alcohol use: Yes Alcohol/week: 7.5 - 15.0 standard drinks Types: 3 - 6 Cans of Beer (12oz) per week Comment: 1 beverage every other week (beer) wine q 2-3 weeks Drug use: No ASSESSMENT/PLAN: 1. Sinus congestion - ICD9: 478.19, ICD10: R09.81 Instructed to use over the counter medication at this time. Denies viral panel swab at this time. Potential red flag symptoms discussed with the patient. Reviewed appropriate action plan to take if red flag symptoms occur. Patient agreeable to treatment plan. Leigh Manriquez APRN.EMERSON documented in this encounter [facility] 04-24-2007 History of Past i llness Narrative Problem Noted Date Resolved Date Diarrhea 04/24/2007 07/04/2008 documented as of this encounter (statuses as of 11/26/2021) [facility] Sinus congestion- Primary Other diseases of nasal cavity and sinuses [facility] noteNo assessment information availableW[facility] Work Phone: Evaluation note* Diagnosis Viral URI with cough- Primary Acute upper respiratory infections of unspecified site Nasal congestion Other diseases of nasal cavity and sinuses [facility] Persistent cough for 3 weeks or longer documented in this encounter [facility] Summary Purpose Family History No Family History Records FoundNo Family History Records FoundNo Family History Records Found Advance Directives No Advanced Directives Records Found Advance Directive Response Recorded Date/ Time Living Will No September 09 4:02pm Power of Marketing Services Vice President No September 09, 2023 4:02pm Chief Complaint and Reason for Visit Chief Complaint Neck Infection Additional Source Comments (unrecognized sect ion and content) No Status Records FoundNo Status Records FoundNo Status Records Found INFORMATION SOURCE (unrecogn ized section and content) DATE CREATED AUTHOR 06/15/2021 [facility] DATE CREATED AUTHOR AUTHOR'S ORGANIZ ATION 12/17/2023 [facility] DATE CREATED AUTHOR AUTHOR'S ORGANIZ ATION 02/13/2025 [facility] Source Comments (unrecognize d section and content) In the event this informatio n is protected by the Federal Confidentiality of Alcohol and Drug Abuse Patient Records regulations: The Federal rules restrict any use of the information to criminally investigate or prosecute any alcohol or drug abuse patient.[facility] the event this information is protected by the Federal Confidentiality of Alcohol and Drug Abuse Patient Records regulations: The Federal rules restrict any use of the information to criminally investigate or prosecute any alcohol or drug abuse patient.[facility] Hospital[facility] the event this information is protected by the Federal Confidentiality of Alcohol and Drug Abuse Patient Records regulations: The Federal rules restrict any use of the information to criminally investigate or prosecute any alcohol or drug abuse patient.[facility] Reason for Visit (unrecogniz ed section and content) Reason Comments Nasal Congestion sinus pressure, SHAHID, body aches x4 days Reason Comments Cough Chest congestion, vo ice loss, productive cough, scratchy throat x 4 days Care Teams (unrecognized sec tion and content) Commercial Collections Driver Relationship Specialty Start Date End Date Amador Porter APRN.CNP, DNP [address] [place], [place] [id number] PCP - General Family Practice 06/05/21 Team Status: Active Member Role Status Dates Dr. Luc Olvera MD Family Provider Active Dr. Luc Olvera MD Primary Care Provider Active Team Status: Inactive Member Role Status Dates Dr. Luc Olvera MD Primary Care Provider Active Dr. Enio Matute DO Emergency Provider Active Commercial Collections Driver Relationship Specialty Start Date End Date Kirk Russell MD [address] [place] [address] PCP - General Internal Medicine 12/16/23 Commercial Collections Driver Relationship Specialty Start Date End Date Amador Porter APRN.JOHNNY NORMAN [address] [place] [address] PCP - General Family Medicine 06/05/21 12/15/23 Goals (unrecognized section and content) Goals may be documented in a n alternate sectionGoals may be documented in an alternate section FOR RECORDS PERTAINING TO PATIENTS WHO ARE OR HAVE BEEN ENROLLED IN A CHEMICAL DEPENDENCY/SUBSTANCEABUSE PROGRAM, SOME INFORMATION MAY BE OMITTED. This clinical summary was aggregated from multiple sources. Caution should be exercised in using it in the provision of clinical care. This summary normalizes information from multiple sources, and as a consequence, information in this document may materially change the coding, format and clinical context of patient data. In addition, data may be omitted in some cases. CLINICAL DECISIONS SHOULD BE BASED ON THE PRIMARY CLINICAL RECORDS. [facility]. provides no warranty or guarantee of the accuracy or completeness of information in this document.
--- NOTE | 2025-02-26 10:30 | RAD_ITS ---
EXAM: XR Chest, 1 View CLINICAL INDICATION: SHORTNESS OF BREATH TECHNIQUE: Frontal view of the chest. COMPARISON: No relevant prior studies available. FINDINGS: LUNGS AND PLEURAL SPACES: Unremarkable. No consolidation. No pneumothorax. HEART: Unremarkable. No cardiomegaly. MEDIASTINUM: Unremarkable. Normal mediastinal contour. BONES/JOINTS: Unremarkable. No acute fracture. RAD/Chest 1 View (Portable) IMPRESSION: No acute cardiopulmonary process. Reading Location: [id number]
[2025-02-26 10:35] LABS: Hematocrit 46.8 % (40-54); Hemoglobin 15.5 g/dL (13.0-16.5); Immature Granulocytes Count 0.050 X10^3/uL (0.0-0.0); Mean Corp Hgb Conc 33.1 g/dL (32-36); Mean Corpuscular Volume 96.9 fL (80-94); Mean Platelet Vol. 9.9 fl (6.2-12.0); NRBC Flagged by Analyzer 0 % (0-5); Platelet Count 272 K/mm3 (150-450); RBC Distribution Width CV 12.2 % (11.6-14.6); RBC Distribution Width SD 43.8 fl (35.1-43.9); Red Blood Count 4.83 M/mm3 (4.6-6.2); White Blood Count 8.8 K/mm3 (4.4-11.0)
[2025-02-26] MEDS: 0.9% Normal Saline (1000mL) 1,000 ML 1000 ML IV (10:39)
[2025-02-26 10:57] LABS: SITE Not entered; Time Given 10:53:35; VBG BASE EXCESS -26 mmol/L (-1.0-3.5); VBG PO2 48 mmHg (25-40); VBG SO2 66 % (50-70); VBG TCO2 6 mmol/L (23-33)
[2025-02-26 11:00] LABS: Lipase 34 U/L (13-75); Troponin T High Sensitivity 13 ng/L (<=22)
[2025-02-26 11:11] LABS: BETA-HYDROXYBUTYRATE 11.1 mmol/L (0.0-0.3)
[2025-02-26 11:15] LABS: AST(SGOT) 55 U/L (<=37); Alanine Aminotransfer ALT/SGPT 51 U/L (<=46); Albumin, Serum 5.3 g/dL (3.5-5.0); Alkaline Phosphatase 104 U/L (40-129); Anion Gap 37 (5-15); BUN 12 mg/dL (4-19); BUN/Creat Ratio 9.9 RATIO (10-20); Calcium,Total 9.7 mg/dL (7.6-11.0); Carbon Dioxide 5.1 mmol/L (21.0-32.0); Chloride 83 mmol/L (98-108); Estimated Creatinine Clearance 81.44 ml/min (50-250); Globulin 3.9 g/dL (2.2-4.2); Glucose 259 mg/dL (70-99); Potassium 5.3 mmol/L (3.3-5.1)
--- NOTE | 2025-02-26 11:34 | HP.PCM.HOS_ITS ---
HPI - General General Date of Admission: 02/26/25 Date of Service: 02/26/25 HPI Narrative LORETTA NUNEZ, is a 44 M with a PMH as outlined who presents via the ED on 02/26/2025 with a complaint of nausea, vomiting and weakness as well as elevated blood sugar. He has a history of type 2 diabetes mellitus and has not taken his insulin for 3 days. He denied any dizziness, nausea, vomiting, palpitations or any other symptoms. Review of systems is otherwise negative. He decided to come into the ED. Vitals in the ED were blood pressure of 173/103, pulse rate of 127 and respiratory rate of 28 with temperature of 98 Fahrenheit. He was saturating at 100% on room air. CBC showed hemoglobin of 15.5 with WBC of 8.8 and platelets of 272. VBG showed pH of 7.07 with pCO2 of 6. Chemistry done showed sodium of 124 with potassium of 5.9 and chloride of 85 with bicarb of 3.6 and anion gap of 36. Creatinine was 1.16. Lactic acid was 2.1. He admitted to a history of heavy drinking though he said he had quit. On probing further he said he drank about 6 drinks daily and quit about a week ago. He has been admitted to the ICU to be managed for acute DKA. [facility] Medical History Cardiomyopathy Coronary artery disease ST elevation NE (STEMI) (~02/24/24) Diabetes Home Medications ?Medication ?Instructions ?Recorded ?Last Taken ?Type semaglutide 0.25 mg or 0.5 mg (2 0.25 mg subcut QWEEK 02/24/24 02/22/24 History mg/3 mL) subcutaneous pen injector (Ozempic) Held on 02/26/25. Instructions: on hold insulin glargine 100 unit/mL (3 20 unit (0.2 mL) subcu t DAILY 02/27/24 Unknown Rx mL) subcutaneous pen (Lantus month #15 mL Solostar U-100 Insulin) insulin lispro 100 unit/mL 10 unit (0.1 mL) subcut TID AC 1 02/27/24 Unknown Rx subcutaneous pen (Humalog KwikPen month #15 mL (U-100) Insulin) insulin lispro 100 unit/mL See Protocol subcut ACHS #0 mL 02/27/24 Unknown Rx subcutaneous pen (Humalog KwikPen (U-100) Insulin) metformin 1,000 mg tablet 1,000 mg PO BID 30 days #0 t abs 02/27/24 Unknown Rx needle (disp) 32 gauge 32 gauge x #100 ea 02/27/24 Unk nown Rx 12/17 carvedilol 12.5 mg tablet 12.5 mg PO BID dose increase d 06/01/24 Unknown Rx again for fast heart rate #60 tabs aspirin 81 mg tablet,delayed 81 mg PO DAILY@0800 #90 t abs 06/21/24 Unknown Rx release atorvastatin 80 mg tablet 80 mg PO QHS #90 tabs Unknown Rx empagliflozin 10 mg tablet 10 mg PO DAILY 30 days #30 tabs 06/21/24 Unknown Rx (Jardiance) furosemide 20 mg tablet 20 mg PO DAILY #90 tabs 06/04 03/27 Unknown Rx lisinopril 2.5 mg tablet 2.5 mg PO DAILY 30 days #90 tabs 06/21/24 Unknown Rx spironolactone 25 mg tablet 25 mg PO DAILY #90 tabs Unknown Rx ticagrelor 90 mg tablet (Brilinta) 90 mg PO BID #60 ta bs 06/21/24 Unknown Rx fluoxetine 40 mg capsule 40 mg PO DAILY 02/26/25 Unkn own History gabapentin 300 mg capsule 300 mg PO 4X/DAY 02/26/25 Un known History venlafaxine 75 mg capsule,extended 75 mg PO DAILY naus ea 02/26/25 Unknown History release 24 hr Allergy/AdvReac Type Severity Reaction Status Date / Time No Known Allergies Allergy Verified 02/26/25 09:51 Surgical History Hx of cardiac catheterization (~02/26/24) Stented coronary artery (~02/26/24) Social History Smoking Status: Never smoker ROS Constitutional Constitutional: Reports anorexia, fatigue, malaise and weakness; Denies chills or fever(s) Eyes Eyes: Denies change in vision ENT HEENT: Denies dysphagia or headache(s) Cardiovascular Cardiovascular: Denies chest pain, dyspnea on exertion, lightheadedness, orthopnea or rapid heart rate Respiratory/Chest Respiratory/Chest: Denies cough, dyspnea, shortness of breath at rest or shortness of breath with exertion Gastrointestinal Gastrointestinal: Reports nausea and vomiting; Denies abdominal pain, constipation or diarrhea Genitourinary Genitourinary: Denies burning urination, dysuria or hematuria Neurologic Neurologic: Denies confusion, dizziness, focal weakness, headache(s) or numbness Vital Signs Vital Signs Vital Signs: 02/26/25 09:50 02/26/25 09:56 02/26/25 10:11 Temperature 98 F Temperature Source Oral Pulse Rate 25 L 125 H Respiratory Rate 30 H Respiratory Pattern Tachypnea Blood Pressure 176/100 H Blood Pressure Mean 125 Pulse Ox 100 Oxygen Delivery Method Room Air 02/26/25 11:00 Temperature Temperature Source Pulse Rate 125 H Respiratory Rate 25 H Respiratory Pattern Blood Pressure 189/109 H Blood Pressure Mean 135 Pulse Ox 100 Oxygen Delivery Method Room Air Weight Weight: 183 lb 4 oz Body Mass Index (BMI) 25.5 Physical Exam Const alert and oriented x3 Constitutional Narrative: flat affect Orientation / Consciousness: lethargic HEENT normocephalic, head/scalp atraumatic and hearing grossly normal bilaterally HEENT Narrative: dry oral mucosa Eyes PERRL, EOMs intact bilaterally and conjunctivae normal Neck supple and no JVD Resp normal respiratory effort, no retractions, no use of accessory muscles and clear to auscultation bilaterally Cardio regular rate, regular rhythm, S1 normal heart sound, S2 normal heart sound and no murmurs GI normal to inspection, nondistended, normoactive bowel sounds, soft to palpation, non-tender and non-distended Extremity normal to inspection, full ROM and no clubbing, cyanosis or edema Neuro oriented x3, CN's II-XII intact bilaterally, moves all extremities and no focal motor deficits Sensorium / Orientation: awake and alert Psych Mood & Affect: depressed Results Lab / Micro Data 02/26/25 10:00 02/26/25 11:20 Labs: Laboratory Results - last 24 hr 02/26/25 09:56: POC Glucose 281 H 02/26/25 10:00: WBC 8.8, RBC 4.83, Hgb 15.5, Hct 46.8, MCV 96.9 H, MCH 32.1 H, MCHC 33.1, RDW Std Deviation 43.8, RDW Coeff of Cassandra 12.2, Plt Count 272, MPV 9.9, Immature Gran % (Auto) 0.600, Neut % (Auto) 84.8 H, Lymph % (Auto) 10.0 L, [place] % (Auto) 4.2, Eos % (Auto) 0.1, Baso % (Auto) 0.3, Absolute Neuts (auto) 7.5, Absolute Lymphs (auto) 0.88, Nucleated RBC % 0, Sodium 125 L, Potassium 5.3 H, Chloride 83 L, Carbon Dioxide 5.1 L*, Anion Gap 37 H, BUN 12, Creatinine 1.22 H, Estim Creat Clear Calc 81.44, Est GFR (MDRD) Non-Af 75, BUN/Creatinine Ratio 9.9 L, Glucose 259 H, Calcium 9.7, Total Bilirubin 0.63, AST 55 H, ALT 51 H, Alkaline Phosphatase 104, Troponin T High Sens 13, Total Protein 9.2 H, Albumin 5.3 H, Globulin 3.9, Albumin/Globulin Ratio 1.4, Lipase 34, b-Hydroxybutyric mmol/L 11.1 H ABG Data ABG results: ABG 02/26/25 02/26/25 10:51 10:58 Specimen Type YOLIE YOLIE Sample Site Not entered Not entered VBG pH 7.04 L* 7.07 L* VBG pO2 48 H 55 H VBG HCO3 5 L 5 L VBG Total CO2 6 L 6 L VBG O2 Sat (Calc) 66 75 H VBG Base Excess -26 L -25 L POC Mix VBG pCO2 Pt Tmp 18.6 L* 17.9 L* O2 Delivery Device Not entered Not entered Crit Call To/Read Back Yes Yes Blood Gas Notified Whom [facility] Blood Gas Notified Time 10:53:35 Imaging Radiology Impression Chest X-Ray 02/26/25 10:30 IMPRESSION: No acute cardiopulmonary process. Reading Location: [facility] Assessment & Plan Assessment/Plan (1) Tachycardia: (2) DKA (diabetic ketoacidoses): (3) SIRS (systemic inflammatory response syndrome): PLAN: Plan #Acute DKA in the setting of type 2 diabetes mellitus * admitted with a complaint of nausea, vomiting and lethargy. He therefore did not take his insulin for the past few days * he also drinks alcohol and says his last drink was about a week ago, with him usually having 6 drinks a day * admit to ICU. Is tachycardic, tachypneic * anion gap os 36 with bicarb of 3.6 * VBG done showed pH of 7.07 * stat ABG ordered. consult critical care * On insulin drip. I will continue. Manage as per DKA protocol. * If ABG shows pH less than 6.9 will start on bicarb drip. * Keep n.p.o. for now. * BMP q2hrly * per nursing, government operations consultant thinks the jardiance and ozempic is causing the DKA and so does not think the ABG is needed. Further management as per government operations consultant. Ozempic and jardiance on hold. * blood sugar was only 259 on admission. #Hyper para kalemia: Potassium is 5.9. Will give Kayexalate and monitor. #Hyponatremia: This likely pseudohyponatremia in light of the hyperglycemia. Should improve as DKA improves and resolves. #History of alcohol use disorder with risk of withdrawal * Patient does have a history of alcohol use disorder and says he usually drank about 6 alcoholic drinks a day. His last 1 was about a week ago. He is therefore within the window for withdrawal. He is tachycardic and tachypneic but this could also be due to the DKA. His initial symptoms of * Lethargy and nausea could also have been due to possible withdrawal. * As a precaution will place on CIWA protocol for now and monitor. #CAD with ischemic cardiomyopathy: S/p stents in February 2024. On aspirin and high intensity statin as well as carvedilol and Brilinta. #Depression: * On venlafaxine and fluoxetine. * His sister was with him inquired whether patient could be sent to an inpatient psych facility. * I counseled her that the acute reason for his admission was depression and so this would be something that he would likely have to follow-up with on outpatient basis with his PCP. * DVT prophylaxis: lovenox Code status: full code * Patient counseled extensively about different types of CODE STATUS including full code, DNR CCA and DNR CCA. Patient elects to be full code. * Total tyon-vb-coam time 17 minutes. Charges/Coding Visit Charges Inpatient E&M: 71206 Init Hosp L3 Procedures Hospitalists Procedures: 40146 Advncd Care Plan 30 Min
[2025-02-26] MEDS: 0.9% Normal Saline (1000mL) 1,000 ML 999 ML IV ×2 (11:40→13:51)
[2025-02-26] MEDS: Insulin Lispro 100 UNIT in 0.9% Normal Saline (100mL Bag) 99 ML 8.3 UNIT CONT INF (11:40)
[2025-02-26 11:41] LABS: Mucous, Urine 0 SEEN /hpf (<or=2+)
[2025-02-26 11:43] LABS: Color, Urine Yellow (Yellow); Glucose, Dipstick 1000 mg/dl (Normal); Leukocyte Esterase-Dipstick Negative /ul (Negative); Nitrite-Dipstick Negative (Negative); Occult Blood-Urine 150 /ul (Negative); Protein-Dipstick 100 mg/dl (Negative); Specific Gravity, Urine 1.025 (1.002-1.030); Urine Bilirubin Dipstick Negative (Negative)
[2025-02-26 11:44] LABS: Ketone-Dipstick 150 mg/dl (Negative)
[2025-02-26 11:49] LABS: Red Blood Cells-Urine 5-10 SEEN /hpf (0-5); Squamous Epithelial Cells - UA 0-5 SEEN /hpf (0-5)
--- OUTSIDE RECORDS SUMMARY | 2025-02-26 12:15 | XMS RPT_ITS | CCD ---
Author Organization [facility] ion [facility] Care Team Providers Care Flat Grinder Operator Name Role Phone German PPA TEACHER.JOHNNY NORMAN, Amador Primary Care Provider Kirk Russell MD Primary Care Provider RACHID, CHALON Primary Care Unavailable BLAZ, AMADOR Primary Care Unavailable GINGER SALGADO Referring Unavailable BLADheeraj, AMADOR Primary Care Unavailable Blaz PPA TEACHER.JOHNNY NORMAN, Amador Primary Care Provider Harley, Italo Attending Unavailable Harley, Italo Referring Unavailable Rachid, Chalon Primary Care Unavailable Harley, Italo Consulting Unavailable Harley, Italo Referring Unavailable Harley, Italo Admitting Unavailable Wade, Luc Primary Care Unavailable Harley, Italo Attending Unavailable Harley, Italo Attending Unavailable Rachid, Chalon Primary Care Unavailable Harley, Italo Referring Unavailable Roof HEALTH AND SAFETY COORDINATOR, Collins Hunter Attending Unavailable Rachid, Chalon Primary [...] Unavailable Rachid, Chalon Primary Care Unavailable Roof HEALTH AND SAFETY COORDINATOR, Collins Hunter Referring Unavailable Roof HEALTH AND SAFETY COORDINATOR, Collins Hunter Attending Unavailable Rachid, Chalon Primary [...] disease (1 source) Atherosclerotic heart disease of [place] coronary artery without angina pectoris; Translations: [Atherosclerotic heart disease of [place] coronary artery without angina pectoris] Onset: 03-10-2024 [...] Facility Cardiology Visit Reporton Cardiology Visit Report [facility] [address] [place] [address] OFFICE VISIT Date of Service: 04/14/24 MR#: [id number] Acct: [id number] Name: JASON RIVERA Rep #: [id number] : 1980 Provider: JOSE burton Age/Sex: 43/M Location: [facility] Status: Signed HPI HPI History of Present Illness Details: This is a 44-year-old male who presents to the office today for a posthospital follow-up. 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 Normal [facility] CR - History AND Physicalon 03-15-2024 CR - History & Physical [facility] Cardiac Rehab [address] [place] [address] CR - History Physical MR#: [id number] Acct: [id number] Name: JASON RIVERA Rep #: [id number] : 1980 43 From: [place] Causey BS, [...] Negative Advanced Directives Advanced Directives Power of Stone Layout Marker: No Living Will: No Advance Directives Information Provided: No Advance Directives on File: No DNR Order?:: No Past Medical History Covid-19 Screening Physicial Symptoms Other Clinical Concerns Exposure Risk Pertinent Comorbidities Has a serious heart condition:: Yes Diabetic:: Yes Past Medical Illness Past Medical History (Updated 03/06/24 @ 00:02 by Background Daemon) Cardiomyopathy I42.9 Coronary artery disease I25.10 ST elevation PR (STEMI) ( 02/24/24) I21.3 Diabetes E11.9 Past Surgical History Past Surgical History (Updated 03/06/24 @ 00:02 by Background Daemon) Hx of cardiac catheterization ( 02/26/24) Z98.890 02/24/24, Staged PCI on 02/26/24 Stented coronary artery ( 02/26/24) Z95.5 Mid RCA- RHIANNON 3.5 x 22mm [place] 02/24/24, Prox Circumflex- RHIANNON 2.5 x 22 mm [place], Mid LAD- RHIANNON 2.5 x 26 mm [place], Prox LAD- RHIANNON 3.0 x 12 mm [place] Social History Smoking History Smoking Status: Never [...] Diabetic Hist (more content not included)... Normal [facility] 12 Lead EKGon 02-27-2024 12 Lead EKG [facility] Cardiovascular Services [address] [place] [address] 12 Lead EKG 02/27/24 0543 MR#: [id number] Acct: [id number] Name: JASON RIVERA Rep #: [id number] : 1980 43 From: Kristin Fernández MD [...] Abnormal ECG Confirmed by CONNOR LOCKWOOD, JANETH ([id number]), news video editor MIREYA CACERES ([id number]) on 03/02/2024 1:47:06 PM Referred By: Italo Souza Confirmed By:YAMILA FERNÁNDEZ MD 03/02/24 1347 Date Kristin Fernández MD CC: Dr. Italo Souza MD; Dr. Kirk Russell MD; Dr. Roderick Mendez MD Signed Normal [facility] CBC-Complete Blood Cnt No Di ffon 02-27-2024 Erythrocyte distribution width (RBC) [Ratio] 11.5 % Low 11.6-14.6 [facility] Comment on above: Performed By: #### L 100.0500, L500.4050 ####[facility] [address] [place], [address] Hematocrit (Bld) [Volume fraction] 34.3 % Low 40-54 [facility] Comment on above: Performed By: #### L 100.0500, L500.4050 ####[facility] [address] [place], [address] Hemoglobin (Bld) [Mass/Vol] 11.8 g/dL Low 13.0-16.5 [facility] Comment on above: Performed By: #### L 100.0500, L500.4050 ####[facility] [address] [place], [address] MCH (RBC) [Entitic mass] 32.2 pg High 27.0-32.0 [facility] Comment on above: Performed By: #### L 100.0500, L500.4050 ####[facility] [address] [place], [address] MCHC (RBC) [Mass/Vol] 34.4 g/dL Normal 32-36 [facility] Comment on above: Performed By: #### L 100.0500, L500.4050 ####[facility] [address] [place], [address] MCV (RBC) [Entitic vol] 93.7 fL Normal 80-94 [facility] Comment on above: Performed By: #### L 100.0500, L500.4050 ####[facility] [address] [place], [address] Platelet mean volume (Bld) [Entitic vol] 9.6 fL Normal 6.2-12.0 [facility] Comment on above: Performed By: #### L 100.0500, L500.4050 ####[facility] [address] [place], [address] Platelets (Bld) [#/Vol] 222 10*3/uL Normal 150-450 [facility] Comment on above: Performed By: #### L 100.0500, L500.4050 ####[facility] [address] [place], [address] RBC (Bld) [#/Vol] 3.66 10*6/uL Low 4.6-6.2 [facility] Comment on above: Performed By: #### L 100.0500, L500.4050 ####[facility] [address] [place], [address] RDW SD 38.7 fl Normal 35.1-43.9 [facility] Comment on above: Performed By: #### L 100.0500, L500.4050 ####[facility] [address] [place], [address] WBC (Bld) [#/Vol] 5.6 10*3/uL Normal 4.4-11.0 [facility] Comment on above: Performed By: #### L 100.0500, L500.4050 ####[facility] [address] [place], [address] Comprehensive Metabolic Prof ilon 02-27-2024 Albumin [Mass/Vol] 3.0 g/dL Low 3.2-5.0 [facility] Comment on above: Performed By: #### L 100.0500, L500.4050 ####[facility] [address] [place], [address] Albumin/Globulin [Mass ratio] 0.8 {ratio} Low 0.9-2.4 [facility] Comment on above: Performed By: #### L 100.0500, L500.4050 ####[facility] [address] [place], [address] ALK P 51 U/L Normal 45-117 [facility] Comment on above: Performed By: #### L 100.0500, L500.4050 ####[facility] [address] [place], [address] ALT [Catalytic activity/Vol] 29 U/L Normal 16-61 [facility] Comment on above: Performed By: #### L 100.0500, L500.4050 ####[facility] [address] [place], [address] AST [Catalytic activity/Vol] 74 U/L High 15-37 [facility] Comment on above: Performed By: #### L 100.0500, L500.4050 ####[facility] [address] [place], [address] Bilirubin [Mass/Vol] 0.50 mg/dL Normal 0.20-1.00 [facility] Comment on above: Result Comment: For patients on eltrombopag therapy, use of Dimension [place] TBIL is not recommended. Performed By: #### L 100.0500, L500.4050 ####[facility] [address] [place], [address] BUN/CRE 23.0 RATIO High 10-20 [facility] Comment on above: Performed By: #### L 100.0500, L500.4050 ####[facility] [address] [place], [address] CA,Total 8.8 mg/dL Normal 8.5-10.1 [facility] Comment on above: Performed By: #### L 100.0500, L500.4050 ####[facility] [address] [place], [address] Chloride [Moles/Vol] 102 mmol/L Normal 98-107 [facility] Comment on above: Performed By: #### L 100.0500, L500.4050 ####[facility] [address] [place], [address] CO2 [Moles/Vol] 23.0 mmol/L Normal 21.0-32.0 [facility] Comment on above: Performed By: #### L 100.0500, L500.4050 ####[facility] [address] [place], [address] Creatinine [Mass/Vol] 0.56 mg/dL Low 0.70-1.30 [facility] Comment on above: Result Comment: The validity of the calculated GFR GFRAA in patients over 70 years has not been determined. Clinical correlation is essential. Performed By: #### L 100.0500, L500.4050 ####[facility] [address] [place], [address] ECRCL 173.81 ml/min Normal [facility] Comment on above: Performed By: #### L 100.0500, L500.4050 ####[facility] [address] [place], [address] EST GFR - AA 201 mL/min Normal >60 [facility] Comment on above: Result Comment: Afri can Cymro GFR Calc Performed By: #### L 100.0500, L500.4050 ####[facility] [address] [place], [address] GAP 9 Normal 5-15 [facility] Comment on above: Performed By: #### L 100.0500, L500.4050 ####[facility] [address] [place], [address] GFR/1.73 sq M.predicted among non-blacks MDRD (S/P/Bld) [Vol rate/Area] 166 mL/min/{1.73_m2} Normal >60 [facility] Comment on above: Result Comment: Non- GFR Calc Performed By: #### L 100.0500, L500.4050 ####[facility] [address] [place], [address] Globulin (S) [Mass/Vol] 3.6 g/dL Normal 2.2-4.2 [facility] Comment on above: Performed By: #### L 100.0500, L500.4050 ####[facility] [address] [place], [address] Glucose [Mass/Vol] 206 mg/dL High 74-106 [facility] Comment on above: Result Comment: Gluc ose result greater than or equal to 200 mg/dL suggests DIABETES MELLITUS per A.D.A. criteria. Performed By: #### L 100.0500, L500.4050 ####[facility] [address] [place], [address] Potassium [Moles/Vol] 3.6 mmol/L Normal 3.5-5.1 [facility] Comment on above: Performed By: #### L 100.0500, L500.4050 ####[facility] [address] [place], [address] Sodium [Moles/Vol] 134 mmol/L Low 136-145 [facility] Comment on above: Performed By: #### L 100.0500, L500.4050 ####[facility] [address] [place], [address] T PROT 6.6 g/dL Normal 6.4-8.2 [facility] Comment on above: Performed By: #### L 100.0500, L500.4050 ####[facility] [address] [place], [address] Urea nitrogen [Mass/Vol] 13 mg/dL Normal 7-18 [facility] Comment on above: Performed By: #### L 100.0500, L500.4050 ####[facility] [address] [place], [address] Discharge Instructionon 02-02 Discharge Instruction [facility] Medical Records Department [address] [place] [address] Instructions for Home/Discharge Instructions 02/27/24 0752 MR#: [id number] Acct: [id number] Name: JASON RIVERA Rep #: [id number] : 1980 43 From: Roderick Mendez MD [...] DO; Dr. Italo Souza MD; Dr. Kirk Russell MD Signed Normal [facility] 12 Lead EKGon 02-26-2024 12 Lead EKG [facility] Cardiovascular Services [address] [place] [address] 12 Lead EKG 02/26/24 1413 MR#: [id number] Acct: [id number] Name: JASON RIVERA Rep #: [id number] : 1980 43 From: Kristin Fernández MD [...] infarct (cited on or before 24-FEB-2024) ACUTE PR / STEMI Abnormal ECG When compared with ECG of 26-FEB-2024 05:21, Serial changes of evolving Anterior infarct Present Serial changes of evolving Anterolateral infarct Present Confirmed by CONNOR LOCKWOOD, JANETH ([id number]), news video editor LOC SANCHEZ ([id number]) on 03/05/2024 9:48:42 AM Referred By: Italo Souza Confirmed By:YAMILA FERNÁNDEZ MD 03/05/24 0948 Date Kristin Fernández MD CC: Dr. Italo Souza MD; Dr. Kirk Russell MD; Dr. Roderick Menedz MD Signed [facility] 12 Lead EKG [facility] Cardiovascular Services [address] [place] [address] 12 Lead EKG 02/26/24 0521 MR#: [id number] Acct: [id number] Name: JASON RIVERA Rep #: [id number] : 1980 43 From: Gary Laughlin MD [...] on or before 24-FEB-2024) Recent inferior wall PR Abnormal ECG When compared with ECG of 25-FEB-2024 04:45, No significant change was found Confirmed by GARY LAUGHLIN MD ([id number]), news video editor GABRIEL BROWN ([id number]) on 02/26/2024 2:33:50 PM Referred By: Italo Souza Confirmed By:GARY LAUGHLIN MD 02/26/24 1433 Date Gary Laughlin MD CC: Dr. Italo Souza MD; Dr. Kirk Russell MD; Dr. Roderick Mendez MD Signed [facility] ACT Activated Clotting Timeo n 02-26-2024 ACTk CLOT TIME 262 sec High 74-137 [facility] Comment on above: Performed By: #### L 9100.0100 ####[facility] [address] [place], [address] Basic Metabolic Profile (BMP )on 02-26-2024 BUN/CRE 15.3 RATIO Normal 10-20 [facility] Comment on above: Performed By: #### L 500.2500, L100.0100 ####[facility] [address] [place], [address] CA,Total 9.5 mg/dL Normal 8.5-10.1 [facility] Comment on above: Performed By: #### L 500.2500, L100.0100 ####[facility] [address] [place], [address] Chloride [Moles/Vol] 99 mmol/L Normal 98-107 [facility] Comment on above: Performed By: #### L 500.2500, L100.0100 ####[facility] [address] [place], [address] CO2 [Moles/Vol] 20.0 mmol/L Low 21.0-32.0 [facility] Comment on above: Performed By: #### L 500.2500, L100.0100 ####[facility] [address] [place], [address] Creatinine [Mass/Vol] 0.85 mg/dL Normal 0.70-1.30 [facility] Comment on above: Result Comment: The validity of the calculated GFR GFRAA in patients over 70 years has not been determined. Clinical correlation is essential. Performed By: #### L 500.2500, L100.0100 ####[facility] [address] [place], [address] ECRCL 114.51 ml/min Normal [facility] Comment on above: Performed By: #### L 500.2500, L100.0100 ####[facility] [address] [place], [address] EST GFR - AA 125 mL/min Normal >60 [facility] Comment on above: Result Comment: Afri can Cymro GFR Calc Performed By: #### L 500.2500, L100.0100 ####[facility] [address] [place], [address] GAP 15 Normal 5-15 [facility] Comment on above: Performed By: #### L 500.2500, L100.0100 ####[facility] [address] [place], [address] GFR/1.73 sq M.predicted among non-blacks MDRD (S/P/Bld) [Vol rate/Area] 104 mL/min/{1.73_m2} Normal >60 [facility] Comment on above: Result Comment: Non- GFR Calc Performed By: #### L 500.2500, L100.0100 ####[facility] [address] [place], [address] Glucose [Mass/Vol] 151 mg/dL High 74-106 [facility] Comment on above: Result Comment: Fast ing Glucose result greater than or equal to 126 mg/dL suggests DIABETES MELLITUS per A.D.A. criteria. Performed By: #### L 500.2500, L100.0100 ####[facility] [address] [place], [address] Potassium [Moles/Vol] 3.8 mmol/L Normal 3.5-5.1 [facility] Comment on above: Performed By: #### L 500.2500, L100.0100 ####[facility] [address] [place], [address] Sodium [Moles/Vol] 134 mmol/L Low 136-145 [facility] Comment on above: Performed By: #### L 500.2500, L100.0100 ####[facility] [address] [place], [address] Urea nitrogen [Mass/Vol] 13 mg/dL Normal 7-18 [facility] Comment on above: Performed By: #### L 500.2500, L100.0100 ####[facility] [address] [place], [address] Bedside Glucoseon 02-26-2024 FINGERSTICK GLU 253 mg/dL High 74-106 [facility] Comment on above: Result Comment: LAMBERTO GEMENT OF PATIENT CARE PER NURSING PROTOCOL Performed By: #### L 501.080 ####[facility] [address] [place], [address] FINGERSTICK GLU 212 mg/dL High 74-106 [facility] Comment on above: Result Comment: LAMBERTO GEMENT OF PATIENT CARE PER NURSING PROTOCOL Performed By: #### L 501.080 ####[facility] [address] [place], [address] FINGERSTICK GLU 139 mg/dL High 74-106 [facility] Comment on above: Result Comment: LAMBERTO GEMENT OF PATIENT CARE PER NURSING PROTOCOL Performed By: #### L 501.080 ####[facility] [address] [place], [address] FINGERSTICK GLU 137 mg/dL High 74-106 [facility] Comment on above: Result Comment: LAMBERTO GEMENT OF PATIENT CARE PER NURSING PROTOCOL Performed By: #### L 501.080 ####[facility] [address] [place], [address] CBC W/Diff, Automatedon 07-2 Absolute Lymph 1.97 X10 3/uL Normal 0.83-4.51 [facility] Comment on above: Performed By: #### L 500.2500, L100.0100 ####[facility] [address] [place], [address] Absolute Neut 4.1 X10 3/uL Normal 2.0-7.7 [facility] Comment on above: Performed By: #### L 500.2500, L100.0100 ####[facility] [address] [place], [address] Basophils/100 WBC (Bld) 0.4 % Normal 0-1 [facility] Comment on above: Performed By: #### L 500.2500, L100.0100 ####[facility] [address] [place], [address] Eosinophils/100 WBC (Bld) 0.6 % Normal 0-5 [facility] Comment on above: Performed By: #### L 500.2500, L100.0100 ####[facility] [address] [place], [address] Erythrocyte distribution width (RBC) [Ratio] 11.7 % Normal 11.6-14.6 [facility] Comment on above: Performed By: #### L 500.2500, L100.0100 ####[facility] [address] [place], [address] Hematocrit (Bld) [Volume fraction] 39.7 % Low 40-54 [facility] Comment on above: Performed By: #### L 500.2500, L100.0100 ####[facility] [address] [place], [address] Hemoglobin (Bld) [Mass/Vol] 13.4 g/dL Normal 13.0-16.5 [facility] Comment on above: Performed By: #### L 500.2500, L100.0100 ####[facility] [address] [place], [address] IG% 0.400 Normal 0.0-0.9 [facility] Comment on above: Result Comment: IG% - Immature Granulocytes (promyelocytes, myelocytes and metamyelocytes) > 1% indicates that a LEFT SHIFT is Present. Performed By: #### L 500.2500, L100.0100 ####[facility] [address] [place], [address] Lymphocytes/100 WBC (Bld) 28.5 % Normal 19-41 [facility] Comment on above: Performed By: #### L 500.2500, L100.0100 ####[facility] [address] [place], [address] MCH (RBC) [Entitic mass] 32.0 pg Normal 27.0-32.0 [facility] Comment on above: Performed By: #### L 500.2500, L100.0100 ####[facility] [address] [place], [address] MCHC (RBC) [Mass/Vol] 33.8 g/dL Normal 32-36 [facility] Comment on above: Performed By: #### L 500.2500, L100.0100 ####[facility] [address] [place], [address] MCV (RBC) [Entitic vol] 94.7 fL High 80-94 [facility] Comment on above: Performed By: #### L 500.2500, L100.0100 ####[facility] [address] [place], [address] Monocytes/100 WBC (Bld) 11.4 % High 0-10 [facility] Comment on above: Performed By: #### L 500.2500, L100.0100 ####[facility] [address] [place], [address] Neutrophils/100 WBC (Bld) 58.7 % Normal 47-70 [facility] Comment on above: Performed By: #### L 500.2500, L100.0100 ####[facility] [address] [place], [address] Nucleated RBC (Bld) [#/Vol] 0 10*3/uL Normal 0-5 [facility] Comment on above: Performed By: #### L 500.2500, L100.0100 ####[facility] [address] [place], [address] Platelet mean volume (Bld) [Entitic vol] 9.7 fL Normal 6.2-12.0 [facility] Comment on above: Performed By: #### L 500.2500, L100.0100 ####[facility] [address] [place], [address] Platelets (Bld) [#/Vol] 242 10*3/uL Normal 150-450 [facility] Comment on above: Performed By: #### L 500.2500, L100.0100 ####[facility] [address] [place], [address] RBC (Bld) [#/Vol] 4.19 10*6/uL Low 4.6-6.2 [facility] Comment on above: Performed By: #### L 500.2500, L100.0100 ####[facility] [address] [place], [address] RDW SD 40.0 fl Normal 35.1-43.9 [facility] Comment on above: Performed By: #### L 500.2500, L100.0100 ####[facility] [address] [place], [address] WBC (Bld) [#/Vol] 6.9 10*3/uL Normal 4.4-11.0 [facility] Comment on above: Performed By: #### L 500.2500, L100.0100 ####[facility] [address] [place], [address] Cardiac Cath Interventionon 02-26-2024 Cardiac Cath Intervention [facility] Imaging Services [address] [place] [address] Cardiac Cath Intervention MR#: [id number] Acct: [id number] Name: JASON RIVERA Rep #: [id number] : 1980 43 From: Italo Souza MD PCP: Dr. Kirk Russell MD Status:ADM IN Patient Name: JASON RIVERA Study Date: 02/26/2024 Performing: Italo Souza MD Ht: 70 inches 177.8 cm : 1980 Wt: 168.65 lbs 76.5 kg Age: 43 Gender: male BSA: 1.94 PROCEDURE(S) PERFORMED IC12-(88773/C9600)RHIANNON W/WO PTCA, SINGLE CORONARY ARTERY IC12-(36869/C9600)RHIANNON W/WO PTCA, SINGLE CORONARY ARTERY CLINICAL PROFILE AND CO-MORBIDITIES Indications: Staged PCI Heart Failure: None Angina Classification Anginal Classification w/in 2 Weeks: CCS IV CONCLUSIONS Successful PTCA/RHIANNON Prox LCX using [place] 2.5x22 mm, post-dilated using 2.75 mm balloon Successful RHIANNON Mid LAD using Tom Point Arena 2.5x26 mm, optimized proximally using 3.0 mm balloon Successful RHIANNON Prox LAD using Tom [place] 3.0x12 mm, post-dilated using 3.5 mm balloon [...] 5 secs. Angiogram performed post balloon dilatation. Point Arena Tom 2.5x22 Drug Eluting stent was inserted. Angiogram performed post stent deployment. NC Emerge 2.75x12 Balloon catheter was inserted. Angiogram performed post balloon dilatation. Guide wire was repositioned to the LAD Point Arena Tom 2.5x26 Drug Eluting stent was inserted. Angiogram performed post stent deployment. NC Emerge 2.50x12 Balloon catheter was inserted. Angiogram performed post balloon dilatation. NC Euphora 3.0x6 Balloon catheter was inserted. Angiogram performed post balloon dilatation. Point Arena Tom 3.0x12 Drug Eluting stent was inserted. [...] ECG 13:04:15 (more content not included)... Normal [facility] Liver Profileon 02-26-2024 Albumin [Mass/Vol] 3.5 g/dL Normal 3.2-5.0 [facility] Comment on above: Performed By: #### L 500.3400 ####[facility] [address] [place], [address] ALK P 56 U/L Normal 45-117 [facility] Comment on above: Performed By: #### L 500.3400 ####[facility] [address] [place], [address] ALT [Catalytic activity/Vol] 38 U/L Normal 16-61 [facility] Comment on above: Performed By: #### L 500.3400 ####[facility] [address] [place], [address] AST [Catalytic activity/Vol] 163 U/L High 15-37 [facility] Comment on above: Performed By: #### L 500.3400 ####[facility] [address] [place], [address] Bilirubin [Mass/Vol] 0.80 mg/dL Normal 0.20-1.00 [facility] Comment on above: Result Comment: For patients on eltrombopag therapy, use of Dimension [place] TBIL is not recommended. Performed By: #### L 500.3400 ####[facility] [address] [place], [address] Bilirubin.direct [Mass/Vol] 0.27 mg/dL Normal 0.00-0.30 [facility] Comment on above: Performed By: #### L 500.3400 ####[facility] [address] [place], [address] Globulin (S) [Mass/Vol] 3.7 g/dL Normal 2.2-4.2 [facility] Comment on above: Performed By: #### L 500.3400 ####[facility] [address] [place], [address] T PROT 7.2 g/dL Normal 6.4-8.2 [facility] Comment on above: Performed By: #### L 500.3400 ####[facility] [address] [place], [address] 12 Lead EKGon 02-25-2024 12 Lead EKG [facility] Cardiovascular Services [address] [place] [address] 12 Lead EKG 02/25/24 0010 MR#: [id number] Acct: [id number] Name: JASON RIVERA Rep #: [id number] : 1980 43 From: Gary Laughlin MD [...] , age undetermined Inferior infarct Acute ACUTE PR / STEMI Consider right ventricular involvement in acute inferior infarct Abnormal ECG When compared with ECG of 24-FEB-2024 22:17, MANUAL COMPARISON REQUIRED, DATA IS UNCONFIRMED Confirmed by BALDO LOCKWOOD, GARY ([id number]), news video editor GABRIEL BROWN ([id number]) on 02/25/2024 1:26:01 PM Referred By: Italo Souaz Confirmed By:GARY LAUGHLIN MD 02/25/24 1326 Date Gary Laughlin MD CC: Dr. Italo Souza MD; Dr. Kirk Russell MD; Dr. Roderick Mendez MD Signed Normal [facility] ACT Activated Clotting Timeo n 02-25-2024 ACTk CLOT TIME 177 sec High 74-137 [facility] Comment on above: Performed By: #### L 9100.0100 ####[facility] [address] [place], [address] ACTk CLOT TIME 201 sec High 74-137 [facility] Comment on above: Performed By: #### L 9100.0100 ####[facility] [address] [place], [address] ACTk CLOT TIME 287 sec High 74-137 [facility] Comment on above: Performed By: #### L 9100.0100 ####[facility] [address] [place], [address] Bedside Glucoseon 02-25-2024 FINGERSTICK GLU 147 mg/dL High 74-106 [facility] Comment on above: Result Comment: LAMBERTO JOHNSTON OF PATIENT CARE PER NURSING PROTOCOL Performed By: #### L 501.080 ####[facility] [address] [place], [address] FINGERSTICK GLU 162 mg/dL High 74-106 [facility] Comment on above: Result Comment: LAMBERTO GEMENT OF PATIENT CARE PER NURSING PROTOCOL Performed By: #### L 501.080 ####[facility] [address] [place], [address] FINGERSTICK GLU 210 mg/dL High 74-106 [facility] Comment on above: Result Comment: LAMBERTO GEMENT OF PATIENT CARE PER NURSING PROTOCOL Performed By: #### L 501.080 ####[facility] [address] [place], [address] FINGERSTICK GLU 265 mg/dL High 74-106 [facility] Comment on above: Result Comment: LAMBERTO GEMENT OF PATIENT CARE PER NURSING PROTOCOL Performed By: #### L 501.080 ####[facility] [address] [place], [address] FINGERSTICK GLU 292 mg/dL High 74-106 [facility] Comment on above: Result Comment: LAMBERTO GEMENT OF PATIENT CARE PER NURSING PROTOCOL Performed By: #### L 501.080 ####[facility] [address] [place], [address] CBC-Complete Blood Cnt No [facility] 02-25-2024 Erythrocyte distribution width (RBC) [Ratio] 11.8 % Normal 11.6-14.6 [facility] Comment on above: Performed By: #### L 500.4100, L500.4050, L100.0500 ####[facility] [address] [place], [address] Hematocrit (Bld) [Volume fraction] 36.3 % Low 40-54 [facility] Comment on above: Performed By: #### L 500.4100, L500.4050, L100.0500 ####[facility] [address] [place], [address] Hemoglobin (Bld) [Mass/Vol] 12.5 g/dL Low 13.0-16.5 [facility] Comment on above: Performed By: #### L 500.4100, L500.4050, L100.0500 ####[facility] [address] [place], [address] MCH (RBC) [Entitic mass] 32.1 pg High 27.0-32.0 [facility] Comment on above: Performed By: #### L 500.4100, L500.4050, L100.0500 ####[facility] [address] [place], [address] MCHC (RBC) [Mass/Vol] 34.4 g/dL Normal 32-36 [facility] Comment on above: Performed By: #### L 500.4100, L500.4050, L100.0500 ####[facility] [address] [place], [address] MCV (RBC) [Entitic vol] 93.3 fL Normal 80-94 [facility] Comment on above: Performed By: #### L 500.4100, L500.4050, L100.0500 ####[facility] [address] [place], [address] Platelet mean volume (Bld) [Entitic vol] 9.4 fL Normal 6.2-12.0 [facility] Comment on above: Performed By: #### L 500.4100, L500.4050, L100.0500 ####[facility] [address] [place], [address] Platelets (Bld) [#/Vol] 216 10*3/uL Normal 150-450 [facility] Comment on above: Performed By: #### L 500.4100, L500.4050, L100.0500 ####[facility] [address] [place], [address] RBC (Bld) [#/Vol] 3.89 10*6/uL Low 4.6-6.2 [facility] Comment on above: Performed By: #### L 500.4100, L500.4050, L100.0500 ####[facility] [address] [place], [address] RDW SD 39.9 fl Normal 35.1-43.9 [facility] Comment on above: Performed By: #### L 500.4100, L500.4050, L100.0500 ####[facility] [address] [place], [address] WBC (Bld) [#/Vol] 5.6 10*3/uL Normal 4.4-11.0 [facility] Comment on above: Performed By: #### L 500.4100, L500.4050, L100.0500 ####[facility] [address] [place], [address] Cardiac Cath Interventionon 02-25-2024 Cardiac Cath Intervention [facility] Imaging Services [address] [place] [address] Cardiac Cath Intervention MR#: [id number] Acct: [id number] Name: JASON RIVERA Rep #: [id number] : 1980 43 From: Iatlo Souza MD PCP: Dr. Luc Olvera MD Status:ADM IN Patient Name: JASON RIVERA Study Date: 02/24/2024 Performing: Italo Souza MD Ht: 71 inches 180.34 cm : 1980 Wt: 173.72 lbs 78.8 kg Age: 43 Gender: male BSA: 1.99 PROCEDURE(S) PERFORMED DC01-(75204)LHC/COR/LV IC16-(92557/C9606)AMI, RHIANNON OR PTCA, ARTERY/GRAFT, SINGLE VESSEL CLINICAL [...] multiple views using a 5 Fr. 4.0 [place] catheter. Left Coronary Artery selective angiography was performed in multiple views using a 5 Fr. 4.0 [place] catheterThe images were reviewed and options discussed. [...] MD Date Dictated: 02/24/242251 Date Transcribed: 02/25/249 Line Operator: AR Signed Normal [facility] Chest 1 View (Portable)on Chest 1 View (Portable) [facility] Imaging Services [address] [place] [address] Chest 1 View (Portable) MR#: [id number] Acct: [id number] Name: JASON RIVERA Rep #: [id number] : 1980 M 43 From: Minnie lindquist MD PCP: Dr. Luc Olvera MD Status: ADM IN Study: Chest 1 View (Portable) Date of Exam: 02/25/24 Exam# [id number] Ordering Dr: Roderick Mendez [place] [id number] HISTORY: SOB, pulmonary edema? TECHNIQUE: XR Chest [...] Luc Olvera MD; Dr. Roderick Mendez MD Line Operator: Signed Normal [facility] Comprehensive Metabolic Prof ilon 02-25-2024 Albumin [Mass/Vol] 3.3 g/dL Normal 3.2-5.0 [facility] Comment on above: Performed By: #### L 500.4100, L500.4050, L100.0500 ####[facility] [address] [place], [address] Albumin/Globulin [Mass ratio] 1.1 {ratio} Normal 0.9-2.4 [facility] Comment on above: Performed By: #### L 500.4100, L500.4050, L100.0500 ####[facility] [address] [place], [address] ALK P 61 U/L Normal 45-117 [facility] Comment on above: Performed By: #### L 500.4100, L500.4050, L100.0500 ####[facility] [address] [place], [address] ALT [Catalytic activity/Vol] 40 U/L Normal 16-61 [facility] Comment on above: Performed By: #### L 500.4100, L500.4050, L100.0500 ####[facility] [address] [place], [address] AST [Catalytic activity/Vol] 454 U/L High 15-37 [facility] Comment on above: Performed By: #### L 500.4100, L500.4050, L100.0500 ####[facility] [address] [place], [address] Bilirubin [Mass/Vol] 0.60 mg/dL Normal 0.20-1.00 [facility] Comment on above: Result Comment: For patients on eltrombopag therapy, use of Dimension [place] TBIL is not recommended. Performed By: #### L 500.4100, L500.4050, L100.0500 ####[facility] [address] [place], [address] BUN/CRE 14.2 RATIO Normal 10-20 [facility] Comment on above: Performed By: #### L 500.4100, L500.4050, L100.0500 ####[facility] [address] [place], [address] CA,Total 9.5 mg/dL Normal 8.5-10.1 [facility] Comment on above: Performed By: #### L 500.4100, L500.4050, L100.0500 ####[facility] [address] [place], [address] Chloride [Moles/Vol] 95 mmol/L Low 98-107 [facility] Comment on above: Performed By: #### L 500.4100, L500.4050, L100.0500 ####[facility] [address] [place], [address] CO2 [Moles/Vol] 22.0 mmol/L Normal 21.0-32.0 [facility] Comment on above: Performed By: #### L 500.4100, L500.4050, L100.0500 ####[facility] [address] [place], [address] Creatinine [Mass/Vol] 0.70 mg/dL Normal 0.70-1.30 [facility] Comment on above: Result Comment: The validity of the calculated GFR GFRAA in patients over 70 years has not been determined. Clinical correlation is essential. Performed By: #### L 500.4100, L500.4050, L100.0500 ####[facility] [address] [place], [address] ECRCL 139.05 ml/min Normal [facility] Comment on above: Performed By: #### L 500.4100, L500.4050, L100.0500 ####[facility] [address] [place], [address] EST GFR - AA 156 mL/min Normal >60 [facility] Comment on above: Result Comment: Afri can Cymro GFR Calc Performed By: #### L 500.4100, L500.4050, L100.0500 ####[facility] [address] [place], [address] GAP 13 Normal 5-15 [facility] Comment on above: Performed By: #### L 500.4100, L500.4050, L100.0500 ####[facility] [address] [place], [address] GFR/1.73 sq M.predicted among non-blacks MDRD (S/P/Bld) [Vol rate/Area] 129 mL/min/{1.73_m2} Normal >60 [facility] Comment on above: Result Comment: Non- GFR Calc Performed By: #### L 500.4100, L500.4050, L100.0500 ####[facility] [address] [place], [address] Globulin (S) [Mass/Vol] 3.1 g/dL Normal 2.2-4.2 [facility] Comment on above: Performed By: #### L 500.4100, L500.4050, L100.0500 ####[facility] [address] [place], [address] Glucose [Mass/Vol] 334 mg/dL High 74-106 [facility] Comment on above: Result Comment: Gluc ose result greater than or equal to 200 mg/dL suggests DIABETES MELLITUS per A.D.A. criteria. Performed By: #### L 500.4100, L500.4050, L100.0500 ####[facility] [address] [place], [address] Potassium [Moles/Vol] 4.3 mmol/L Normal 3.5-5.1 [facility] Comment on above: Performed By: #### L 500.4100, L500.4050, L100.0500 ####[facility] [address] [place], [address] Sodium [Moles/Vol] 130 mmol/L Low 136-145 [facility] Comment on above: Performed By: #### L 500.4100, L500.4050, L100.0500 ####[facility] [address] [place], [address] T PROT 6.4 g/dL Normal 6.4-8.2 [facility] Comment on above: Performed By: #### L 500.4100, L500.4050, L100.0500 ####[facility] [address] [place], [address] Urea nitrogen [Mass/Vol] 10 mg/dL Normal 7-18 [facility] Comment on above: Performed By: #### L 500.4100, L500.4050, L100.0500 ####[facility] [address] [place], [address] H AND P Exam - Hospitaliston 02-25-2024 H&P Exam - Hospitalist [facility] Medical Records Department [address] [place] [address] H P Exam - Hospitalist 02/25/24 0013 MR#: [id number] Acct: [id number] Name: JASON RIVERA Rep #: [id number] : 1980 43 From: Gaudencio Reddy DO PCP: Dr. Luc Olvera MD Status:ADM IN Location: ICU ICU02-1 HPI - General General Date of Admission: 02/24/24 Date of Service: 02/25/24 Chief Complaint: Chest pain HPI Narrative JASON RIVERA, is a 43 M who presented to [facility] ED on 02/24/2024 with chest pain. Found to have an inferior STEMI in the ED. STEMI alert was called and patient was taken emergently to the [facility]. Found to have an 100% mid RCA occlusion with drug-eluting stent x 1 placed with resolution of blood flow. Also found to have 70% proximal-mid and 80% mid-LAD lesions, and a 90% proximal LCX lesion. Estimated LVEF during cath was 35%. Patient was taken to the ICU post-cath in stable condition. I saw the patient at bedside shortly after coming from the [facility], multiple family members present. Patient was sitting [...] Otherwise no acute concerns at this time. [facility] Medical History (Updated 02/25/24 @ 00:01 by [...] and non- (more content not included)... Normal [facility] Hemoglobin A1con 02-25-2024 HbA1c (Bld) [Mass fraction] 9.7 % High 3.8-5.6 [facility] Comment on above: Result Comment: Norm al < 5.7 % Prediabetic 5.7 - 6.4 % Diabetic >or= 6.5 % Please note range changes. Performed By: #### L 501.9948 ####[facility] [address] [place], [address] L501.4020on 02-25-2024 TROPONIN-I HS > [id number] Invalid Interpretation Code 3.0-78.0 [facility] Comment on above: Order Comment: 'TROP ' Serial specimen #1, #2 or #3: 3 Result Comment: Crit ical Result(s) Called at: 11:54:12 02/25/2024 by: Elisa Mckeon to Sheri Mukherjee. Results read back by same. Please Note: New Test Units and Gender Specific Reference Ranges. For more information see Policy Stat Procedure [place] High Sensitivity Troponin (TNIH) and attachments. Performed By: #### L 501.4020 ####[facility] [address] [place], [address] Lipid Profileon 02-25-2024 Cholesterol [Mass/Vol] 165 mg/dL Normal 200 [facility] Comment on above: Result Comment: <200 mg/dL Desirable 200-240 mg/dL Borderline >240 mg/dL High Risk Performed By: #### L 500.4100, L500.4050, L100.0500 ####[facility] [address] [place], [address] Cholesterol in HDL [Mass/Vol] 55 mg/dL Normal [facility] Comment on above: Result Comment: The drugs N-Acetylcysteine and Metamizole may falsely depress this assay. Reference Range HDL <40 mg/dL Low HDL Cholesterol HDL >or= 60 mg/dL High HDL Cholesterol Performed By: #### L 500.4100, L500.4050, L100.0500 ####[facility] [address] [place], [address] Cholesterol in LDL [Mass/Vol] 67 mg/dL Normal 0-130 [facility] Comment on above: Performed By: #### L 500.4100, L500.4050, L100.0500 ####[facility] [address] [place], [address] Cholesterol in VLDL [Mass/Vol] 43 mg/dL High 5-40 [facility] Comment on above: Performed By: #### L 500.4100, L500.4050, L100.0500 ####[facility] [address] [place], [address] Triglyceride [Mass/Vol] 217 mg/dL High [facility] Comment on above: Result Comment: The drugs N-Acetylcysteine and Metamizole may falsely depress this assay. Serum Triglycerides Reference Interval Normal <150 mg/dL Borderline high 150 - 199 mg/dL High 200 - 499 mg/dL Very High > or = 500 mg/dL Performed By: #### L 500.4100, L500.4050, L100.0500 ####[facility] [address] [place], [address] MR/QUALITYon 02-25-2024 MR/QUALITY [facility] Medical Records Department [address] [place] [address] Quality Report 02/25/24 0759 MR#: [id number] Acct: [id number] Name: JASON RIVERA Rep #: [id number] : 1980 43 From: Ricky Bueno PCP: Dr. Luc Olvera MD Status:ADM IN Y Location: ICU ICU02-1 STEMI STEMI ED Door Time / Other REG STEMI EKG Time (1) ST elevation PR (STEMI): Acute 02/24/24 21:53 Balloon/Aspiration Date-Time Date of Balloon/Aspiration:: 02/24/24 Time of Balloon/Aspiration:: 23:03 02/25/24 0801 Date [facility] applicable[facility] Date CC: Signed Normal [facility] Thyroid Stim Hormone (TSH)on 02-25-2024 TSH 1.37 uIU/mL Normal 0.358-3.74 [facility] Comment on above: Performed By: #### L 501.9520 ####[facility] [address] [place], [address] 12 Lead EKGon 02-24-2024 12 Lead EKG [facility] Cardiovascular Services [address] [place] [address] 12 Lead EKG 02/24/24 2217 MR#: [id number] Acct: [id number] Name: JASON RIVERA Rep #: [id number] : 1980 43 From: Gary Laughlin MD [...] undetermined Right sided EKG Confirmed by GARY LAUGHLIN MD ([id number]), news video editor GABRIEL BROWN ([id number]) on 02/25/2024 8:57:35 AM Referred By: Italo Souza Confirmed By:GARY LAUGHLIN MD 02/25/24 0857 Date Gary Laughlin MD CC: Dr. Italo Souza MD; Dr. Luc Olvera MD; Dr. Roderick Mendez MD Signed Normal [facility] 12 Lead EKG [facility] Cardiovascular Services [address] [place] [address] 12 Lead EKG 02/25/24 0445 MR#: [id number] Acct: [id number] Name: JASON RIVERA Rep #: [id number] : 1980 43 From: Gary Laughlin MD [...] undetermined Inferior-posterior infarct , possibly acute ACUTE PR / STEMI Confirmed by GARY LAUGHLIN MD ([id number]), news video editor GABRIEL BROWN ([id number]) on 02/25/2024 1:26:20 PM Referred By: Italo Souza Confirmed By:GARY LAUGHLIN MD 02/25/24 1326 Date Gary Laughlin MD CC: Dr. Italo Souza MD; Dr. Kirk Russell MD; Dr. Roderick Mendez MD; Dr. Leonila Ram DO Signed Normal [facility] 12 Lead EKG [facility] Cardiovascular Services [address] [place] [address] 12 Lead EKG 02/24/24 2207 MR#: [id number] Acct: [id number] Name: JASON RIVERA Rep #: [id number] : 1980 43 From: Gary Laughlin MD [...] acute Anterolateral infarct , possibly acute ACUTE PR / STEMI Abnormal ECG Confirmed by GARY LAUGHLIN MD ([id number]), news video editor GABRIEL BROWN ([id number]) on 02/25/2024 8:56:40 AM Referred By: Italo Souza Confirmed By:GARY LAUGHLIN MD 02/25/2456 Date Gary Laughlin MD CC: Dr. Italo Souza MD; Dr. Luc Olvera MD; Dr. Roderick Mendez MD; Dr. Leonila Ram DO Signed Normal [facility] Basic Metabolic Profile (BMP )on 02-24-2024 BUN/CRE 12.7 RATIO Normal 10-20 [facility] Comment on above: Order Comment: 'TROP ' Serial specimen #1, #2 or #3: 1 Performed By: #### L 501.4020, L100.0100, L300.4310, L300.3900, L500.2500 ####[facility] [address] [place], [address] [place],Total 10.7 mg/dL High 8.5-10.1 [facility] Comment on above: Order Comment: 'TROP ' Serial specimen #1, #2 or #3: 1 Performed By: #### L 501.4020, L100.0100, L300.4310, L300.3900, L500.2500 ####[facility] [address] [place], [address] Chloride [Moles/Vol] 95 mmol/L Low 98-107 [facility] Comment on above: Order Comment: 'TROP ' Serial specimen #1, #2 or #3: 1 Performed By: #### L 501.4020, L100.0100, L300.4310, L300.3900, L500.2500 ####[facility] [address] [place], [address] CO2 [Moles/Vol] 21.0 mmol/L Normal 21.0-32.0 [facility] Comment on above: Order Comment: 'TROP ' Serial specimen #1, #2 or #3: 1 Performed By: #### L 501.4020, L100.0100, L300.4310, L300.3900, L500.2500 ####[facility] [address] [place], [address] Creatinine [Mass/Vol] 0.86 mg/dL Normal 0.70-1.30 [facility] Comment on above: Order Comment: 'TROP ' Serial specimen #1, #2 or #3: 1 Result Comment: The validity of the calculated GFR GFRAA in patients over 70 years has not been determined. Clinical correlation is essential. Performed By: #### L 501.4020, L100.0100, L300.4310, L300.3900, L500.2500 ####[facility] [address] [place], [address] ECRCL 116.74 ml/min Normal [facility] Comment on above: Order Comment: 'TROP ' Serial specimen #1, #2 or #3: 1 Performed By: #### L 501.4020, L100.0100, L300.4310, L300.3900, L500.2500 ####[facility] [address] [place], [address] EST GFR - AA 123 mL/min Normal >60 [facility] Comment on above: Order Comment: 'TROP ' Serial specimen #1, #2 or #3: 1 Result Comment: Afri can Cymro GFR Calc Performed By: #### L 501.4020, L100.0100, L300.4310, L300.3900, L500.2500 ####[facility] [address] [place], [address] GAP 16 High 5-15 [facility] Comment on above: Order Comment: 'TROP ' Serial specimen #1, #2 or #3: 1 Performed By: #### L 501.4020, L100.0100, L300.4310, L300.3900, L500.2500 ####[facility] [address] [place], [address] GFR/1.73 sq M.predicted among non-blacks MDRD (S/P/Bld) [Vol rate/Area] 102 mL/min/{1.73_m2} Normal >60 [facility] Comment on above: Order Comment: 'TROP ' Serial specimen #1, #2 or #3: 1 Result Comment: Non- GFR Calc Performed By: #### L 501.4020, L100.0100, L300.4310, L300.3900, L500.2500 ####[facility] [address] [place], [address] Glucose [Mass/Vol] 314 mg/dL High 74-106 [facility] Comment on above: Order Comment: 'TROP ' Serial specimen #1, #2 or #3: 1 Result Comment: Gluc ose result greater than or equal to 200 mg/dL suggests DIABETES MELLITUS per A.D.A. criteria. Performed By: #### L 501.4020, L100.0100, L300.4310, L300.3900, L500.2500 ####[facility] [address] [place], [address] Potassium [Moles/Vol] 4.1 mmol/L Normal 3.5-5.1 [facility] Comment on above: Order Comment: 'TROP ' Serial specimen #1, #2 or #3: 1 Performed By: #### L 501.4020, L100.0100, L300.4310, L300.3900, L500.2500 ####[facility] [address] [place], [address] Sodium [Moles/Vol] 132 mmol/L Low 136-145 [facility] Comment on above: Order Comment: 'TROP ' Serial specimen #1, #2 or #3: 1 Performed By: #### L 501.4020, L100.0100, L300.4310, L300.3900, L500.2500 ####[facility] [address] [place], [address] Urea nitrogen [Mass/Vol] 11 mg/dL Normal 7-18 [facility] Comment on above: Order Comment: 'TROP ' Serial specimen #1, #2 or #3: 1 Performed By: #### L 501.4020, L100.0100, L300.4310, L300.3900, L500.2500 ####[facility] [address] [place], [address] CBC W/Diff, Automatedon 07-09 06-2023 Absolute Lymph 1.81 X10 3/uL Normal 0.83-4.51 [facility] Comment on above: Performed By: #### L 501.4020, L100.0100, L300.4310, L300.3900, L500.2500 ####[facility] [address] [place], [address] Absolute Neut 5.2 X10 3/uL Normal 2.0-7.7 [facility] Comment on above: Performed By: #### L 501.4020, L100.0100, L300.4310, L300.3900, L500.2500 ####[facility] [address] [place], [address] Basophils/100 WBC (Bld) 0.4 % Normal 0-1 [facility] Comment on above: Performed By: #### L 501.4020, L100.0100, L300.4310, L300.3900, L500.2500 ####[facility] [address] [place], [address] Eosinophils/100 WBC (Bld) 0.8 % Normal 0-5 [facility] Comment on above: Performed By: #### L 501.4020, L100.0100, L300.4310, L300.3900, L500.2500 ####[facility] [address] [place], [address] Erythrocyte distribution width (RBC) [Ratio] 11.6 % Normal 11.6-14.6 [facility] Comment on above: Performed By: #### L 501.4020, L100.0100, L300.4310, L300.3900, L500.2500 ####[facility] [address] [place], [address] Hematocrit (Bld) [Volume fraction] 41.2 % Normal 40-54 [facility] Comment on above: Performed By: #### L 501.4020, L100.0100, L300.4310, L300.3900, L500.2500 ####[facility] [address] [place], [address] Hemoglobin (Bld) [Mass/Vol] 14.3 g/dL Normal 13.0-16.5 [facility] Comment on above: Performed By: #### L 501.4020, L100.0100, L300.4310, L300.3900, L500.2500 ####[facility] [address] [place], [address] IG% 0.400 Normal 0.0-0.9 [facility] Comment on above: Result Comment: IG% - Immature Granulocytes (promyelocytes, myelocytes and metamyelocytes) > 1% indicates that a LEFT SHIFT is Present. Performed By: #### L 501.4020, L100.0100, L300.4310, L300.3900, L500.2500 ####[facility] [address] [place], [address] Lymphocytes/100 WBC (Bld) 23.0 % Normal 19-41 [facility] Comment on above: Performed By: #### L 501.4020, L100.0100, L300.4310, L300.3900, L500.2500 ####[facility] [address] [place], [address] MCH (RBC) [Entitic mass] 32.3 pg High 27.0-32.0 [facility] Comment on above: Performed By: #### L 501.4020, L100.0100, L300.4310, L300.3900, L500.2500 ####[facility] [address] [place], [address] MCHC (RBC) [Mass/Vol] 34.7 g/dL Normal 32-36 [facility] Comment on above: Performed By: #### L 501.4020, L100.0100, L300.4310, L300.3900, L500.2500 ####[facility] [address] [place], [address] MCV (RBC) [Entitic vol] 93.0 fL Normal 80-94 [facility] Comment on above: Performed By: #### L 501.4020, L100.0100, L300.4310, L300.3900, L500.2500 ####[facility] [address] [place], [address] Monocytes/100 WBC (Bld) 9.5 % Normal 0-10 [facility] Comment on above: Performed By: #### L 501.4020, L100.0100, L300.4310, L300.3900, L500.2500 ####[facility] [address] [place], [address] Neutrophils/100 WBC (Bld) 65.9 % Normal 47-70 [facility] Comment on above: Performed By: #### L 501.4020, L100.0100, L300.4310, L300.3900, L500.2500 ####[facility] [address] [place], [address] Nucleated RBC (Bld) [#/Vol] 0 10*3/uL Normal 0-5 [facility] Comment on above: Performed By: #### L 501.4020, L100.0100, L300.4310, L300.3900, L500.2500 ####[facility] [address] [place], [address] Platelet mean volume (Bld) [Entitic vol] 9.5 fL Normal 6.2-12.0 [facility] Comment on above: Performed By: #### L 501.4020, L100.0100, L300.4310, L300.3900, L500.2500 ####[facility] [address] [place], [address] Platelets (Bld) [#/Vol] 253 10*3/uL Normal 150-450 [facility] Comment on above: Performed By: #### L 501.4020, L100.0100, L300.4310, L300.3900, L500.2500 ####[facility] [address] [place], [address] RBC (Bld) [#/Vol] 4.43 10*6/uL Low 4.6-6.2 [facility] Comment on above: Performed By: #### L 501.4020, L100.0100, L300.4310, L300.3900, L500.2500 ####[facility] [address] [place], [address] RDW SD 39.7 fl Normal 35.1-43.9 [facility] Comment on above: Performed By: #### L 501.4020, L100.0100, L300.4310, L300.3900, L500.2500 ####[facility] [address] [place], [address] WBC (Bld) [#/Vol] 7.9 10*3/uL Normal 4.4-11.0 [facility] Comment on above: Performed By: #### L 501.4020, L100.0100, L300.4310, L300.3900, L500.2500 ####[facility] [address] [place], [address] Consultation - Cardiologyon 02-24-2024 Consultation - Cardiology [facility] Medical Records Department [address] [place] [address] Consultation - Cardiology 02/24/24 2357 MR#: [id number] Acct: [id number] Name: JASON RIVERA Rep #: [id number] : 1980 43 From: Italo Souza MD PCP: Dr. Luc Olvera MD Status:ADM IN Location: ICU ICU02-1 Assessment Plan Assessment/Plan (1) ST elevation PR (STEMI): PLAN: Emergent coronary angiography revealed totally [...] myocardial infarction. A STEMI alert was called. [facility] Medical History (Updated 02/25/24 @ 00:01 by [...] % (Auto) 65.9, Lymph % (Auto) 23.0, [place] % (Auto) 9.5, Eos % (Auto) 0.8, [...] % (Auto) 65.9, Lymph % (Auto) 23.0, [place] % (Auto) 9.5, Eos % (Auto) 0.8, [...] PCI: C (more content not included)... Normal [facility] Echo Complete W/ Contraston 02-24-2024 Echo Complete W/ Contrast [facility] Cardiovascular Services [address] [place] [address] Echo Complete W/ Contrast 02/25/24 0835 MR#: [id number] Acct: [id number] Name: JASON RIVERA Rep #: [id number] : 1980 43 From: Italo Souza MD [...] Dictated: 02/25/24 0835 Date Transcribed: 02/25/24 1350 Line Operator: Signed Normal [facility] Emergency Department Summary on 02-24-2024 Emergency Department Summary [facility] Medical Records Department [address] [place] [address] Emergency Department Summary 02/24/24 MR#: [id number] Acct: [id number] Name: JASON RIVERA Rep #: [id number] : 1980 43 From: Leonila Ram DO [...] smoke. He denies recent travel or surgery. [facility] Medical History (Updated 02/24/24 @ 22:48 by [...] normal to (more content not included)... Normal [facility] L501.4020on 02-24-2024 TROPONIN-I HS 3242 pg/mL Invalid Interpretation Code 3.0-78.0 [facility] Comment on above: Order Comment: 'TROP ' Serial specimen #1, #2 or #3: 1 Result Comment: Crit ical Result(s) Called at: 23:05:19 02/24/2024 by: [facility] Results read back by same. Please Note: New Test Units and Gender Specific Reference Ranges. For more information see Policy Stat Procedure [place] High Sensitivity Troponin (TNIH) and attachments. Performed By: #### L 501.4020, L100.0100, L300.4310, L300.3900, L500.2500 ####[facility] [address] [place], [place], [address] Partial Thromboplast Timeon 02-24-2024 aPTT Coag (Bld) [Time] 22.8 s Low 24.1-36.2 [facility] Comment on above: Performed By: #### L 501.4020, L100.0100, L300.4310, L300.3900, L500.2500 ####[facility] [address] [place], [place], [id number] Prothrombin Time w/INRon INR Coag (PPP) [Relative time] 1.0 {INR} Normal [facility] Comment on above: Performed By: #### L 501.4020, L100.0100, L300.4310, L300.3900, L500.2500 ####[facility] [address] [place], [address] PT Coag (PPP) [Time] 12.7 s Normal 11.7-14.9 [facility] Comment on above: Performed By: #### L 501.4020, L100.0100, L300.4310, L300.3900, L500.2500 ####[facility] [address] 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 Viral [...] Discussed expected course of illness Ginger Salgado APRN.MIXING HOUSE OPERATOR Treatment for Viral Upper Respiratory Tract Infections [...] fluids help open respiratory and sinus passages [place] Nasal [place] may offer relief of nasal and head [...] getting worse rather than better Ginger Salgado APRN.MIXING HOUSE OPERATOR 12/16/2023 8:42 AM Signed Subjective Cough Associated [...] Use Smoking (more content not included)... Normal [facility] CNOVon 09-05-2023 CNOV Office Visit (UCWSTR ) JASON RIVERA ([id number]) 1980 M Date Time Provider Department 09/05/23 4:00 PM GINGER SALGADO [facility] During your visit today, we recorded the following information about you: Temperature Pulse Respiration Blood pressure 98 degrees 130/minute 20/minute 200/100 Weight 77.7 kg Ginger Salgado APRN.MIXING HOUSE OPERATOR 09/05/2023 5:09 PM Signed Subjective Cough Associated [...] 2V FRONTAL/LAT IMPRESSION: No acute radiographic abnormality. Line Operator: DEIDRA Transcribe Date/Time: Sep 05 2023 4:27P Dictated by : NIKKI DICKERSON MD 2. Flu-like symptoms - ICD9: 780.99, ICD10: R68.89 - COVID NAAT, UPPER RESPIRATORY, ROUTINE - INFLUENZA AANDB MOLECULAR (POC)- positive for Influenza B 3. Sore throat - ICD9: 462, ICD10: J02.9 - Group A s (more content not included)... Normal [facility] SARS-CoV-2 RNA Resp Ql LULI+p tami 09-05-2023 SARS-CoV-2 (COVID-19) RNA LULI+probe Ql (Resp) COVID 19 RESULT: Not detected The method used is RT-PCR or an equivalent NAAT method. Reference Range (the expected result in uninfected individuals): Not detected Normal [facility] Comment on above: Performed By: #### 9 1105-6 #### [facility] CLIA [id number] [address] [place] [address] [facility] CHEST 2V FRONTAL/LATon XR CHEST [...] tissues: Unremarkable. IMPRESSION: No acute radiographic abnormality. Line Operator: DEIDRA Transcribe Date/Time: Sep 05 2023 4:27P Dictated by : NIKKI DICKERSON MD This examination was interpreted and the report reviewed and electronically signed by: NIKKI DICKERSON MD on Sep 05 2023 4:28PM EST [id number] Normal [facility] XR Chest PA and Lateralon Radiology Study observation (narrative) [facility] IMPRESSION: No acute radiographic abnormality. Line Operator: PSCB Transcribe Date/Time: Sep 05 2023 4:27P [...] Unremarkable. DIVISION OF RADIOLOGY Provider, Dina Salas [place] - 09/05/2023 * * *Final Report* * [...] Unremarkable. IMPRESSION IMPRESSION: No acute radiographic abnormality. Line Operator: PSCB Transcribe Date/Time: Sep 05 2023 4:27P Dictated by : NIKKI DICKERSON MD This examination was interpreted and the report reviewed and electronically signed by: NIKKI DICKERSON MD on Sep 05 2023 4:28PM [facility] XR Chest PA and LateralOrder ed By: [facility] Provider on 09-05-2023 [facility] Neha 06-11-2021 [facility] Telephone (KENDELL) JASON RIVERA ([id number]) 1980 M Date Time Provider Department 06/11/21 [...] Date Reviewed: 06/05/2021 Reviewed by: Amador Porter APRN.MIXING HOUSE OPERATOR, DNP - Fully Assessed Reason for Visit: [...] Status:Closed by BARBIE FRANKSMARSHA on 06/11/21 Normal [facility] Vital Signs Date Time Vital Sign Value Performing Clinician Facility 12-16-2023 08:27-0400 Body mass index (BMI) [Ratio] 25.99 kg/m2 Ginger Salgado APRN.CNP Work Phone: [facility] 12-16-2023 08:27-0400 Body temperature 98.2 [degF] Ginger Salgado APRN.CNP Work Phone: [facility] 12-16-2023 08:27-0400 Body weight 81 kg Ginger Praisler-Wood PPA TEACHER.MIXING HOUSE OPERATOR Work Phone: [facility] 12-16-2023 08:27-0400 Diastolic blood pressure 119 mm[Hg] Ginger Praisler-Wood PPA TEACHER.MIXING HOUSE OPERATOR Work Phone: [facility] Comment on above: white coat 12-16-2023 08:27-0400 Heart rate 112 /min Ginger Praisler-Wood PPA TEACHER.MIXING HOUSE OPERATOR Work Phone: [facility] 12-16-2023 08:27-0400 Respiratory rate 18 /min Ginger Praisler-Wood PPA TEACHER.MIXING HOUSE OPERATOR Work Phone: [facility] 12-16-2023 08:27-0400 SaO2% (BldA) [Mass fraction] 99 % Ginger Praisler-Wood PPA TEACHER.[facility] Work Phone: [facility] 12-16-2023 08:27-0400 Systolic blood pressure 177 mm[Hg] Ginger Praisler-Wood PPA TEACHER.[facility] Work Phone: [facility] Comment on above: white coat 09-09-2023 16:03-0500 Body height 180.34 cm [facility] 09-09-2023 16:03-0500 Body mass index (BMI) [Ratio] 24 kg/m2 [facility] 09-09-2023 16:03-0500 Body temperature 98.8 [degF] [facility] 09-09-2023 16:03-0500 Body weight 78.3 kg [facility] 09-09-2023 16:03-0500 Diastolic blood pressure 110 mm[Hg] [facility] 09-09-2023 16:03-0500 Heart rate 113 /min [facility] 09-09-2023 16:03-0500 Respiratory rate 20 /min [facility] 09-09-2023 16:03-0500 SaO2% (BldA) [Mass fraction] 100 % [facility] 09-09-2023 16:03-0500 Systolic blood pressure 193 mm[Hg] [facility] 11-26-2021 11:03-0400 Body temperature 98.29 [degF] Leigh Manriquez APRN.MIXING HOUSE OPERATOR Work Phone: [facility] 11-26-2021 11:03-0400 Body weight 88.91 kg Leigh Manriquez APRN.MIXING HOUSE OPERATOR Work Phone: [facility] 11-26-2021 11:03-0400 Diastolic blood pressure 98 mm[Hg] Leigh Manriquez APRN.MIXING HOUSE OPERATOR Work Phone: [facility] 11-26-2021 11:03-0400 Heart rate 110 /min Leigh Manriquez APRN.MIXING HOUSE OPERATOR Work Phone: [facility] 11-26-2021 11:03-0400 Respiratory rate 20 /min Leigh Manriquez APRN.MIXING HOUSE OPERATOR Work Phone: [facility] 11-26-2021 11:03-0400 SaO2% (BldA) [Mass fraction] 98 % Leigh Manriquez APRN.MIXING HOUSE OPERATOR Work Phone: [facility] 11-26-2021 11:03-0400 Systolic blood pressure 148 mm[Hg] Leigh Manriquez APRN.MIXING HOUSE OPERATOR Work Phone: [facility] Encounters Encounter Date Encounter Type Care Provider Facility Start: 02-08-2025 ambulatory Ed Physician Provider F acility:[facility] Start: 08-14-2024 ambulatory Chalon Rachid Facility:[facility] Start: 07-05-2024 End: 08-03-2024 ambulatory Chalon Rachid Facility:[facility] Start: 06-11-2024 End: 07-03-2024 ambulatory Italo Harley Facility:[facility] Start: 06-02-2024 End: 06-03-2024 ambulatory Italo Harley Facility:[facility] Start: 05-26-2024 ambulatory Collins Brown HEALTH AND SAFETY COORDINATOR Facility :[facility] Start: 05-03-2024 End: 05-03-2024 ambulatory Italo Harley Facility:[facility] Start: 04-14-2024 End: 04-14-2024 ambulatory Collins Brown HEALTH AND SAFETY COORDINATOR [facility] Start: 04-02-2024 End: 04-03-2024 ambulatory Italo Harley Facility:[facility] Start: 03-15-2024 End: 03-15-2024 ambulatory Italo Harley Facility:[facility] Start: 03-05-2024 End: 07-23-2024 ambulatory Chalon Rachid Facility:[facility] Start: 02-26-2024 ambulatory Italo Harley Facility:[facility] Start: 02-25-2024 ambulatory Chalon Rachid Facility:[facility] Start: 02-25-2024 ambulatory Italo Harley Facility:[facility] Start: 02-25-2024 End: 02-27-2024 Evaluation and management of inpatient Italo Harley Facility:[facility] Start: 02-24-2024 ambulatory Italo Harley Facility:[facility] Start: 12-16-2023 End: 12-16-2023 ambulatory CHALON RACHID Facility:[facility] Start: 12-16-2023 End: 12-16-2023 Patient encounter procedure Ginger Salgado APRN.MIXING HOUSE OPERATOR Work Phone: [facility] Comment on above: Viral URI with cough (Primary Dx); Nasal congestion Start: 09-09-2023 End: 09-09-2023 Emergency department patient visit [facility]-Emergency Department Work Phone: Start: 09-05-2023 End: 09-05-2023 ambulatory AMADOR PORTER Facility:[facility] Start: 09-05-2023 End: 09-05-2023 Subsequent hospital visit by physician Xr [facility] Work Phone: Radiology Comment on above: Persistent cough for 3 weeks or longer [R05.3] Start: 11-26-2021 End: 11-26-2021 Patient encounter procedure Leigh Manriquez APRN.MIXING HOUSE OPERATOR Work Phone: [facility] Comment on above: Sinus congestion (Pr imary Dx) Start: 03-22-2019 Ophthalmic examinati on and evaluation Leigh Manriquez APRN.MIXING HOUSE OPERATOR Work Phone: [facility] Work Phone: Start: 03-03-2019 Patient encounter status Lauren Manriquez APRN.MIXING HOUSE OPERATOR Work Phone: [facility] Work Phone: Procedures Date Procedure Procedure Detail Performing Clinician Start: 09-05-2023 Radiologic exam ches t 2 views Ginger Salgado APRN.[facility] Work Phone: Start: 03-03-2019 Adult depression screening assessment Leigh Manriquez APRN.MIXING HOUSE OPERATOR Work Phone: Plan of Treatment Date Care Activity Detail Author Start: 04-04-2024 Covid-19 Vaccine ( season) Covid-19 Vaccine ( season) [facility] Start: 04-04-2024 Influenza vaccination C [facility] Start: 09-09-2023 [facility] Start: 08-04-2023 Behavioral Health Screening Behavioral Health Screening [facility] Start: 04-04-2023 Covid-19 Vaccine ( season) Covid-19 Vaccine () [facility] Start: 06-05-2022 ANNUAL PCP TEAM MEAT STOCK CLERK KANA DISEASE VISIT ANNUAL PCP TEAM CHRONIC DISEASE VISIT [facility] Start: 06-05-2022 COVID-19 VACCINE (1) COVID-19 VACCIN E (1) [facility] Comment on above: Postponed from 04/23 (Declined at this time) Start: 04-04-2022 Influenza vaccination INFLUENZ A (Season Ended) [facility] Start: 03-19-2020 Glaucoma screening Dilated Retinal E xam [facility] Start: 03-19-2020 Hepatitis C antibody , confirmatory test DILATED RETINAL EXAM [facility] Start: 03-03-2020 3 comp foot exam completed DIABETIC FOOT EXAM [facility] Start: 03-03-2020 Adult depression screening assessment DEPRESSION SCREENING [facility] Start: 03-03-2020 Diabetic foot examination Diabetic Foot Exam [facility] Start: 03-02-2020 Hepatitis B screening URINE ALBUMIN:CREATININE RATIO [facility] Start: 03-02-2020 Hepatitis B surface antibody level LDL CHOLESTEROL [facility] Start: 06-02-2019 Hemoglobin A1c measurement HbA1C [facility] Start: 06-02-2019 Hemoglobin A1c/Hemoglobin.total in Blood HBA1C [facility] Start: 1998 Hepatitis B Vaccine (1 of 3 - 19+ 3-dose series) Hepatitis B Vaccine (1 of 3 - 19+ 3-dose series) [facility] Start: 1997 BP CONTROLLED (<130/80) BP CONTROLLE D (<130/80) [facility] Start: 1997 Depression Screening Depression Scre ening [facility] Start: 1997 HEPATITIS C SCREENING HEPATITIS C [facility] Start: 1997 Hepatitis C screening Hepatitis C [facility] Patient Education ED Abscess Inc ision And Drainage [facility] Work Phone: Patient referral [facility] Work Phone: Immunizations Immunization Date Immunization Notes Care Provider Sathya thomas 09-24-2017 influenza virus vaccine, unspecified formulation Ginger Salgado APRN.[facility] Work Phone: [facility] 07-25-2016 influenza, seasonal, injectable Leigh Manriquez APRN.[facility] Work Phone: [facility] 03-13-2016 pneumococcal conjuga te vaccine, 13 valent Leigh Manriquez APRN.[facility] Work Phone: [facility] Work Phone: 01-22-2008 tetanus toxoid, redu aiden diphtheria toxoid, and acellular pertussis vaccine, adsorbed Leigh Manriquez APRN.[facility] Work Phone: [facility] Work Phone: 08-04-1998 diphtheria and tetan us toxoids, adsorbed for pediatric use Leigh Manriquez APRN.[facility] Work Phone: [facility] Work Phone: Payers Date Payer Category Payer Self-pay [id number] 2021 Unknown MMO MMO [employer] [id number] 2021-Present [phone] [address] [place] [address] PPO [id number] 2021 Unknown [id number] 2021 Unknown MMO MMO [employer] PPO [id number] 2021-Present [phone] [address] [place] [address] PPO [id number] 2016 Unknown ANTHEM [id number] Private Health Insurance [employer] [id number] Unknown [employer] [place] [id number] Unknown [id number] 2.16.840.1.602393.3.579.2.4 62 Unknown [id number] 2.16.840.1.651589.3.579.2.4 62 Unknown [id number] 2.16.840.1.638774.3.579.2.4 62 Unknown [id number] 2.16.840.1.159181.3.579.2.4 62 Unknown [id number] 2.16.840.1.651873.3.579.2.4 62 Unknown [id number] 2.16.840.1.019143.3.579.2.4 62 Unknown [id number] 2.16.840.1.165531.3.579.2.4 62 Unknown [id number] 2.16.840.1.534647.3.579.2.4 62 Unknown [id number] 2.16.840.1.819082.3.579.2.4 62 Unknown [id number] 2.16.840.1.270770.3.579.2.4 62 Unknown [id number] 2.16.840.1.624539.3.579.2.4 62 Unknown [id number] 2.16.840.1.794204.3.579.2.4 62 Unknown [id number] 2.16.840.1.757393.3.579.2.4 62 Unknown [id number] 2.16.840.1.257129.3.579.2.4 62 Unknown [id number] 2.16.840.1.977736.3.579.2.4 62 Unknown [id number] 2.16.840.1.177101.3.579.2.4 62 Unknown [id number] 2.16.840.1.787478.3.579.2.4 62 Unknown [id number] 2.16.840.1.967628.3.579.2.4 62 Unknown [id number] 2.16.840.1.842592.3.579.2.4 62 Social History Date Type Detail Facility Start: 09[facility]05[facility]2023 [facility] Start: 11-26-2021 End: 09-05-2023 Alcohol intake Current drinker of alcohol (finding) [facility] Start: 01-16-2017 History SDOH Alcohol Comment 1 beverage every other week (beer) wine q 2-3 weeks [facility] Start: 1980 Sex Assigned At Not on file C [facility] Start: 11-16-2021 End: 11-26-2021 Exposure to SARS-CoV-2 (event) Not sure [facility] Work Phone: Start: 1980 Sex Assigned At Male [facility] Start: 09-09-2023 [facility] Start: 09-05-2023 Tobacco use and exposure Smokeless tobacco non-user [facility] Start: 07-12-2020 End: 12-16-2023 History of Social function [facility] Start: 07-12-2020 End: 12-16-2023 Tobacco use panel [facility] Adult Depression Screening Assessment 0 [facility] Medical Equipment Procedure Code Equipment Code Equipment Origin al Text Equipment Identifier Dates Test blood sugar (s) 4 times daily. Dx: Type 2 DM - Uncontrolled E11.65 Insulin: No [id number] Start: 05-09-2017 Comment on above: Test blood sugar(s) 4 times daily. Dx: Type 2 DM - Uncontrolled E11.65 Insulin: No Clinical Notes 04-24-2007 to 02-27-2024 Ginger Salgado, PPA TEACHER.MIXING HOUSE OPERATOR - 12/16/2023 8:40 AM EDTPatient Kunal Paulino RT(R) - 09/05/2023 4:30 PM Malinda Manriquez APRN.MIXING HOUSE OPERATOR - 11/26/2021 11:09 AM EDT Note Date & Type Note Facility 02-27-2024 Note [facility] Medical Records Department [address] [place] [address] Discharge Summary 02/27/24 0802 MR#: [id number] Acct: [id number] Name: JASON RIVERA Rep #: [id number] : 1980 43 From: Roderick Mendez MD [...] STEMI Diagnosis Discharge Diagnosis (1) ST elevation PR (STEMI): Status: Acute Code(s): I21.3 - ST elevation (STEMI) myocardial infarction of unspecified site (2) Cardiomyopathy: Status: Acute Code(s): I42.9 - Cardiomyopathy, unspecified (3) Diabetes: Status: Acute Code(s): E11.9 - Type 2 diabetes mellitus without complications Plan Patient is a 43-year-old male who presented [facility] ED on 02/24/2024 with chest pain. Twelve-lead EKG individually reviewed and shows sinus tachycardia, LAD, ST elevation in leads V3, V4, V6, II 3 and aVF consistent with inferior, possible acute anterolateral NSTEMI. Patient denied prior history of PR or angina. 1. Inferior STEMI, suspected new [...] and LAD. AST 454 possible due to PR. Repeat liver chemistry. 02/26 patient did well overnight. Had staged PCI over LAD proximal and mid and proximal circumflex. Aspirin indefinitely. Brilinta for at least 12 months. strict diligence to Brilinta was emphasized by commercial lines insurance agent and myself to keep stents patent. Patient is being discharged on low-dose carvedilol, lisinopril, Lasix 20 mg daily, spironolactone, Jardiance and high intensity statin. Follow-up with the commercial lines insurance agent in 1 month. Cardiac rehab as per [...] % (Auto) 58.7, Lymph % (Auto) 28.5, [place] % (Auto) 11.4 H, Eos % (Auto) [...] 56, Total Protei (more content not included)... [facility] 12-16-2023 Note HNO ID: [id number] Author: GINGER SALGADO APRN.MIXING HOUSE OPERATOR Service: ? Author Type: Nurse Practitioner Type: [...] Discussed expected course of illness Ginger Salgado APRN.[facility] 12-16-2023 History of en t illness Narrative [...] Discussed expected course of illness Ginger Salgado APRN.MIXING HOUSE OPERATOR documented in this encounter [facility] 12-16-2023 Instructions Ginger Salgado APRN.MIXING HOUSE OPERATOR - 12/16/2023 8:40 AM EDT ASSESSMENT/PLAN: 1. [...] Discussed expected course of illness Ginger Salgado APRN.MIXING HOUSE OPERATOR Treatment for Viral Upper Respiratory Tract Infections [...] fluids help open respiratory and sinus passages [place] Nasal [place] may offer relief of nasal and head [...] rather than better documented in this encounter [facility] 09-05-2023 Note HNO ID: [id number] Author: KUNAL ENGLAND RT(R) Service: Radiology Author [...] PATIENT PRESENTS WITH AN IMPLANTABLE OR ATTACHED MOTORS ASSEMBLER: No RADIOLOGY DEPARTMENT: General X-ray: Exam(s) Completed: Chest X-Ray PERIPHERAL IV DATA: Not applicable SIGNED BY: RT Janae(R) September 05, 2023 4:21 PM [facility] 09-05-2023 Note HNO ID: [id number] Author: GINGER SALGADO APRN.MIXING HOUSE OPERATOR Service: ? Author Type: Nurse Practitioner Type: [...] 2V FRONTAL/LAT IMPRESSION: No acute radiographic abnormality. Line Operator: PSCAngelica Transcribe Date/Time: Sep 05 2023 4:27P [...] discussed- including consider (more content not included)... [facility] 09-05-2023 History of Presen t illness Narrative [...] PATIENT PRESENTS WITH AN IMPLANTABLE OR ATTACHED MOTORS ASSEMBLER: No RADIOLOGY DEPARTMENT: General X-ray: Exam(s) Completed: Chest X-Ray PERIPHERAL IV DATA: Not applicable SIGNED BY: RT Janae(R) September 05, 2023 4:21 PM documented in this encounter [facility] 11-26-2021 History of Presen t illness Narrative [...] Leigh Manriquez APRN.EMERSON documented in this encounter [facility] 04-24-2007 History of Past i llness Narrative Problem Noted Date Resolved Date Diarrhea 04/24/2007 07/04/2008 documented as of this encounter (statuses as of 11/26/2021) [facility] Sinus congestion- Primary Other diseases of nasal cavity and sinuses [facility] noteNo assessment information [facility] Phone: Evaluation note* Diagnosis Viral URI with cough- Primary Acute upper respiratory infections of unspecified site Nasal congestion Other diseases of nasal cavity and sinuses [facility] Diagnosis Persistent cough for 3 weeks or longer documented in this encounter [facility] Summary Purpose Family History No Family History Records FoundNo Family History Records FoundNo Family History Records Found Advance Directives No Advanced Directives Records Found Advance Directive Response Recorded Date/ Time Living Will No September 09 4:02pm Power of Stone Layout Marker No September 09, 2023 4:02pm Chief Complaint and Reason for Visit Chief Complaint Neck Infection Additional Source Comments (unrecognized sect ion and content) No Status Records FoundNo Status Records FoundNo Status Records Found INFORMATION SOURCE (unrecogn ized section and content) DATE CREATED AUTHOR 06/15/2021 [facility] DATE CREATED AUTHOR AUTHOR'S ORGANIZ ATION 12/17/2023 [facility] DATE CREATED AUTHOR AUTHOR'S ORGANIZ ATION 02/13/2025 [facility] Source Comments (unrecognize d section and content) In the event this informatio n is protected by the Federal Confidentiality of Alcohol and Drug Abuse Patient Records regulations: The Federal rules restrict any use of the information to criminally investigate or prosecute any alcohol or drug abuse patient.[facility] the event this information is protected by the Federal Confidentiality of Alcohol and Drug Abuse Patient Records regulations: The Federal rules restrict any use of the information to criminally investigate or prosecute any alcohol or drug abuse patient.[facility] the event this information is protected by the Federal Confidentiality of Alcohol and Drug Abuse Patient Records regulations: The Federal rules restrict any use of the information to criminally investigate or prosecute any alcohol or drug abuse patient.[facility] Reason for Visit (unrecogniz ed section and content) Reason Comments Nasal Congestion sinus pressure, SHAHID, body aches x4 days Reason Comments Cough Chest congestion, vo ice loss, productive cough, scratchy throat x 4 days Care Teams (unrecognized sec tion and content) Flat Grinder Operator Relationship Specialty Start Date End Date Amador Porter APRN.CNP, DNP [address] [place], [place] [id number] PCP - General Family Practice 06/05/21 Team Status: Active Member Role Status Dates Dr. Luc Olvera MD Family Provider Active Dr. Luc Olvera MD Primary Care Provider Active Team Status: Inactive Member Role Status Dates Dr. Luc Olvera MD Primary Care Provider Active Dr. Enio Matute DO Emergency Provider Active Flat Grinder Operator Relationship Specialty Start Date End Date Kirk Russell MD [address] [place] [address] PCP - General Internal Medicine 12/16/23 Flat Grinder Operator Relationship Specialty Start Date End Date Amador Porter APRN.JOHNNY NORMAN [address] [place] [address] PCP - General Family Medicine [...] BE BASED ON THE PRIMARY CLINICAL RECORDS. [facility] [employer] [facility]. provides no warranty or guarantee of the accuracy or completeness of information in this document.
--- NOTE | 2025-02-26 12:24 | ED.RN ---
called report to INSOLE CEMENTER
[2025-02-26] MEDS: Lorazepam 2 MG/ML WCH Syringe 1 MG IV (12:27)
[2025-02-26 12:36] LABS: Anion Gap 36 (5-15); BUN 12 mg/dL (4-19); BUN/Creat Ratio 10.4 RATIO (10-20); Calcium,Total 8.8 mg/dL (7.6-11.0); Carbon Dioxide 3.6 mmol/L (21.0-32.0); Chloride 85 mmol/L (98-108); Estimated Creatinine Clearance 85.65 ml/min (50-250); Glucose 262 mg/dL (70-99); Potassium 5.9 mmol/L (3.3-5.1)
[2025-02-26 12:40] LABS: Troponin T High Sens 2 HR 10 ng/L (<=22)
--- NOTE | 2025-02-26 13:36 | CASEMGMT ---
SIDNEY LUJAN note: Call received from SIDNEY Patel, stating that pt is requesting to complete HCPOA document. She states pt voices he wants his sister to be HCPOA, not his . WOLFGANG Baig, made aware. Easton CANTU RN CM
--- NOTE | 2025-02-26 14:02 | CASEMGMT ---
Social Work Pt had indicated to RN wanted to completed POA documents. SW met w/pt, sister at bedside. Pt not ready to complete documents today, wants to think about it. SW gave pt the blank forms w/the SW dept to call should he want to complete as an outpt. If pt is still here Friday and time allows, SW will check back Friday to see if pt wants to complete the documents. SW will continue to follow for this. BRADEN Baer
[2025-02-26] MEDS: Dext 5%-0.45% NS 1,000 ML 150 ML IV ×2 (14:05→21:13)
[2025-02-26 14:34] LABS: Reflex Lactate? Y
--- NOTE | 2025-02-26 15:36 | PCMCONS.TICU ---
HPI Consult Data Date of Consult: 02/26/25 HPI Narrative Reason for Consultation: DKA HPI Narrative: LORETTA NUNEZ, is a 44 M who presents N/V and generalized illness 3 days after ceasing diabetes medications / insulin and ~ 1 week after stopping his 6 beer/ day alcohol consumption. It is not clear if previous attempts at stopping alcohol were met with any withdrawal symptoms though he seems to think they were. He states he is enrolled in a local detox program through a [facility] organization. Of note he stopped Ozempic and started Jardiance around 2 weeks ago. He also offers his alcohol drinking issues began 2 years ago as self-medicating following the suicide of his son. [facility] Medical History (Reviewed 04/14/24 @ 16:19 by Collins Brown BELLOWS CHARGER ASSEMBLER, BELLOWS CHARGER ASSEMBLER-C) Cardiomyopathy Coronary artery disease ST elevation VA (STEMI) (~02/24/24) Diabetes Home Medications ?Medication ?Instructions ?Recorded ?Last Taken ?Type semaglutide 0.25 mg or 0.5 mg (2 0.25 mg subcut QWEEK 02/24/24 02/22/24 History mg/3 mL) subcutaneous pen injector (Ozempic) Held on 02/26/25. Instructions: on hold insulin glargine 100 unit/mL (3 20 unit (0.2 mL) subcut DAILY 1 02/27/24 Unknown Rx mL) subcutaneous pen (Lantus month #15 mL Solostar U-100 Insulin) insulin lispro 100 unit/mL 10 unit (0.1 mL) subcut TIDAC 1 02/27/24 Unknown Rx subcutaneous pen (Humalog KwikPen month #15 mL (U-100) Insulin) insulin lispro 100 unit/mL See Protocol subcut ACHS #0 mL 02/27/24 Unknown Rx subcutaneous pen (Humalog KwikPen (U-100) Insulin) metformin 1,000 mg tablet 1,000 mg PO BID 30 days #0 tabs 02/27/24 Unknown Rx needle (disp) 32 gauge 32 gauge x #100 ea 02/27/24 Unknown Rx / carvedilol 12.5 mg tablet 12.5 mg PO BID dose increased 06/01/24 Unknown Rx again for fast heart rate #60 tabs aspirin 81 mg tablet,delayed 81 mg PO DAILY@0800 #90 tabs 06/21/24 Unknown Rx release atorvastatin 80 mg tablet 80 mg PO QHS #90 tabs 06/21/24 Unknown Rx empagliflozin 10 mg tablet 10 mg PO DAILY 30 days #30 tabs 06/21/24 Unknown Rx (Jardiance) furosemide 20 mg tablet 20 mg PO DAILY #90 tabs 06/21/24 Unknown Rx lisinopril 2.5 mg tablet 2.5 mg PO DAILY 30 days #90 tabs 06/21/24 Unknown Rx spironolactone 25 mg tablet 25 mg PO DAILY #90 tabs 06/21/24 Unknown Rx ticagrelor 90 mg tablet (Brilinta) 90 mg PO BID #60 tabs 06/21/24 Unknown Rx fluoxetine 40 mg capsule 40 mg PO DAILY 02/26/25 Unknown History gabapentin 300 mg capsule 300 mg PO 4X/DAY 02/26/25 Unknown History venlafaxine 75 mg capsule,extended 75 mg PO DAILY nausea 02/26/25 Unknown History release 24 hr Allergy/AdvReac Type Severity Reaction Status Date / Time No Known Allergies Allergy Verified 02/26/25 09:51 Surgical History (Reviewed 04/14/24 @ 16:19 by Collins Brown BELLOWS CHARGER ASSEMBLER, BELLOWS CHARGER ASSEMBLER-C) Hx of cardiac catheterization (~02/26/24) Stented coronary artery (~02/26/24) Social History (Reviewed 04/14/24 @ 16:19 by Collins Brown BELLOWS CHARGER ASSEMBLER, BELLOWS CHARGER ASSEMBLER-C) Smoking Status: Never smoker ROS Constitutional Constitutional: Reports anorexia and difficulty sleeping Eyes Eyes: Reports systems reviewed and no addt'l complaints, except as documented ENT HEENT: Reports systems reviewed and no addt'l complaints, except as documented Cardiovascular Cardiovascular: Reports systems reviewed and no addt'l complaints, except as documented Respiratory/Chest Respiratory/Chest: Reports as per HPI Gastrointestinal Gastrointestinal: Reports as per HPI Psychiatric Psychiatric: Reports anhedonia, anxiety, depression, difficulty concentrating and hopelessness Objective Data Objective Data Vital Signs: Vital Signs Last response Temperature 36.6 C 02/26/25 12:06 Temperature Source Oral 02/26/25 09:50 Pulse Rate 127 H 02/26/25 12:06 Respiratory Rate 28 H 02/26/25 12:06 Respiratory Pattern Tachypnea 02/26/25 09:56 Blood Pressure 173/103 H 02/26/25 12:06 Blood Pressure Mean 126 02/26/25 12:06 Pulse Ox 100 02/26/25 12:06 Oxygen Delivery Method Room Air 02/26/25 11:00 I&O: I&O Last 24 Hours 02/25/25 02/26/25 02/26/25 23:59 11:59 23:59 Intake Total 999 101 Balance 999 101 I&O: Total Stay 02/26/25 09:49 thru 02/26/25 13:51 Intake Total Balance Current Meds Ordered / Administered: Current meds ordered / Administered Generic Name Dose Route Start Last Admin Trade Name Freq PRN Reason Stop Dose Admin Acetaminophen 650 mg 02/26/25 12:44 Acetaminophen 325 Mg Tablet PO Q6H PRN PRN Pain 1-10 Or Fever >100.7 Atorvastatin Calcium 80 mg 02/26/25 22:00 Atorvastatin Calcium 80 Mg Tablet PO QHS [facility] Carvedilol 12.5 mg 02/26/25 17:00 Carvedilol 12.5 Mg Tablet PO BIDCM FELIPE Protocol Enoxaparin Sodium 40 mg 02/27/25 10:00 Enoxaparin 40 Mg/0.4 Ml Syringe SC DAILY FELIPE Fluoxetine HCl 40 mg 02/27/25 10:00 Fluoxetine Hcl 40 Mg Capsule PO DAILY [facility] Gabapentin 300 mg 02/26/25 18:00 Gabapentin 300 Mg Capsule PO 4X/DAY FELIPE Glucagon 1 mg 02/26/25 12:44 Glucagon 1 Mg/Ml Syringe IM X1 PRN Hypoglycemia Protocol Insulin Human Lispro 100 unit/ 100 mls @ 8.312 mls/hr 02/26/25 11:15 02/26/25 13:50 Sodium Chloride CONT INF 0.01 units/kg/hr .Q12H2M FELIPE 1 mls/hr Infusion Protocol 0.1 UNITS/KG/HR Dextrose 125 mls @ 999 mls/hr 02/26/25 11:15 Dextrose 10%-Water IV .Q8M PRN HYPOGLYCEMIA Dextrose/Sodium Chloride 1,000 mls @ 150 mls/hr 02/26/25 12:44 02/26/25 14:05 IV 150 mls/hr .Q6H40M PRN Administration Blood Glucose < 250mg/dL Dextrose 250 mls @ 0 mls/hr 02/26/25 12:44 Dextrose 10%-Water IV .Q0M PRN HYPOGLYCEMIA Protocol As Directed Sodium Chloride 250 mls @ 15 mls/hr 02/26/25 13:13 IV .[id number] PRN Saline Flush Sodium Chloride 250 mls @ 15 mls/hr 02/26/25 13:13 IV .[id number] PRN Additional IVPB Infusion Lorazepam 2 mg 02/26/25 15:31 Lorazepam 2 Mg/Ml Syringe IV UD PRN CIWA score >/=15. Protocol Lorazepam 2 mg 02/26/25 15:31 Lorazepam 2 Mg/Ml Syringe IV Q2H PRN PRN CIWA score > 8 but <15 Protocol Lorazepam 2 mg 02/26/25 15:31 Lorazepam 1 Mg Tablet PO UD PRN CIWA score >/=15. Protocol Lorazepam 2 mg 02/26/25 15:31 Lorazepam 1 Mg Tablet PO Q2H PRN PRN CIWA score > 8 but <15 Protocol Morphine Sulfate 2 - 4 mg 02/26/25 12:44 Morphine 2 Mg/Ml Syringe IV Q3H PRN PRN Pain Score 6-10 Morphine Sulfate 2 - 4 mg 02/26/25 12:51 Morphine 4 Mg/Ml Syringe IV Q3H PRN PRN Pain Score 6-10 Nitroglycerin 0.4 mg 02/26/25 12:44 Nitroglycerin (Inpatient Use) 0.4 Mg Tab.Subl SL Q5M PRN CARDIAC/CHEST PAIN Non-Formulary Medication 81 mg 02/27/25 08:00 Aspirin PO DAILY@0800 [facility] Ondansetron HCl 4 mg 02/26/25 12:44 Ondansetron 4 Mg/2 Ml Vial IV Q8H PRN PRN NAUSEA/VOMITING Oxycodone HCl 5 mg 02/26/25 12:44 Oxycodone 5 Mg Tablet PO Q4H PRN PRN Pain Score 4-10 Sodium Chloride 10 - 40 ml 02/26/25 13:13 0.9% Saline Lock 10 Ml Syringe IV UD PRN SALINE FLUSH Sodium Polystyrene Sulfonate 30 gm 02/26/25 15:34 Sodium Polystyrene Sulfonate 15 Gm/60 Ml Udc PO 02/26/25 15:35 X1 ONE Ticagrelor 90 mg 02/26/25 22:00 Ticagrelor 90 Mg Tablet PO BID [facility] Venlafaxine HCl 75 mg 02/27/25 10:00 Venlafaxine Xr 75 Mg Capsule PO DAILY [facility] Physical Exam Const alert and oriented x3 General Appearance: lethargic Orientation / Consciousness: awake Exam Limitations: no limitations HEENT normocephalic and head/scalp atraumatic Nose: external nose normal External Ear: external ears normal Mouth: oral and palatal mucosa normal Eyes PERRL and EOMs intact bilaterally General Eye: normal appearance of both eyes Neck full ROM and nuchal rigidity Chest inspection of chest normal Chest: symmetrical chest wall rise Resp normal respiratory effort Effort and Inspection: able to speak in complete sentences Cardio Rate: tachycardic GI normal to inspection, nondistended, normoactive bowel sounds Lab / Micro Data Attestation: I reviewed the patient's lab results. 02/26/25 10:00 02/26/25 11:20 Labs: Laboratory Results - last 24 hr 02/26/25 09:56: POC Glucose 281 H 02/26/25 10:00: WBC 8.8, RBC 4.83, Hgb 15.5, Hct 46.8, MCV 96.9 H, MCH 32.1 H, MCHC 33.1, RDW Std Deviation 43.8, RDW Coeff of Cassandra 12.2, Plt Count 272, MPV 9.9, Immature Gran % (Auto) 0.600, Neut % (Auto) 84.8 H, Lymph % (Auto) 10.0 L, Ness % (Auto) 4.2, Eos % (Auto) 0.1, Baso % (Auto) 0.3, Absolute Neuts (auto) 7.5, Absolute Lymphs (auto) 0.88, Nucleated RBC % 0, Sodium 125 L, Potassium 5.3 H, Chloride 83 L, Carbon Dioxide 5.1 L*, Anion Gap 37 H, BUN 12, Creatinine 1.22 H, Estim Creat Clear Calc 81.44, Est GFR (MDRD) Non-Af 75, BUN/Creatinine Ratio 9.9 L, Glucose 259 H, Calcium 9.7, Total Bilirubin 0.63, AST 55 H, ALT 51 H, Alkaline Phosphatase 104, Troponin T High Sens 13, Total Protein 9.2 H, Albumin 5.3 H, Globulin 3.9, Albumin/Globulin Ratio 1.4, Lipase 34, b-Hydroxybutyric mmol/L 11.1 H 02/26/25 10:30: Lactic Acid 2.1 H* 02/26/25 11:20: Sodium 124 L, Potassium 5.9 H, Chloride 85 L, Carbon Dioxide 3.6 L*, Anion Gap 36 H, BUN 12, Creatinine 1.16, Estim Creat Clear Calc 85.65, Est GFR (MDRD) Non-Af 79, BUN/Creatinine Ratio 10.4, Glucose 262 H, Calcium 8.8 02/26/25 11:33: Urine Color Yellow, Urine Clarity Sl. Cloudy, Urine pH 5.0, Ur Specific [place] 1.025, Urine Protein 100 H, Urine Glucose (UA) 1000 H, Urine Ketones 150 A*, Urine Occult Blood 150 H, Urine Nitrite Negative, Urine Bilirubin Negative, Urine Urobilinogen Normal, Ur Leukocyte Esterase Negative, Urine RBC 5-10 SEEN, Urine WBC 0 SEEN, Ur Squamous Epith Cells 0-5 SEEN, Urine Bacteria 0 SEEN, Urine Mucus 0 SEEN 02/26/25 12:15: Troponin T Hi Sens 2 Hr 10 02/26/25 12:42: POC Glucose 205 H 02/26/25 13:54: POC Glucose 111 H 02/26/25 14:53: POC Glucose 86 ABG Data ABG results: ABG 02/26/25 02/26/25 10:51 10:58 Specimen Type YOLIE YOLIE Sample Site Not entered Not entered VBG pH 7.04 L* 7.07 L* VBG pO2 48 H 55 H VBG HCO3 5 L 5 L VBG Total CO2 6 L 6 L VBG O2 Sat (Calc) 66 75 H VBG Base Excess -26 L -25 L POC Mix VBG pCO2 Pt Tmp 18.6 L* 17.9 L* O2 Delivery Device Not entered Not entered Crit Call To/Read Back Yes Yes Blood Gas Notified [facility] Blood Gas Notified Time 10:53:35 Imaging Radiology Impression Chest X-Ray 02/26/25 10:30 IMPRESSION: No acute cardiopulmonary process. Reading Location: [facility] Assessment and Plan . Assessment and plan: Assessment/Plan (1) Tachycardia: (2) DKA (diabetic ketoacidoses): (3) SIRS (systemic inflammatory response syndrome): PLAN: Plan #Acute DKA in the setting of type 2 diabetes mellitus normoglycemic DKA known to be associated with SGLT2 inhibitors (Jardiance) agree with approach outlined in Dr. Evans's entry hopefully D5NS will help him be maintained on insulin long enough to close AG, which is markedly elevated #History of alcohol use disorder with risk of withdrawal at risk for withdrawal though pretty far out at this point (1 week per his history) simultaneous alcohol withdrawal could be influencing DKA evolution? #CAD with ischemic cardiomyopathy: S/p stents in February 2024. On aspirin and high intensity statin as well as carvedilol and Brilinta. #Depression: On venlafaxine and fluoxetine. complicating circumstance of losing a son to suicide is noted will pursue additional resources/ support groups available for parents in this situation Critical Care Time: 60 minutes The entirety of this encounter was done via Telemedicine
[2025-02-26 15:45] LABS: Magnesium 1.8 mg/dL (1.5-2.2)
[2025-02-26 16:08] LABS: Anion Gap 29 (5-15); BUN 11 mg/dL (4-19); BUN/Creat Ratio 10.3 RATIO (10-20); Calcium,Total 8.1 mg/dL (7.6-11.0); Carbon Dioxide 4.9 mmol/L (21.0-32.0); Carbon Dioxide 5.0 mmol/L (21.0-32.0); Chloride 96 mmol/L (98-108); Chloride 97 mmol/L (98-108); Estimated Creatinine Clearance 94.43 ml/min (50-250); Glucose 67 mg/dL (70-99); Potassium 4.0 mmol/L (3.3-5.1)
[2025-02-26 16:15] LABS: Troponin T High Sens 4 HR 12 ng/L (<=22)
[2025-02-26] MEDS: 0.9% Saline Lock 10 ML Syringe IV ×2 (17:36→20:02)
[2025-02-26 19:30] LABS: Magnesium 1.7 mg/dL (1.5-2.2)
[2025-02-26 19:54] LABS: Anion Gap 26 (5-15); BUN 9 mg/dL (4-19); BUN/Creat Ratio 9.9 RATIO (10-20); Calcium,Total 8.0 mg/dL (7.6-11.0); Carbon Dioxide 6.4 mmol/L (21.0-32.0); Chloride 97 mmol/L (98-108); Estimated Creatinine Clearance 102.47 ml/min (50-250); Glucose 134 mg/dL (70-99); Potassium 4.4 mmol/L (3.3-5.1)
[2025-02-26 19:55] LABS: Anion Gap 26 (5-15); Carbon Dioxide 6.4 mmol/L (21.0-32.0); Chloride 97 mmol/L (98-108); Potassium 4.4 mmol/L (3.3-5.1)
[2025-02-26] MEDS: TICAGRELOR 90 MG TABLET PO (21:12)
[2025-02-27] VITALS (21 sets, daily range): BP systolic 86–139; BP diastolic 57–90; PULSE 85–116; RESP 12–23; TEMP 36.3–37.1; O2SAT 95–99; BMI 27.4
[2025-02-27 00:09] LABS: Magnesium 1.9 mg/dL (1.5-2.2)
[2025-02-27 00:11] LABS: Anion Gap 28 (5-15); BUN 7 mg/dL (4-19); BUN/Creat Ratio 7.3 RATIO (10-20); Calcium,Total 8.3 mg/dL (7.6-11.0); Carbon Dioxide 4.8 mmol/L (21.0-32.0); Chloride 95 mmol/L (98-108); Estimated Creatinine Clearance 101.39 ml/min (50-250); Glucose 230 mg/dL (70-99); Potassium 4.6 mmol/L (3.3-5.1)
[2025-02-27] MEDS: Insulin Lispro 100 UNIT in 0.9% Normal Saline (100mL Bag) 99 ML 8 UNIT CONT INF (01:06)
[2025-02-27] MEDS: 0.9% Saline Lock 10 ML Syringe IV ×4 (01:10→10:25)
[2025-02-27 02:14] LABS: Hematocrit 36.4 % (40-54); Hemoglobin 12.4 g/dL (13.0-16.5); Immature Granulocytes Count 0.020 X10^3/uL (0.0-0.0); Mean Corp Hgb Conc 34.1 g/dL (32-36); Mean Corpuscular Volume 93.1 fL (80-94); Mean Platelet Vol. 9.4 fl (6.2-12.0); NRBC Flagged by Analyzer 0 % (0-5); Platelet Count 186 K/mm3 (150-450); RBC Distribution Width CV 12.3 % (11.6-14.6); RBC Distribution Width SD 41.5 fl (35.1-43.9); Red Blood Count 3.91 M/mm3 (4.6-6.2); White Blood Count 5.7 K/mm3 (4.4-11.0)
[2025-02-27 03:12] LABS: Anion Gap 18 (5-15); Carbon Dioxide 9.7 mmol/L (21.0-32.0); Chloride 102 mmol/L (98-108); Magnesium 1.8 mg/dL (1.5-2.2); Potassium 3.5 mmol/L (3.3-5.1)
[2025-02-27] MEDS: Potassium Phosphate 45 MM in 0.9% Normal Saline (500mL Bag) 500 ML 85 MM IV (03:37)
[2025-02-27] MEDS: Dext 5%-0.45% NS 1,000 ML 150 ML IV (03:54)
[2025-02-27 06:32] LABS: Anion Gap 13 (5-15); Carbon Dioxide 13.4 mmol/L (21.0-32.0); Chloride 105 mmol/L (98-108); Magnesium 1.8 mg/dL (1.5-2.2); Potassium 3.8 mmol/L (3.3-5.1)
--- NOTE | 2025-02-27 09:20 | PN_ITS ---
Subjective Subjective Patient seen and examined. He had no complaints. His blood sugars have improved and anion gap has closed x 1. His BP is running low in the 80s systolic but he has remained asymptomatic. Review of systems is otherwise negative. Objective Data Objective Data Vital Signs: Vital Signs Temp Pulse Resp BP Pulse Ox O2 Del Method 98.8 F 95 18 86/59 L 95 Room Air 02/27/25 01:00 02/27/25 07:00 02/27/25 07:00 02/27/25 07:00 02/27/25 07:00 02/27/25 07:00 Oxygen Delivery Method Room Air Weight: 192 lb 0.362 oz Body Mass Index (BMI) 27.4 Intake & Output: Intake and Output for Last 24 Hours 02/25/25 02/26/25 02/27/25 23:59 23:59 23:59 Intake Total 4338.26 / 4338.26 1182.93 / 1182.93 Output Total 2200 / 2200 Balance 2138.26 / 2138.26 1182.93 / 1182.93 Lab / Micro Data 02/27/25 02:05 02/27/25 05:57 Labs: Laboratory Results - last 24 hr 02/26/25 09:56: POC Glucose 281 H 02/26/25 10:00: WBC 8.8, RBC 4.83, Hgb 15.5, Hct 46.8, MCV 96.9 H, MCH 32.1 H, MCHC 33.1, RDW Std Deviation 43.8, RDW Coeff of Cassandra 12.2, Plt Count 272, MPV 9.9, Immature Gran % (Auto) 0.600, Neut % (Auto) 84.8 H, Lymph % (Auto) 10.0 L, [place] % (Auto) 4.2, Eos % (Auto) 0.1, Baso % (Auto) 0.3, Absolute Neuts (auto) 7.5, Absolute Lymphs (auto) 0.88, Nucleated RBC % 0, Sodium 125 L, Potassium 5.3 H, Chloride 83 L, Carbon Dioxide 5.1 L*, Anion Gap 37 H, BUN 12, Creatinine 1.22 H, Estim Creat Clear Calc 81.44, Est GFR (MDRD) Non-Af 75, BUN/Creatinine Ratio 9.9 L, Glucose 259 H, Calcium 9.7, Total Bilirubin 0.63, AST 55 H, ALT 51 H, Alkaline Phosphatase 104, Troponin T High Sens 13, Total Protein 9.2 H, Albumin 5.3 H, Globulin 3.9, Albumin/Globulin Ratio 1.4, Lipase 34, b-Hydroxybutyric mmol/L 11.1 H 02/26/25 10:30: Lactic Acid 2.1 H* 02/26/25 11:20: Sodium 124 L, Potassium 5.9 H, Chloride 85 L, Carbon Dioxide 3.6 L*, Anion Gap 36 H, BUN 12, Creatinine 1.16, Estim Creat Clear Calc 85.65, Est GFR (MDRD) Non-Af 79, BUN/Creatinine Ratio 10.4, Glucose 262 H, Calcium 8.8 02/26/25 11:33: Urine Color Yellow, Urine Clarity Sl. Cloudy, Urine pH 5.0, Ur Specific [place] 1.025, Urine Protein 100 H, Urine Glucose (UA) 1000 H, Urine Ketones 150 A*, Urine Occult Blood 150 H, Urine Nitrite Negative, Urine Bilirubin Negative, Urine Urobilinogen Normal, Ur Leukocyte Esterase Negative, Urine RBC 5-10 SEEN, Urine WBC 0 SEEN, Ur Squamous Epith Cells 0-5 SEEN, Urine Bacteria 0 SEEN, Urine Mucus 0 SEEN 02/26/25 12:15: Troponin T Hi Sens 2 Hr 10 02/26/25 12:42: POC Glucose 205 H 02/26/25 13:54: POC Glucose 111 H 02/26/25 14:53: POC Glucose 86 02/26/25 15:15: Troponin T Hi Sens 4Hr 12 02/26/25 15:21: Sodium 130 L 02/26/25 15:21: Sodium 131 L, Potassium 4.0 02/26/25 15:21: Potassium 4.0, Chloride 96 L 02/26/25 15:21: Chloride 97 L, Carbon Dioxide 5.0 L* 02/26/25 15:21: Carbon Dioxide 4.9 L*, Anion Gap 29 H 02/26/25 15:21: Anion Gap 29 H, BUN 11, Creatinine 1.02, Estim Creat Clear Calc 94.43, Est GFR (MDRD) Non-Af 92, BUN/Creatinine Ratio 10.3, Glucose 67 L, Lactic Acid 1.7, Calcium 8.1, Phosphorus 1.3 L*, Magnesium 1.8 02/26/25 15:30: POC Glucose 70 L 02/26/25 16:21: POC Glucose 108 H 02/26/25 17:30: POC Glucose 133 H 02/26/25 18:20: Sodium 129 L 02/26/25 18:20: Sodium 129 L, Potassium 4.4 02/26/25 18:20: Potassium 4.4, Chloride 97 L 02/26/25 18:20: Chloride 97 L, Carbon Dioxide 6.4 L* 02/26/25 18:20: Carbon Dioxide 6.4 L*, Anion Gap 26 H 02/26/25 18:20: Anion Gap 26 H, BUN 9, Creatinine 0.94, Estim Creat Clear Calc 102.47, Est GFR (MDRD) Non-Af 102, BUN/Creatinine Ratio 9.9 L, Glucose 134 H, Calcium 8.0, Phosphorus 1.3 L*, Magnesium 1.7 02/26/25 18:23: POC Glucose 135 H 02/26/25 19:38: POC Glucose 158 H 02/26/25 20:33: POC Glucose 203 H 02/26/25 21:26: POC Glucose 193 H 02/26/25 22:15: Sodium 127 L 02/26/25 22:15: Sodium Cancelled, Potassium 4.6 02/26/25 22:15: Potassium Cancelled, Chloride 95 L 02/26/25 22:15: Chloride Cancelled, Carbon Dioxide 4.8 L* 02/26/25 22:15: Carbon Dioxide Cancelled, Anion Gap 28 H 02/26/25 22:15: Anion Gap Cancelled, BUN 7, Creatinine 0.95, Estim Creat Clear Calc 101.39, Est GFR (MDRD) Non-Af 101, BUN/Creatinine Ratio 7.3 L, Glucose 230 H, Calcium 8.3, Phosphorus 1.9 L 02/26/25 22:15: Phosphorus Cancelled, Magnesium 1.9 02/26/25 22:28: POC Glucose 218 H 02/26/25 23:33: POC Glucose 221 H 02/27/25 00:30: POC Glucose 185 H 02/27/25 01:30: POC Glucose 152 H 02/27/25 02:05: WBC 5.7, RBC 3.91 L, Hgb 12.4 L, Hct 36.4 L, MCV 93.1, MCH 31.7, MCHC 34.1, RDW Std Deviation 41.5, RDW Coeff of Cassandra 12.3, Plt Count 186, MPV 9.4, Immature Gran % (Auto) 0.400, Neut % (Auto) 66.7, Lymph % (Auto) 21.0, [place] % (Auto) 11.1 H, Eos % (Auto) 0.4, Baso % (Auto) 0.4, Absolute Neuts (auto) 3.8, Absolute Lymphs (auto) 1.19, Nucleated RBC % 0, Sodium 129 L, Potassium 3.5, Chloride 102, Carbon Dioxide 9.7 L*, Anion Gap 18 H, Hemoglobin A1c 11.6 H, P hosphorus 0.6 L*, Magnesium 1.8 02/27/25 02:36: POC Glucose 125 H 02/27/25 03:32: POC Glucose 112 H 02/27/25 04:27: POC Glucose 97 02/27/25 05:29: POC Glucose 74 02/27/25 05:52: POC Glucose 67 L 02/27/25 05:57: Sodium 132 L, Potassium 3.8, Chloride 105, Carbon Dioxide 13.4 L , Anion Gap 13, Phosphorus 1.7 L, Magnesium 1.8 02/27/25 06:20: POC Glucose 169 H 02/27/25 07:46: POC Glucose 143 H 02/27/25 08:53: POC Glucose 125 H ABG Data ABG results: ABG 02/26/25 02/26/25 10:51 10:58 Specimen Type YOLIE YOLIE Sample Site Not entered Not entered VBG pH 7.04 L* 7.07 L* VBG pO2 48 H 55 H VBG HCO3 5 L 5 L VBG Total CO2 6 L 6 L VBG O2 Sat (Calc) 66 75 H VBG Base Excess -26 L -25 L POC Mix VBG pCO2 Pt Tmp 18.6 L* 17.9 L* O2 Delivery Device Not entered Not entered Crit Call To/Read Back Yes Yes Blood Gas Notified Whom [facility]aris Blood Gas Notified Time 10:53:35 Radiography Diagnostic Testing: Radiology Impression Chest X-Ray 02/26/25 10:30 IMPRESSION: No acute cardiopulmonary process. Reading Location: [facility] Physical Exam Const alert and oriented x3 Constitutional Narrative: flat affect General Appearance: cooperative HEENT normocephalic, head/scalp atraumatic and hearing grossly normal bilaterally Eyes PERRL, EOMs intact bilaterally and conjunctivae normal Neck supple and no JVD Resp normal respiratory effort, normal air movement, no retractions, no use of accessory muscles and clear to auscultation bilaterally Cardio regular rate, regular rhythm, S1 normal heart sound, S2 normal heart sound and no murmurs GI normal to inspection, nondistended, normoactive bowel sounds Extremity normal to inspection, full ROM and no clubbing, cyanosis or edema Neuro oriented x3, CN's II-XII intact bilaterally, moves all extremities and no focal motor deficits Sensorium / Orientation: awake and alert Motor Exam: general weakness Psych thought process normal and cooperative Mood & Affect: depressed Assessment & Plan Assessment/Plan (1) Tachycardia: (2) DKA (diabetic ketoacidoses): (3) SIRS (systemic inflammatory response syndrome): PLAN: Plan #Acute DKA in the setting of type 2 diabetes mellitus * admitted with a complaint of nausea, vomiting and lethargy. He therefore did not take his insulin for the past few days * he also drinks alcohol and says his last drink was about a week ago, with him usually having 6 drinks a day * admit to ICU. Is tachycardic, tachypneic * anion gap has closed x 1 and bicarb is 13.4. Anion gap is 13. * On insulin drip. Manage as per DKA protocol. * Keep n.p.o. for now. * BMP q2hrly * per nursing, pharmaceutical scientist thinks the jardiance and ozempic is causing the DKA and so does not think the ABG is needed. Further management as per pharmaceutical scientist. Ozempic and jardiance on hold. * #Hyperkalemia: resolved. K is 3.8 after he took kayexalate #Hyponatremia: This likely pseudohyponatremia in light of the hyperglycemia. Sodium is 132 today. Will continue to monitor. #History of alcohol use disorder with risk of withdrawal * Patient does have a history of alcohol use disorder and says he usually drank about 6 alcoholic drinks a day. His last 1 was about a week ago. He is therefore within the window for withdrawal. He is tachycardic and tachypneic but this could also be due to the DKA. His initial symptoms of * Lethargy and nausea could also have been due to possible withdrawal. * As a precaution will place on [facility] protocol for now and monitor. #CAD with ischemic cardiomyopathy: S/p stents in February 2024. On aspirin and high intensity statin as well as carvedilol and Brilinta. #Depression: * On venlafaxine and fluoxetine. * His sister was with him inquired whether patient could be sent to an inpatient psych facility. * I counseled her that the acute reason for his admission was depression and so this would be something that he would likely have to follow-up with on outpatient basis with his PCP. * DVT prophylaxis: lovenox Code status: full code * Charges/Coding Visit Charges Inpatient E&M: 38802 Subs Hosp L2
[2025-02-27] MEDS: TICAGRELOR 90 MG TABLET PO ×2 (10:22→22:24)
[2025-02-27] MEDS: Aspirin E.C. 81 MG Tablet PO (10:22)
--- NOTE | 2025-02-27 10:37 | PN.CC_ITS ---
Objective Data Objective Data Vital Signs: Vital Signs Last response 3 Temperature 37.1 C 02/27/25 01:00 Temperature Source Temporal 02/27/25 01:00 Pulse Rate 95 02/27/25 07:00 Pulse Strength Normal (2+) 02/26/25 21:00 Respiratory Rate 18 02/27/25 07:00 Respiratory Effort Normal, Non-Labored 02/27/25 04:00 Respiratory Depth Normal 02/27/25 04:00 Respiratory Pattern Tachypnea 02/27/25 04:00 Blood Pressure 86/59 L 02/27/25 07:00 Blood Pressure Mean 68 02/27/25 07:00 Blood Pressure Source Monitor 02/27/25 07:00 Blood Pressure Position Supine 02/27/25 07:00 Blood Pressure Location Right Arm 02/27/25 07:00 Pulse Ox 95 02/27/25 07:00 Oxygen Delivery Method Room Air 02/27/25 07:00 I&O: I&O Last 24 Hours 3 02/26/25 02/26/25 02/27/25 11:59 23:59 11:59 Intake Total 1000 / 4338.26 3338.26 / 4338.26 1182.93 / 1182.93 Output Total 2200 / 2200 Balance 1000 / 2138.26 1138.26 / 2138.26 1182.93 / 1182.93 I&O: Total Stay 3 02/26/25 09:49 thru 02/27/25 10:00 Intake Total 5521.19 Output Total 2200 Balance 3321.19 Current Meds Ordered / Administered: Current meds ordered / Administered 3 Generic Name Dose Route Start Last Admin Trade Name Milly PRN Reason Stop Dose Admin Acetaminophen 650 mg 02/26/25 12:44 Acetaminophen 325 Mg Tablet PO Q6H PRN PRN Pain 1-10 Or Fever >100.7 Aspirin 81 mg 02/27/25 08:00 02/27/25 10:22 Aspirin E.C. 81 Mg Tablet PO 81 mg BREAKFAST FELIPE Administration Atorvastatin Calcium 80 mg 02/26/25 22:00 02/26/25 21:12 Atorvastatin Calcium 80 Mg Tablet PO 80 mg QHS FELIPE Administration Carvedilol 12.5 mg 02/26/25 17:00 02/27/25 10:22 Carvedilol 12.5 Mg Tablet PO 12.5 mg BIDCM FELIPE Administration Protocol Enoxaparin Sodium 40 mg 02/27/25 10:00 02/27/25 10:25 Enoxaparin 40 Mg/0.4 Ml Syringe SC 40 mg DAILY FELIPE Administration Gabapentin 300 mg 02/26/25 18:00 02/27/25 10:24 Gabapentin 300 Mg Capsule PO 300 mg 4X/DAY FELIPE Administration Glucagon 1 mg 02/26/25 12:44 Glucagon 1 Mg/Ml Syringe IM X1 PRN Hypoglycemia Protocol Insulin Human Lispro 100 unit/ 100 mls @ 8.312 mls/hr 02/26/25 11:15 02/27/25 08:56 Sodium Chloride CONT INF 0.02 units/kg/hr .Q12H2M FELIPE 2 mls/hr Infusion Protocol 0.1 UNITS/KG/HR Dextrose 125 mls @ 999 mls/hr 02/26/25 11:15 02/27/25 06:25 Dextrose 10%-Water IV Infused .Q8M PRN Infusion HYPOGLYCEMIA Dextrose/Sodium Chloride 1,000 mls @ 150 mls/hr 02/26/25 12:44 02/27/25 03:54 IV 150 mls/hr .Q6H40M PRN Administration Blood Glucose < 250mg/dL Dextrose 250 mls @ 0 mls/hr 02/26/25 12:44 02/26/25 19:53 Dextrose 10%-Water IV Infused .Q0M PRN Infusion HYPOGLYCEMIA Protocol As Directed Sodium Chloride 250 mls @ 15 mls/hr 02/26/25 13:13 IV .[id number] PRN Saline Flush Sodium Chloride 250 mls @ 15 mls/hr 02/26/25 13:13 IV .[id number] PRN Additional IVPB Infusion Sodium Phosphate 15 mmol/ 255 mls @ 125 mls/hr 02/27/25 09:40 Sodium Chloride IV 02/27/25 11:42 X1 ONE Lorazepam 2 mg 02/26/25 15:31 Lorazepam 2 Mg/Ml Wch Syringe IV UD PRN CIWA score >/=15. Protocol Lorazepam 2 mg 02/26/25 15:31 Lorazepam 2 Mg/Ml Wch Syringe IV Q2H PRN PRN CIWA score > 8 but <15 Protocol Lorazepam 2 mg 02/26/25 15:31 Lorazepam 1 Mg Tablet PO UD PRN CIWA score >/=15. Protocol Lorazepam 2 mg 02/26/25 15:31 Lorazepam 1 Mg Tablet PO Q2H PRN PRN CIWA score > 8 but <15 Protocol Morphine Sulfate 2 - 4 mg 02/26/25 12:44 Morphine 2 Mg/Ml Syringe IV Q3H PRN PRN Pain Score 6-10 Morphine Sulfate 2 - 4 mg 02/26/25 12:51 Morphine 4 Mg/Ml Syringe IV Q3H PRN PRN Pain Score 6-10 Nitroglycerin 0.4 mg 02/26/25 12:44 Nitroglycerin (Inpatient Use) 0.4 Mg Tab.Subl SL Q5M PRN CARDIAC/CHEST PAIN Ondansetron HCl 4 mg 02/26/25 12:44 02/26/25 20:02 Ondansetron 4 Mg/2 Ml Vial IV 4 mg Q8H PRN PRN Administration NAUSEA/VOMITING Oxycodone HCl 5 mg 02/26/25 12:44 Oxycodone 5 Mg Tablet PO Q4H PRN PRN Pain Score 4-10 Sodium Chloride 10 - 40 ml 02/26/25 13:13 02/27/25 10:25 0.9% Saline Lock 10 Ml Syringe IV 20 ml UD PRN Administration SALINE FLUSH Ticagrelor 90 mg 02/26/25 22:00 02/27/25 10:22 Ticagrelor 90 Mg Tablet PO 90 mg BID FELIPE Administration Venlafaxine HCl 75 mg 02/27/25 10:00 02/27/25 10:23 Venlafaxine Xr 75 Mg Capsule PO 75 mg DAILY FELIPE Administration Lab / Micro Data Attestation: I reviewed the patient's lab results. 02/27/25 02:05 02/27/25 05:57 Labs: Laboratory Results - last 24 hr 02/26/25 10:00: Sodium 125 L, Potassium 5.3 H, Chloride 83 L, Carbon Dioxide 5.1 L*, Anion Gap 37 H, BUN 12, Creatinine 1.22 H, Estim Creat Clear Calc 81.44, Est GFR (MDRD) Non-Af 75, BUN/Creatinine Ratio 9.9 L, Glucose 259 H, Calcium 9.7, Total Bilirubin 0.63, AST 55 H, ALT 51 H, Alkaline Phosphatase 104, Troponin T High Sens 13, Total Protein 9.2 H, Albumin 5.3 H, Globulin 3.9, Albumin/Globulin Ratio 1.4, Lipase 34, b-Hydroxybutyric mmol/L 11.1 H 02/26/25 10:30: Lactic Acid 2.1 H* 02/26/25 11:20: Sodium 124 L, Potassium 5.9 H, Chloride 85 L, Carbon Dioxide 3.6 L*, Anion Gap 36 H, BUN 12, Creatinine 1.16, Estim Creat Clear Calc 85.65, Est GFR (MDRD) Non-Af 79, BUN/Creatinine Ratio 10.4, Glucose 262 H, Calcium 8.8 02/26/25 11:33: Urine Color Yellow, Urine Clarity Sl. Cloudy, Urine pH 5.0, Ur Specific [place] 1.025, Urine Protein 100 H, Urine Glucose (UA) 1000 H, Urine Ketones 150 A*, Urine Occult Blood 150 H, Urine Nitrite Negative, Urine Bilirubin Negative, Urine Urobilinogen Normal, Ur Leukocyte Esterase Negative, Urine RBC 5-10 SEEN, Urine WBC 0 SEEN, Ur Squamous Epith Cells 0-5 SEEN, Urine Bacteria 0 SEEN, Urine Mucus 0 SEEN 02/26/25 12:15: Troponin T Hi Sens 2 Hr 10 02/26/25 12:42: POC Glucose 205 H 02/26/25 13:54: POC Glucose 111 H 02/26/25 14:53: POC Glucose 86 02/26/25 15:15: Troponin T Hi Sens 4Hr 12 02/26/25 15:21: Sodium 130 L 02/26/25 15:21: Sodium 131 L, Potassium 4.0 02/26/25 15:21: Potassium 4.0, Chloride 96 L 02/26/25 15:21: Chloride 97 L, Carbon Dioxide 5.0 L* 02/26/25 15:21: Carbon Dioxide 4.9 L*, Anion Gap 29 H 02/26/25 15:21: Anion Gap 29 H, BUN 11, Creatinine 1.02, Estim Creat Clear Calc 94.43, Est GFR (MDRD) Non-Af 92, BUN/Creatinine Ratio 10.3, Glucose 67 L, Lactic Acid 1.7, Calcium 8.1, Phosphorus 1.3 L*, Magnesium 1.8 02/26/25 15:30: POC Glucose 70 L 02/26/25 16:21: POC Glucose 108 H 02/26/25 17:30: POC Glucose 133 H 02/26/25 18:20: Sodium 129 L 02/26/25 18:20: Sodium 129 L, Potassium 4.4 02/26/25 18:20: Potassium 4.4, Chloride 97 L 02/26/25 18:20: Chloride 97 L, Carbon Dioxide 6.4 L* 02/26/25 18:20: Carbon Dioxide 6.4 L*, Anion Gap 26 H 02/26/25 18:20: Anion Gap 26 H, BUN 9, Creatinine 0.94, Estim Creat Clear Calc 102.47, Est GFR (MDRD) Non-Af 102, BUN/Creatinine Ratio 9.9 L, Glucose 134 H, Calcium 8.0, Phosphorus 1.3 L*, Magnesium 1.7 02/26/25 18:23: POC Glucose 135 H 02/26/25 19:38: POC Glucose 158 H 02/26/25 20:33: POC Glucose 203 H 02/26/25 21:26: POC Glucose 193 H 02/26/25 22:15: Sodium 127 L 02/26/25 22:15: Sodium Cancelled, Potassium 4.6 02/26/25 22:15: Potassium Cancelled, Chloride 95 L 02/26/25 22:15: Chloride Cancelled, Carbon Dioxide 4.8 L* 02/26/25 22:15: Carbon Dioxide Cancelled, Anion Gap 28 H 02/26/25 22:15: Anion Gap Cancelled, BUN 7, Creatinine 0.95, Estim Creat Clear Calc 101.39, Est GFR (MDRD) Non-Af 101, BUN/Creatinine Ratio 7.3 L, Glucose 230 H, Calcium 8.3, Phosphorus 1.9 L 02/26/25 22:15: Phosphorus Cancelled, Magnesium 1.9 02/26/25 22:28: POC Glucose 218 H 02/26/25 23:33: POC Glucose 221 H 02/27/25 00:30: POC Glucose 185 H 02/27/25 01:30: POC Glucose 152 H 02/27/25 02:05: WBC 5.7, RBC 3.91 L, Hgb 12.4 L, Hct 36.4 L, MCV 93.1, MCH 31.7, MCHC 34.1, RDW Std Deviation 41.5, RDW Coeff of Cassandra 12.3, Plt Count 186, MPV 9.4, Immature Gran % (Auto) 0.400, Neut % (Auto) 66.7, Lymph % (Auto) 21.0, [place] % (Auto) 11.1 H, Eos % (Auto) 0.4, Baso % (Auto) 0.4, Absolute Neuts (auto) 3.8, Absolute Lymphs (auto) 1.19, Nucleated RBC % 0, Sodium 129 L, Potassium 3.5, Chloride 102, Carbon Dioxide 9.7 L*, Anion Gap 18 H, Hemoglobin A1c 11.6 H, P hosphorus 0.6 L*, Magnesium 1.8 02/27/25 02:36: POC Glucose 125 H 02/27/25 03:32: POC Glucose 112 H 02/27/25 04:27: POC Glucose 97 02/27/25 05:29: POC Glucose 74 02/27/25 05:52: POC Glucose 67 L 02/27/25 05:57: Sodium 132 L, Potassium 3.8, Chloride 105, Carbon Dioxide 13.4 L , Anion Gap 13, Phosphorus 1.7 L, Magnesium 1.8 02/27/25 06:20: POC Glucose 169 H 02/27/25 07:46: POC Glucose 143 H 02/27/25 08:53: POC Glucose 125 H ABG Data ABG results: ABG 02/26/25 02/26/25 10:51 10:58 Specimen Type YOLIE YOLIE Sample Site Not entered Not entered VBG pH 7.04 L* 7.07 L* VBG pO2 48 H 55 H VBG HCO3 5 L 5 L VBG Total CO2 6 L 6 L VBG O2 Sat (Calc) 66 75 H VBG Base Excess -26 L -25 L POC Mix VBG pCO2 Pt Tmp 18.6 L* 17.9 L* O2 Delivery Device Not entered Not entered Crit Call To/Read Back Yes Yes Blood Gas Notified Whom [facility] Blood Gas Notified Time 10:53:35 Imaging Radiology Impression Chest X-Ray 02/26/25 10:30 IMPRESSION: No acute cardiopulmonary process. Reading Location: [facility] Assessment and Plan . Assessment and plan: #DKA relatively normoglycemic - suspect related to jardiance - metabolic derangements all resolving #alcohol use disorder, stopped rinking 1 week RN REFERRAL #depression related to son's suicide Suggest: 1. avoid Jardiance 2. transition to SQ insulin 3. defer half-way treatment of DM to hospitlaist team 4. provided referral info for support of parents who have lost children ([employer]) Critical Care Time: 50 minutes The entirety of this encounter was done via Telemedicine Physical Exam Const alert, oriented x3 and no apparent distress HEENT normocephalic Eyes PERRL and EOMs intact bilaterally Resp normal respiratory effort Subjective Subjective looks good, no new complaints
[2025-02-27 11:00] LABS: Anion Gap 14 (5-15); BUN 6 mg/dL (4-19); BUN/Creat Ratio 7.1 RATIO (10-20); Calcium,Total 8.4 mg/dL (7.6-11.0); Carbon Dioxide 14.7 mmol/L (21.0-32.0); Chloride 104 mmol/L (98-108); Estimated Creatinine Clearance 118.91 ml/min (50-250); Glucose 124 mg/dL (70-99); Magnesium 1.9 mg/dL (1.5-2.2); Potassium 3.8 mmol/L (3.3-5.1)
[2025-02-27] MEDS: Insulin Glargine-YFGN 100 UNIT/ML Pen 15 UNIT SC (12:00)
[2025-02-27] MEDS: Sodium Phosphate/Na Biphos 15 MMOL in 0.9% Normal Saline (250mL Bag) 250 ML 125 MMOL IV (13:05)
[2025-02-28 03:31] VITALS: BP 105/70; PULSE 88; RESP 15; TEMP 36.6; O2SAT 99
[2025-02-28 04:33] VITALS: BP 105/70; PULSE 93; RESP 15; TEMP 37.1; O2SAT 99
[2025-02-28 06:00] VITALS: BMI 26.7
[2025-02-28 06:28] LABS: Hematocrit 33.4 % (40-54); Hemoglobin 11.6 g/dL (13.0-16.5); Immature Granulocytes Count 0.010 X10^3/uL (0.0-0.0); Mean Corp Hgb Conc 34.7 g/dL (32-36); Mean Corpuscular Volume 92.8 fL (80-94); Mean Platelet Vol. 10.0 fl (6.2-12.0); NRBC Flagged by Analyzer 0 % (0-5); Platelet Count 149 K/mm3 (150-450); RBC Distribution Width CV 12.5 % (11.6-14.6); RBC Distribution Width SD 43.2 fl (35.1-43.9); Red Blood Count 3.60 M/mm3 (4.6-6.2); White Blood Count 2.8 K/mm3 (4.4-11.0)
[2025-02-28 06:44] LABS: Anion Gap 16 (5-15); BUN 7 mg/dL (4-19); BUN/Creat Ratio 9.9 RATIO (10-20); Calcium,Total 8.8 mg/dL (7.6-11.0); Carbon Dioxide 16.2 mmol/L (21.0-32.0); Chloride 101 mmol/L (98-108); Estimated Creatinine Clearance 139.59 ml/min (50-250); Glucose 211 mg/dL (70-99); Magnesium 1.9 mg/dL (1.5-2.2); Potassium 3.4 mmol/L (3.3-5.1)
[2025-02-28 07:30] VITALS: BP 97/65; PULSE 104; RESP 16; TEMP 36.7; O2SAT 99
[2025-02-28] MEDS: TICAGRELOR 90 MG TABLET PO (09:18)
[2025-02-28] MEDS: Aspirin E.C. 81 MG Tablet PO (09:18)
[2025-02-28] MEDS: Insulin Glargine-YFGN 100 UNIT/ML Pen 15 UNIT SC (09:19)
--- NOTE | 2025-02-28 10:50 | CASEMGMT ---
SIDNEY LUJAN Assessment Face to Face with patient for initial transition planning/care coordination assessment. SIDNEY LUJAN introduced self and role at [facility], pt voices understanding. Pt is A&Ox4 and is resting comfortably in bed and is calm. Care providers, pharmacy, and demographics verified. Admitting dx: DKA LACE Strata: 3 PCP: Yvonne Specialists: [facility] Preferred Pharmacy: [facility] Insurance: [facility] Prescription Benefit: Yes LNOK: Shannon (W)Iqra (Sister) Living Arrangements: Pt lives with his and 3 children (Ages 18, 14, and 3) in a 2 story home with one step to enter ADLs/IADLs: Indep. PT is not recommending any additional therapy Transportation: Self, DME: Pt states that he did not take any of his insulin x 3 days because he was too sick. Pt states that he has all of the equipment needed to care for his DM including: Manual BGM with test strips, lancets, EtOH swabs, and Pen needles for insulin shots. Pt also reports that he has BP Machine that also checks his pulse. HHC/SNF: Pt has a hx with CCN but denies the current need EtOH hx: Pt reports that he was drinking 6 drinks per day but recently quit x 1 week ago. Denies wanting any SW follow up for cessation resources. Pt states that he plans to continue counseling as an OP Pt?s goal: Home Plan: Home with family once medically ready. Pt states that he feels safe returning home with his family and denies further questions, concerns, or needs at this time. Report given to NIESHA LITTLE CM. Angelica Ospina RN, CM
[2025-02-28 11:31] VITALS: BP 126/74; PULSE 89; RESP 16; TEMP 36.4; O2SAT 97
--- NOTE | 2025-02-28 12:02 | DCINST_ITS ---
Discharge Instructions DC O2, CPAP, BIPAP needs Home O2 Discharge instructions: No Dressing / Incision Discharge Activity: Return to Normal Activity Weight Bearing Status: Weight bearing as tolerated Dressing / Incision Call your doctor if you observe: Fever of 101 or Higher, Shortness of breath, Dizziness, Swelling in the ankles and Chest pain Follow Up Care Test Results: Test results from this visit will be discussed in further detail at your follow- up appointment, if applicable. Discharge Plan Admission Admit Date/Time: 02/26/25 11:36 Primary Reason for Your Visit: DKA Attending Provider: Isabel Evans Primary Care Provider: Kirk Russell Instructions Patient Instructions: Ketoacidosis Ch Discharge Orders/Prescriptions Prescriptions: Continued insulin lispro [Humalog KwikPen Insulin] 100 unit/mL Insulin Pen 10 unit subcut TIDAC 30 Days Qty: 15 4RF Rx Instructions: Hold if glucose less than 130 mg/dl insulin lispro [Humalog KwikPen Insulin] 100 unit/mL Insulin Pen See Protocol subcut ACHS Qty: 0 0RF Protocol: 3. Sliding Scale Insulin Med Dosing Condition: 150-189 mg/dl = 1 unit Condition: 190-229 mg/dl = 2 units Condition: 230-269 mg/dl = 3 units Condition: 270-309 mg/dl = 4 units Condition: 310-349 mg/dl = 5 units Condition: 350-399 mg/dl = 6 units Condition: 400-449 mg/dl = 7 units Condition: Greater than 449 call physician Protocol Text: Suggested for: - Patients on Total Daily Insulin Dose of 37-55 units - Obese, infected, or steroid patients MEDIUM DOSING ALGORITHIM insulin glargine [Lantus Solostar U-100 Insulin] 100 unit/mL (3 mL) insulin pen 20 unit subcut DAILY 30 Days Qty: 15 3RF Rx Instructions: Hold if glucose less than 130 mg/dl metformin 1,000 mg tablet 1,000 mg PO BID 30 Days Qty: 0 0RF Rx Instructions: Start after 3 days, on 03/01/2020 (DME) needle (disp) 32 gauge 32 gauge x 5/16 needle See Rx Instructions .ROUTE .MEDSUPPLY Qty: 100 2RF Rx Instructions: As directed fluoxetine 40 mg capsule 40 mg PO DAILY venlafaxine 75 mg capsule,extended release 24hr 75 mg PO DAILY gabapentin 300 mg capsule 300 mg PO 4X/DAY carvedilol 12.5 mg tablet 12.5 mg PO BID Qty: 60 11RF Rx Instructions: must administer with a meal/food atorvastatin 80 mg tablet 80 mg PO QHS Qty: 90 3RF aspirin 81 mg tablet,delayed release (DR/EC) 81 mg PO DAILY@0800 Qty: 90 3RF furosemide 20 mg tablet 20 mg PO DAILY Qty: 90 3RF lisinopril 2.5 mg tablet 2.5 mg PO DAILY 30 Days Qty: 90 3RF spironolactone 25 mg tablet 25 mg PO DAILY Qty: 90 3RF Rx Instructions: Hold for serum potassium more than 5.1. Brilinta 90 mg tablet 90 mg PO BID Qty: 60 11RF Discontinued Ozempic 0.25 mg or 0.5 mg (2 mg/3 mL) pen injector 0.25 mg subcut QWEEK Jardiance 10 mg tablet 10 mg PO DAILY 30 Days Qty: 30 11RF Referrals / Follow Up: Kirk Russell MD [Primary Care Provider] - Within 1 Week Disposition Disposition (needs filled in before D/C Order can be placed): Home, Self Care
--- NOTE | 2025-02-28 12:07 | PCM.DC.SUM ---
Providers Date of Admission: 02/26/25 Date of Discharge: 02/28/25 Primary Care Physician: Kirk Russell MD Consultations 02/26/25 14:55 Consult: Correctional Treatment Specialist / Pulmonary Medicine Routine Consulting Provider: Intensivists/Pulmonary Med Reason for Consult: DKA EMERGENT Consult: No MD Notified: Yes Date Notified: 02/26/25 Time Notified: 14:55 Method of Notification: Answering Service Reason For Visit: DKA Diagnosis Discharge Diagnosis (1) Tachycardia: Status: Acute Code(s): R00.0 - Tachycardia, unspecified (2) DKA (diabetic ketoacidoses): Status: Acute Code(s): E11.10 - Type 2 diabetes mellitus with ketoacidosis without coma (3) SIRS (systemic inflammatory response syndrome): Status: Acute Code(s): R65.10 - Systemic inflammatory response syndrome (SIRS) of non-infectious origin without acute organ dysfunction Plan #Acute DKA in the setting of type 2 diabetes mellitus admitted with a complaint of nausea, vomiting and lethargy. He therefore did not take his insulin for the past few days he also drinks alcohol and says his last drink was about a week ago, with him usually having 6 drinks a day admit to ICU. Is tachycardic, tachypneic anion gap has closed x 1 and bicarb is 13.4. Anion gap is 13. On insulin drip. Manage as per DKA protocol. Keep n.p.o. for now. BMP q2hrly per nursing, radiologic technology instructor thinks the jardiance and ozempic is causing the DKA and so does not think the ABG is needed. Further management as per radiologic technology instructor. Ozempic and jardiance on hold. #Hyperkalemia: resolved. K is 3.8 after he took kayexalate #Hyponatremia: This likely pseudohyponatremia in light of the hyperglycemia. Sodium is 132 today. Will continue to monitor. #History of alcohol use disorder with risk of withdrawal Patient does have a history of alcohol use disorder and says he usually drank about 6 alcoholic drinks a day. His last 1 was about a week ago. He is therefore within the window for withdrawal. He is tachycardic and tachypneic but this could also be due to the DKA. His initial symptoms of Lethargy and nausea could also have been due to possible withdrawal. As a precaution will place on [facility] protocol for now and monitor. #CAD with ischemic cardiomyopathy: S/p stents in February 2024. On aspirin and high intensity statin as well as carvedilol and Brilinta. #Depression: On venlafaxine and fluoxetine. His sister was with him inquired whether patient could be sent to an inpatient psych facility. I counseled her that the acute reason for his admission was depression and so this would be something that he would likely have to follow-up with on outpatient basis with his PCP. DVT prophylaxis: lovenox Code status: full code Medications at Discharge Home Medications insulin glargine 100 unit/mL (3 mL) subcutaneous pen (Lantus Solostar U-100 Insulin) 20 unit (0.2 mL) subcut DAILY 1 month #15 mL 02/27/24 insulin lispro 100 unit/mL subcutaneous pen (Humalog KwikPen (U-100) Insulin) 10 unit (0.1 mL) subcut TIDAC 1 month #15 mL 02/27/24 insulin lispro 100 unit/mL subcutaneous pen (Humalog KwikPen (U-100) Insulin) See Protocol subcut ACHS #0 mL 02/27/24 metformin 1,000 mg tablet 1,000 mg PO BID 30 days #0 tabs 02/27/24 needle (disp) 32 gauge 32 gauge x 5/16 #100 ea 02/27/24 carvedilol 12.5 mg tablet 12.5 mg PO BID dose increased again for fast heart rate #60 tabs 06/01/24 aspirin 81 mg tablet,delayed release 81 mg PO DAILY@0800 #90 tabs 06/21/24 atorvastatin 80 mg tablet 80 mg PO QHS #90 tabs 06/21/24 furosemide 20 mg tablet 20 mg PO DAILY #90 tabs 06/21/24 lisinopril 2.5 mg tablet 2.5 mg PO DAILY 30 days #90 tabs 06/21/24 spironolactone 25 mg tablet 25 mg PO DAILY #90 tabs 06/21/24 ticagrelor 90 mg tablet (Brilinta) 90 mg PO BID #60 tabs 06/21/24 fluoxetine 40 mg capsule 40 mg PO DAILY 02/26/25 gabapentin 300 mg capsule 300 mg PO 4X/DAY 02/26/25 venlafaxine 75 mg capsule,extended release 24 hr 75 mg PO DAILY nausea 02/26/25 Hospital Course Operations None Procedures None Summary of Care Provided Minutes Spent on Discharge: 45 Hospital Course: LORETTA NUNEZ, is a 44 M with a PMH as outlined who presents via the ED on 02/26/2025 with a complaint of nausea, vomiting and weakness as well as elevated blood sugar. He has a history of type 2 diabetes mellitus and has not taken his insulin for 3 days. He denied any dizziness, nausea, vomiting, palpitations or any other symptoms. Review of systems is otherwise negative. He decided to come into the ED. Vitals in the ED were blood pressure of 173/103, pulse rate of 127 and respiratory rate of 28 with temperature of 98 Fahrenheit. He was saturating at 100% on room air. CBC showed hemoglobin of 15.5 with WBC of 8.8 and platelets of 272. VBG showed pH of 7.07 with pCO2 of 6. Chemistry done showed sodium of 124 with potassium of 5.9 and chloride of 85 with bicarb of 3.6 and anion gap of 36. Creatinine was 1.16. Lactic acid was 2.1. He admitted to a history of heavy drinking though he said he had quit. On probing further he said he drank about 6 drinks daily and quit about a week ago. He was admitted to the ICU to be managed for acute DKA. He was started on the insulin drip. He was also aggressively hydrated with IV fluids. Anion gap eventually closed. Correctional Treatment Specialist was consulted and felt it was likely his Ozempic and Jardiance which was causing the DKA. These were therefore discontinued. Patient's anion gap eventually closed and was transferred out of the ICU after he was placed on subcu insulin. He was continue with subcu Lantus 20 units daily as well as insulin sliding scale and his metformin 1000 mg twice daily. He is follow-up with his primary care doctor within 1 to 2 weeks and also to follow-up with his psychiatrist for his depression as scheduled. Patient seen and examined prior to discharge. He had no active complaints and felt ready to go home. Labs and vitals reviewed. Review of symptoms otherwise negative. Home medications reviewed and reconciled. Physical Exam Const alert and oriented x3 Constitutional Narrative: flat affect General Appearance: cooperative and comfortable Orientation / Consciousness: lethargic HEENT normocephalic, head/scalp atraumatic and hearing grossly normal bilaterally Mouth: oral and palatal mucosa normal Eyes PERRL, EOMs intact bilaterally and conjunctivae normal Neck supple and no JVD Resp normal respiratory effort, normal air movement, no retractions, no use of accessory muscles and clear to auscultation bilaterally Cardio regular rate, regular rhythm, S1 normal heart sound, S2 normal heart sound and no murmurs GI normal to inspection, nondistended, normoactive bowel sounds, soft to palpation, non-tender and non-distended Extremity normal to inspection, full ROM and no clubbing, cyanosis or edema Skin no rashes or lesions noted Neuro oriented x3, CN's II-XII intact bilaterally, moves all extremities and no focal motor deficits Sensorium / Orientation: awake and alert Motor Exam: strength 5/5 throughout and general weakness Psych thought process normal and cooperative Mood & Affect: depressed Weight / BMI Weight Weight: 186 lb 15.232 oz Body Mass Index (BMI) 26.7 ABG / Lab / Microbiology Data 02/28/25 05:58 02/28/25 05:58 Laboratory: Laboratory Results - last 24 hr 02/27/25 16:37: POC Glucose 216 H 02/27/25 22:26: POC Glucose 210 H 02/28/25 05:58: WBC 2.8 L, RBC 3.60 L, Hgb 11.6 L, Hct 33.4 L, MCV 92.8, MCH 32.2 H, MCHC 34.7, RDW Std Deviation 43.2, RDW Coeff of Cassandra 12.5, Plt Count 149 L, MPV 10.0, Immature Gran % (Auto) 0.400, Neut % (Auto) 45.6 L, Lymph % (Auto) 40.0, Meigs % (Auto) 10.4 H, Eos % (Auto) 2.9, Baso % (Auto) 0.7, Absolute Neuts (auto) 1.3 L, Absolute Lymphs (auto) 1.12, Nucleated RBC % 0, Sodium 133, Potassium 3.4, Chloride 101, Carbon Dioxide 16.2 L, Anion Gap 16 H, BUN 7, Creatinine 0.69 L, Estim Creat Clear Calc 139.59, Est GFR (MDRD) Non-Af 116, BUN/Creatinine Ratio 9.9 L, Glucose 211 H, Calcium 8.8, Phosphorus 2.3 L, Magnesium 1.9 02/28/25 06:32: POC Glucose 227 H 02/28/25 12:08: POC Glucose 231 H ABG: ABG 02/26/25 10:58 Specimen Type Cancelled Sample Site Cancelled O2 % Cancelled VBG pH Cancelled VBG pH (Temp Correct) Cancelled VBG pCO2 (Temp Corrct Cancelled VBG pO2 Cancelled VBG HCO3 Cancelled VBG Total CO2 Cancelled VBG O2 Sat (Calc) Cancelled VBG Base Excess Cancelled POC Mix VBG pCO2 Pt Tmp Cancelled Respiration Rate Cancelled O2 Delivery Device Cancelled Liter Flow Cancelled Minute Volume Cancelled Inspiratory Time Cancelled Expiratory Time Cancelled Tidal Volume Cancelled Mean Airway Pressure Cancelled POC PEEP Cancelled Peak Inspir Pressure Cancelled POC Pressure Suppt Cancelled Pressure Control Cancelled EPAP Cancelled IPAP Cancelled Blood Gas Comments Cancelled Crit Call To/Read Back Cancelled Blood Gas Notified Whom Cancelled Blood Gas Notified Time Cancelled Clinical Comments Cancelled D/C Instructions Discharge Activity: Return to Normal Activity Weight Bearing Status: Weight bearing as tolerated Call your doctor if you observe: Fever of 101 or Higher, Shortness of breath, Dizziness, Swelling in the ankles and Chest pain DC O2, CPAP, BIPAP Needs Home O2 Discharge instructions: No DC home with Oxygen: No Meaningful Use Info Meaningful Use Meaningful Use Diagnoses (Choose all that apply): None applicable Discharge Plan Admission Admit Date/Time: 02/26/25 11:36 Primary Reason for Your Visit: DKA Attending Provider: Isabel Evans Primary Care Provider: Kirk Russell Instructions Patient Instructions: Ketoacidosis Discharge Orders/Prescriptions Prescriptions: Continued insulin lispro [Humalog KwikPen Insulin] 100 unit/mL Insulin Pen 10 unit subcut TIDAC 30 Days Qty: 15 4RF Rx Instructions: Hold if glucose less than 130 mg/dl insulin lispro [Humalog KwikPen Insulin] 100 unit/mL Insulin Pen See Protocol subcut ACHS Qty: 0 0RF Protocol: 3. Sliding Scale Insulin Med Dosing Condition: 150-189 mg/dl = 1 unit Condition: 190-229 mg/dl = 2 units Condition: 230-269 mg/dl = 3 units Condition: 270-309 mg/dl = 4 units Condition: 310-349 mg/dl = 5 units Condition: 350-399 mg/dl = 6 units Condition: 400-449 mg/dl = 7 units Condition: Greater than 449 call physician Protocol Text: Suggested for: - Patients on Total Daily Insulin Dose of 37-55 units - Obese, infected, or steroid patients MEDIUM DOSING ALGORITHIM insulin glargine [Lantus Solostar U-100 Insulin] 100 unit/mL (3 mL) insulin pen 20 unit subcut DAILY 30 Days Qty: 15 3RF Rx Instructions: Hold if glucose less than 130 mg/dl metformin 1,000 mg tablet 1,000 mg PO BID 30 Days Qty: 0 0RF Rx Instructions: Start after 3 days, on 03/01/2020 (DME) needle (disp) 32 gauge 32 gauge x 5/16 needle See Rx Instructions .ROUTE .MEDSUPPLY Qty: 100 2RF Rx Instructions: As directed fluoxetine 40 mg capsule 40 mg PO DAILY venlafaxine 75 mg capsule,extended release 24hr 75 mg PO DAILY gabapentin 300 mg capsule 300 mg PO 4X/DAY carvedilol 12.5 mg tablet 12.5 mg PO BID Qty: 60 11RF Rx Instructions: must administer with a meal/food atorvastatin 80 mg tablet 80 mg PO QHS Qty: 90 3RF aspirin 81 mg tablet,delayed release (DR/EC) 81 mg PO DAILY@0800 Qty: 90 3RF furosemide 20 mg tablet 20 mg PO DAILY Qty: 90 3RF lisinopril 2.5 mg tablet 2.5 mg PO DAILY 30 Days Qty: 90 3RF spironolactone 25 mg tablet 25 mg PO DAILY Qty: 90 3RF Rx Instructions: Hold for serum potassium more than 5.1. Brilinta 90 mg tablet 90 mg PO BID Qty: 60 11RF Discontinued Ozempic 0.25 mg or 0.5 mg (2 mg/3 mL) pen injector 0.25 mg subcut QWEEK Jardiance 10 mg tablet 10 mg PO DAILY 30 Days Qty: 30 11RF Referrals / Follow Up: Kirk Russell MD [Primary Care Provider] - Within 1 Week Disposition Disposition (needs filled in before D/C Order can be placed): Home, Self Care Charges/Coding Visit Charges Inpatient E&M: 15901 Disch Hosp >30min
== END 2025-02-28 13:34 | disposition home or self-care (01) | DRG 420 ==
LOC: ED 10:11 → ICU 12:12 → MS3 02-27 17:54
PROVIDERS: Admitting Provider Student in an Organized Health Care Education/Training Program; Emergency Provider Emergency Medicine; PCP Family Medicine; Visit Provider Student in an Organized Health Care Education/Training Program
DX: E11.10 Type 2 diabetes mellitus with ketoacidosis without coma (principal); E87.1 Hypo-osmolality and hyponatremia; F32.A Depression, unspecified; R65.10 Systemic inflammatory response syndrome (SIRS) of non-infectious origin without acute organ dysfunction; E87.5 Hyperkalemia; I25.10 Atherosclerotic heart disease of native coronary artery without angina pectoris; I25.5 Ischemic cardiomyopathy; I25.2 Old myocardial infarction; Z79.4 Long term (current) use of insulin; R11.2 Nausea with vomiting, unspecified; Z79.85 Long-term (current) use of injectable non-insulin antidiabetic drugs; Z95.5 Presence of coronary angioplasty implant and graft; Z79.84 Long term (current) use of oral hypoglycemic drugs; Z79.82 Long term (current) use of aspirin; Z79.899 Other long term (current) drug therapy; T38.3X5A Adverse effect of insulin and oral hypoglycemic [antidiabetic] drugs, initial encounter
CPT/HCPCS: 36415; 71045; 80048; 80051; 80053; 81001; 82010; 82803; 82962; 83036; 83605; 83690; 83735; 84100; 84484; 85025; 93005; 97161; 97165; 97802; 99285; A4216; J2405